=== PATIENT | female | born 1960 | race Caucasian/White ===

== ENCOUNTER → 2017-10-29 08:19 | Outpatient (CLI) | payer BC, SELFPAY ==
--- NOTE | 2017-10-29 08:22 | MM_ITS ---
MM Dig screening mamm BI w/CAD CAD Screening COMPARISON: Digital mammograms 10/11/2015 and 10/27/2016 INDICATION: There is no personal or family history of breast cancer TECHNIQUE: Standard CC and MLO images were obtained. R2 CAD reviewed. FINDINGS: Mild scattered fiber glandular densities are seen throughout both breasts. There is no suspicious lesion in either breast and no suspicious microcalcifications. Several small nodes in both axilla as noted previously. IMPRESSION: Fibrofatty parenchyma no suspicious lesion seen BI-RADS Category: 1 Negative RECOMMENDED FOLLOW-UP: 1YR - 1 YEAR FOLLOW-UP (A letter has been sent to the patient regarding results of the study.)
== END ==
PROVIDERS: Family Provider Internal Medicine; PCP Internal Medicine; Visit Provider Obstetrics & Gynecology
DX: Z12.31 Encounter for screening mammogram for malignant neoplasm of breast (principal)
CPT/HCPCS: 77067

== ENCOUNTER → 2018-05-06 13:15 | Outpatient (POV) | payer BC, SELFPAY | PROVIDERS: Family Provider Internal Medicine; PCP Internal Medicine; Visit Provider Dermatology | DX: Z00.00 Encounter for general adult medical examination without abnormal findings (principal) ==

== ENCOUNTER → 2018-07-30 09:18 | Outpatient (CLI) | payer BC, SELFPAY ==
--- NOTE | 2018-07-30 09:20 | MM_ITS ---
MM Dig screening mamm BI w/CAD ORDERING PHYSICIAN : Tadeo Chavez MD PATIENT AGE: 58 years GENDER: Female COMPARISON: October 2015, 2016July 2014 INDICATION: ITS.REASON: screening patient takes Premarin. No hormones no new complaints noncontributory family history TECHNIQUE: Standard CC and MLO images were obtained. R2 CAD reviewed. FINDINGS: Lower density breast. Overall Generalized fatty replacement with Minimal residual fibroglandular elements. No dominant mass nor suspicious calculations breast. RIGHT BREAST:No new areas of concern Area of relative density superior right breast appear similar to previous studies. Stable LEFT BREAST:No significant new findings IMPRESSION: No new areas concern Stable bilateral mammogram. Follow-up in one year recommended. BI-RADS Category: 1 Negative RECOMMENDED FOLLOW-UP: 1YR 1 YEAR FOLLOW-UP (A letter has been sent to the patient regarding results of the study.)
== END ==
PROVIDERS: PCP Internal Medicine; Visit Provider Obstetrics & Gynecology
DX: Z12.31 Encounter for screening mammogram for malignant neoplasm of breast (principal)
CPT/HCPCS: 77067

== ENCOUNTER → 2019-02-15 13:48 | Outpatient (CLI) | payer OTHER, SELFPAY | PROVIDERS: Visit Provider Podiatrist | DX: B35.1 Tinea unguium (principal) | CPT/HCPCS: 87102; 87206; 87220 ==

== ENCOUNTER → 2019-08-19 07:56 | Outpatient (CLI) | payer OTHER, SELFPAY ==
--- NOTE | 2019-08-19 07:56 | MM_ITS ---
PROCEDURE: MM DIG SCREENING MAMM BI W/CAD CLINICAL INDICATION: screening There is no personal or family history of breast cancer. COMPARISON: [facility] DIG MAMM-SCREEN [facility] W/CAD from 10/27/2016 [facility] MM Dig screening mamm BI w/CAD from 10/29/2017 [facility] MM Dig screening mamm BI w/CAD from 07/30/2018 TECHNIQUE: Standard CC and MLO images were obtained. R2 CAD reviewed. FINDINGS: The breasts are composed primarily of fat with minimal scattered fibroglandular densities throughout each breast. There is no suspicious lesion and no suspicious microcalcifications. IMPRESSION: Fibrofatty parenchyma with no suspicious lesions seen BI-RAD Category: 1 Negative FOLLOW-UP: 1YR 1 Year Follow-up (A letter has been sent to the patient regarding results of the study.) Dictated by: Dr. Rubén Aleman MD 08/20/2019 16:[address] Rubén Aleman MD in [place] 08/20/2019 16:12
== END ==
PROVIDERS: PCP Internal Medicine; Visit Provider Obstetrics & Gynecology
DX: Z12.31 Encounter for screening mammogram for malignant neoplasm of breast (principal)
CPT/HCPCS: 77067

== ENCOUNTER → 2019-10-04 08:30 | Outpatient (CLI) | payer OTHER, SELFPAY ==
--- NOTE | 2019-10-04 08:36 | XR_ITS ---
PROCEDURE: XR KNEE LT 4V CLINICAL INDICATION: left knee pain Left anterior knee pain COMPARISON: No exams were available for comparison FINDINGS: No fracture or dislocation. No lytic or blastic change. There is normal mineralization. Moderate osteoarthritic changes involving the medial compartment and patellofemoral joint with mild osteoarthritic change of the lateral compartment. There is a small calcific density along the joint space of the medial compartment which measures 4 mm and could represent a loose body. An irregular calcific density is present in the popliteal region etiology indeterminate measuring approximately 9 mm. Other findings:None. IMPRESSION: 1. Osteoarthritic change with possible loose body in the medial compartment 2. Nonspecific 9 mm calcific density in the patellar area etiology indeterminate could even be vascular Dictated by: Storm Be MD 10/04/2019 19:02 Electronically signed by Storm Be MD in [place] 10/04/2019 19:02
== END ==
PROVIDERS: PCP Internal Medicine; Visit Provider Orthopaedic Surgery
DX: M25.562 Pain in left knee (principal)
CPT/HCPCS: 73564

== ENCOUNTER → 2019-12-05 08:41 | Outpatient (POV) | payer OTHER, SELFPAY ==
[2019-12-05 09:19] VITALS: BP 142/89; PULSE 68; RESP 18; O2SAT 98; BMI 23.3
--- NOTE | 2019-12-05 09:58 | HMH.PMCON ---
Assessment and Plan (1) Knee pain Current visit: Yes Status: Chronic Qualifiers: Chronicity: chronic Laterality: left Qualified Code(s): M25.562 - Pain in left knee; G89.29 - Other chronic pain Category: Medical Code(s): M25.569 - Pain in unspecified knee (2) Osteoarthritis of left knee Current visit: Yes Status: Chronic Qualifiers: Osteoarthritis type: primary Qualified Code(s): M17.12 - Unilateral primary osteoarthritis, left knee Category: Medical Code(s): M17.12 - Unilateral primary osteoarthritis, left knee - Assessment and plan all Dx Assessment and Plan for all problems:: Patient and I had a long discussion in regards to the diagnostic nature of the genicular block. We will move forward with this. Due to the covid-19 outbreak we are not doing any elective procedures at this time. Patient understands this. We will call her with an appointment when we begin to do diagnostic procedures again. Dr. Harry has reviewed this note and agrees with this plan of care. This note was dictated using voice recognition software and may contain errors or omissions HPI - Data of Consult Consult date: 12/05/19 Requesting Physician: Ruth Johnston APRN Primary Care Provider: Venkat Truong - Consult Narrative Reason for consult: Left knee pain History of present illness: Ms. De Luna is a 59 year old female who presents today for consultation regards to her left knee pain. Patient rates her pain today a 1 out of 10. Patient states that increased activity increases her pain will rest decreases her pain. Patient has had multiple intra-articular injections with some relief at the beginning however at this time her last several injections were not as helpful. Patient has been doing physical therapy including dry needling along with stretching and receiving no relief from this. She does take ibuprofen as needed. Patient is here to discuss potential other options. She does need a knee replacement however she would like to hold off on this as long as possible. We did discuss a genicular block. CC: Ruth Johnston APRN [facility] History I have reviewed the patient's past medical history: Yes Medical History: Reports:: Anxiety, Hypertension Denies:: Cancer, Diabetes Mellitus Type 1, Diabetes Mellitus Type 2, MRSA *Have you ever received a pneumonia vaccine?: Yes *Have you received a flu vaccine this season?: Yes Laterality Cases: Left: Arthroscopy Knee Other Surgeries: Yes: Cholecystectomy, Colonoscopy, , Hysterectomy-Total, Other Amputation: No Fractures: No - *Social History Smoking Status: Never smoker Alcohol Intake: never Substance Use Type: denies use *Occupational Status:: other Housing: house Household Members: other *Travel in the last 8 weeks: None - Psychiatric History Pschychiatric History:: Reports:: Anxiety Family Hx:: Unable to obtain Review of Systems - Review of Systems ROS General: no recent weight change, no fever, no sleep disturbances Respiratory: no cough, no shortness of air, no recurring pulmonary infections Cardiovascular/Peripheral Vascular: No chest pain, No palpitations, no edema, no shortness of breath. Gastrointestinal: no new onset incontinence, normal bowel movements reported Genitourinary: no new onset incontinence Musculoskeletal: Left knee pain Psychiatric: normal mood/ affect, Neurological: [denies new onset weakness in extremities], [denies new onset balance issues] Meds Home Medications Medication Instructions Recorded Confirmed Type phentermine 37.5 mg capsule 37.5 mg PO DAILY #30 cap 11/15/19 11/22/19 Rx Ibuprofen [Ibuprofen 400mg 400 mg PO Q4HP PRN 12/05/19 12/05/19 History Tablet] Allergies Allergy/AdvReac Type Severity Reaction Status Date / Time No Known Allergies Allergy Verified 11/22/19 13:52 Objective Vital signs: Pulse Resp BP Pulse Ox 68 18 142/89 H 98 12/05/19 09:19
== END ==
PROVIDERS: PCP Internal Medicine; Visit Provider Clinical Nurse Specialist Family Health
DX: M25.562 Pain in left knee (principal); G89.29 Other chronic pain; M17.12 Unilateral primary osteoarthritis, left knee
CPT/HCPCS: 99202

== ENCOUNTER 2019-12-09 10:41 | Day surgery (SDC) | payer OTHER, SELFPAY ==
[2019-12-09 11:12] VITALS: BP 157/89; PULSE 83; RESP 18; TEMP 36.6; O2SAT 98; BMI 36.3
[2019-12-09 11:44] VITALS: BP 128/89; BP 132/85; PULSE 86; PULSE 92; RESP 18; O2SAT 99
--- NOTE | 2019-12-09 11:49 | HMH.PMPROC ---
- Procedure Date: 12/09/19 Time: 11:49 Anesthesiologist:: Julio Harry MD Complications:: None Pre-procedure Diagnosis:: Degenerative arthritis left knee Post-procedure Diagnosis:: Same Indications for Procedure:: This patient is a pleasant 59-year-old white female who has chronic degenerative osteoarthritis of her left knee. She is planning on getting a knee replacement in the fall. She has had several intra-articular injections with the last few not helping. We will do a left genicular nerve block to give her some relief of her pain symptoms. Her pain is starting to affect her activities of daily living and functionality. We will do a left knee genicular nerve block today to symptoms and keep her out of the emergency room and keep her off oral opioids. Procedure Details:: Left knee genicular block Informed consent was obtained and the risk and benefits of the procedure was explained to the patient. The patient was taken to the procedure room. The left knee was prepped using ChloraPrep. I placed 22-gauge needles into the area of the left superior medial genicular nerve, left superior lateral genicular nerve and left inferior medial genicular nerve. Needle placement was confirmed in AP and lateral views with dye. We then injected bupivacaine 0.25% 3 mL's and Depo-Medrol 25 mg into each area of the left superior medial genicular nerve, left superior lateral genicular nerve and left inferior medial genicular nerve. Patient tolerated the procedure well with no complications. Plan and Disposition:: We will follow-up with her in 2 weeks. Will reevaluate her symptoms at that time.
[2019-12-09 12:00] VITALS: BP 151/89; PULSE 68; RESP 16; O2SAT 98
== END 2019-12-09 12:00 | disposition home or self-care (01) ==
LOC: SC.PAINP 10:42
PROVIDERS: PCP Internal Medicine; Visit Provider Anesthesiology
DX: M13.862 Other specified arthritis, left knee (principal); Z79.899 Other long term (current) drug therapy
CPT/HCPCS: 64454; J1040; Q9966

== ENCOUNTER → 2019-12-26 08:39 | Outpatient (POV) | payer OTHER, SELFPAY ==
[2019-12-26 08:49] VITALS: BP 127/88; PULSE 93; RESP 18; TEMP 36.6; O2SAT 99; BMI 35.4
--- NOTE | 2019-12-26 09:07 | HMH.PAINSOAP ---
[facility] Pain Management SOAP Note Subjective:: Patient is a pleasant 59-year-old white female who with chronic degenerative osteoarthritis of her left knee following up after a left genicular block. Patient is doing extremely well getting 80% relief of her symptomology. She is much more functional. Patient would like to repeat this and potentially move forward with an ablation. We will set this up for her. ROS General: no recent weight change, no fever, no sleep disturbances Respiratory: no cough, no shortness of air, no recurring pulmonary infections Cardiovascular/Peripheral Vascular: No chest pain, No palpitations, no edema, no shortness of breath. Gastrointestinal: no new onset incontinence, normal bowel movements reported Genitourinary: no new onset incontinence Musculoskeletal: Left knee pain Psychiatric: normal mood/ affect, [denies depression], [denies anxiety] Neurological: [denies new onset weakness in extremities], [denies new onset balance issues] Objective:: Physical Exam General: Alert and oriented x3, no acute distress, pleasant and cooperative, [on room air] Lungs: Resps E/U, Symmetrical chest expansion, Eyes: PERRL Musculoskeletal: Flexion and extension of left knee somewhat guarded secondary to pain, deep tendon reflexes normal, strength in upper and lower extremities [5/5], slightly antalgic gait noted Neurological: speech clear, loan originator equal, no gross sensory deficits Assessment:: Degenerative arthritis left knee, left knee pain Plan:: We will plan a repeat left-sided genicular block given the efficacy of the last one. We will do this at the end of December. We specifically discussed risk factors for Covid-19 including age, heart or lung disease, diabetes, immunosuppression and travel. We also discussed that NSAIDs may worsen Covid-19 infection symptoms and that they should not be used to treat Covid-19 symptoms. Patient was also informed that corticosteroids in any form oral or injectable will decrease immune response and may increase risk of Covid-[address] Harry has reviewed this patient's chart and this note and agrees with plan of care. Patient has been instructed to call the office if they have any issues prior to the next appointment. Dr. Harry has reviewed this note and agrees with this plan of care. This note was dictated using voice recognition software and may contain errors or omissions [facility] History I have reviewed the patient's past medical history: Yes Medical History: Reports:: Anxiety, Arrhythmia, Hypertension Denies:: Cancer, Diabetes Mellitus Type 1, Diabetes Mellitus Type 2, MRSA, Seizures *Have you ever received a pneumonia vaccine?: Yes *Have you received a flu vaccine this season?: Yes Laterality Cases: Left: Arthroscopy Knee Other Surgeries: Yes: Cholecystectomy, Colonoscopy, , Hysterectomy-Total, Other Amputation: No Fractures: No - *Social History Smoking Status: Never smoker Alcohol Intake: never Substance Use Type: denies use *Occupational Status:: other Housing: house Household Members: other *Travel in the last 8 weeks: None - Psychiatric History Pschychiatric History:: Reports:: Anxiety Family Hx:: Unable to obtain
== END ==
PROVIDERS: PCP Internal Medicine; Visit Provider Clinical Nurse Specialist Family Health
DX: M17.12 Unilateral primary osteoarthritis, left knee (principal)
CPT/HCPCS: 99212

== ENCOUNTER → 2020-04-19 14:59 | Outpatient (CLI) | payer OTHER, SELFPAY ==
--- NOTE | 2020-04-19 14:59 | CA_ITS ---
APPROVED REPORT EXAM: Comprehensive 2D, Doppler, and color-flow Echocardiogram [place] [employer]er: Cayla Steinberg RDCS Ht: 5 ft 3 in Wt: 191lbs BSA: 1.90 BP: 173/94 mmHg Indications: HTN PRE-OP 2D Dimensions LVOT 1.95 cm (M/F) 1.5-2.5 M-Mode Dimensions RVDd 3.32 cm (0.9-2.6) LVDd 4.38 cm (3.5-5.7) LVDs 3.09 cm (3.5-5.7) IVSd 0.91 cm (0.6-1.1) PWd 0.99 cm (0.6-1.1) EF (Teich) 56.70% FS 29.50% EDV (Teich) 86.80 mL ESV (Teich) 37.60 mL LV Diastology E/A Ratio 1.12 Mitral Valve MV A Velocity 51.00 (40-130 cm/s) Left Ventricle Left atrium is mildly enlarged, left ventricle is normal size, mild concentric left ventricular hypertrophy, visually estimated ejection fraction 55% with no regional wall motion abnormality, grade 1 diastolic dysfunction seen without tissue Doppler evidence of raise left atrial pressure. Right Ventricle Right atrium and right ventricular mildly enlarged with normal contractility. Aortic Valve Aortic valve is thickened and calcified, there is no aortic stenosis, there is mild aortic insufficiency. Mitral Valve Mitral valve is grossly normal, there is mild mitral regurgitation. Tricuspid Valve Tricuspid valve grossly normal, there is mild tricuspid regurgitation, tricuspid regurgitation jet velocity is inadequate for calculation of the right ventricular systolic pressure. Pulmonic Valve Pulmonic valve is poorly visualized. Great Vessels Aortic root is normal size. Pericardium No significant pericardial effusion noted. Conclusion 1. Mild biatrial enlargement, normal left ventricular size, mild concentric left ventricular hypertrophy, visually estimated ejection fraction 55% with no regional wall motion abnormality, grade 1 diastolic dysfunction seen without tissue Doppler evidence of raise left atrial pressure. 2. Mildly enlarged right ventricle with normal contractility. 3. Mild aortic, mild mitral and tricuspid regurgitation. 4. No significant pericardial effusion noted. Electronically signed by : Theron Contreras, 04/19/2020 15:44:05
== END ==
PROVIDERS: PCP Internal Medicine; Visit Provider Internal Medicine Cardiovascular Disease
DX: I10 Essential (primary) hypertension (principal); E66.9 Obesity, unspecified
CPT/HCPCS: 93306

== ENCOUNTER → 2020-07-17 10:16 | Outpatient (CLI) | payer OTHER, SELFPAY | PROVIDERS: PCP Internal Medicine; Visit Provider Internal Medicine | DX: Z20.828 Contact with and (suspected) exposure to other viral communicable diseases (principal); U07.1 COVID-19 | CPT/HCPCS: U0003 ==

== ENCOUNTER 2020-08-02 11:00 | Outpatient (RCR) | payer OTHER, SELFPAY | END 2020-08-02 11:05 | disposition home or self-care (01) | LOC: PT 11:00 | PROVIDERS: PCP Internal Medicine; Visit Provider Orthopaedic Surgery | DX: Z96.652 Presence of left artificial knee joint; M25.562 Pain in left knee | CPT/HCPCS: 97010; 97014; 97016; 97110; 97140; 97163; 97164; G0283 ==

== ENCOUNTER → 2020-10-25 07:40 | Outpatient (CLI) | payer OTHER, SELFPAY ==
[2020-10-25 08:08] LABS: Basophils % 0.7 % (0.1-2.0); Eosinophils # 0.1 K/mm3 (0.0-0.4); Eosinophils % 2.3 % (0.1-12.0); Hemoglobin 14.1 g/dL (12.2-16.2); Lymphocytes # 1.6 K/mm3 (0.7-4.5); Mean Corpuscular HGB Conc 31.3 g/dL (31.8-35.4); Mean Corpuscular Hemoglobin 29.1 pg (27.0-31.2); Mean Platelet Volume 8.2 fl (7.4-10.4); Monocytes # 0.3 K/mm3 (0.1-1.0); Monocytes % 4.3 % (1.7-9.3); Neutrophils % 65.7 % (37.0-80.0); Platelet Count 267 K/mm3 (142-424); Red Blood Count 4.84 M/mm3 (4.20-5.40); Red Cell Distribution Width 14.5 % (11.5-17.5); White Blood Count 6.1 K/mm3 (4.8-10.8)
[2020-10-25 08:29] LABS: Chloride 105 mmol/L (98-107)
[2020-10-25 08:30] LABS: Potassium 4.4 mmoL/L (3.5-5.1); Sodium 141 mmol/L (136-145)
[2020-10-25 08:32] LABS: Alanine Aminotransferase 23 U/L (12-78); Albumin Level 4.2 g/dl (3.5-5.0); Alkaline Phosphatase 103 U/L (38-126); Aspartate Amino Transferase 25 U/L (14-36); Bilirubin,Total 0.7 mg/dl (0.2-1.3); Blood Urea Nitrogen 20 mg/dl (7-17); Estimated Glomerular Filt Rate 73 ml/min (>60); GFR (African American) 89 ML/MIN (>60); Globulin 3.3 g/dL (1.3-3.2); Total Protein,Serum 7.5 g/dl (6.3-8.2)
[2020-10-25 08:33] LABS: Albumin/Globulin Ratio 1.3 (1.1-1.8); Anion Gap 8.4 mEq/L (5-15); Calcium 9.7 mg/dl (8.4-10.2); Carbon Dioxide 32 mmol/L (22.0-30.0); Chol/HDL Ratio 3.4 (1-3.5); Cholesterol 191 mg/dl (140-200); Glucose 106 mg/dl (74-100); HDL Cholesterol 56 mg/dl (40-60); Triglycerides 83 mg/dl (30-150); VLDL Cholesterol 17 mg/dL (0-40)
[2020-10-25 08:44] LABS: Direct LDL Cholesterol 93.26 mg/dL (100-129)
== END ==
PROVIDERS: Visit Provider Nurse Practitioner Obstetrics & Gynecology
DX: Z01.419 Encounter for gynecological examination (general) (routine) without abnormal findings (principal)
CPT/HCPCS: 36415; 80053; 80061; 85025

== ENCOUNTER → 2020-12-05 14:43 | Outpatient (CLI) | payer OTHER, SELFPAY | PROVIDERS: PCP Internal Medicine; Visit Provider Internal Medicine Cardiovascular Disease | DX: G47.33 Obstructive sleep apnea (adult) (pediatric) (principal) | CPT/HCPCS: 95806 ==

== ENCOUNTER → 2021-01-21 09:20 | Outpatient (CLI) | payer OTHER, SELFPAY ==
--- NOTE | 2021-01-21 09:20 | MM_ITS ---
PROCEDURE INFORMATION: Exam: MG Screening 3D Mammography Exam date and time: 01/21/2021 9:20 AM Age: 60 years old Clinical indication: screening mammogram TECHNIQUE: Imaging protocol: Screening tomosynthesis and 2D mammography including computer-aided detection (CAD) when performed. COMPARISON: 1. MG MM DIG SCREENING MAMM BI W/CAD 08/19/2019 8:13 AM 2. MG [facility] MM Dig screening mamm BI w/CAD 07/30/2018 9:24 AM 3. MG [facility] MM Dig screening mamm BI w/CAD 10/29/2017 8:37 AM 4. MG [facility] DIG MAMM-SCREEN [facility] W/CAD 10/27/2016 8:42 AM FINDINGS: MAMMOGRAPHY: Breast composition: There are scattered areas of fibroglandular density. Mass: None. Architectural distortion: No new or suspicious architectural distortion. Calcifications: No new or suspicious calcifications are present Asymmetric density: No new or suspicious asymmetric density is present Skin thickening: None. Axillary adenopathy: None. IMPRESSION: No mammographic evidence of malignancy. Recommend annual screening mammography unless otherwise clinically indicated. ASSESSMENT: BI-RADS category 1: Negative
== END ==
PROVIDERS: PCP Internal Medicine; Visit Provider Nurse Practitioner Obstetrics & Gynecology
DX: Z12.31 Encounter for screening mammogram for malignant neoplasm of breast (principal)
CPT/HCPCS: 77063; 77067

== ENCOUNTER → 2021-02-13 07:22 | Outpatient (CLI) | payer OTHER, SELFPAY ==
--- NOTE | 2021-02-13 07:27 | XR_ITS ---
PROCEDURE: XR HAND RT MIN 3V CLINICAL INDICATION: right thumb pain COMPARISON: No exams were available for comparison FINDINGS: Tiny avulsion at base of distal phalanx of index finger, likely chronic. Mild diffuse degenerative changes are present. No definite acute fracture or dislocation. Mild degenerative change of the 1st carpometacarpal joint noted. Mild soft tissue swelling is present. IMPRESSION: No definite acute fracture or dislocation. Mild diffuse degenerative change with mild degenerative change of the 1st carpometacarpal joint. Mild soft tissue swelling. Dictated by: Rajat Vyas MD 02/13/2021 09:23 Rajat Vyas MD in [place] 02/13/2021 09:23
== END ==
PROVIDERS: PCP Internal Medicine; Visit Provider Orthopaedic Surgery
DX: M79.644 Pain in right finger(s) (principal)
CPT/HCPCS: 73130

== ENCOUNTER → 2021-04-24 10:06 | Outpatient (CLI) | payer OTHER, SELFPAY | PROVIDERS: PCP Internal Medicine; Visit Provider Specialist | DX: G47.33 Obstructive sleep apnea (adult) (pediatric) (principal) | CPT/HCPCS: 94762 ==

== ENCOUNTER → 2021-09-27 15:15 | Outpatient (CLI) | payer OTHER, SELFPAY ==
[2021-09-27 17:23] LABS: NT Pro Brain Natriuretic Pep. 68.1 pg/mL (0-125)
== END ==
PROVIDERS: PCP Internal Medicine; Visit Provider Internal Medicine Cardiovascular Disease
DX: R06.00 Dyspnea, unspecified (principal); I10 Essential (primary) hypertension; E66.9 Obesity, unspecified; Z68.38 Body mass index [BMI] 38.0-38.9, adult
CPT/HCPCS: 36415; 83880

== ENCOUNTER → 2021-10-03 07:43 | Outpatient (CLI) | payer OTHER, SELFPAY ==
--- NOTE | 2021-10-03 07:44 | CA_ITS ---
APPROVED REPORT EXAM: Comprehensive 2D, Doppler, and color-flow Echocardiogram [employer]rain: Nicolasa Zambrano CRT Ht: 5 ft 3 in Wt: 220lbs BSA: 2.01 BP: 144/74 mmHg Indications: Shortness of Breath, MAURA, HTN, Obesity 2D Dimensions LVOT 2.01 cm (M/F) 1.5-2.5 M-Mode Dimensions RVDd 2.78 cm (0.9-2.6) LA Diam 3.26 cm (1.9-4.0) LVDd 4.39 cm (3.5-5.7) Ao Diam 3.89 cm (2.0-3.7) LVDs 2.94 cm (3.5-5.7) IVSd 1.66 cm (0.6-1.1) PWd 0.87 cm (0.6-1.1) EF (Teich) 61.80% FS 33.00% EDV (Teich) 87.20 mL TAPSE 1.21 (<1.7) ESV (Teich) 33.30 mL LV Diastology E Decel Time 190.00 (160-240 msec) E/A Ratio 0.96 MED E' 7.30 (< 7 cm/sec) MED A' 10.60 cm/s E'/MED E' Ratio 11.05 (>14) LAT E' 7.30 (<10 cm/sec) LAT A' 10.80 cm/s E/LAT E' Ratio 11.05 (>14) Aortic Valve AI PHT 456.00 ms AO Peak GR. 6.90 mmHg Mitral Valve MV A Velocity 84.00 (40-130 cm/s) E/A Ratio 0.96 MV Decel. Time 190.00 (160-240 ms) Pulmonary Valve PV Peak Velocity 119.00 (50-150 cm/s) Tricuspid Valve TR P. Velocity 189.00 cm/s RAP Estimate 10.00 mmHg RVSP 24.30 mmHg Left Ventricle Left atrium is mildly enlarged, left ventricle is normal size, mild concentric left ventricular hypertrophy, visually estimated ejection fraction 55% with no regional wall motion abnormality, grade 1 diastolic dysfunction seen without tissue Doppler evidence of raise left atrial pressure. Right Ventricle Right atrium and right ventricle are mildly enlarged with normal contractility. Aortic Valve Aortic valve is minimally thickened and fibrosed, there is no aortic stenosis, there is trace aortic insufficiency. Mitral Valve Mitral valve grossly normal, there is trace mitral regurgitation. Tricuspid Valve Tricuspid valve grossly normal, there is trace tricuspid regurgitation, tricuspid regurgitation jet velocity is inadequate for calculation of the right ventricular systolic pressure. Pulmonic Valve Pulmonic valve is poorly visualized. Great Vessels Aortic root is normal size. Inferior vena cava is normal size with normal inspiratory collapse. Pericardium No significant pericardial effusion noted. Conclusion 1. Normal left ventricular size, preserved left ventricular systolic function, visually estimated ejection fraction 55% with no regional wall motion abnormality, grade 1 diastolic dysfunction seen without tissue Doppler evidence of raise left atrial pressure. 2. Trace aortic, mitral and tricuspid regurgitation. 3. No significant pericardial effusion noted. 4. Inferior vena cava normal size with normal inspiratory collapse. Electronically signed by : Theron Contreras MD 10/03/2021 12:23:41
--- NOTE | 2021-10-03 09:20 | CT_ITS ---
FINAL REPORT TECHNIQUE: Axial CT images were performed from the lung apices through the upper abdomen. Coronal reformats were submitted. This study was performed with techniques to keep radiation doses as low as reasonably achievable (ALARA). Individualized dose reduction techniques using automated exposure control or adjustment of mA and/or kV according to the patient's size were employed. CLINICAL HISTORY: dyspnea x 1 month FINDINGS: There is no axillary adenopathy. There is no hilar or mediastinal mass or adenopathy. Heart size is normal. There is no pericardial or pleural effusion. Limited images of the upper abdomen are unremarkable. On the lung window images there is mild scarring. There are several less than 5 mm pulmonary nodules. There is a 2 mm nodule in the left lower lobe on image 32. IMPRESSION: Several small, nonspecific, pulmonary nodules which are likely benign. If indicated follow-up CT in 12 months. Reviewed, Interpreted and Dictated by Ernie Murrieta III, MD Transcribed by Kinza Sharma Authenticated by Ernie Murrieta III, MD on 10/03/2021 10:16:[address] [facility]
== END ==
PROVIDERS: PCP Internal Medicine; Visit Provider Internal Medicine Cardiovascular Disease
DX: R06.00 Dyspnea, unspecified (principal); I10 Essential (primary) hypertension; E66.9 Obesity, unspecified; Z68.38 Body mass index [BMI] 38.0-38.9, adult
CPT/HCPCS: 71250; 93306; 94762

== ENCOUNTER → 2021-10-24 09:47 | Outpatient (CLI) | payer OTHER, SELFPAY | PROVIDERS: PCP Internal Medicine; Visit Provider Internal Medicine Pulmonary Disease | DX: R06.00 Dyspnea, unspecified (principal) | CPT/HCPCS: 94060; 94618; 94726; 94729 ==

== ENCOUNTER 2021-12-08 20:11 | Emergency (ER) | payer OTHER, SELFPAY ==
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
[2021-12-08 22:04] VITALS: BP 156/95; PULSE 81; RESP 16; TEMP 36.6; O2SAT 98; BMI 37.2
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
[2021-12-08 22:33] VITALS: BP 156/95; PULSE 81; RESP 16; TEMP 36.6
== END 2021-12-08 22:33 | disposition home or self-care (01) ==
LOC: ER 20:28 → UTC 20:44
PROVIDERS: Emergency Provider Nurse Practitioner Family; PCP Internal Medicine
DX: S87.81XA Crushing injury of right lower leg, initial encounter (principal); I10 Essential (primary) hypertension; I49.9 Cardiac arrhythmia, unspecified; R91.1 Solitary pulmonary nodule; G47.33 Obstructive sleep apnea (adult) (pediatric); F32.A Depression, unspecified; F41.9 Anxiety disorder, unspecified; Z88.8 Allergy status to other drugs, medicaments and biological substances; Z82.49 Family history of ischemic heart disease and other diseases of the circulatory system; V09.9XXA Pedestrian injured in unspecified transport accident, initial encounter
CPT/HCPCS: 73590; 99213; G0463

== ENCOUNTER → 2022-04-29 08:07 | Outpatient (POV) | payer OTHER, SELFPAY | PROVIDERS: Visit Provider Dermatology | DX: Z00.00 Encounter for general adult medical examination without abnormal findings (principal) ==

== ENCOUNTER 2022-09-17 09:25 | Outpatient (RCR) | payer OTHER, SELFPAY | END 2022-09-17 10:30 | disposition home or self-care (01) | LOC: PT 09:25 | PROVIDERS: Visit Provider Podiatrist | DX: M72.2 Plantar fascial fibromatosis (principal) | CPT/HCPCS: 97760 ==

== ENCOUNTER → 2023-02-17 07:38 | Outpatient (CLI) | payer OTHER, SELFPAY ==
--- NOTE | 2023-02-17 07:41 | XR_ITS ---
FINAL REPORT CLINICAL HISTORY: Rt hand pain COMPARISON: January 2021 FINDINGS: 3 views of the right hand were obtained. There is no acute fracture or dislocation. There are minimal hypertrophic changes at the 2nd distal interphalangeal joint that may be due to early osteoarthritis. There is no soft tissue abnormality. IMPRESSION: No acute process. Reviewed, Interpreted and Dictated by Sabino Evans MD Transcribed by Kenney Betancourt Authenticated and . [facility]
== END ==
PROVIDERS: PCP Internal Medicine; Visit Provider Orthopaedic Surgery
DX: M79.644 Pain in right finger(s) (principal); M79.641 Pain in right hand
CPT/HCPCS: 73130

== ENCOUNTER → 2023-02-26 08:05 | Outpatient (CLI) | payer OTHER, SELFPAY ==
[2023-02-26 08:30] LABS: Basophils # 0.1 K/mm3 (0-0.2); Basophils % 0.4 % (0.1-2.0); Eosinophils # 0.3 K/mm3 (0.0-0.4); Eosinophils % 2.7 % (0.1-12.0); Hematocrit 43.6 % (37.0-47.0); Hemoglobin 13.4 g/dL (12.2-16.2); Lymphocytes # 2.8 K/mm3 (0.7-4.5); Lymphocytes % 27.3 % (10-50); Mean Corpuscular HGB Conc 30.8 g/dL (31.8-35.4); Mean Corpuscular Hemoglobin 28.8 pg (27.0-31.2); Mean Corpuscular Volume 93.5 fl (81-99); Mean Platelet Volume 9.1 fl (7.4-10.4); Monocytes # 0.4 K/mm3 (0.1-1.0); Monocytes % 3.5 % (1.7-9.3); Neutrophils # 6.8 K/mm3 (1.8-7.8); Neutrophils % 66.1 % (37.0-80.0); Platelet Count 244 K/mm3 (142-424); Red Blood Count 4.67 M/mm3 (4.20-5.40); Red Cell Distribution Width 14.5 % (11.5-17.5); White Blood Count 10.3 K/mm3 (4.8-10.8)
[2023-02-26 08:49] LABS: Alanine Aminotransferase 33 U/L (12-78); Albumin Level 4.1 g/dl (3.5-5.0); Albumin/Globulin Ratio 1.5 (1.1-1.8); Alkaline Phosphatase 115 U/L (38-126); Anion Gap 14.9 mEq/L (5-15); Aspartate Amino Transferase 26 U/L (14-36); Bilirubin,Total 0.8 mg/dl (0.2-1.3); Blood Urea Nitrogen 15 mg/dl (7-17); Calcium 8.9 mg/dl (8.4-10.2); Carbon Dioxide 29 mmol/L (22.0-30.0); Chloride 100 mmol/L (98-107); Chol/HDL Ratio 3.9 (1-3.5); Cholesterol 201 mg/dl (140-200); Estimated Glomerular Filt Rate 72 ml/min (>60); GFR (African American) 88 ML/MIN (>60); Globulin 2.7 g/dL (1.3-3.2); Glucose 104 mg/dl (74-100); HDL Cholesterol 51 mg/dl (40-60); Potassium 4.9 mmoL/L (3.5-5.1); Sodium 139 mmol/L (136-145); Total Protein,Serum 6.8 g/dl (6.3-8.2); Triglycerides 107 mg/dl (30-150); VLDL Cholesterol 21 mg/dL (0-40)
[2023-02-26 08:54] LABS: Erythrocyte Sedimentation Rate 13 mm/hr (0-30)
[2023-02-26 09:01] LABS: Direct LDL Cholesterol 101.46 mg/dL (100-129)
[2023-02-26 09:19] LABS: Thyroid Stimulating Hormone 1.85 uIU/mL (0.465-4.68)
== END ==
PROVIDERS: PCP Internal Medicine; Visit Provider Internal Medicine
DX: I10 Essential (primary) hypertension (principal); E78.5 Hyperlipidemia, unspecified; R53.83 Other fatigue; E66.01 Morbid (severe) obesity due to excess calories; Z68.38 Body mass index [BMI] 38.0-38.9, adult
CPT/HCPCS: 36415; 80053; 80061; 84443; 85025; 85651

== ENCOUNTER → 2023-04-28 07:43 | Outpatient (CLI) | payer OTHER, SELFPAY ==
--- NOTE | 2023-04-28 07:46 | XR_ITS ---
FINAL REPORT CLINICAL HISTORY: right elobow pain, pain when writing FINDINGS: RIGHT ELBOW 3 views were obtained. There is no acute fracture or dislocation. There is no joint effusion. The joint spaces are intact. There is no soft tissue abnormality. IMPRESSION: No acute process. Reviewed, Interpreted and Dictated by Sabino Evans MD Transcribed by Kenney Betancourt Authenticated and [facility]
== END ==
PROVIDERS: PCP Internal Medicine; Visit Provider Orthopaedic Surgery
DX: M25.521 Pain in right elbow (principal)
CPT/HCPCS: 73080

== ENCOUNTER → 2023-08-14 07:18 | Outpatient (CLI) | payer OTHER, SELFPAY ==
--- NOTE | 2023-08-14 07:18 | CT_ITS ---
FINAL REPORT TECHNIQUE: Axial images were obtained through the chest without contrast. CLINICAL HISTORY: Lung nodules COMPARISON: 10/03/2021 FINDINGS: There are multiple small bilateral axillary lymph nodes present measuring up to 10 mm in size. Calcified left hilar lymph nodes are present as well. There are several scattered less than 5 mm in size nodules identified. The left upper lobe nodule seen on the prior exam measuring 2 mm in size is stable and is best seen on image 34 of series 2. There is a slightly irregular linear appearing density in the medial right lung base, which is new since the prior CT examination and may represent a focus of atelectasis or scarring. This is best seen on axial image #67 of series 2. The heart size is normal. There is no pericardial or pleural effusion. Limited images of the upper abdomen are unremarkable. IMPRESSION: Multiple small bilateral axillary lymph nodes measuring up to 10 mm, nonspecific. Tiny 2 mm noncalcified nodule in the left lung base posteriorly remained stable when compared to the prior exam of October 2021. There is a new irregular density in the medial right lung base, that may represent atelectasis or scar. Reviewed, Interpreted and Dictated by Sabino Evans MD Transcribed by Amber Casey Authenticated and [facility]
== END ==
PROVIDERS: PCP Internal Medicine; Visit Provider Internal Medicine Pulmonary Disease
DX: R91.8 Other nonspecific abnormal finding of lung field (principal)
CPT/HCPCS: 71250; 94060

== ENCOUNTER 2023-11-10 09:25 | Outpatient (CLI) | payer BC, SELFPAY ==
[2023-11-10 10:05] LABS: Basophils # 0.1 K/mm3 (0-0.2); Basophils % 1.4 % (0.1-2.0); Eosinophils # 0.1 K/mm3 (0.0-0.4); Eosinophils % 1.3 % (0.1-12.0); Hematocrit 41.9 % (37.0-47.0); Hemoglobin 13.2 g/dL (12.2-16.2); Lymphocytes # 1.6 K/mm3 (0.7-4.5); Mean Corpuscular HGB Conc 31.5 g/dL (31.8-35.4); Mean Corpuscular Hemoglobin 30.4 pg (27.0-31.2); Mean Corpuscular Volume 96.6 fl (81-99); Mean Platelet Volume 9.7 fl (7.4-10.4); Monocytes # 0.3 K/mm3 (0.1-1.0); Monocytes % 6.7 % (1.7-9.3); Neutrophils # 2.8 K/mm3 (1.8-7.8); Neutrophils % 57.6 % (37.0-80.0); Platelet Count 173 K/mm3 (142-424); Red Blood Count 4.34 M/mm3 (4.20-5.40); Red Cell Distribution Width 14.7 % (11.5-17.5); White Blood Count 4.9 K/mm3 (4.8-10.8)
[2023-11-10 10:15] LABS: Alanine Aminotransferase 53 U/L (12-78); Albumin Level 3.9 g/dl (3.5-5.0); Alkaline Phosphatase 103 U/L (38-126); Anion Gap 8.9 mEq/L (5-15); Aspartate Amino Transferase 51 U/L (14-36); Blood Urea Nitrogen 16 mg/dl (7-17); Calcium 8.6 mg/dl (8.4-10.2); Carbon Dioxide 29 mmol/L (22.0-30.0); Chloride 105 mmol/L (98-107); Chol/HDL Ratio 3.9 (1-3.5); Cholesterol 175 mg/dl (140-200); Estimated Glomerular Filt Rate 85 ml/min (>60); GFR (African American) 102 ML/MIN (>60); Glucose 106 mg/dl (74-100); HDL Cholesterol 45 mg/dl (40-60); Potassium 3.9 mmoL/L (3.5-5.1); Sodium 139 mmol/L (136-145); Total Protein,Serum 6.5 g/dl (6.3-8.2); Triglycerides 76 mg/dl (30-150); VLDL Cholesterol 15 mg/dL (0-40)
[2023-11-10 10:31] LABS: Troponin I < 0.01 ng/ml (0.00-0.034)
[2023-11-10 10:32] LABS: Direct LDL Cholesterol 91.84 mg/dL (100-129)
[2023-11-10 10:35] LABS: Free T4 (Free Thyroxine) 1.08 ng/dl (0.78-2.19)
[2023-11-10 10:45] LABS: Thyroid Stimulating Hormone 1.56 uIU/mL (0.465-4.68)
[2023-11-10 11:20] LABS: D-Dimer 0.71 ug/mL (0.0-0.5)
[2023-11-11 12:58] LABS: NT Pro Brain Natriuretic Pep. 253 pg/mL (0-125)
== END 2023-11-10 23:59 ==
LOC: LAB 10:58
PROVIDERS: PCP Internal Medicine; Visit Provider Nurse Practitioner Family
DX: I11.9 Hypertensive heart disease without heart failure (principal); R91.8 Other nonspecific abnormal finding of lung field; R06.00 Dyspnea, unspecified; E66.9 Obesity, unspecified; Z68.41 Body mass index [BMI] 40.0-44.9, adult
CPT/HCPCS: 36415; 80048; 80061; 80076; 83735; 83880; 84439; 84443; 84484; 85025; 85378

== ENCOUNTER 2023-11-10 13:56 | Outpatient (CLI) | payer BC, SELFPAY ==
--- NOTE | 2023-11-10 13:59 | CT_ITS ---
FINAL REPORT TECHNIQUE: Postcontrast axial images of the chest were performed in a CTA protocol. This study was performed with techniques to keep radiation doses as low as reasonably achievable, (ALARA). Individualized dose reduction technique using automated exposure control or adjustment of mA and/or kV according to the patient's size were employed. CLINICAL HISTORY: dyspnea/abnl ecg COMPARISON: 08/14/2023 FINDINGS: The heart is normal in size. There are multiple mildly enlarged axillary lymph nodes, similar to prior exam which may be reactive or neoplastic. There is a mildly enlarged portacaval lymph node which is also stable. No pleural or pericardial effusion is identified. The thoracic aorta is normal in caliber with no focal aneurysm or dissection identified. There is no filling defect to suggest pulmonary embolism. There is a calcified granuloma at the left lung base. No lung infiltrate or mass is identified. The images of the upper abdomen are unremarkable. IMPRESSION: No evidence for PE on this exam. Multiple mildly enlarged lymph nodes, stable from prior exam. Findings are nonspecific and may be reactive or neoplastic. Reviewed, Interpreted and Dictated by Ernie Murrieta III, MD Transcribed by Yesi Lutz Authenticated and [facility]
[2023-11-10] MEDS: IOPAMIDOL-370 (76%);100ML BOTTLE 75 ML IV (14:06)
[2023-11-10] MEDS: 0.9 % SODIUM CHLORIDE 50 ML VIAL IV (14:06)
[2023-11-10] MEDS: SODIUM CHLORIDE 0.9% 10ML SYR (RAD ONLY) 10 ML IV (14:06)
== END 2023-11-10 23:59 ==
LOC: RAD 13:56
PROVIDERS: PCP Internal Medicine; Visit Provider Nurse Practitioner Family
DX: R06.00 Dyspnea, unspecified (principal); R91.8 Other nonspecific abnormal finding of lung field; I11.9 Hypertensive heart disease without heart failure; R94.31 Abnormal electrocardiogram [ECG] [EKG]; E66.9 Obesity, unspecified; Z68.41 Body mass index [BMI] 40.0-44.9, adult
CPT/HCPCS: 71275; Q9967

== ENCOUNTER 2023-11-18 11:02 | Outpatient (CLI) | payer BC, SELFPAY ==
[2023-11-18 11:53] LABS: Erythrocyte Sedimentation Rate 22 mm/hr (0-30)
[2023-11-18 12:40] LABS: Creatine Kinase < 20 U/L (30-135)
[2023-11-18 13:43] LABS: Folate > 20.00 ng/mL
[2023-11-18 14:18] LABS: Vitamin B12 891 pg/mL (239-931)
[2023-11-18 14:37] LABS: Hemoglobin A1C 6.3 % (4.0-6.0)
[2023-11-19 11:41] LABS: C-Reactive Protein 25.6 mg/L (0-4)
[2023-11-19 16:18] LABS: Albumin 3.1 g/dL (2.9-4.4); Alpha-1-Globulin 0.3 g/dL (0.0-0.4); Alpha-2-Globulin 0.7 g/dL (0.4-1.0); Gamma Globulin 1.3 g/dL (0.4-1.8); Protein, Total 6.3 g/dL (6.0-8.5)
[2023-11-20 14:59] LABS: RA Latex Turbid. <10.0 IU/mL (<14.0)
[2023-11-20 16:14] LABS: Cytoplasmic (C-ANCA) <1:20 titer (Neg:<1:20); Perinuclear (P-ANCA) <1:20 titer (Neg:<1:20)
[2023-11-21 12:42] LABS: Antinuclear Antibodies, IFA Positive; PDF SCANNED IMAGE
== END 2023-11-18 23:59 ==
LOC: LAB.DROPOF 11:02
PROVIDERS: PCP Internal Medicine; Visit Provider Internal Medicine
DX: G60.9 Hereditary and idiopathic neuropathy, unspecified (principal); M79.10 Myalgia, unspecified site; R59.0 Localized enlarged lymph nodes
CPT/HCPCS: 82550; 82607; 82746; 83036; 83655; 84155; 84165; 85651; 86038; 86140; 86256; 86431

== ENCOUNTER 2023-11-19 13:09 | Outpatient (CLI) | payer BC, SELFPAY ==
--- NOTE | 2023-11-19 13:15 | CT_ITS ---
FINAL REPORT CLINICAL HISTORY: ENLARGED LYMPH NODES COMPARISON: None FINDINGS: CT OF THE ABDOMEN AND PELVIS WITH CONTRAST Axial CT images of the abdomen and pelvis were obtained after the administration of IV contrast. Coronal and sagittal reformatted images were also obtained and reviewed. This study was performed with techniques to keep radiation doses as low as reasonably achievable (ALARA). Individualized dose reduction techniques using automated exposure control or adjustment of mA and/or kV according to the patient's size were employed. Abdomen: The lung bases are clear. The heart is normal in size. The liver has an unremarkable appearance, without evidence of mass or biliary ductal dilatation. The gallbladder has been surgically resected. There is mild extrahepatic biliary ductal dilatation, likely secondary to post cholecystectomy change. The spleen is moderately enlarged, measuring 13.7 cm in the craniocaudal dimension. No adrenal mass is present. The pancreas has an unremarkable appearance. Bilateral small renal stones are present, nonobstructing, measuring less than 3 mm on the right side, and up to 4 mm on the left side. The aorta is normal in caliber. There are multiple b borderline in size retroperitoneal nodes. There is a portacaval node that measures 19 mm in diameter. There are bilateral medial external iliac nodes that measure up to 33 mm on the right, up to 31 mm on the left. There are bilateral somewhat enlarged inguinal nodes as well. No mass or abnormal fluid collection is seen. Pelvis: The appendix is not well-visualized. The urinary bladder is unremarkable. No inflammatory process is seen. There is no evidence of bowel obstruction. There is an infraumbilical hernia present containing fat. IMPRESSION: There is widespread mild adenopathy, associated with moderate splenomegaly, and neoplastic involvement is not excluded. The largest lymph nodes are in the medial external iliac chains as described above. The overall findings are worrisome for possible lymphoma. Reviewed, Interpreted and Dictated by Ernie Murrieta III, MD Transcribed by Amber Casey Authenticated and . [facility]
[2023-11-19] MEDS: SODIUM CHLORIDE 0.9% 10ML SYR (RAD ONLY) 10 ML IV (13:35)
[2023-11-19] MEDS: IOPAMIDOL-370 (76%);100ML BOTTLE 75 ML IV (13:35)
== END 2023-11-19 23:59 ==
PROVIDERS: PCP Internal Medicine; Visit Provider Internal Medicine Medical Oncology
DX: R59.9 Enlarged lymph nodes, unspecified (principal)
CPT/HCPCS: 74177; Q9967

== ENCOUNTER 2023-11-24 10:32 | Outpatient (CLI) | payer BC, SELFPAY ==
[2023-11-24 11:52] LABS: Alanine Aminotransferase 135 U/L (12-78); Albumin Level 3.8 g/dl (3.5-5.0); Alkaline Phosphatase 165 U/L (38-126); Aspartate Amino Transferase 65 U/L (14-36); Bilirubin,Direct 0.3 mg/dl (0.0-0.4); Bilirubin,Indirect 0.4 mg/dL (0.0-0.9); Bilirubin,Total 0.7 mg/dl (0.2-1.3); Bilirubin,Unconjugated 0.4 mg/dL (0.0-1.1); Total Protein,Serum 6.6 g/dl (6.3-8.2)
--- NOTE | 2023-11-24 14:19 | CA_ITS ---
APPROVED REPORT EXAM: Comprehensive 2D, Doppler, and color-flow Echocardiogram Medical Services Assistant: Karla Dickson RVT Ht: 5 ft 3 in Wt: 229lbs BSA: 2.05 BP: 150/79 mmHg Indications: SOA,ABN EKG,HTN,OBESITY TDS-OVERLAYING LUNG LIMITED WINDOWS 2D Dimensions LA Volume 34.80 mL LA Volume Index 16.98 mL/m2 (M/F) 16-34 M-Mode Dimensions RVDd 3.05 cm (0.9-2.6) LA Diam 4.05 cm (1.9-4.0) LVDd 4.69 cm (3.5-5.7) LVDs 3.05 cm (3.5-5.7) IVSd 0.99 cm (0.6-1.1) PWd 0.84 cm (0.6-1.1) EF (Teich) 64.30% FS 35.00% EDV (Teich) 101.90 mL TAPSE 2.91 (<1.7) ESV (Teich) 36.40 mL LV Diastology E Decel Time 150 (160-240 msec) E/A Ratio 2.1 Aortic Valve FELIPE Index 1.03 cm2/m2 AoV Peak Hardeep. 137.0 (50-130 cm/s) AO Peak GR. 7.50 mmHg AO Mean GR. 3.70 (<5 mmHg) AO VTI 29.9 (18-25 cm) FELIPE (VTI) 2.17 (2.5-4.5 cm2) Mitral Valve MV E Max Hardeep. 135.0 (40-130 cm/s) MV A Velocity 65.0 (40-130 cm/s) E/A Ratio 2.09 MV PHT 44.0 ms Pulmonary Valve PV Peak Velocity 73.0 (50-150 cm/s) Left Ventricle The left ventricle is normal size. The left ventricular systolic function is normal. The left ventricular ejection fraction is within the normal range. There is normal left ventricular wall thickness. There is normal LV segmental wall motion. The left ventricular diastolic function is normal. LVEF is 55%. Right Ventricle The right ventricle is normal size. The right ventricular systolic function is normal. Atria The left atrium size is normal. The right atrium size is normal. There is no Doppler evidence of interatrial shunt. Aortic Valve The aortic valve opens well. There is no aortic valvular stenosis. Trace aortic regurgitation. Mitral Valve The mitral valve leaflets are mildly thickened. No evidence of mitral valve stenosis. Mild mitral regurgitation. Tricuspid Valve The tricuspid valve leaflets are thin and pliable. Trace tricuspid regurgitation. There is insufficient TR jet to estimate RVSP. Pulmonic Valve The pulmonary valve is normal in structure. Trace pulmonic regurgitation. Great Vessels The aortic root is normal in size. The ascending aorta is not well-visualized. IVC is normal in size and collapses >50% with inspiration. Pericardium There is no pericardial effusion. Other Information Study Quality: Fair Conclusion Normal biventricular systolic function. Mild MR. Electronically signed by : Marcelina Ferguson MD 11/25/2023 13:03:26
[2023-11-26 12:32] LABS: Free Kappa Lt Chains 81.2; Free Lambda Lt Chains 67.8
== END 2023-11-24 23:59 ==
PROVIDERS: Nurse Practitioner Family; PCP Internal Medicine; Visit Provider Internal Medicine Medical Oncology
DX: R74.8 Abnormal levels of other serum enzymes (principal); R06.00 Dyspnea, unspecified; R91.8 Other nonspecific abnormal finding of lung field; E66.9 Obesity, unspecified; R94.31 Abnormal electrocardiogram [ECG] [EKG]; I10 Essential (primary) hypertension
CPT/HCPCS: 36415; 80076; 83883; 93306

== ENCOUNTER 2023-11-25 06:56 | Outpatient (CLI) | payer BC, SELFPAY ==
--- NOTE | 2023-11-25 07:00 | CT_ITS ---
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 A noncontrast coronary calcium scan was performed. A CT attenuation threshold of 130 Hounsfield units (HU) was used for the detection of calcium in contiguous voxels of 1 sq mm in area to be counted as individual lesions. Bolus tracking in the ascending aorta with a threshold of 180 HU was performed. Immediately afterwards, ECG synchronized cardiac CT was then performed from the cardiac base to apex using retrospective gating with ECG tube current modulation. A total of 85 mL of Isovue 370 mg/mL contrast medium was administered at 5 mL/sec followed by a saline flush using a biphasic injection protocol. A tube voltage of 120 KVp was used. The patient received the following medications prior to the cardiac CT. 50 mg of oral metoprolol 15 mg of oral ivabradine 0.8 mg of sublingual nitroglycerin The average heart rate at the time of acquisition was 54 bpm and regular. Image Reconstruction Transaxial images were reconstructed at 0.67 mm slide thickness. Data was reviewed interactively on an advanced workstation capable of 2 and 3-dimensional displays in all conventional reconstruction formats, including multiplanar reformations, maximum intensity projections, curved multiplanar reformations, and volume rendered reconstructions. When applicable, selected routine images describing the relevant coronary anatomy and pathology were saved and sent to PACS. Complications None Technical Quality Overall image quality was good. Coronary artery opacification was adequate. Total DLP (Dose-Length Product) is 1438.5 mGy-cm. The reported value represents the total of one or more individual components during the CT acquisition of this date and at this time, and as such, the same value may appear in more than one CT report depending on the interpreting/reporting physicians. COMPARISON None FINDINGS CT Coronary Calcium Scoring LMA (Left Main Artery) = 6 LAD (Left Anterior Descending) = 33 LCX (Left Coronary Circumflex) = 0 RCA (Right Coronary Artery) = 0 Total Calcium Score = 39 using the AJ-130 method. The observed calcium score of 39is at 75th percentile for subjects of the same age, sex, and race/ethnicity. The interpretation of the calcium heart score is based on the following continuum*: 0 = no calcified plaque detected (risk of coronary artery disease is very low ??? less than 5%) 1-10 = calcium detected in extremely minimal levels (risk of coronary diseases is still low ??? less than 10%) 11-100 = mild levels of plaque detected with certainty (mild or minimal narrowing of heart arteries is likely) 101-400 = definite,at least moderate levels of plaque detected (relatively high risk of a heart attack within 3-5 years) >401-999 = extensive levels of plaque detected (high risk of heart attack, high levels of vascular disease are present, high likelihood of at least one significant coronary narrowing) *The calcium heart score quantifies the burden of coronary calcification/plaque in the coronary arteries. The calcium heart score is not able to evaluate the presence or burden of non-calcified (i.e. soft) plaque. There is also mild calcification in the descending thoracic aorta. No identifiable calcification in the aortic valve, mitral annulus or mitral valve, pericardium, or myocardium. Coronary CT Angiography The coronary arterial system is right dominant. Quantitative Stenosis Grading: Left Main (LM): The left main originates normally from the left sinus of Valsalva. The LM bifurcates into the left anterior descending artery and left circumflex artery. There is calcified plaque in the distal LM, but with no evidence of luminal stenosis. Left Anterior Descending (LAD) and Diagonal Branches: The LAD gives off 3 diagonal branches. The LAD and its branches are patent with no evidence of atherosclerosis. There is calcified plaque in the proximal LAD, but with no evidence of luminal stenosis. Left Circumflex (LCX) and Obtuse Marginals (OM): The LCX gives off 2 Obtuse Marginal (OM) branches. The LCX and its branches are patent with no evidence of atherosclerosis. Right Coronary Artery (RCA): The RCA originates normally from the right sinus of Valsalva. The RCA gives off a posterior descending artery (PDA) and posterolateral (PL) branches. The RCA and its branches are patent with no evidence of atherosclerosis. Non-Coronary Cardiac Findings: Analysis of the left ventricular (LV) structure and function was performed after 3-D reconstruction of the LV from axial images, with user-corrected automatic contouring for assessment of LV volumes and user-defined reconstruction from oblique planes for measurement of 3-D cardiac structure and function. -The left ventricle systolic function is normal. -There is no left atrial appendage filling defect. Two right pulmonary veins and two left pulmonary veins drain normally into the left atrium. -No pericardial thickening or calcification. -Central and branch pulmonary arteries in the [id number] are unremarkable. -Thoracic aorta within the visualized thoracic aortic-branches in the [id number] is unremarkable. Extracardiac Structures Enlarged lymph nodes are incidentally noted. Correlation with recent CT chest is recommended. IMPRESSION -Presence of coronary calcification with an Agatston score = 39 using the AJ-130 method. -The observed calcium score of 39 is at 75th percentile for subjects of the same age, sex, and race/ethnicity. -Mild calcified plaque in the distal LM and proximal LAD, but no evidence of significant flow-limiting atherosclerosis of the coronary arteries. -CAD-RADS 1. Management recommendations per ACC/AHA guidelines*, as clinically appropriate. *Recommendations: CAD RADS 0: Reassurance. Consider non-atherosclerotic causes of chest pain. CAD RADS 1: Consider non-atherosclerotic causes of chest pain. Consider preventive therapy and risk factor modification. CAD RADS 2: Consider non-atherosclerotic causes of chest pain. Consider preventive therapy and risk factor modification, particularly for patients with nonobstructive plaque in multiple segments. CAD RADS 3: Consider further functional testing. Consider symptom-guided anti-ischemic and preventive pharmacotherapy as well as risk factor modification per published guideline statements. CAD RADS 4A: Consider further functional testing or invasive coronary angiography with revascularization per published guideline statements. Consider symptom-guided anti-ischemic and preventive pharmacotherapy as well as risk factor modification per published guideline statements. CAD RADS 4B: Invasive coronary angiography recommended with revascularization per published guideline statements. Consider symptom-guided anti-ischemic and preventive pharmacotherapy as well as risk factor modification per published guideline statements. CAD RADS 5: Consider invasive angiography and/or viability assessment with revascularization per published guideline statements. Consider symptom-guided anti-ischemic and preventive pharmacotherapy as well as risk factor modification per published guideline statements. CRITICAL RESULT None COMMUNICATION Per this written report The coronary and cardiac findings of this CCTA were reviewed, reported, and signed by Jose Ferguson MD (Manager Local) Conclusion Electronically signed by : Marcelina Ferguson MD 11/25/2023 11:37:28
[2023-11-25 07:23] VITALS: BMI 38.9
[2023-11-25] MEDS: IVABRADINE HCL 7.5MG TABLET *IVABRADINE+METOPROLOL REGIMINE 15 MG PO (07:41)
[2023-11-25] MEDS: METOPROLOL TARTRATE 50MG TABLET *IVABRADINE+METOPROLOL REGIMINE 50 MG PO (07:41)
[2023-11-25 08:06] VITALS: BP 164/91; PULSE 65; RESP 16; O2SAT 94
[2023-11-25] MEDS: NITROGLYCERIN 0.4MG SL TABLET 0.800000000000000044 MG SL (08:06)
[2023-11-25 08:09] VITALS: BP 175/85; PULSE 60; RESP 18; O2SAT 97
[2023-11-25 08:12] VITALS: BP 138/80; PULSE 63
[2023-11-25 08:23] VITALS: BP 137/76; PULSE 61; RESP 18; O2SAT 97
[2023-11-25] MEDS: 0.9 % SODIUM CHLORIDE 50 ML VIAL IV (08:32)
[2023-11-25] MEDS: IOPAMIDOL-370 (76%);100ML BOTTLE 85 ML IV (08:32)
== END 2023-11-25 08:29 | disposition home or self-care (01) ==
PROVIDERS: PCP Internal Medicine; Visit Provider Nurse Practitioner Family
DX: R06.00 Dyspnea, unspecified (principal); R94.31 Abnormal electrocardiogram [ECG] [EKG]; R91.8 Other nonspecific abnormal finding of lung field; E66.9 Obesity, unspecified; Z68.41 Body mass index [BMI] 40.0-44.9, adult; I10 Essential (primary) hypertension
CPT/HCPCS: 75571; 75574; Q9967

== ENCOUNTER 2023-12-11 10:29 | Outpatient (CLI) | payer BC, SELFPAY ==
[2023-12-11 10:55] LABS: Basophils # 0.1 K/mm3 (0-0.2); Basophils % 1.5 % (0.1-2.0); Eosinophils # 0.4 K/mm3 (0.0-0.4); Eosinophils % 4.5 % (0.1-12.0); Hematocrit 38.9 % (37.0-47.0); Hemoglobin 12.3 g/dL (12.2-16.2); Lymphocytes # 2.5 K/mm3 (0.7-4.5); Lymphocytes % 27.4 % (10-50); Mean Corpuscular HGB Conc 31.6 g/dL (31.8-35.4); Mean Corpuscular Hemoglobin 30.1 pg (27.0-31.2); Mean Corpuscular Volume 95.3 fl (81-99); Monocytes # 0.4 K/mm3 (0.1-1.0); Monocytes % 4.7 % (1.7-9.3); Neutrophils # 5.5 K/mm3 (1.8-7.8); Neutrophils % 61.9 % (37.0-80.0); Platelet Count 220 K/mm3 (142-424); Red Blood Count 4.08 M/mm3 (4.20-5.40); Red Cell Distribution Width 15.6 % (11.5-17.5); White Blood Count 8.9 K/mm3 (4.8-10.8)
[2023-12-11 11:50] LABS: Alanine Aminotransferase 29 U/L (12-78); Albumin Level 4.1 g/dl (3.5-5.0); Albumin/Globulin Ratio 1.5 (1.1-1.8); Alkaline Phosphatase 78 U/L (38-126); Anion Gap 11.2 mEq/L (5-15); Aspartate Amino Transferase 35 U/L (14-36); Bilirubin,Total 0.9 mg/dl (0.2-1.3); Blood Urea Nitrogen 17 mg/dl (7-17); Calcium 9.6 mg/dl (8.4-10.2); Carbon Dioxide 28 mmol/L (22.0-30.0); Chloride 105 mmol/L (98-107); Estimated Glomerular Filt Rate 85 ml/min (>60); GFR (African American) 102 ML/MIN (>60); Globulin 2.7 g/dL (1.3-3.2); Glucose 124 mg/dl (74-100); Lactate Dehydrogenase 235 U/L (313-618); Potassium 4.2 mmoL/L (3.5-5.1); Sodium 140 mmol/L (136-145); Total Protein,Serum 6.8 g/dl (6.3-8.2); Uric Acid 5.8 mg/dl (2.5-6.2)
[2023-12-12 13:49] LABS: Hep B Core Ab, Total Negative (Negative)
[2023-12-15 18:05] LABS: Beta-2 Microglobulin 4.3 mg/L (0.6-2.4)
[2023-12-18 08:20] LABS: Hepatitis B Surface Antigen Negative
[2023-12-22 10:06] LABS: Miscellaneous Test SCANNED IMAGE
== END 2023-12-11 23:59 | disposition home or self-care (01) ==
LOC: LAB 10:29
PROVIDERS: PCP Internal Medicine; Visit Provider Internal Medicine Medical Oncology
DX: C83.00 Small cell B-cell lymphoma, unspecified site (principal)
CPT/HCPCS: 36415; 80053; 82232; 83615; 84550; 85025; 86704; 87340

== ENCOUNTER 2024-01-06 08:12 | Outpatient (CLI) | payer BC, SELFPAY ==
[2024-01-06 08:18] VITALS: BMI 39.4
[2024-01-06 08:32] LABS: Basophils # 0.1 K/mm3 (0-0.2); Basophils % 0.8 % (0.1-2.0); Eosinophils # 0.2 K/mm3 (0.0-0.4); Eosinophils % 1.1 % (0.1-12.0); Hemoglobin 12.6 g/dL (12.2-16.2); Lymphocytes # 7.7 K/mm3 (0.7-4.5); Lymphocytes % 56.4 % (10-50); Mean Corpuscular HGB Conc 31.6 g/dL (31.8-35.4); Mean Corpuscular Hemoglobin 29.6 pg (27.0-31.2); Mean Corpuscular Volume 93.7 fl (81-99); Mean Platelet Volume 10.1 fl (7.4-10.4); Monocytes # 0.4 K/mm3 (0.1-1.0); Monocytes % 2.8 % (1.7-9.3); Neutrophils # 5.3 K/mm3 (1.8-7.8); Neutrophils % 38.9 % (37.0-80.0); Platelet Count 199 K/mm3 (142-424); Red Blood Count 4.27 M/mm3 (4.20-5.40); Red Cell Distribution Width 15.5 % (11.5-17.5); White Blood Count 13.7 K/mm3 (4.8-10.8)
[2024-01-06 08:33] LABS: MANUAL DIFFERENTIAL MANUAL DIFFERENTIAL (MANUAL DIFF)
[2024-01-06 08:38] LABS: Alanine Aminotransferase 26 U/L (12-78); Albumin Level 4.2 g/dl (3.5-5.0); Albumin/Globulin Ratio 1.4 (1.1-1.8); Alkaline Phosphatase 91 U/L (38-126); Anion Gap 13.3 mEq/L (5-15); Aspartate Amino Transferase 30 U/L (14-36); Bilirubin,Total 0.7 mg/dl (0.2-1.3); Blood Urea Nitrogen 20 mg/dl (7-17); Calcium 9.6 mg/dl (8.4-10.2); Carbon Dioxide 28 mmol/L (22.0-30.0); Chloride 105 mmol/L (98-107); Creatinine Clearance Estimated 92 mL/min (50-200); Estimated Glomerular Filt Rate 72 ml/min (>60); GFR (African American) 88 ML/MIN (>60); Globulin 3.1 g/dL (1.3-3.2); Glucose 106 mg/dl (74-100); Potassium 4.3 mmoL/L (3.5-5.1); Sodium 142 mmol/L (136-145); Total Protein,Serum 7.3 g/dl (6.3-8.2)
[2024-01-06 09:56] LABS: Lymphocytes % 76 % (10-50); Monocytes % 1 % (2-9); Neutrophils % 23 % (42-76); Total Cells Counted 100
[2024-01-06 09:57] LABS: Platelet Estimate Normal; RBC Morphology Normal
== END 2024-01-06 08:30 | disposition home or self-care (01) ==
LOC: INF 08:13
PROVIDERS: PCP Internal Medicine; Visit Provider Internal Medicine Medical Oncology
DX: R59.1 Generalized enlarged lymph nodes (principal)
CPT/HCPCS: 36415; 80053; 85007; 85025

== ENCOUNTER 2024-01-19 08:37 | Outpatient (CLI) | payer BC, SELFPAY ==
[2024-01-19 08:38] VITALS: BMI 39.1
[2024-01-19 08:48] LABS: Basophils # 0.1 K/mm3 (0-0.2); Basophils % 0.6 % (0.1-2.0); Eosinophils # 0.2 K/mm3 (0.0-0.4); Eosinophils % 1.5 % (0.1-12.0); Hematocrit 40.4 % (37.0-47.0); Hemoglobin 12.8 g/dL (12.2-16.2); Mean Corpuscular HGB Conc 31.6 g/dL (31.8-35.4); Mean Corpuscular Hemoglobin 30.4 pg (27.0-31.2); Mean Corpuscular Volume 95.9 fl (81-99); Mean Platelet Volume 10.6 fl (7.4-10.4); Monocytes # 0.4 K/mm3 (0.1-1.0); Monocytes % 2.6 % (1.7-9.3); Neutrophils # 4.6 K/mm3 (1.8-7.8); Neutrophils % 32.3 % (37.0-80.0); Platelet Count 205 K/mm3 (142-424); Red Blood Count 4.22 M/mm3 (4.20-5.40); Red Cell Distribution Width 15.6 % (11.5-17.5); White Blood Count 14.2 K/mm3 (4.8-10.8)
[2024-01-19 08:51] LABS: MANUAL DIFFERENTIAL MANUAL DIFFERENTIAL (MANUAL DIFF)
[2024-01-19 08:56] LABS: Alanine Aminotransferase 28 U/L (12-78); Albumin Level 4.3 g/dl (3.5-5.0); Albumin/Globulin Ratio 1.4 (1.1-1.8); Alkaline Phosphatase 89 U/L (38-126); Anion Gap 10.1 mEq/L (5-15); Aspartate Amino Transferase 28 U/L (14-36); Bilirubin,Total 0.6 mg/dl (0.2-1.3); Blood Urea Nitrogen 26 mg/dl (7-17); Calcium 9.2 mg/dl (8.4-10.2); Carbon Dioxide 27 mmol/L (22.0-30.0); Chloride 108 mmol/L (98-107); Creatinine Clearance Estimated 91 mL/min (50-200); Estimated Glomerular Filt Rate 72 ml/min (>60); GFR (African American) 88 ML/MIN (>60); Glucose 114 mg/dl (74-100); Potassium 4.1 mmoL/L (3.5-5.1); Sodium 141 mmol/L (136-145); Total Protein,Serum 7.3 g/dl (6.3-8.2)
[2024-01-19 09:21] LABS: Eosinophils % 3 % (0-3); Lymphocytes % 62 % (10-50); Monocytes % 4 % (2-9); Neutrophils % 31 % (42-76); Platelet Estimate Normal; RBC Morphology Normal; Total Cells Counted 100
== END 2024-01-19 08:46 | disposition home or self-care (01) ==
LOC: INF 08:37
PROVIDERS: PCP Internal Medicine; Visit Provider Internal Medicine Medical Oncology
DX: C83.00 Small cell B-cell lymphoma, unspecified site (principal)
CPT/HCPCS: 36415; 80053; 85007; 85025

== ENCOUNTER 2024-01-27 08:05 | Outpatient (CLI) | payer BC, SELFPAY ==
--- NOTE | 2024-01-27 08:11 | MM_ITS ---
PROCEDURE INFORMATION: Exam: MG Bilateral Screening 3D Mammography Exam date and time: 01/27/2024 8:13 AM Age: 63 years old Clinical indication: Screening examination TECHNIQUE: Imaging protocol: Bilateral Screening tomosynthesis and 2D mammography including computer-aided detection (CAD) when performed. COMPARISON: 1. MG MM DIG SCREENING MAMM BI W/CAD 01/21/2021 9:36 AM 2. MG MM DIG SCREENING MAMM BI W/CAD 08/19/2019 8:13 AM FINDINGS: MAMMOGRAPHY: Breast composition: There are scattered areas of fibroglandular density. Mass: None. Architectural distortion: None. Calcifications: No suspicious calcifications. Asymmetric density: None. Skin thickening: None. Axillary adenopathy: None. IMPRESSION: No mammographic evidence of malignancy. Annual screening is recommended unless otherwise clinically indicated. ASSESSMENT: BI-RADS Category 1: Negative
== END 2024-01-27 23:59 | disposition home or self-care (01) ==
LOC: RAD 08:06
PROVIDERS: PCP Internal Medicine; Visit Provider Internal Medicine
DX: Z12.31 Encounter for screening mammogram for malignant neoplasm of breast (principal)
CPT/HCPCS: 77063; 77067

== ENCOUNTER 2024-02-04 07:56 | Outpatient (CLI) | payer BC, SELFPAY ==
[2024-02-04 08:45] VITALS: PULSE 68; PULSE 72
[2024-02-04] MEDS: ALBUTEROL 0.083% 2.5 MG/3 ML NEB IH (08:45)
== END 2024-02-04 23:59 | disposition home or self-care (01) ==
LOC: RT 07:57
PROVIDERS: PCP Internal Medicine; Visit Provider Internal Medicine Pulmonary Disease
DX: R06.09 Other forms of dyspnea (principal); J44.9 Chronic obstructive pulmonary disease, unspecified
CPT/HCPCS: 94060; 94618; 94640; 94726; 94729

== ENCOUNTER 2024-02-09 11:21 | Outpatient (CLI) | payer BC, SELFPAY ==
--- NOTE | 2024-02-09 11:25 | XR_ITS ---
FINAL REPORT CLINICAL HISTORY: hand pain, numbness COMPARISON: None FINDINGS: LEFT HAND: 3 views of the left hand were obtained. There is no acute fracture or dislocation. There is mild degenerative change of the radial aspect of the wrist.. Soft tissues are unremarkable. IMPRESSION: Degenerative change without acute bony abnormality. Reviewed, Interpreted and Dictated by Ernie Murrieta III, MD Transcribed by Lindsay Ardon Authenticated and [facility]
--- NOTE | 2024-02-09 11:25 | XR_ITS ---
FINAL REPORT CLINICAL HISTORY: Hand Pain, numbness COMPARISON: None FINDINGS: RIGHT HAND: 3 views of the right hand were obtained. There is no acute fracture or dislocation. There is mild degenerative change at the radial aspect of the wrist. There is a punctate foreign body at the level of the head of the first metacarpal which appears stable. IMPRESSION: Mild degenerative change without acute bony abnormality. Reviewed, Interpreted and Dictated by Ernie Murrieta III, MD Transcribed by Lindsay Ardon Authenticated and [facility]
== END 2024-02-09 23:59 | disposition home or self-care (01) ==
PROVIDERS: PCP Internal Medicine; Visit Provider Physician Assistant
DX: M79.641 Pain in right hand (principal); M79.642 Pain in left hand
CPT/HCPCS: 73130

== ENCOUNTER 2024-02-23 11:39 | Outpatient (CLI) | payer BC, SELFPAY ==
[2024-02-23 11:41] VITALS: BMI 38.9
[2024-02-23 11:54] LABS: Basophils # 0.1 K/mm3 (0-0.2); Basophils % 0.7 % (0.1-2.0); Eosinophils # 0.1 K/mm3 (0.0-0.4); Eosinophils % 0.7 % (0.1-12.0); Hemoglobin 12.9 g/dL (12.2-16.2); Lymphocytes # 10.9 K/mm3 (0.7-4.5); Lymphocytes % 63.8 % (10-50); Mean Corpuscular HGB Conc 33.1 g/dL (31.8-35.4); Mean Corpuscular Hemoglobin 30.7 pg (27.0-31.2); Mean Corpuscular Volume 92.9 fl (81-99); Monocytes # 0.4 K/mm3 (0.1-1.0); Monocytes % 2.2 % (1.7-9.3); Neutrophils # 5.6 K/mm3 (1.8-7.8); Neutrophils % 32.7 % (37.0-80.0); Platelet Count 205 K/mm3 (142-424); Red Cell Distribution Width 15.6 % (11.5-17.5)
[2024-02-23 12:01] LABS: MANUAL DIFFERENTIAL MANUAL DIFFERENTIAL (MANUAL DIFF)
[2024-02-23 12:06] LABS: Chloride 109 mmol/L (98-107); Potassium 3.9 mmoL/L (3.5-5.1); Sodium 140 mmol/L (136-145)
[2024-02-23 12:09] LABS: Alanine Aminotransferase 25 U/L (12-78); Albumin/Globulin Ratio 1.4 (1.1-1.8); Alkaline Phosphatase 86 U/L (38-126); Anion Gap 9.9 mEq/L (5-15); Aspartate Amino Transferase 29 U/L (14-36); Bilirubin,Total 0.6 mg/dl (0.2-1.3); Blood Urea Nitrogen 18 mg/dl (7-17); Calcium 9.5 mg/dl (8.4-10.2); Carbon Dioxide 25 mmol/L (22.0-30.0); Creatinine Clearance Estimated 90 mL/min (50-200); Estimated Glomerular Filt Rate 72 ml/min (>60); GFR (African American) 87 ML/MIN (>60); Globulin 2.9 g/dL (1.3-3.2); Glucose 102 mg/dl (74-100); Total Protein,Serum 6.9 g/dl (6.3-8.2)
[2024-02-23 12:46] LABS: Lymphocytes % 77 % (10-50); Monocytes % 3 % (2-9); Neutrophils % 20 % (42-76); Platelet Estimate Normal; RBC Morphology Normal; Total Cells Counted 100
== END 2024-02-23 11:56 | disposition home or self-care (01) ==
LOC: INF 11:39
PROVIDERS: PCP Internal Medicine; Visit Provider Internal Medicine Medical Oncology
DX: C83.08 Small cell B-cell lymphoma, lymph nodes of multiple sites (principal)
CPT/HCPCS: 36415; 80053; 85007; 85025; 85027

== ENCOUNTER 2024-03-15 07:50 | Outpatient (CLI) | payer BC, SELFPAY ==
--- NOTE | 2024-03-15 07:55 | CT_ITS ---
FINAL REPORT TECHNIQUE: Thin section axial images were obtained from the lung bases to the pubic symphysis without IV contrast. Coronal reconstruction images were obtained from the axial data. Exam was performed using dose reduction technique. CLINICAL HISTORY: LYMPHOMA COMPARISON: 11/19/2023 FINDINGS: There is a nonobstructive left renal stone. There is no evidence of renal mass. There is no hydronephrosis. The gallbladder is absent. The liver is homogeneous without focal lesion. The spleen measures 11 cm in craniocaudal dimension, improved from prior exam. The adrenal glands and pancreas are without acute abnormality. There is no evidence of small bowel obstruction. The appendix is normal. GI tract is without acute abnormality. The uterus is absent. There is a fat containing umbilical hernia. There are small retroperitoneal lymph nodes. A left para-aortic lymph node measures 9 mm and previously measured 14 mm. A portacaval lymph node now measures 12 mm, was 19 mm. Bilateral external iliac lymphadenopathy appears improved as well. There is no new lymphadenopathy. There is no free fluid. No acute osseous abnormality is identified. IMPRESSION: Improved splenomegaly and improved abdominopelvic lymphadenopathy. Reviewed, Interpreted and Dictated by Marguerite Nielsen MD Transcribed by Lindsay Ardon Authenticated and . [facility]
--- NOTE | 2024-03-15 07:55 | CT_ITS ---
FINAL REPORT TECHNIQUE: Thin section axial images were obtained from the thoracic inlet through the upper abdomen after intravenous contrast injection. Reconstruction images were obtained from the axial data. Exam was performed using dose reduction technique. CLINICAL HISTORY: lymphoma COMPARISON: 11/19/2023 FINDINGS: There are multiple bilateral axillary lymph nodes which appear stable. There is a 14 mm left axillary lymph node which previously measured 15 mm. Small mediastinal nodes are unchanged. There is no hilar lymphadenopathy. There is no pleural or pericardial effusion. There is evidence of prior granulomatous disease. Tiny right upper lobe nodule measures 3 mm on image 19, unchanged. The lungs are otherwise clear. Limited evaluation of the upper abdomen is without acute abnormality. No acute osseous abnormality. IMPRESSION: Stable axillary mediastinal lymph nodes. No new abnormality. Reviewed, Interpreted and Dictated by Marguerite Nielsen MD Transcribed by Lindsay Ardon Authenticated and [facility]
[2024-03-15] MEDS: SODIUM CHLORIDE 0.9% 10ML SYR (RAD ONLY) 10 ML IV (08:24)
[2024-03-15] MEDS: IOPAMIDOL-370 (76%);100ML BOTTLE 75 ML IV (08:24)
== END 2024-03-15 23:59 | disposition home or self-care (01) ==
LOC: RAD 07:50
PROVIDERS: PCP Internal Medicine; Visit Provider Internal Medicine Medical Oncology
DX: C83.00 Small cell B-cell lymphoma, unspecified site (principal)
CPT/HCPCS: 71260; 74177; Q9967

== ENCOUNTER 2024-03-30 12:58 | Outpatient (CLI) | payer BC, SELFPAY ==
[2024-03-30 13:01] VITALS: BMI 39.4
[2024-03-30 13:23] LABS: Basophils # 0.2 K/mm3 (0-0.2); Eosinophils # 0.2 K/mm3 (0.0-0.4); Eosinophils % 1.2 % (0.1-12.0); Hematocrit 44.6 % (37.0-47.0); Hemoglobin 14.7 g/dL (12.2-16.2); Lymphocytes # 10.5 K/mm3 (0.7-4.5); Lymphocytes % 58.9 % (10-50); Mean Corpuscular HGB Conc 32.9 g/dL (31.8-35.4); Mean Corpuscular Hemoglobin 30.7 pg (27.0-31.2); Mean Corpuscular Volume 93.4 fl (81-99); Mean Platelet Volume 10.3 fl (7.4-10.4); Monocytes # 0.4 K/mm3 (0.1-1.0); Monocytes % 2.4 % (1.7-9.3); Neutrophils # 6.5 K/mm3 (1.8-7.8); Neutrophils % 36.5 % (37.0-80.0); Platelet Count 223 K/mm3 (142-424); Red Blood Count 4.77 M/mm3 (4.20-5.40); Red Cell Distribution Width 15.6 % (11.5-17.5); White Blood Count 17.8 K/mm3 (4.8-10.8)
[2024-03-30 13:26] LABS: MANUAL DIFFERENTIAL MANUAL DIFFERENTIAL (MANUAL DIFF)
[2024-03-30 13:32] LABS: Alanine Aminotransferase 35 U/L (12-78); Albumin Level 4.2 g/dl (3.5-5.0); Albumin/Globulin Ratio 1.2 (1.1-1.8); Alkaline Phosphatase 100 U/L (38-126); Anion Gap 9.1 mEq/L (5-15); Aspartate Amino Transferase 31 U/L (14-36); Bilirubin,Total 0.5 mg/dl (0.2-1.3); Blood Urea Nitrogen 21 mg/dl (7-17); Calcium 9.3 mg/dl (8.4-10.2); Carbon Dioxide 29 mmol/L (22.0-30.0); Chloride 107 mmol/L (98-107); Creatinine Clearance Estimated 91 mL/min (50-200); Estimated Glomerular Filt Rate 63 ml/min (>60); GFR (African American) 76 ML/MIN (>60); Globulin 3.4 g/dL (1.3-3.2); Glucose 94 mg/dl (74-100); Lactate Dehydrogenase 177 U/L (313-618); Potassium 4.1 mmoL/L (3.5-5.1); Sodium 141 mmol/L (136-145); Total Protein,Serum 7.6 g/dl (6.3-8.2)
[2024-03-30 15:11] LABS: Eosinophils % 1 % (0-3); Lymphocytes % 63 % (10-50); Monocytes % 2 % (2-9); Neutrophils % 34 % (42-76); Total Cells Counted 100
[2024-03-30 15:12] LABS: Platelet Estimate Normal; RBC Morphology Normal
== END 2024-03-30 13:22 | disposition home or self-care (01) ==
LOC: INF 12:59
PROVIDERS: PCP Internal Medicine; Visit Provider Internal Medicine Medical Oncology
DX: C83.00 Small cell B-cell lymphoma, unspecified site (principal)
CPT/HCPCS: 36415; 80053; 83615; 85007; 85025; 85027

== ENCOUNTER 2024-05-14 08:01 | Emergency (ER) | payer BC, SELFPAY ==
[2024-05-14 08:05] VITALS: BP 137/71; PULSE 67; RESP 18; TEMP 36.6; O2SAT 99; BMI 39.6
--- NOTE | 2024-05-14 08:22 | ED_ITS ---
Discharge Plan Disposition Patient Disposition: Home, Self-Care Condition: Good Prescriptions Prescriptions: New acyclovir 800 mg tablet 800 mg PO QID 7 Days Qty: 28 0RF prednisone 20 mg tablet 20 mg PO BID Qty: 10 0RF No Action Calquence (acalabrutinib mal) 100 mg tablet 100 mg PO Q12H sertraline 50 mg tablet See Rx Instructions .ROUTE .COMPLEX Qty: 90 1RF Dose Instruction: TAKE ONE TABLET BY MOUTH EVERY DAY Rx Instructions: TAKE ONE TABLET BY MOUTH EVERY DAY losartan 50 MG tablet 50 mg PO DAILY metoprolol succinate 25 mg tablet extended release 24 hr 25 mg PO DAILY Rx Instructions: TAKE ONE TABLET BY MOUTH EVERY DAY Referrals Follow up/Referrals: Venkat Truong MD [Primary Care Provider] - See instructions Activity Restrictions/Add. Instructions Additional Instructions/Restrictions: IF SYMPTOMS WORSEN OR NO IMPROVEMENT RETURN FOLLOW UP WITH PCP Clinical Impressions Clinical Impression: Shingles Instructions Patient Instructions: DI for Shingles, Herpes Zoster Vaccine, Shingles (Herpes Zoster) (Alternative Therapy) Print Language Print Language: Guamanian Discharge ED Provider: Missael ([facility])Alanna [facility] [place] HPI General Stated complaint: rash Mode of Arrival: Ambulatory Source of Information: Patient Limitations: No Limitations Time Seen by Provider: 05/14/24 08:22 Description of Symptoms (Recalled from Triage Doc. by RN): PATIENT REPORTS THAT SHE STARTED HAVING BACK PAIN ON THURSDAY AND YESTERDAY A BLISTER-LIKE RASH APPEARED TO RIGHT CHEST, RIGHT AXIALLA, AND RIGHT UPPER BACK HEENT Symptoms (Recalled from RN notes): No Resp Symptoms (Recalled from RN notes): No Skin Symptoms (Recalled from RN notes): Yes MS Symptoms (Recalled from RN notes): No Functional Status (Recalled from RN notes): WNL History of Present Illness Provider Complaint: 64 YR OLD FEMALE PRESENTS FOR RASH AND BACK PAIN. PT STATES SHE STARTED HAVING BACK PAIN ON THURSDAY AND YESTERDAY A BLISTER-LIKE RASH APPEARED TO RIGHT CHEST, RIGHT AXIALLA, AND RIGHT UPPER BACK Related Data Home Medications ?Medication ?Instructions ?Recorded ?Confirmed losartan 50 mg tablet 50 mg PO DAILY BLOOD PRESSURE 12/09/19 05/14/24 acalabrutinib maleate 100 mg 100 mg PO Q12H 01/14/24 05/14/24 tablet (Calquence (acalabrutinib maleate)) metoprolol succinate 25 mg 25 mg PO DAILY 05/14/24 05/14/24 tablet,extended release 24 hr Previous Rx's ?Medication ?Instructions ?Recorded sertraline 50 mg tablet See Rx Instructions .Route 02/20/24 .COMPLEX #90 tabs acyclovir 800 mg tablet 800 mg PO QID 7 days #28 tabs 05/14/24 prednisone 20 mg tablet 20 mg PO BID #10 tabs 05/14/24 Allergies Allergy/AdvReac Type Severity Reaction Status Date / Time lisinopril AdvReac Intermediate Cough Verified 04/14/24 13:07 Worker's Comp Is this a Worker's Comp case?: No [facility] Disclaimer: The information contained in this section may have been updated after the patient was seen, as this information can be updated by other users. 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 Multiple lung nodules on CT MAURA (obstructive sleep apnea) Pulmonary nodules Dyspnea Surgical History , OTHER SPORTS OFFICIAL) History of wisdom tooth extraction History of knee surgery History of eye surgery History of cholecystectomy History of colonoscopy History of section Family History , OTHER SPORTS OFFICIAL) Heart attack COPD (chronic obstructive pulmonary disease) Cancer Hypertension Social History , OTHER SPORTS OFFICIAL) Smoking Status: Never smoker alcohol intake: never substance use type: denies use current occupational status: employed and other Travel in the last 8 weeks: Inside the [place] household members: other housing: house ROS Obtained: Yes Systems reviewed as appropriate & no additional complaints except as documented Physical Exam General General appearance: alert and in no apparent distress Eye Eye exam: Present normal appearance and PERRL ENT ENT exam: Present normal exam Respiratory Respiratory exam: Present normal lung sounds bilaterally Cardiovascular Cardiovascular exam: Present regular rate and normal rhythm Neurological Exam Neurological exam: Present alert and oriented X3 Skin Skin exam: Present warm and rash Expanded Skin Exam Type of lesion: Present rash Body image: 2 1. BLISTERY RED RASH 2. BLISTERY RED RASH Medical Decision Making Medical Records Medical records reviewed: Yes I reviewed the patient's medical records. Saad Inquiry Pt receiving controlled substance: No Saad was queried for this patient: No Vital Signs: 05/14/24 08:05 Temperature 97.9 F Temperature Source Oral Pulse Rate [Left Brachial] 67 Respiratory Rate 18 Blood Pressure [Left Arm] 137/71 Blood Pressure Mean [Left Arm] 93 Blood Pressure Source [Left Arm] Automatic Cuff Blood Pressure Position [Left Arm] Sitting 02 Sat by Pulse Oximetry 99 Oxygen Delivery Method Room Air
[2024-05-14 08:32] VITALS: BP 137/71; PULSE 67; RESP 18; TEMP 36.6; O2SAT 99
== END 2024-05-14 08:37 | disposition home or self-care (01) ==
PROVIDERS: Emergency Provider Nurse Practitioner Family; PCP Internal Medicine
DX: B02.9 Zoster without complications (principal)
CPT/HCPCS: 99212; 99214; G0463

== ENCOUNTER 2024-05-23 13:43 | Outpatient (CLI) | payer BC, SELFPAY ==
[2024-05-23 14:54] LABS: Albumin Level 4.1 g/dl (3.5-5.0); Chloride 107 mmol/L (98-107); Potassium 3.8 mmoL/L (3.5-5.1); Sodium 138 mmol/L (136-145)
[2024-05-23 14:57] LABS: Alanine Aminotransferase 31 U/L (12-78); Albumin/Globulin Ratio 1.6 (1.1-1.8); Alkaline Phosphatase 99 U/L (38-126); Anion Gap 6.8 mEq/L (5-15); Aspartate Amino Transferase 24 U/L (14-36); Bilirubin,Total 0.6 mg/dl (0.2-1.3); Blood Urea Nitrogen 19 mg/dl (7-17); Calcium 9.3 mg/dl (8.4-10.2); Carbon Dioxide 28 mmol/L (22.0-30.0); Estimated Glomerular Filt Rate 84 ml/min (>60); GFR (African American) 102 ML/MIN (>60); Globulin 2.6 g/dL (1.3-3.2); Glucose 90 mg/dl (74-100); Total Protein,Serum 6.7 g/dl (6.3-8.2)
[2024-05-25 08:35] LABS: HBsAg Screen Negative (Negative); HCV Ab Non Reactive (Non Reactive); Hep A Ab, IGM Negative (Negative); Hep B Core Ab, IgM Negative (Negative)
== END 2024-05-23 23:59 | disposition home or self-care (01) ==
LOC: LAB 13:44
PROVIDERS: PCP Internal Medicine; Visit Provider Nurse Practitioner Family
DX: R74.8 Abnormal levels of other serum enzymes (principal)
CPT/HCPCS: 36415; 80053; 80074

== ENCOUNTER 2024-05-31 08:48 | Outpatient (CLI) | payer BC, SELFPAY ==
--- NOTE | 2024-05-31 08:49 | US_ITS ---
FINAL REPORT CLINICAL HISTORY: elevated LFTs COMPARISON: None FINDINGS: Sonographic images of the right upper quadrant were obtained. The pancreas is partially obscured. There is increased echogenicity consistent with fatty infiltration of the liver. The gallbladder has been surgically resected. There is no evidence of biliary ductal dilatation.The common duct measures 4mm. Limited images of the right kidney are unremarkable. IMPRESSION: Prior cholecystectomy without biliary ductal dilatation. Fatty infiltration of the liver. Reviewed, Interpreted and Dictated by Sabino Evans MD Transcribed by Amber Casey Authenticated and [facility]
== END 2024-05-31 23:59 | disposition home or self-care (01) ==
LOC: RAD 08:49
PROVIDERS: PCP Internal Medicine; Visit Provider Nurse Practitioner Family
DX: R74.8 Abnormal levels of other serum enzymes (principal)
CPT/HCPCS: 76705

== ENCOUNTER 2024-06-14 10:22 | Outpatient (CLI) | payer BC, SELFPAY ==
[2024-06-14 10:38] VITALS: BMI 38.9
[2024-06-14 10:55] LABS: Basophils # 0.1 K/mm3 (0-0.2); Basophils % 0.8 % (0.1-2.0); Eosinophils # 0.2 K/mm3 (0.0-0.4); Eosinophils % 1.7 % (0.1-12.0); Hematocrit 39.9 % (37.0-47.0); Hemoglobin 13.4 g/dL (12.2-16.2); Lymphocytes # 5.4 K/mm3 (0.7-4.5); Lymphocytes % 41.9 % (10-50); Mean Corpuscular HGB Conc 33.6 g/dL (31.8-35.4); Mean Corpuscular Volume 95.1 fl (81-99); Monocytes # 0.4 K/mm3 (0.1-1.0); Monocytes % 3.1 % (1.7-9.3); Neutrophils # 6.7 K/mm3 (1.8-7.8); Neutrophils % 52.5 % (37.0-80.0); Platelet Count 199 K/mm3 (142-424); Red Cell Distribution Width 15.4 % (11.5-17.5); White Blood Count 12.8 K/mm3 (4.8-10.8)
[2024-06-14 11:03] LABS: Alanine Aminotransferase 44 U/L (12-78); Albumin Level 4.1 g/dl (3.5-5.0); Albumin/Globulin Ratio 1.4 (1.1-1.8); Alkaline Phosphatase 95 U/L (38-126); Aspartate Amino Transferase 42 U/L (14-36); Bilirubin,Total 0.6 mg/dl (0.2-1.3); Blood Urea Nitrogen 15 mg/dl (7-17); Calcium 9.1 mg/dl (8.4-10.2); Carbon Dioxide 29 mmol/L (22.0-30.0); Chloride 108 mmol/L (98-107); Creatinine Clearance Estimated 90 mL/min (50-200); Estimated Glomerular Filt Rate 84 ml/min (>60); GFR (African American) 102 ML/MIN (>60); Globulin 2.9 g/dL (1.3-3.2); Glucose 112 mg/dl (74-100); Lactate Dehydrogenase 200 U/L (313-618); Sodium 137 mmol/L (136-145)
--- NOTE | 2024-06-14 14:29 | PC.NURSE ---
1055 Labs obtained per MD order via venipuncture to R AC x1 stick with butterfly needle. Patient tolerated well.
== END 2024-06-14 11:00 | disposition home or self-care (01) ==
LOC: INF 10:23
PROVIDERS: PCP Internal Medicine; Visit Provider Internal Medicine Medical Oncology
DX: C83.00 Small cell B-cell lymphoma, unspecified site (principal)
CPT/HCPCS: 36415; 80053; 83615; 85025

== ENCOUNTER 2024-06-16 11:25 | Outpatient (CLI) | payer BC, SELFPAY ==
--- NOTE | 2024-06-16 11:30 | CT_ITS ---
PROCEDURE INFORMATION: Exam: CT Chest With Contrast; Diagnostic Exam date and time: 06/16/2024 11:43 AM Age: 64 years old Clinical indication: Condition or disease; Other: Lymphoma; Additional info: Lymphoma followup TECHNIQUE: Imaging protocol: Diagnostic computed tomography of the chest with contrast. Radiation optimization: All CT scans at this facility use at least one of these dose optimization techniques: automated exposure control; mA and/or kV adjustment per patient size (includes targeted exams where dose is matched to clinical indication); or iterative reconstruction. Contrast material: ISOVUE; Contrast volume: 75 ml; Contrast route: IV; COMPARISON: CT CHEST W CON 06/16/2024 11:43 AM FINDINGS: Lungs: Subpleural atelectasis or fibrosis is noted in the medial aspect of the right middle lobe and right lower lobe as well as along the anterior aspect of the left lower lobe. Vague nodular interstitial disease is noted along the left lower lobe convexity. There is a 3-4 mm calcified granuloma in the deep posterior left costophrenic sulcus. Pleural spaces: No pleural effusion or pneumothorax. Heart: Unremarkable. No cardiomegaly. No pericardial effusion. Lymph nodes: Calcific left hilar lymphadenopathy is noted. Vasculature: Unremarkable. No aortic aneurysm. Liver: Numerous calcified granulomas are noted in the liver and spleen. Bones/joints: Degenerative changes are noted in the bones. Soft tissues: Unremarkable. IMPRESSION: Granulomatous disease in the chest and upper abdomen. Scattered basilar atelectasis or fibrosis. Small area of subpleural nodular interstitial disease along the left lower lobe convexity.
--- NOTE | 2024-06-16 11:31 | CT_ITS ---
PROCEDURE INFORMATION: Exam: CT Abdomen And Pelvis With Contrast Exam date and time: 06/16/2024 11:43 AM Age: 64 years old Clinical indication: Condition or disease; Other: Lymphoma TECHNIQUE: Imaging protocol: Computed tomography of the abdomen and pelvis with contrast. Radiation optimization: All CT scans at this facility use at least one of these dose optimization techniques: automated exposure control; mA and/or kV adjustment per patient size (includes targeted exams where dose is matched to clinical indication); or iterative reconstruction. Contrast material: ISOVUE; Contrast volume: 75 ml; Contrast route: IV; COMPARISON: CT ABDOMEN PELVIS W CON 06/16/2024 11:43 AM FINDINGS: Lungs: Streaky atelectasis in small granulomas are noted the lung bases. Liver: There are numerous calcified granulomas noted in the liver. Gallbladder and biliary ducts: Surgical clips are noted in the gallbladder fossa compatible with prior cholecystectomy. Pancreas: Normal. No ductal dilation. Spleen: Calcific granulomas are noted in the spleen. Adrenal glands: Normal. No mass. Kidneys and ureters: The kidneys enhance symmetrically and there is no hydronephrosis. At the lower pole of the left kidney there is a 5 mm nonobstructing calculus. A punctate nonobstructing calculus is noted in the posterior right renal midportion. Stomach and bowel: There is no evidence for small bowel obstruction. Stool is intermixed with contrast in the colon. Scattered diverticula are noted. Appendix: No evidence of appendicitis. Intraperitoneal space: Unremarkable. No free air. No significant fluid collection. Vasculature: The abdominal aorta is normal in caliber, mildly tortuous in course. Lymph nodes: Unremarkable. No enlarged lymph nodes. Urinary bladder: The urinary bladder is contracted. Reproductive: Gynecologic structures are not identified. Bones/joints: Degenerative changes are noted in the bones. Soft tissues: There is a small fat containing umbilical hernia. IMPRESSION: No acute intra-abdominal process. Granulomatous disease. Nonobstructing nephrolithiasis. Postsurgical change. Small fat containing umbilical hernia.
[2024-06-16] MEDS: SODIUM CHLORIDE 0.9% 10ML SYR (RAD ONLY) 10 ML IV (12:00)
[2024-06-16] MEDS: BARIUM SULFATE(READI-CAT2);450ML BOTTLE 450 ML PO (12:01)
[2024-06-16] MEDS: IOPAMIDOL-370 (76%);100ML BOTTLE 75 ML IV (12:01)
== END 2024-06-16 23:59 | disposition home or self-care (01) ==
LOC: RAD 11:25
PROVIDERS: PCP Internal Medicine; Visit Provider Internal Medicine Medical Oncology
DX: C83.00 Small cell B-cell lymphoma, unspecified site (principal)
CPT/HCPCS: 71260; 74177; Q9967

== ENCOUNTER 2024-07-21 07:54 | Day surgery (SDC) | payer BC, SELFPAY ==
[2024-07-19 11:43] VITALS: BMI 38.0
[2024-07-21] VITALS (7 sets, daily range): BP systolic 111–139; BP diastolic 63–72; PULSE 62–70; RESP 16–18; TEMP 36.6–37; O2SAT 92–97
[2024-07-21] MEDS: LACTATED RINGERS 1000ML 1,000 ML 25 ML IV (08:31)
--- NOTE | 2024-07-21 08:50 | P.PNANES_ITS ---
[facility] Disclaimer: The information contained in this section may have been updated after the patient was seen, as this information can be updated by other users. 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 Multiple lung nodules on CT MAURA (obstructive sleep apnea) Pulmonary nodules Dyspnea Surgical History History of wisdom tooth extraction History of knee surgery History of eye surgery History of cholecystectomy History of colonoscopy History of section Family History Other COPD (chronic obstructive pulmonary disease) Cancer Heart attack Hypertension Social History Smoking Status: Never smoker alcohol intake: never substance use type: denies use current occupational status: employed and other Travel in the last 8 weeks: None household members: other housing: house caffeine: Yes [facility] Anesthesia Checklist Patient Identification Patient Identification: Arm Band and Verbal (Name & ) Structural Data Admitted From: Home Planned Operative Procedure/s: Colonoscopy Consent for Planned Operative Procedure(s) Verified: Yes Verified Documents: Surgical Consent and History and Physical NPO Status Verified Time NPO: 00:00 Additional verifications Anesthesia Reactions: No Hx Blood Transfusions: No Blood Transfusion Reaction: No Airway Assessment Mallampati Score:: Class II C-Spine Mobility Assessed: Yes TMJ Mobility Assessed: Yes Dentition: Good Dentition Neurological Assessment Level of Consciousness: Awake Hx Seizures: No Numbness or tingling in extremities: Yes Anesthesia Plan Anesthesia Risk discussed: Yes Anesthesia Plan: Verified ASA Class: III Anesthesia Type: MAC
--- NOTE | 2024-07-21 09:04 | EXP.HP ---
History of Present Illness *Admission Date: 07/21/24 *Reason for visit:: Screening *History of present illness: Mrs. De Luna is a 64-year-old female who is here for screening colonoscopy. Her last colonoscopy was 20 years ago. The examination is deemed medically necessary for [default value]. The patient has been seen, interviewed and examined prior to the procedure by both myself and the anesthesia provider. [facility] Disclaimer: The information contained in this section may have been updated after the patient was seen, as this information can be updated by other users. 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 Enlarged lymph nodes Morbid obesity Abnormal electrocardiogram [ECG] [EKG] Chronic [id number] syndrome Multiple lung nodules on CT MAURA (obstructive sleep apnea) Pulmonary nodules Dyspnea Surgical History History of wisdom tooth extraction History of knee surgery History of eye surgery History of cholecystectomy History of colonoscopy History of section Family History Other COPD (chronic obstructive pulmonary disease) Cancer Heart attack Hypertension Social History Smoking Status: Never smoker alcohol intake: never substance use type: denies use current occupational status: employed and other Travel in the last 8 weeks: None household members: other housing: house caffeine: Yes Other Medical History Have you received the Flu Vaccine for this season: No Have you received the Pneumonia Vaccine: No Review of Systems Review of Systems Review of systems (narrative): Negative *Cardiovascular Comments: Negative *Gastrointestinal Comments: Negative *Genitourinary Comments: Negative *Musculoskeletal Comments: Negative *Neurologic Comments: Negative Meds Home Medications and Allergies Home Medications ?Medication ?Instructions ?Recorded ?Confirmed ?Type sertraline 50 mg tablet See Rx Instructions .Route 02/20/24 07/21/24 Rx .COMPLEX #90 tabs albuterol sulfate 90 mcg/actuation 90 mcg inhalation DAILY 05/19/24 07/21/24 History aerosol inhaler semaglutide (weight loss) 0.25 0.25 mg (0.5 mL) SQ WEEKLY #2 mL 05/19/24 07/21/24 Rx mg/0.5 mL subcutaneous pen injector losartan 50 mg tablet See Rx Instructions .Route 05/24/24 07/21/24 Rx .COMPLEX #90 tabs metoprolol succinate 25 mg See Rx Instructions .Route 05/24/24 07/21/24 Rx tablet,extended release 24 hr .COMPLEX #90 tabs acalabrutinib maleate 100 mg 100 mg PO Q12H #60 tabs 06/14/24 07/21/24 Rx tablet (Calquence (acalabrutinib maleate)) budesonide-formoterol HFA 160 2 puff inhalation BID 90 days 06/15/24 07/21/24 Rx mcg-4.5 mcg/actuation aerosol #10.2 grams inhaler (Symbicort) prednisone 20 mg tablet 40 mg (2 x 20 mg) PO DAILY 5 days 06/15/24 07/21/24 Rx #10 tabs New Prescriptions to Start Prescriptions: Allergies Allergy/AdvReac Type Severity Reaction Status Date / Time lisinopril AdvReac Intermediate Cough Verified 07/21/24 08:32 Exam Data for Last 24 hours Vital signs and Labs for Last 24 Hours: Temp Pulse Resp BP Pulse Ox O2 Del Method 97.8 F 64 18 135/63 97 Room Air 07/21/24 08:36 07/21/24 08:36 07/21/24 08:36 07/21/24 08:36 07/21/24 08:36 07/21/24 08:36 I & O for Last 24 hours: Intake & Output 07/18/24 07/19/24 07/20/24 07/21/24 23:59 23:59 23:59 23:59 Weight 215 lb *Routine HEENT Exam Head: Present normocephalic Eye: Present EOMI and PERRL ENT: Present mucous membranes moist *Routine Neck Exam Neck: Present supple *Routine Respiratory Exam Respiratory: Present CTA bilaterally *Routine Cardiovascular Exam Cardiovascular: Present RRR *Routine Abdominal Exam Abdominal: Present soft and normoactive bowel sounds; Absent tenderness *Routine Rectal Exam Rectal:: deferred *Routine Genitalia Exam Genitalia:: deferred *Routine Extremities Exam Extremities: Absent cyanosis, clubbing or edema *Routine Skin Exam Skin: Present warm; Absent rash *Routine Neurological Exam Neurological: Present alert and oriented X3 Assessment and Plan *Assessment and plan (1) Screening for malignant neoplasm of colon: Problem Comment: 64-year-old female last colonoscopy was 20 years ago. She thinks she had a negative Cologuard at some point. No family history of colon cancer but she is not sure if she had a polyp on her last colonoscopy. Schedule colonoscopy Status: Acute Category: Medical Code(s): Z12.11 - Encounter for screening for malignant neoplasm of colon Plan A/P: 1. Screening for colon cancer is the preprocedural diagnosis. The patient will be anesthetized/sedated using MAC sedation. The patient has been seen and examined. Cardiac and lung assessment prior to the examination is stable. Proceed with planned colonoscopy
--- NOTE | 2024-07-21 09:18 | P.PCN_ITS ---
[facility] Procedure Note Date: 07/21/24 Time: 09:32 Procedure Note:: Colonoscopy Procedure Report: Colonoscopy with cold snare polypectomy Endoscopist: Doug Oden II, MD Referring physician: Venkat Truong MD Date of Procedure: July 21, 2024 Equipment: Olympus 190 variable stiffness pediatric colonoscope Sedation: MAC sedation Indication: Mrs. De Luna is a 64-year-old female who is here for screening colonoscopy. Her last colonoscopy was more than 20 years ago. She reports no a bdominal pain, weight loss, change in her bowel habits or family history of colon cancer. She does have occasional spotting of blood from internal hemorrhoids. Procedure: Prior to the procedure, a history and physical exam was performed, and patient's medications and allergies were reviewed. The risks, benefits and alternatives of the sedation and procedure were discussed with the patient. All questions were answered and informed consent was obtained. The patient was brought to the procedure room. Patient identification and proposed procedure were verified by the physician and the nurse. The patient was placed in a left lateral decubitus position and the scope was passed under direct vision. Throughout the procedure, the patient's blood pressure, pulse, and oxygen saturations were monitored continuously. The colonoscopy was accomplished without difficulty. The patient tolerated the procedure well. Findings: On digital rectal examination there was normal rectal tone. There were no external hemorrhoids. The colonoscope was introduced through the anal canal to the rectum and advanced to the cecum. The ileocecal valve and appendiceal orifice were identified. The scope was advanced a short distance into the ileum which appeared grossly normal. The scope was then withdrawn into the colon. There was a single 4 mm polyp in the cecum removed via cold snare polypectomy. The remaining cecum, ascending, transverse, descending, sigmoid and rectum were grossly normal. There were no other mucosal abnormalities identified. Upon retroflexion within the rectum there were grade 1-2 internal hemorrhoids.The preparation was excellent throughout with [place] Preparation Score of 9. The cecal time was 10 minutes. Impression: 1. Diminutive cecal polyp 2. Grade 1-2 internal hemorrhoids Plan: I will follow-up the polyp histology and recommend repeat surveillance colonoscopy again in 7 years if the polyp is adenomatous. I would encourage psyllium bulking fiber supplementation on a maintenance basis.
== END 2024-07-21 10:28 | disposition home or self-care (01) ==
PROVIDERS: PCP Internal Medicine; Visit Provider Internal Medicine Gastroenterology
PROC: (CPT 45385; principal; 2024-07-21 09:30)
DX: K63.5 Polyp of colon (principal); K64.8 Other hemorrhoids; Z12.11 Encounter for screening for malignant neoplasm of colon
CPT/HCPCS: 45385; J7120

== ENCOUNTER 2024-08-02 13:03 | Outpatient (CLI) | payer BC, SELFPAY ==
[2024-08-02 14:08] LABS: Chol/HDL Ratio 4.6 (1-3.5); Cholesterol 208 mg/dl (140-200); HDL Cholesterol 45 mg/dl (40-60); Triglycerides 183 mg/dl (30-150); VLDL Cholesterol 37 mg/dL (0-40)
[2024-08-02 18:46] LABS: Hemoglobin A1C 5.5 % (4.0-6.0)
== END 2024-08-02 23:59 | disposition home or self-care (01) ==
LOC: LAB 13:03
PROVIDERS: PCP Internal Medicine; Visit Provider Internal Medicine
DX: E78.5 Hyperlipidemia, unspecified (principal); R73.02 Impaired glucose tolerance (oral)
CPT/HCPCS: 36415; 80061; 83036

== ENCOUNTER 2024-09-13 09:58 | Outpatient (CLI) | payer BC, SELFPAY ==
[2024-09-13 10:00] VITALS: BMI 40.1
[2024-09-13 10:24] LABS: Albumin Level 4.3 g/dl (3.5-5.0); Chloride 103 mmol/L (98-107); Potassium 4.1 mmoL/L (3.5-5.1); Sodium 135 mmol/L (136-145)
[2024-09-13 10:27] LABS: Alanine Aminotransferase 29 U/L (12-78); Albumin/Globulin Ratio 1.5 (1.1-1.8); Alkaline Phosphatase 88 U/L (38-126); Anion Gap 9.1 mEq/L (5-15); Aspartate Amino Transferase 31 U/L (14-36); Basophils # 0.1 K/mm3 (0-0.2); Basophils % 0.4 % (0.1-2.0); Bilirubin,Total 0.5 mg/dl (0.2-1.3); Blood Urea Nitrogen 18 mg/dl (7-17); Calcium 9.6 mg/dl (8.4-10.2); Carbon Dioxide 27 mmol/L (22.0-30.0); Creatinine Clearance Estimated 92 mL/min (50-200); Eosinophils # 0.2 K/mm3 (0.0-0.4); Eosinophils % 1.5 % (0.1-12.0); Estimated Glomerular Filt Rate 72 ml/min (>60); GFR (African American) 87 ML/MIN (>60); Globulin 2.8 g/dL (1.3-3.2); Glucose 83 mg/dl (74-100); Hematocrit 43.2 % (37.0-47.0); Lymphocytes # 5.9 K/mm3 (0.7-4.5); Lymphocytes % 41.3 % (10-50); Mean Corpuscular HGB Conc 32.4 g/dL (31.8-35.4); Mean Corpuscular Hemoglobin 30.4 pg (27.0-31.2); Mean Corpuscular Volume 93.7 fl (81-99); Mean Platelet Volume 11.7 fl (7.4-10.4); Monocytes # 0.5 K/mm3 (0.1-1.0); Monocytes % 3.5 % (1.7-9.3); Neutrophils # 7.5 K/mm3 (1.8-7.8); Platelet Count 238 K/mm3 (142-424); Red Blood Count 4.61 M/mm3 (4.20-5.40); Red Cell Distribution Width 13.8 % (11.5-17.5); Total Protein,Serum 7.1 g/dl (6.3-8.2); White Blood Count 14.2 K/mm3 (4.8-10.8)
--- NOTE | 2024-09-13 11:40 | PC.NURSE ---
1014 Labs obtained as ordered via venipuncture to R AC with butterfly needle x1 stick. Patient here for labs only/has appointment with Dr. Griggs on 09/14/24. Patient tolerated well
== END 2024-09-13 10:20 | disposition home or self-care (01) ==
LOC: INF 09:59
PROVIDERS: PCP Internal Medicine; Visit Provider Internal Medicine Medical Oncology
DX: C85.90 Non-Hodgkin lymphoma, unspecified, unspecified site (principal)
CPT/HCPCS: 80053; 85025

== ENCOUNTER 2024-12-15 09:32 | Outpatient (CLI) | payer BC, SELFPAY ==
--- NOTE | 2024-12-15 09:39 | PC.NURSE ---
0939-l.hanna harrington collected labs via venipuncture stick and pt to d/c to md russot.
[2024-12-15 09:49] LABS: Basophils # 0.1 K/mm3 (0-0.2); Basophils % 0.6 % (0.1-2.0); Eosinophils # 0.1 K/mm3 (0.0-0.4); Eosinophils % 1.1 % (0.1-12.0); Hematocrit 43.2 % (37.0-47.0); Lymphocytes # 5.1 K/mm3 (0.7-4.5); Lymphocytes % 40.3 % (10-50); Mean Corpuscular HGB Conc 32.4 g/dL (31.8-35.4); Mean Corpuscular Hemoglobin 30.3 pg (27.0-31.2); Mean Corpuscular Volume 93.5 fl (81-99); Monocytes # 0.5 K/mm3 (0.1-1.0); Monocytes % 4.3 % (1.7-9.3); Neutrophils # 6.7 K/mm3 (1.8-7.8); Neutrophils % 53.4 % (37.0-80.0); Nucleated Red Blood Cells # 0 10^3/uL; Nucleated Red Blood Cells % 0 %; Platelet Count 208 K/mm3 (142-424); Red Blood Count 4.62 M/mm3 (4.20-5.40); Red Cell Distribution Width 14.1 % (11.5-17.5); Red Cell Distribution Width-SD 48.4 fL; White Blood Count 12.5 K/mm3 (4.8-10.8)
[2024-12-15 09:56] LABS: Albumin Level 4.3 g/dl (3.5-5.0); Chloride 108 mmol/L (98-107); Potassium 4.2 mmoL/L (3.5-5.1); Sodium 141 mmol/L (136-145)
[2024-12-15 09:58] LABS: Blood Urea Nitrogen 16 mg/dl (7-17); Estimated Glomerular Filt Rate 72 ml/min (>60)
[2024-12-15 09:59] LABS: Alanine Aminotransferase 24 U/L (12-78); Albumin/Globulin Ratio 1.4 (1.1-1.8); Alkaline Phosphatase 97 U/L (38-126); Anion Gap 13.2 mEq/L (5-15); Aspartate Amino Transferase 26 U/L (14-36); Bilirubin,Total 0.8 mg/dl (0.2-1.3); Calcium 9.2 mg/dl (8.4-10.2); Carbon Dioxide 24 mmol/L (22.0-30.0); GFR (African American) 87 ML/MIN (>60); Globulin 3.1 g/dL (1.3-3.2); Glucose 100 mg/dl (74-100); Total Protein,Serum 7.4 g/dl (6.3-8.2)
[2024-12-15 10:32] LABS: Lactate Dehydrogenase 178 U/L (313-618)
== END 2024-12-15 09:45 | disposition home or self-care (01) ==
LOC: INF 09:33
PROVIDERS: PCP Internal Medicine; Visit Provider Internal Medicine Medical Oncology
DX: C85.90 Non-Hodgkin lymphoma, unspecified, unspecified site (principal)
CPT/HCPCS: 36415; 80053; 83615; 85025

== ENCOUNTER 2025-01-31 13:38 | Outpatient (CLI) | payer MEDICARE, SELFPAY | END 2025-01-31 23:59 | disposition home or self-care (01) | LOC: LAB.DROPOF 02-01 10:47 | PROVIDERS: PCP Nurse Practitioner Family; Visit Provider Nurse Practitioner Family | DX: R30.0 Dysuria (principal) | CPT/HCPCS: 87086 ==

== ENCOUNTER 2025-02-08 22:59 | Emergency (ER) | payer MEDICARE, SELFPAY ==
--- NOTE | 2025-02-08 23:22 | ED_ITS ---
Discharge Plan Disposition Patient Disposition: Home, Self-Care Prescriptions Prescriptions: New ondansetron HCl 4 mg tablet 4 mg PO Q8H PRN (Reason: nausea and vomiting) 5 Days Qty: 30 0RF oxycodone 5 mg tablet 5 mg PO Q8H PRN (Reason: pain) Qty: 12 0RF tamsulosin 0.4 mg capsule 0.4 mg PO DAILY Qty: 30 0RF No Action albuterol sulfate 90 mcg/actuation HFA aerosol inhaler 90 mcg inhalation DAILY Patient Comments: INHALE TWO PUFFS BY MOUTH EVERY 6 HOURS NEEDED FOR SHORTNESS OF BREATH OR WHEEZING metoprolol succinate 25 mg tablet extended release 24 hr See Rx Instructions .ROUTE .COMPLEX Qty: 90 3RF Dose Instruction: TAKE ONE TABLET BY MOUTH EVERY DAY Rx Instructions: TAKE ONE TABLET BY MOUTH EVERY DAY losartan 50 mg tablet See Rx Instructions .ROUTE .COMPLEX Qty: 90 1RF Dose Instruction: TAKE ONE TABLET BY MOUTH EVERY DAY Rx Instructions: TAKE ONE TABLET BY MOUTH EVERY DAY budesonide-formoterol 160-4.5 mcg/actuation HFA aerosol inhaler 2 puff inhalation BID 90 Days Qty: 10.2 2RF nitrofurantoin monohyd/m-cryst [Macrobid] 100 mg capsule 100 mg PO Q12H 7 Days Qty: 14 0RF Rx Instructions: must administer with a meal/food sertraline 50 mg tablet See Rx Instructions .ROUTE .COMPLEX Qty: 90 1RF Dose Instruction: TAKE ONE TABLET BY MOUTH EVERY DAY Rx Instructions: TAKE ONE TABLET BY MOUTH EVERY DAY budesonide-formoterol [Symbicort] 80-4.5 mcg/actuation HFA aerosol inhaler See Rx Instructions .ROUTE .COMPLEX Qty: 10.2 2RF Dose Instruction: INHALE TWO PUFFS BY MOUTH TWICE DAILY Rx Instructions: INHALE TWO PUFFS BY MOUTH TWICE DAILY Wegovy 1.7 mg/0.75 mL pen injector See Rx Instructions .ROUTE .COMPLEX Qty: 3 3RF Dose Instruction: INJECT THE CONTENTS OF 1 PEN (1.7 MG / 0.75ML) SUBCUTANEOUSLY ONCE A WEEK Rx Instructions: INJECT THE CONTENTS OF 1 PEN (1.7 MG / 0.75ML) SUBCUTANEOUSLY ONCE A WEEK Calquence (acalabrutinib mal) 100 mg tablet 100 mg PO Q12H Qty: 60 6RF Referrals Follow up/Referrals: Venkat Truong MD [Primary Care Provider, Medical] - See instructions Clinical Impressions Clinical Impression: Calculus of distal left ureter, Hydronephrosis concurrent with and due to calculi of kidney and ureter Instructions Patient Instructions: DI for Acute Abdominal Pain Print Language Print Language: German Discharge ED Provider: Finn Odonnell General Adult HPI General Chief complaint: Abdominal Pain Stated complaint: abdominal pain Time Seen by Provider: 02/08/25 23:22 History of Present Illness HPI narrative: 65-year-old female with history of CLL presents for abdominal pain. She reports it started this evening while she was doing water aerobics and has been worsening. She reports its lower abdominal, bilateral and generalized. She denies history of abdominal surgery. She denies fever at home. She reports nausea with 1 episode of vomiting. She denies any dysuria, urinary urgency or frequency, hematuria Related Data Home Medications ?Medication ?Instructions ?Recorded ?Confirmed albuterol sulfate 90 mcg/actuation 90 mcg inhalation D AILY 05/19/24 01/31/25 aerosol inhaler Previous Rx's ?Medication ?Instructions ?Recorded sertraline 50 mg tablet See Rx Instructions .Route 0 09/09/24 .COMPLEX #90 tabs budesonide-formoterol HFA 160 2 puff inhalation BID 90 days 10/18/24 mcg-4.5 mcg/actuation aerosol #10.2 grams inhaler losartan 50 mg tablet See Rx Instructions .Route 0 10/19/24 .COMPLEX #90 tabs metoprolol succinate 25 mg See Rx Instructions .Route 10/19/24 tablet,extended release 24 hr .COMPLEX #90 tabs budesonide-formoterol HFA 80 See Rx Instructions .Rout e 11/07/24 mcg-4.5 mcg/actuation aerosol .COMPLEX #10.2 grams inhaler (Symbicort) semaglutide (weight loss) 1.7 See Rx Instructions .Rou te 12/28/ mg/0.75 mL subcutaneous pen .COMPLEX #3 mL injector (Wegovy) acalabrutinib maleate 100 mg 100 mg PO Q12H #60 tabs 0 01/17/25 tablet (Calquence (acalabrutinib maleate)) nitrofurantoin 100 mg PO Q12H 7 days #14 ca ps 01/31/25 monohydrate/macrocrystals 100 mg capsule (Macrobid) ondansetron HCl 4 mg tablet 4 mg PO Q8H PRN nausea and 02/09/25 vomiting 5 days #30 tabs oxycodone 5 mg tablet 5 mg PO Q8H PRN pain #12 tab s 02/09/25 tamsulosin 0.4 mg capsule 0.4 mg PO DAILY #30 caps 08/24 Allergies Allergy/AdvReac Type Severity Reaction Status Date / Time lisinopril AdvReac Intermediate Cough Verified 01/31/25 13:22 [facility] Disclaimer: The information contained in this section may have been updated after the patient was seen, as this information can be updated by other users. 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 the last 3 weeks, active follow-up with cardiology, pulmonology, oncology, primary care Surgical History History of wisdom tooth extraction History of knee surgery History of eye surgery History of cholecystectomy History of colonoscopy History of section Family History Other COPD (chronic obstructive pulmonary disease) Cancer Heart attack Hypertension Social History (Updated 01/31/25 @ 13:32 by Darya Her CMA) Smoking Status: Never smoker alcohol intake: current alcohol intake frequency: holidays/special occasions only substance use type: denies use current occupational status: employed and other Travel in the last 8 weeks?: None household members: other housing: house caffeine: Yes Do you have any abdominal pain?: Yes Other Medical History Have you received the Flu Vaccine for this season: No Have you received the Pneumonia Vaccine: No ROS Obtained: Yes All systems reviewed & no additional complaints except as documented Physical Exam General General appearance: alert and in no apparent distress Head Head exam: atraumatic and normocephalic Eye Eye exam: Present normal appearance, PERRL and EOMI ENT ENT exam: Present normal oropharynx and normal external ear exam Neck Neck exam: Present normal inspection and full ROM Chest Chest inspection: Present normal inspection and symmetric chest wall rise; Absent tenderness Respiratory Respiratory exam: Present normal lung sounds bilaterally; Absent respiratory distress Cardiovascular Cardiovascular exam: Present regular rate and normal rhythm Abdominal Exam Abdominal exam: Present soft; Absent distention, tenderness or guarding Extremities Exam Extremities exam: Present normal inspection; Absent edema or joint swelling Back Exam Back exam: Present normal inspection; Absent tenderness Neurological Exam Neurological exam: Present alert and oriented X3; Absent motor sensory deficit Psychiatric Psychiatric exam: Present normal affect and normal mood Skin Skin exam: Present warm, dry and normal color Lymphatic Lymphatic Findings: no adenopathy Medical Decision Making Medical Records Medical records reviewed: Yes I reviewed the patient's medical records. Screening: Per USPSTF and CDC recommendations, given the prevalence of disease in our region, it is our hospital?s policy to screen for HIV and viral Hepatitis for all patients aged 18 and over and those with ongoing risk factors. Saad Inquiry Pt receiving controlled substance: No Saad was queried for this patient: No Vital Signs: 02/08/25 23:23 02/08/25 23:30 02/09/25 00:08 Temperature 98.1 F Temperature Source Tympanic Pulse Rate 77 83 Pulse Rate [Left] 80 Respiratory Rate 18 Blood Pressure 176/82 H 147/77 H Blood Pressure [Left Arm] 176/84 H Blood Pressure Mean 103 Blood Pressure Mean [Left Arm] 114 Blood Pressure Source Blood Pressure Position 02 Sat by Pulse Oximetry 98 99 94 L Oxygen Delivery Method Room Air 02/09/25 01:36 02/09/25 01:45 Temperature 98.1 F Temperature Source Temporal Artery Scan Pulse Rate 85 86 Pulse Rate [Left] Respiratory Rate 14 Blood Pressure 147/68 H 147/78 H Blood Pressure [Left Arm] Blood Pressure Mean 94 Blood Pressure Mean [Left Arm] Blood Pressure Source Automatic Cuff Blood Pressure Position Sitting 02 Sat by Pulse Oximetry 97 Oxygen Delivery Method Room Air Lab Data Lab results reviewed: Yes I reviewed the patient's lab results. Lab Results 02/08/25 23:18: Urine Color Yellow, Urine Appearance Slightly cloudy, Urine pH 6.0, Ur Specific [place] 1.025, Urine Protein Negative, Urine Glucose (UA) Negative, Urine Ketones Trace, Urine Blood Negative, Urine Nitrate Negative, Urine Bilirubin Negative, Urine Urobilinogen 0.2, Ur Leukocyte Esterase Negative, Urine RBC 3-5, Urine WBC 5-10, Ur Squamous Epith Cells 20-50, Urine Bacteria 4+, Urine Mucus 1+ 02/08/25 23:24: WBC 21.0 H*, RBC 4.69, Hgb 14.4, Hct 43.7, MCV 93.2, MCH 30.7, MCHC 33.0, RDW 14.6, Plt Count 231, MPV 12.1 H, Neut % (Auto) 71.3, Lymph % (Auto) 24.3, [place] % (Auto) 3.6, Eos % (Auto) 0.2, Baso % (Auto) 0.2, Neut # (Auto) 15.0 H, Lymph # (Auto) 5.[address], [place] # (Auto) 0.8, Eos # (Auto) 0.0, Baso # (Auto) 0.1, Total Counted 100, Neutrophils % (Manual) 64, Lymphocytes % (Manual) 34, Monocytes % (Manual) 2, Sodium 137, Potassium 3.9, Chloride 106, Carbon Dioxide 27, Anion Gap 7.9, BUN 22 H, Creatinine 1.10 H, Estimated Creat Clear 72, Estimated GFR 50 L, Est GFR ( Amer) 60, Glucose 140 H, Calcium 10.8 H , Total Bilirubin 0.8, AST 32, ALT 19, Alkaline Phosphatase 103, Total Protein 7.7, Albumin 4.6, Globulin 3.1, Albumin/Globulin Ratio 1.5, Lipase 100 02/09/25 00:55: Urine Color Yellow, Urine Appearance Clear, Urine pH 6.5, Ur Specific [place] 1.010, Urine Protein Negative, Urine Glucose (UA) Negative, Urine Ketones Negative, Urine Blood Negative, Urine Nitrate Negative, Urine Bilirubin Negative, Urine Urobilinogen 0.2, Ur Leukocyte Esterase Negative, Urine WBC Occasional, Ur Squamous Epith Cells Occasional, Urine Bacteria Trace 02/08/25 23:24 02/08/25 23:24 Orders (Tests/Meds): ED MEDICATIONS Discontinued Medications Generic Name Dose Route Start Last Admin Trade Name Freq PRN Reason Stop Dose Admin Acetaminophen 1,000 mg 02/08/25 23:26 02/08/25 23:35 Acetaminophen 500mg Tab PO 02/08/25 23:27 1,000 mg ONCE ONE Administration Sodium Chloride 1,000 mls @ 999 mls/hr 02/08/25 23:30 02/08/25 23:35 Sod Chlor 0.9% 1000ml Bag IV 02/09/25 00:30 999 mls/hr .Q1H1M MELISSA Administration Iopamidol 80 ml 02/08/25 23:57 02/08/25 23:58 Iopamidol-370 (76%);100ml Bottle IV 02/08/25 23:58 80 ml ONCE ONE Administration Ketorolac Tromethamine 15 mg 02/08/25 23:26 02/08/25 23:35 Ketorolac 30mg/Ml Vial IV 02/08/25 23:27 15 mg ONCE ONE Administration Morphine Sulfate 4 mg 02/08/25 23:26 02/08/25 23:36 Morphine 4mg/Ml Syringe IV 02/08/25 23:27 4 mg ONCE ONE Administration Ondansetron HCl 4 mg 02/08/25 23:26 02/08/25 23:35 Ondansetron 4mg/2ml Vial IV 02/08/25 23:27 4 mg ONCE ONE Administration Sodium Chloride 50 ml 02/08/25 23:57 02/08/25 23:58 0.9 % Sodium Chloride 50 Ml Vial IV 02/08/25 23:58 50 ml ONCE ONE Administration Sodium Chloride 10 ml 02/08/25 23:57 02/08/25 23:58 Sodium Chloride 0.9% 10ml Syr (Rad Only) IV 02/08/25 23:58 10 ml ONCE ONE Administration ORDERS Category Date Time Status CT angio abdomen pelvis Stat Cat Scan 02/08/25 23:26 Completed CBC w/Auto Diff [Complete Blood Count Auto Diff] Stat Lab 02/08/25 23:24 Completed CMP [Comprehensive Metabolic Panel] Stat Lab 02/08/25 23:24 Completed Lipase Stat Lab 02/08/25 23:24 Completed UA [Urinalysis and Microscopic] Stat Lab 02/09/25 00:55 Completed Urinalysis and Microscopic Stat Lab 02/08/25 23:18 Completed Urine Culture Stat Micro 02/08/25 23:18 Received Medical Decision Narrative: 65-year-old female with history of CLL presents for abdominal pain and nausea, worsening since this evening. History was obtained via interactive discussion with patient. On arrival, patient is [afebrile, hemodynamically stable, satting appropriately, alert, oriented x4, GCS 15], moving all extremities spontaneously. Full physical exam performed and significant for benign abdominal exam Differential includes but is not limited to pancreatitis, gastroenteritis, cholecystitis, appendicitis, renal pathology, mesenteric ischemia. Given pain out of proportion to exam, will evaluate with CTA of the abdomen. Blood work ordered as well.. Patient was given Tylenol, Toradol, morphine, Zofran for symptomatic management and correction of underlying abnormalities. On re-evaluation, patient reports somatic improvement. Laboratory workup independently interpreted by me and significant for leukocytosis with white count of 21, patient has chronic leukocytosis likely secondary to her CLL. Patient has mild elevation in creatinine, 1.1 up from baseline of 0.8. Lipase negative. Initial urine is equivocal, 20-50 squames, poor catch. Repeat urinalysis shows negative nitrate, no RBCs, occasional WBCs occasional squames and trace bacteria. Imaging independently interpreted by me and significant for UVJ stone, 4 x 2.5 with hydronephrosis. See radiology read for full review of final results. Transfer for urologic intervention was considered, but deemed unnecessary due to no evidence of infection, no significant renal dysfunction. Given patient history, exam and workup, patient's presentation most likely represents left UVJ stone. Given size that is likely passed on its own. I had an interactive discussion with patient regarding her presentation. She was given additional dose of oxycodone for pain prior to discharge. She was discharged prescription for oxycodone and Zofran and encouraged to monitor for signs of fever or systemic illness and return if her symptoms are not tolerable at home. She was encouraged to follow-up with our urologist Dr. Ley. Procedures Risk/Benefits of Procedure(s) Were Explained: Yes Critical Care Critical Care Time Critical Care Time: No
[2025-02-08 23:23] VITALS: BP 176/84; PULSE 80; RESP 18; TEMP 36.7; O2SAT 98; BMI 34.9
--- NOTE | 2025-02-08 23:26 | CT_ITS ---
PROCEDURE INFORMATION: Exam: CTA Abdomen and Pelvis With Contrast Exam date and time: 02/08/2025 11:58 PM Age: 65 years old Clinical indication: Abdominal pain; Acute; Additional info: Abd pain out of proportion to exam TECHNIQUE: Imaging protocol: Computed tomographic angiography of the abdomen and pelvis with contrast. Exam focused on the arteries. 3D rendering (Not supervised by radiologist): MIP and/or 3D reconstructed images were created by the technologist. Radiation optimization: All CT scans at this facility use at least one of these dose optimization techniques: automated exposure control; mA and/or kV adjustment per patient size (includes targeted exams where dose is matched to clinical indication); or iterative reconstruction. Contrast material: ISOVUE; Contrast volume: 80 ml; Contrast route: INTRAVENOUS (IV); COMPARISON: CT ABDOMEN PELVIS W CON 06/16/2024 11:43 AM FINDINGS: Esophagus: The esophagus is normal. Aorta: No aortic aneurysm. No aortic dissection. Celiac trunk and mesenteric arteries: No occlusion or significant stenosis. Renal arteries: No occlusion or significant stenosis. Right iliac arteries: No occlusion or significant stenosis. Left iliac arteries: No occlusion or significant stenosis. Other arteries: Visceral arteries are patent. Liver: See Adrenal glands finding. Gallbladder and biliary ducts: There has been a cholecystectomy. Postcholecystectomy prominence of the common bile duct. Pancreas: Pancreas appears normal. Spleen: Spleen is normal Adrenal glands: The adrenal glands appear normal.The liver is normal. Kidneys and ureters: Slightly delayed parenchymal enhancement of the left kidney. Moderate left hydronephrosis and hydroureter. Distal left ureteral calculus at the UV junction measuring 4 x 2.5 mm image 5/158. Stomach and bowel: The stomach is normal. Nonspecific bowel gas pattern. Appendix: No evidence of appendicitis. Intraperitoneal space: Unremarkable. No free air. No significant fluid collection. Lymph nodes: No free air or fluid or adenopathy. Urinary bladder: The bladder is normal. Reproductive: Unremarkable as visualized. Bones/joints: The lumbar spine demonstrates moderate degenerative changes at multiple levels. Soft tissues: Fat filled inguinal hernias. Other findings: No evidence for aneurysm or dissection. IMPRESSION: 1. No evidence for aortic aneurysm or dissection. 2. Visceral arteries are patent. 3. No free air or fluid or adenopathy. 4. Slightly delayed parenchymal enhancement of the left kidney. 5. Moderate left hydronephrosis and hydroureter. 6. Distal left ureteral calculus at the UV junction measuring 4 x 2.5 mm image 5/158. 7. Other (less critical/noncritical/incidental) findings as above; please refer to the body of report for further details.
[2025-02-08 23:30] VITALS: BP 176/82; PULSE 77; O2SAT 99
[2025-02-08] MEDS: 0.9 % SODIUM CHLORIDE 1000ML 1,000 ML 999 ML IV (23:35)
[2025-02-08] MEDS: KETOROLAC 30MG/ML VIAL 15 MG IV (23:35)
[2025-02-08] MEDS: ONDANSETRON 4MG/2ML VIAL 4 MG IV (23:35)
[2025-02-08] MEDS: ACETAMINOPHEN 500MG TAB 1000 MG PO (23:35)
[2025-02-08] MEDS: MORPHINE 4MG/ML SYRINGE 4 MG IV (23:36)
[2025-02-08 23:38] LABS: Microscopic, Urine URINE MICROSCOPIC (MICROSCOPIC)
--- OUTSIDE RECORDS SUMMARY | 2025-02-08 23:38 | XMS_ITS | Encounter Summary ---
Author Organization [employer] Address [address] [place] [address] Care Team Providers Care Sole Leveler Machine Name Role Phone Unavailable Primary Care Provider Unavailabl e Encounter Details Date Type Department Care Team (Late st Contact Info) Description 06/12/2020 Transcribed Document [facility] [address] [place] [address] ProviderZahraa MD Social History Tobacco Use Types Packs/Day Years Used Date Smoking Tobacco: Never Assessed Comments Unknown Sex and Gender Information Value Date Recorded Sex Assigned at Female 02/25/2022 8:44 PM CDT Legal Sex Female 8:44 PM CDT Gender Identity Female 02/25/2022 8:44 PM CDT Sexual Orientation Not on file documented as of this encounter Miscellaneous Notes * Cerner Conversion Note - [facility] Mila Redd MD - 06/12/2020 10:24 AM EDT UM Authorization Entered On: 06/12/2020 9:24 EDT Performed On: 06/12/2020 9:24 EDT by KSENIA WILKINS RN-Utilization Review Primary Insurance Authorization Authorization and Policy Numbers : Insurance 1 Health Plan: R Policy Number: [id number] Authorization Number: NPR Insurance Primary Name : [facility] Policy Number: [id number] Authorized Service Begin Date-Primary : 06/11/2020 EDT Authorization Comments-Primary : no precert required per STAR eduardo Historical Authorization Comments-Primary : No Authorization Comments Found KSENIA WILKINS, RN-Utilization Review - 06/12/2020 9:24 EDT documented in this encounter Plan of Treatment Not on file documented as of this encounter Visit Diagnoses Not on filedocumented in this encounter
--- OUTSIDE RECORDS SUMMARY | 2025-02-08 23:38 | XMS_ITS | Encounter Summary ---
Author Organization [employer] Address [address] [place] [address] Care Team Providers Care Manager Test Name Role Phone Unavailable Primary Care Provider Unavailabl e Encounter Details Date Type Department Care Team (Late st Contact Info) Description 06/11/[address] [facility] [address] [place] [address] Provider, Zahraa Zaragoza MD Social History Tobacco Use Types Packs/Day Years Used Date Smoking Tobacco: Never Assessed Comments Unknown Sex and Gender Information Value Date Recorded Sex Assigned at Female 02/25/2022 8:44 PM CDT Legal Sex Female 8:44 PM CDT Gender Identity Female 02/25/2022 8:44 PM CDT Sexual Orientation Not on file documented as of this encounter Miscellaneous Notes * Cerner Conversion Note - Zahraa Redd MD - 06/11/2020 3:06 PM EDT Final Discharge Planning Entered On: 06/11/2020 14:06 EDT Performed On: 06/11/2020 14:06 EDT by TRUONG VALLEJO RN-Boatswains Mate Final Discharge Planning Discharge Arrangements : Patient Post-Acute Information Patient Name: GILBERT DE LUNA Gender: Female : 60 Age: 60 Years No Post-Acute Placement(s) Listed No Post-Acute Service(s) Listed No [place] Referral(s) Listed Patient Offered Choice/Affiliations Explained : Yes Designation of Choice Signed : Yes Important Medicare Message Reviewed With : Other: Outpatient PT Transportation Needs : Family/Friend Follow Up Appointment Scheduled : Yes Is Patient High/Moderate Readmission Risk? : No Patient/Family Notified of Plan : Yes Support Person/Pt Rep Notified of Plan : Yes Patient/Family Notified : Spouse Is Patient Ready for Discharge? : Yes Physician Notified Patient is Ready for Discharge? : Yes Discharge To Care Management : Home/Residential/Skilled Nursing or Self Care -01 TRUONG VALLEJO RN-Boatswains Mate - 06/11/2020 14:06 EDT Electronically signed by Patricia [facility] Conversion Water Plumber Cerner at 01/21/2023 5:33 PM CDT documented in this encounter Plan of Treatment Not on file documented as of this encounter Visit Diagnoses Not on filedocumented in this encounter
--- OUTSIDE RECORDS SUMMARY | 2025-02-08 23:38 | XMS_ITS | Encounter Summary ---
Author Organization [employer] Address [address] [place] [address] Care Team Providers Care Social Worker Assistant Name Role Phone Unavailable Primary Care Provider Unavailabl e Encounter Details Date Type Department Care Team (Late st Contact Info) Description 06/11/2020 Transcribed Document [facility] 1 [place] [address] Provider, Zahraa Zaragoza MD Social [...] Notes * Cerner Conversion Note - Zahraa Zaragoza ProviderMD - 06/11/2020 12:20 PM EDT Evaluation, Physical Therapy Entered On: 06/11/2020 15:48 EDT Performed On: 06/11/2020 15:38 EDT by JADYN BYRD, PT General Information, PT Visit Type, PT : Initial evaluation Patient Orders : Order Date Order Ordering 06/11/2020 11:20 PT Evaluation and Treatment Ordered By: KAYLEIGH GARNER MD-ORAgustín 06/11/2020 11:20 PT Treatment Instructions Ordered By: KAYLEIGH GARNER MD-ORT 06/11/2020 11:20 PT Treatment Instructions Ordered By: KAYLEIGH GARNER MD-ORT 06/11/2020 11:20 PT Treatment Instructions Ordered By: KAYLEIGH GARNER MD-ORT 06/11/2020 11:20 PT Treatment Instructions Ordered By: KAYLEIGH GARNER MD-ORAgustín 06/11/2020 11:20 PT Treatment Instructions Ordered By: KAYLEIGH GARNER MD-ORT Active Diagnoses : No Qualifying Diagnoses Therapy Diagnosis, PT : Aftercare following L TKA Onset of Problem, PT : 06/11/2020 EDT Admission Date : 06/11/2020 06:57 Co-treated by, PT : Occupational Therapist Personal Devices : Personal Devices Glasses Assistive Devices : Assistive Devices No Devices Recorded JADYN BYRD, PT - 06/11/2020 15:38 EDT General Status Patient Received Status : Up in chair Treatment Start Time : 06/11/2020 13:30 EDT Patient Left Status : Up in chair, RN/PCT informed, Family/Visitors at bedside, Communication board completed, All needs met and within reach, Other: SCD's, ice, bone foam RN/PCT Informed Comment : NIEVES fabian and pt consent Treatment End Time : 06/11/2020 14:05 EDT Treatment Time : 35 Minute(s) JADYN BYRD, PT - 06/11/2020 15:38 EDT History and Environment Living Situation, Therapy : Home Patient Lives With : Spouse Persons Assisting Patient at Home : Spouse Professional Skilled Services : None Persons Providing Information : Patient Home Equipment Therapy, PT : Commode, Walker Commode : Commode, bedside Walker : Walker, front wheel Home Setup : One story Stairs : No JADYN BYRD PT - 06/11/2020 15:38 EDT Prior Level of Function PT GRID Prior LOF Ambulation, Household : Independent Prior LOF Ambulation, Community : Independent Prior LOF Bed Mobility : Independent Prior LOF Toileting : Independent Prior LOF Transfer : Independent JADYN BYRD, PT - 06/11/2020 15:38 EDT Upper Extremity Right UE Active ROM : WFL Right UE Strength : WFL Left UE Active ROM : WFL Left UE Strength : WFL JADYN BYRD, PT - 06/11/2020 15:38 EDT Lower Extremity RLE Active ROM : WFL Right LE Strength : WFL LLE Active ROM : Impaired Left LE Strength : Impaired JADYN BYRD, PT - 06/11/2020 15:38 EDT Left Lower Extremity Range of Motion Knee Flexion (0-140) Knee Extension (0-0) Active : 0 Active Assist : 102 JADYN BYRD, PT - 06/11/2020 15:38 EDT JADYN BYRD, PT - 06/11/2020 15:38 EDT Functional Mobility Mobility Grid Sit to Stand : Rehab Minimal assistance (Comment: CGA [JADYN BYRD, PT - 06/11/2020 15:38 EDT] ) Stand to Sit : Supervision/set-up JADYN BYRD PT - 06/11/2020 15:38 EDT Sit to Stand Device : Belt, gait, Walker, front wheel JADYN BYRD, PT - 06/11/2020 15:38 EDT Gait Training/Assessment, PT Weight Bearing Status : As tolerated Gait Assistance Level : Assist, minimal Walking Distance : CGA x 50ft, Min verbal cues required for correct sequencing and safe use of assistive device. Noted decreased soco throughout with decreased stance time on affected extremity, no LOB. L foot drop, but good use of BUE's on RWx to prevent knee buckling. Ambulatory Devices : Gait belt, Walker, front wheel JADYN BYRD, PT - 06/11/2020 15:38 EDT Neuromuscular Reeducation, PT Balance Comment : SBA static sitting, CGA static standing with RWx JADYN BYRD, PT - 06/11/2020 15:38 EDT Neurological/Sensory Overall Sensory Response : Intact Overall Sensory Response Comment : numbness and foot drop JADYN BYRD, PT - 06/11/2020 15:38 EDT Activity Tolerance, PT Activity Comment : Excellent with no acute complaints JADYN BYRD, PT - 06/11/2020 15:38 EDT Cognition Assessment, PT Orientation : Oriented x 4 Attention Assessment : Present JADYN BYRD PT - 06/11/2020 15:38 EDT Edu Topics Physical Therapy Education Grid Bed Mobility Training : Returns demonstration Gait Training : Returns demonstration Role of Physical Therapy : Verbalizes understanding Safety : Verbalizes understanding Transfer Training : Returns demonstration Use of Assistive Device : Returns demonstration JADYN BYRD PT - 06/11/2020 15:38 EDT Indication Assesessment, PT Physical Therapy Indicated : JADYN Sawant, PT - 06/11/2020 15:38 EDT Plan of Care, PT PT Tx Plan/Goals Established w Patient : JADYN Sawant PT - 06/11/2020 15:38 EDT Treatment Note Subjective Comment : Pt agreeable to PT eval, states intention for same-day discharge. Patient's Response to Treatment : Excellent tolerance to mobility tasks, no stairs to navigate. Demonstrates excellent use of BUE's on RWx for stability during gait tasks. Issued HEP and educated about progressive use of bone foam. Additional Objective Information : L knee ROM 0-102, Joint polo coach present CGA stand sit with RWx CGA gait x 50ft with RWx Assessment : Excellent stability evidence with RWx, good use of BUE's on RWx to promote stability and manage foot drop and numbness. No stairs to navigate to enter home. Appropriate for same-day discharge. Plan for Treatment : Discontinue JADYN BYRD PT - 06/11/2020 15:38 EDT Pain Assessment Pain Scaled Used : 0-10 Pain scale Pain Score Pre-Intervention : 0 Pain Score Post-Intervention. : 0 JADYN BYRD PT - 06/11/2020 15:38 EDT Image 1 - Images currently included in the form version of this document have not been included in the text rendition version of the form. Anticipated Discharge Needs, OT/PT Anticipated Discharge to : Home, with home health Anticipated Home Equipment : None Recommend Continued Therapy at Discharge : Yes JADYN BYRD PT - 06/11/2020 15:[address] [facility] Gait Training Each 15 Min : 1 PT Narda Low Complexity : 1 JADYN BYRD PT - 06/11/2020 15:38 EDT documented in this encounter Plan of Treatment Not on file documented as of this encounter Visit Diagnoses Not on filedocumented in this encounter
--- OUTSIDE RECORDS SUMMARY | 2025-02-08 23:38 | XMS_ITS | Encounter Summary ---
Author Organization [email or web address] Address [address] [place] [address] Care Team Providers Care Inside Sales Name Role Phone Unavailable Primary Care Provider Unavailabl e Encounter Details Date Type Department Care Team (Late st Contact Info) Description 06/11/2020 Transcribed Document [facility] 1 [place] [address] ProviderZahraa MD Social History Tobacco [...] Miscellaneous Notes * Cerner Conversion Note - [facility] Mila Redd MD - 06/11/2020 3:33 PM EDT Stroke/Warfarin Instructions Entered On: 06/11/2020 14:33 EDT Performed On: 06/11/2020 14:33 EDT by MARTHA LEONE RN Stroke/Warfarin Instructions Stroke/TIA Discharge Ins : N/A Warfarin Discharge Ins : N/A MARTHA LEONE RN - 06/11/2020 14:33 EDT documented in this encounter Plan of Treatment Not on file documented as of this encounter Visit Diagnoses Not on filedocumented in this encounter
--- OUTSIDE RECORDS SUMMARY | 2025-02-08 23:38 | XMS_ITS | Clinical Summary ---
Author Organization [facility] Address [address] [place] [address] Care Team Providers Care Optometrist President/Practice Owner Name Role Phone Venkat Truong MD Primary Care Provider [phone] Allergies Active Allergy Reactions Criticality Noted Date Comments Lisinopril Cough Low 11/30/2023 Medications furosemide (Lasix) 40 MG tablet Take by mouth 1 (one) time each day. Active potassium chloride CR (Klor-Con M20) 20 MEQ ER tablet Take 1 tablet (20 mEq) by mouth 1 (one) time each day. Do not crush or chew. Active sertraline (Zoloft) 50 MG tablet Take 1 tablet (50 mg) by mouth 1 (one) time each day. Active metoprolol tartrate (Lopressor) 25 MG tablet Take by mouth 1 (one) time each day. Active losartan (Cozaar) 50 MG tablet Take 1 tablet (50 mg) by mouth 1 (one) time each day. Active hydroCHLOROthia zide (Microzide) 12.5 MG capsule Take 1 capsule (12.5 mg) by mouth 1 (one) time each day. 11/29: not taking right now due to being on lasix Active budesonide-form oterol (Symbicort) 80-4.5 MCG/ACT inhaler Inhale 2 puffs 2 (two) times a day. Rinse mouth with water after use to reduce aftertaste and incidence of candidiasis. Do not swallow. Active Multiple Vitamin (multivitamin) tablet Take 1 tablet by mouth 1 (one) time each day. Active ascorbic acid (Vitamin C) 1000 MG ER tablet Take by mouth 1 (one) time each day. Active zinc gluconate 50 MG tablet Take 1 tablet (50 mg) by mouth 1 (one) time each day. Active cholecalciferol 25 MCG (1000 UT) tablet Take by mouth 1 (one) time each day. Active Social History Tobacco Use Types Packs/Day Years Used Date Smoking Tobacco: Former Cigarettes Smokeless Tobacco: Never Tobacco Cessation:Counseling Given: Not Answered PHQ-2 Answer Date Recorded Patient Health Questionnaire-2 Score 0 11/30/2023 Comments Unknown Sex and Gender Information Value Date Recorded Sex Assigned at Female 12/10/2023 1:02 PM EDT Legal Sex Female 7:48 PM EDT Gender Identity Female 12/10/2023 1:02 PM EDT Sexual Orientation Straight 12/10/2023 1: 02 PM EDT Last Filed Vital Signs Vital Sign Reading Time Taken Comments Blood Pressure 160/71 12/03/2023 11:25 AM EDT Pulse 62 12/03/2023 11:25 AM EDT Temperature 36.7 C (98.1 F) 12/03/2023 11:02 AM EDT Respiratory Rate 19 12/03/2023 11:25 AM EDT Oxygen Saturation 96% 12/03/2023 11:25 AM EDT Inhaled Oxygen Concentration - - Weight 101 kg (222 lb 14.2 oz) 12/03/2023 8:48 A M EDT Height 160 cm (5' 3 ) 12/03/2023 8:48 AM EDT Body Mass Index 39.48 12/03/2023 8:48 AM EDT Plan of Treatment Health Maintenance Due Date Last Done Comments [facility]-Bone Density Scan 1960 [facility]-Hepatitis C Screening 1960 [facility]-/Child/Adol SDOH Screenings 1960 [facility]- SDOH Screenings 01/28/1978 [facility]-Adult SDOH Screenings 01/28/1978 [facility]-DTaP,Tdap,and Td Vaccines (1 - Tdap) 01/28/1979 CT Colonography 01/28/2005 Colonoscopy 01/28/2005 FIT-DNA 01/28/2005 FIT 01/28/2005 FOBT 01/28/2005 Sigmoidoscopy 01/28/2005 [facility]-Colorectal Cancer Screening 01/28/2005 [facility]-Breast Cancer Screening 01/28/2010 [facility]-Pneumococcal Vaccine: 50+ Years (1 of 1 - PCV) 01/28/2010 [facility]-Zoster Vaccines (1 of 2) 01/28/2010 [id number] Vaccine ( - season) 2024 06/30/2023, 05/15/2021, 09/28/2020, Additional history exists [facility]-Depression Screening 11/29/2024 11/30/2023 [facility]-Influenza Vaccine (Season Ended) 2025 05/26/2020 [facility]-RSV Vaccine: 60+ Years or (1 - 1-dose 75+ series) 01/28/2035 [facility]-Hepatitis A Vaccines Aged Out 09/08/2018 No longer eligible based on patient's age to complete this topic [facility]-Obesity Intervention Completed 12/03/2023, 040 08/2023 HPV Vaccines Aged Out No longer eligi ble based on patient's age to complete this topic [facility]-HIB Vaccines Aged Out No longer e ligible based on patient's age to complete this topic [facility]-IPV Vaccines Aged Out No longer e ligible based on patient's age to complete this topic [facility]-Rotavirus Vaccines Aged Out No lo nger eligible based on patient's age to complete this topic Insurance Advance Directives * Full Code (Latest Code Status on File) Date Activated Date Inactivated Comments 12/03/2023 11:20 AM 12/04/2023 2:37 AM Question Answer Comments Patient has decision-making capacity? Yes Care Teams Optometrist President/Practice Owner Relationship Specialty Start Date End Date Venkat rTuong MD [address] [place] [address] [facility] [address] [place] [address] PCP - General 11/25/23
--- OUTSIDE RECORDS SUMMARY | 2025-02-08 23:38 | XMS_ITS | Encounter Summary ---
Author Organization [facility] Address [address] [place] [address] Care Team Providers Care Manager Insurance Name Role Phone Venkat Truong MD Primary Care Provider [phone] Encounter Details Date Type Department Care Team (Late st Contact Info) Description 11/10/2023 Orders Only External Location [address] [place] [address] Marry Ferris, ANIMAL NUTRITION TEACHER [address] [facility] [address] [place] [address] Social History Tobacco Use Types Packs/Day Years Used Date Smoking Tobacco: Never Assessed Comments Unknown Sex and Gender Information Value Date Recorded Sex Assigned at Female 12/10/2023 1:02 PM EDT Legal Sex Female 7:48 PM EDT Gender Identity Female 12/10/2023 1:02 PM EDT Sexual Orientation Straight 12/10/2023 1: 02 PM EDT documented as of this encounter Plan of Treatment Not on file documented as of this encounter Procedures Procedure Name Priority Date/Time Associated Diagnosis Comments CT OUTSIDE IMAGES 11/10/2023 1:59 PM EDT documented in this encounter Results * CT OUTSIDE IMAGES (11/10/2023 1:59 PM EDT) Anatomical Region Laterality Modality Computed Tomogra phy 11/10/2023 1:59 PM EDT Marry Ferris ANIMAL NUTRITION TEACHER IMG CT PROCEDURES Final Resu lt documented in this encounter Visit Diagnoses Not on filedocumented in this encounter Care Teams Manager Insurance Relationship Specialty Start Date End Date Venkat Truong MD [address] [place] [address] [address] [place] [address] PCP - General 11/25/23 documented as of this encounter
--- OUTSIDE RECORDS SUMMARY | 2025-02-08 23:38 | XMS_ITS | Encounter Summary ---
Author Organization [employer] Address [address] [place] [address] Care Team Providers Care Healthcare Economics Manager Name Role Phone Unavailable Primary Care Provider Unavailabl e Encounter Details Date Type Department Care Team (Late st Contact Info) Description 05/24/2020 Transcribed Document [facility] 1 [place] [address] Provider, Zahraa Zaragoza MD Social [...] Miscellaneous Notes * Cerner Conversion Note - [facility] Mila ProviderMD - 05/24/2020 2:46 PM EDT PAT Adult Entered On: 05/24/2020 13:55 EDT Performed On: 05/24/2020 13:46 EDT by KATHLEEN HAYES RN Vital Measurements Temperature Source : Temporal artery scanning Temperature Mode : Fahrenheit Temperature, Fahrenheit : 97.5 Deg F Clinical Temperature, C : 36.4 Deg C Peripheral Pulse Rate : 65 bpm Respiratory Rate : 18 Breaths/Min Blood Pressure Location : Arm, right upper Blood Pressure Source : Non-Invasive BP Device Systolic Blood Pressure : 143 mmHg (HI) Oxygen Therapy Mode : Room air Oxygen Flow Rate : 100 Liter/Min KATHLEEN HAYES RN - 05/24/2020 13:46 EDT Height and Weight, Clinical Dosing Height Source : Measured Height Entry Format : Butler Height, Feet : 0 ft(Converted to: 0 cm, 0 Inch) Height, Inches : 64 Inch(Converted to: 5 ft 4 Inch, 162.56 cm) Clinical Height : 162.56 cm Weight Source : Standing scale Weight Entry Format : Butler Clinical Dosing Weight : 85.77 kg Weight, Pounds : 188.7 lb Body Surface Area (BSA) : 1.91 m2 Body Mass Index : 32.5 kg/m2 (HI) [place] Body Weight : 54 kg KATHLEEN HAYES RN - 05/24/2020 14:16 EDT Health Histories Smoking Status : Never (less than 100 in lifetime; none in last 30 days) Smokeless Tobacco Status : Never KATHLEEN HAYES RN - 05/24/2020 13:46 EDT Social History (As Of: 05/24/2020 13:55:13 EDT) Tobacco: Never (less than 100 in lifetime) Smoking Status. Never Smokeless Tobacco Status. (Last Updated: 05/24/2020 13:42:53 EDT by KATHLEEN HAYES, RN) Alcohol: Alcohol Use History Yes. Use in Last 12 Months: Yes. Alcohol Use Frequency Socially. (Last Updated: 05/24/2020 13:43:02 EDT by KATHLEEN HAYES RN) Substance Abuse: Drug Use Hx: No. Use in Last 12 Months: No. (Last Updated: 05/24/2020 13:43:07 EDT by KATHLEEN HAYES RN) Infectious Disease History Has the patient ever been tested for COVID-19? : Yes, Patient stated results Negative Date of COVID-19 test known? : Yes Date of COVID-19 Test : 06/07/2020 EDT CLYDE Moran RN - 06/11/2020 6:32 EDT Does patient have symptoms of COVID-19? : No COVID19 Screening : No Experiencing Infectious Disease Symptoms : No symptoms Physical contact outside [place] in the last 30 days : No Infectious Disease History : None Tuberculosis Symptoms : None KATHLEEN HAYES RN - 05/24/2020 13:46 EDT COVID19 PreProcedure Screening Date of COVID-19 test known? : Yes Has patient been isolated since the test : Yes Exposed to COVID19 symptoms since test? : No CLYDE Moran RN - 06/11/2020 6:32 EDT Is this an Emergent or Add on Procedure? : No KATHLEEN HAYES RN - 05/24/2020 13:46 EDT Anesthesia/Transfusion History Blood Transfusion Acceptable to Patient : Yes CLYDE Moran RN - 06/11/2020 6:32 EDT Family History of Anesthesia Reaction : No prior transfusion(s) Transfusion History : Prior anesthesia without reaction Family History of Anesthesia Reaction : None KATHLEEN HAYES RN - 05/24/2020 13:46 EDT Functional Assessment Functional ADL Evaluation Index EBN Bathing : Independent (2) Dressing : Independent (2) Toileting : Independent (2) Transferring Bed or Chair : Independent (2) Continence : Independent (2) Feeding : Independent (2) KATHLEEN HAYES RN - 05/24/2020 13:46 EDT ADL Index Score : 12 KATHLEEN HAYES RN - 05/24/2020 13:46 EDT Advance Directive Patient has Advance Directive *Q : Yes, Advance Directive not with the patient Family/Rep Contact Information : Adryan De Luna, spouse, Advance Directive Type : Living will Copy Advance Directive Verified/on Chart : No KATHLEEN HAYES RN - 05/24/2020 13:46 EDT Spiritual/Cultural Needs Any Spiritual/Cultural Needs or Requests : Yes Spiritual/Cultural Needs Comment : Preop prayer, surgery 06/11/2020 Spiritual/Cultural Needs Comment : Preop prayer, surgery 06/11/2020 KATHLEEN HAYES RN - 05/24/2020 13:46 EDT Reynolds Suicide Severity Rating Scale (C-SSRS) CSSRS Past Month Wish to be : No CSSRS Past Month Suicidal Thoughts : No CSSRS Lifetime Suicide Behavior : No Suicide Severity Rating Score : 0 Suicide Severity Rating : No Additional Care Required at this time KATHLEEN HAYES RN - 05/24/2020 13:46 EDT Psychosocial History Currently in Unsafe Situation : No KATHLEEN HAYES RN - 05/24/2020 13:46 EDT Teaching/Learning Assessment Individuals Taught : Patient Readiness to Learn : Cooperative Readiness to Learn : Explanation, Printed materials KATHLEEN HAYES RN - 05/24/2020 13:46 EDT Education Topics, Periop Preadmission Perioperative Education Grid Arrival Time/Place : Verbalizes understanding CHG Preoperative Bathing/Cloths : Verbalizes understanding Infection Control : Verbalizes understanding NPO Status/Directions : Verbalizes understanding Pain Management : Verbalizes understanding Postoperative Care Preparations : Verbalizes understanding Preprocedure Preparations : Verbalizes understanding Preprocedure Tests/Labs : Verbalizes understanding Remove Body Piercings : Verbalizes understanding Responsible Adult : Verbalizes understanding Take/Hold Medications Pre-Procedure : Verbalizes understanding KATHLEEN HAYES RN - 05/24/2020 13:46 EDT Responsible Adult Contact Information : Adryan De Luna, spouse, KATHLEEN HAYES RN - 05/24/2020 13:46 EDT General Info Preferred Name : Manju Patient Arrival Date/Time : 06/11/2020 6:23 EDT CLYDE Moran RN - 06/11/2020 6:32 EDT Arrived From : Home Mode of Arrival on Unit : Ambulatory KATHLEEN HAYES RN - 05/24/2020 13:46 EDT Legal Guardian : Spouse, Unaccompanied CLYDE Moran RN - 06/11/2020 6:32 EDT Support Person/Patient [employer] : Yes Support Person/Pt Rep Name : Adryan De Luna spouse Support Person/Pt Rep Contact Information : [phone] Want Family/Rep/Phys Notified of Admit : No Emergency Contact #1 : Adryan De Luna Emergency Contact #1 Emergency Contact #1 Relationship : spouse Emergency Contact #2 : Jesi Barakat Emergency Contact #2 Emergency Contact #2 Relationship : daughter Information Obtained From : Patient Primary Language : Brazilian Preferred Communication Mode : Verbal Communication Barrier : None Clinical Nurse Educator Needed : No Objects to Sharing Info w Family : No KATHLEEN HAYES RN - 05/24/2020 13:46 EDT Choco Scale Choco Sensory Perception : Slightly limited (Comment: wears contacts/glasses [KATHLEEN HAYES RN - 05/24/2020 13:46 EDT] ) Choco Moisture : Occasionally moist Choco Activity : Walks frequently Choco Mobility : Slightly limited Choco Nutrition : Adequate Choco Friction and Shear : Potential problem Choco Score : 18 KATHLEEN HAYES RN - 05/24/2020 13:46 EDT Sleep Apnea Risk Assmt Hx of Obstructive Sleep Apnea Diagnosis : No Snore Loudly : No Tired, Fatigued, or Sleepy During Day : No Observed Stopping Breathing During Sleep : No Have/Are Being Treated for Hypertension : Yes BMI Greater Than 35 kg/m2 : No Age over 50 Years Old : Yes Neck Circumference Greater Than 40 cm : No Gender Male : No STOP-BANG Sleep Apnea Risk Level Score : 2 KATHLEEN HAYES RN - 05/24/2020 13:46 EDT documented in this encounter Plan of Treatment Not on file documented as of this encounter Visit Diagnoses Not on filedocumented in this encounter
--- OUTSIDE RECORDS SUMMARY | 2025-02-08 23:38 | XMS_ITS | Encounter Summary ---
Author Organization [employer] Address [address] [place] [address] Care Team Providers Care Church Communications Administrator Name Role Phone Unavailable Primary Care Provider Unavailabl e Encounter Details Date Type Department Care Team (Late st Contact Info) Description 06/11/[address] [facility] 1 [place] [address] ProviderZahraa MD Social History Tobacco [...] Miscellaneous Notes * Cerner Conversion Note - [facility] Mila ProviderMD - 06/11/2020 3:00 AM EDT Spiritual Care Assessment Entered On: 06/11/2020 8:06 EDT Performed On: 06/11/2020 7:50 EDT by GILBERT LAKHANI General Information Initial Visit : Yes Referred by : Patient Referral Reason Comment : Pre-surgery visit Ministry Provided to : Patient GILBERT LAKHANI P - 06/11/2020 8:05 EDT Spiritual Assessment Spiritual Assessment Comment/Summary Points : Provided pre-surgery visit and prayer. Spirital Assessment Comment/Summary Report : SPIRITUAL ASSESSMENT COMMENT/SUMMARY No qualifying data available. GILBERT LAKHANI P - 06/11/2020 8:05 EDT Interventions Emotional Support : Empathic/Engaged listening Spiritual and Faith : Prayer shared, Spiritual/Faith support provided GILBERT LAKHANI - 06/11/2020 8:05 EDT documented in this encounter Plan of Treatment Not on file documented as of this encounter Visit Diagnoses Not on filedocumented in this encounter
--- OUTSIDE RECORDS SUMMARY | 2025-02-08 23:38 | XMS_ITS | Encounter Summary ---
Author Organization [employer] Address [address] [place] [address] Care Team Providers Care Junior Brand Manager Name Role Phone Unavailable Primary Care Provider Unavailabl e Encounter Details Date Type Department Care Team (Late st Contact Info) Description 06/11/2020 Transcribed Document [facility] [address] [place] [address] Provider, Zahraa Zaragoza MD Social [...] Note - Zahraa Redd MD - 06/11/2020 3:31 PM EDT Patient Education Materials Follows: Discharge Instructions for Total Knee Replacement Your Knee Incision: Do not swim, soak or bathe in a tub until cleared by the surgeon. If you have a light brown dressing: Keep your dressing in place for 7-10 days. This type of dressing is water resistant. Please check the edges of the dressing. If they are in place, you may shower until the dressing is removed. The home health Physical Therapist or Nurse will remove the dressing after 7-10 days. Or your surgeon will remove it at your return appointment. Then your incision may be open to air. It will be best to sponge bathe from the time the dressing is removed until your return appointment. If you have a dry, white dressing: Change your dressing when needed (if the dressing is dirty or old). Wash your hands before and after changing the dressing. Activity ?? You may put weight on your leg when you walk, unless your surgeon tells you not differently. Use your walker until the therapist or surgeon say you do not need it anymore. Continue your exercises from physical therapy. ?? Complete straightening exercises (whether using Zero Knee Foam or ???TubsE AT LEAST three times a day for 30 minutes, keep toes pointed to ceiling. Keep knee straight and extended unless you are doing bending exercises. No pillow under knee. ?? Stay active, get up every 1-2 hours, walk short distances, and walk a little more each week. No driving until cleared by your surgeon. ?? If your surgeon has ordered support hose, wear them for 6 weeks in order to prevent blood clots. Take them off 1-2 times per day for about 30 minutes-1 hour. Check your skin for red or open areas under the hose. They can be bought online and at many pharmacies, be sure that compression is 15-20mmHg and that they are thigh-high. ?? If you have a CPM, use it 2 hours 2x/day. ?? For swelling, elevate your leg above your heart. Remember to keep knee straight and NOT bent, unless you are doing your bending exercises. ?? Cold therapy 30 minutes on and 30 minutes off with cloth or clothing between skin and cold wrap. General Instructions: ?? Eat 25-35 grams of fiber every day. Drink 8-10 glasses of water a day and take stool softeners while you are on pain medication, since they cause constipation. If you do not have a bowel movement in 3-4 days after your surgery, try an over the counter laxative, such as milk of magnesia, miralax, dulcolax tablet or suppository, or fleets enema. If you do not have success after this, contact your home health nurse or surgeon office. ?? Continue using your incentive spirometer to keep fever and lung infection away. Aim for 10 breaths every hour while you are awake. ?? Take pain medicine as needed, especially before therapy. ?? Let your doctors and dentist know you have a prosthetic knee. They may need to give you an antibiotic before a procedure. Call Your Surgeon: Infection: Your hip has increased swelling that does not get better with time, propping up your leg and with rest. Your incision has a foul smell or your incision begins to open. Your incision gets red, is warm or has increased drainage after 2 days. You have a fever over 101 degrees for more than 24 hours. A Blood Clot: You have increased swelling, redness, warmth or pain in your calf. A Fall: You fall down without obvious injury. Call 911: You have sudden chest pain and/or difficulty breathing You fall and cannot get up Stroke signs and symptoms: Facial droop, uneven smile, arm numbness, arm weakness, slurred speech, difficulty speaking or understanding CALL FIRST! Unless you are experiencing life-threatening issues, call your surgeon's office or nurse navigator first, before going to the Emergency Department. Call your surgeon or nurse navigator if: ?? Your incision has increased swelling that does not get better with time, rest, and propping up your leg ?? Your incision has a foul smell or begins to open ?? You have a large amount of bleeding from incision ?? Your incision gets red, warm or increased drainage after 2 days ?? You have a fever over 101 degrees for more than 24 hours ?? You have increased swelling, redness, warmth or pain in your calf ?? You fall, but don't have an obvious injury ?? You have questions or cause for concern regarding your total joint replacement Call 911 if: ?? You have sudden chest pain or shortness of breath ?? You fall and cannot get up ?? Life-threatening signs or symptoms ?? Stroke signs and symptoms: Facial droop, uneven smile, arm numbness, arm weakness, slurred speech, difficulty speaking or understanding If you are a patient of Dr. Sánchez or Dr. Mathias, call [phone] If you are a patient of Dr. Forbes, call [phone] Nurse Navigator: Renee Horn Office: [phone]; ; available during regular business hours documented in this encounter Plan of Treatment Not on file documented as of this encounter Visit Diagnoses Not on filedocumented in this encounter
--- OUTSIDE RECORDS SUMMARY | 2025-02-08 23:38 | XMS_ITS | Clinical Summary ---
Author Organization [employer] iatives Address [address] [place] [address] Care Team Providers Care Agency Appointments Supervisor Name Role Phone Unavailable Primary Care Provider Unavailabl e Social History Tobacco Use Types Packs/Day Years Used Date Smoking Tobacco: Never Assessed Comments Unknown Sex and Gender Information Value Date Recorded Sex Assigned at Female 02/25/2022 8:44 PM CDT Legal Sex Female 8:44 PM CDT Gender Identity Female 02/25/2022 8:44 PM CDT Sexual Orientation Not on file Plan of Treatment Not on file
--- OUTSIDE RECORDS SUMMARY | 2025-02-08 23:38 | XMS_ITS | Encounter Summary ---
Author Organization [employer] Address [address] [place] [address] Care Team Providers Care Shelf Stocker Name Role Phone Unavailable Primary Care Provider Unavailabl e Encounter Details Date Type Department Care Team (Late st Contact Info) Description 05/04/2020 Transcribed Document [facility] [address] [place] [address] Provider, Zahraa Zaragoza MD Social [...] Conversion Note - Zahraa Zaragoza ProviderMD - 05/04/2020 4:16 PM EDT Total Joints Assessment Entered On: 07/04/2020 15:17 EST Performed On: 05/04/2020 15:16 EDT by Any Horn RN-Navigator JR. KATHY Knee Survey 1. How severe is your knee stiffness after first wakening in the morning? : Moderate 2. Twisting/pivoting on your knee : Moderate 3. Straightening knee fully : Mild 4. Going up or down stairs : Moderate 5. Standing upright : Moderate 6. Rising from sitting : Mild 7. Bending to floor/pick up truck driver an object : Mild KORU DELACRUZ Raw Score (ref) : 11 Any Horn RN-Navigator - 07/04/2020 15:16 EST PROMIS Global Health Scale In general, would you say your health is: : Good In general, would you say your quality of life is: : Very good In general, how would you rate your physical health? : Good In general, how would you rate your mental health, including your mood and your ability to think? : Good In general, how would you rate your satisfaction with your social activities and relationships? : Very good In general, please rate how well you carry out your usual social activities and roles. (This includes activities at home, at work and in your community, and responsibilities as a parent, child, spouse, employee, friend, etc.) : Good To what extent are you able to carry out your everyday physical activities such as walking, climbing stairs, carrying groceries, or moving a chair? : Moderately How often have you been bothered by emotional problems such as feeling anxious, depressed or irritable? : Rarely How would you rate your fatigue on average? : Moderate How would you rate your pain on average? : 2 Global Physical Health Score (ref) : 13 Global Mental Health Score (ref) : 15 Any Horn RN-Navigator - 07/04/2020 15:16 EST documented in this encounter Plan of Treatment Not on file documented as of this encounter Visit Diagnoses Not on filedocumented in this encounter
--- OUTSIDE RECORDS SUMMARY | 2025-02-08 23:38 | XMS_ITS | Encounter Summary ---
Author Organization [employer] Address [address] [place] [address] Care Team Providers Care Nozzle Cement Sprayer Helper Name Role Phone Unavailable Primary Care Provider Unavailabl e Encounter Details Date Type Department Care Team (Late st Contact Info) Description 06/11/2020 Transcribed Document [facility] [address] [place] [address] Provider, Zahraa Zaragoza MD Social [...] Miscellaneous Notes * Cerner Conversion Note - [facility] Mila ProviderMD - 06/11/2020 10:14 AM EDT [facility] OR PACU Summary Primary Physician: KAYLEIGH GARNER MD-ORT Finalized Date/Time: 06/11/20 11:48:10 Pt. Name: GILBERT DE LUNA/Sex: 1960 Female Med Rec #: [id number] Physician: KAYLEIGH GARNER MD-ORT Financial #: [id number] Pt. Type: O Room/Bed: Admit/Disch: 06/11/20 06:57:00 - Institution: [facility] Main OR PACU I Case Times Entry 1 In PACU I 06/11/20 10:49:00 Ready for PACU 06/11/20 11:47:00 Discharge Discharge from PACU 06/11/20 11:47:00 I Last Modified By: JONEL ST RN 06/11/20 11:47:59 [facility] Main OR PACU I Case Times Audit 06/11/20 11:47:59 Machinist Job Setter: [id number] Modifier: [id number] <+> 1 Ready for PACU Discharge <+> 1 Discharge from PACU I Finalized By: JONEL ST RN Document Signatures Signed By: JONEL ST RN 06/11/20 11:48 Electronically signed by Patricia [facility] Conversion Hardware Technician Cerner at 01/21/2023 5:33 PM CDT documented in this encounter Plan of Treatment Not on file documented as of this encounter Visit Diagnoses Not on filedocumented in this encounter
--- OUTSIDE RECORDS SUMMARY | 2025-02-08 23:38 | XMS_ITS | Encounter Summary ---
Author Organization [employer] Address [address] [place] [address] Care Team Providers Care Legal Word Processor Name Role Phone Unavailable Primary Care Provider Unavailabl e Encounter Details Date Type Department Care Team (Late st Contact Info) Description 06/11/2020 Transcribed Document [facility] 1 [place] [address] ProviderZahraa MD Social History Tobacco [...] Notes * Cerner Conversion Note - [facility] Mila Redd MD - 06/11/2020 1:00 PM EDT Pain Assessment Entered On: 06/11/2020 15:41 EDT Performed On: 06/11/2020 13:39 EDT by Nickie Guerrero RN Intervention Information: acetaminophen Performed by Nickie Guerrero RN on 06/11/2020 12:39:00 EDT acetaminophen,1000mg Oral Pain Assessment Pain Assessment : Initial assessment Pain Scale Goal : 2 Pain Scale Used : 0-10 Scale Nickie Guerrero RN - 06/11/2020 15:41 EDT Pain Scale Intensity : 0 Nickie Guerrero RN - 06/11/2020 15:41 EDT Image 4 - Images currently included in the form version of this document have not been included in the text rendition version of the form. documented in this encounter Plan of Treatment Not on file documented as of this encounter Visit Diagnoses Not on filedocumented in this encounter
--- OUTSIDE RECORDS SUMMARY | 2025-02-08 23:38 | XMS_ITS | Encounter Summary ---
Author Organization [employer] Address [address] [place] [address] Care Team Providers Care Malt House Operator Name Role Phone Unavailable Primary Care Provider Unavailabl e Encounter Details Date Type Department Care Team (Late st Contact Info) Description 06/11/2020 Transcribed Document [facility] [address] [place] [address] Provider, Zahraa Zaragoza MD Social [...] Note - Zahraa Zaragoza ProviderMD - 06/11/2020 7:56 AM EDT Admission History, Adult Entered On: 06/11/2020 12:28 EDT Performed On: 06/11/2020 6:56 EDT by MARTHA LEONE RN Advance Directive Patient has Advance Directive *Q : Yes, Advance Directive not with the patient Family/Rep Contact Information : Adryan De Luna, spouse, Advance Directive Type : Living will Copy Advance Directive Verified/on Chart : No MARTHA LEONE RN - 06/11/2020 12:25 EDT Anesthesia/Transfusion History Family History of Anesthesia Reaction : No prior transfusion(s) Blood Transfusion Acceptable to Patient : Yes Transfusion History : Prior anesthesia without reaction Family History of Anesthesia Reaction : None MARTHA LEONE RN - 06/11/2020 12:25 EDT Anticipated Discharge Needs Discharge To, Anticipated : Home Anticipated Discharge Needs at This Time : Outpatient follow-up, Physical Therapy MARTHA LEONE RN - 06/11/2020 12:25 EDT Education Topics, Admission Orientation DCP GENERIC CODE Assessment/Vital Signs : Verbalizes understanding Bed Control : Verbalizes understanding Call Light : Verbalizes understanding Confidentiality : Verbalizes understanding Diet/Room Service : Verbalizes understanding Orientation to Room/Bathroom : Verbalizes understanding Rounding : Verbalizes understanding Siderails use/risks : Verbalizes understanding Television/Phone : Verbalizes understanding MARTHA LEONE RN - 06/11/2020 12:25 EDT Functional Assessment Living Situation : Home Patient Lives With : Spouse Persons Assisting Patient at Home : Spouse Mobility Assistance Prior to Admission : Independent PAGAN Hx Falls Immediate/Within 3 Months : No Current Home Treatments : None MARTHA LEONE RN - 06/11/2020 12:25 EDT General Info Preferred Name : Manju Arrived From : Home Mode of Arrival on Unit : Ambulatory Legal Guardian : Spouse, Unaccompanied Support Person/Patient Housing Development Specialist : Yes Support Person/Pt Rep Name : Adryan De Luna, spouse Support Person/Pt Rep Contact Information : [phone] Want Family/Rep/Phys Notified of Admit : No Emergency Contact #1 : Adryan De Luna Emergency Contact #1 Emergency Contact #1 Relationship : spouse Emergency Contact #2 : Jesi Barakat Emergency Contact #2 Emergency Contact #2 Relationship : daughter Information Obtained From : Patient Primary Language : Niuean Preferred Communication Mode : Verbal Communication Barrier : None Caterer'S Aide Needed : No Objects to Sharing Info w Family : No MARTHA LEONE RN - 06/11/2020 12:25 EDT Fall Risk Scales ABCs Fall Injury Risk Identification : Surgery ABC Fall Injury Risk : Moderate to high injury risk Injury Moderate to High Risk Interventions : High Risk for Fall Injury sign in place per policy PAGAN Hx Falls Immediate/Within 3 Months : No Pagan Secondary Diagnosis : Yes PAGAN Use of Ambulatory Aid : Bed rest/Nurse assist PAGAN IV Therapy or IV Access : Yes Pagan Gait/Transferring : Weak Pagan Mental Status : Oriented to own ability Pagan Fall Risk Score : 45 PAGAN Fall Scale Risk Level : 25-45 Medium Risk [place] Fall Interventions : Adequate lighting, Assistive devices within reach, Bed in low position, Call device within reach, Frequent orientation to call device, Frequent orientation to surroundings, Hourly comfort/safety rounds, Non-slip footwear, Personal items within reach, Reinforced to call for assistance before getting out of bed, Room free of clutter/spills, Upper side-rails up, Wheels locked, Wires/Cords secured Fall Moderate to High Risk Interventions : High Risk for Fall sign in place per policy Barriers to Learning : None evident Fall Risk Scale Calc Temp : 1 MARTHA LEONE RN - 06/11/2020 12:25 EDT Health Histories Smoking Status : Never (less than 100 in lifetime; none in last 30 days) Smokeless Tobacco Status : Never MARTHA LEONE RN - 06/11/2020 12:25 EDT Social History (As Of: 06/11/2020 12:28:56 EDT) Tobacco: Never (less than 100 in lifetime) Smoking Status. Never Smokeless Tobacco Status. (Last Updated: 05/24/2020 13:42:53 EDT by KATHLEEN HAYES, RN) Alcohol: Alcohol Use History Yes. Use in Last 12 Months: Yes. Alcohol Use Frequency Socially. (Last Updated: 05/24/2020 13:43:02 EDT by KATHLEEN HAYES, RN) Substance Abuse: Drug Use Hx: No. Use in Last 12 Months: No. (Last Updated: 05/24/2020 13:43:07 EDT by KATHLEEN HAYES, RN) Height and Weight, Clinical Dosing Height Source : Measured Height Entry Format : Brogue Height, Feet : 0 ft(Converted to: 0 cm, 0 Inch) Height, Inches : 64 Inch(Converted to: 5 ft 4 Inch, 162.56 cm) Clinical Height : 162.56 cm Weight Source : Standing scale Weight Entry Format : Brogue Clinical Dosing Weight : 85.77 kg Weight, Pounds : 188.7 lb Body Surface Area (BSA) : 1.91 m2 Body Mass Index : 32.5 kg/m2 (HI) [place] Body Weight : 54 kg MARTHA LEONE RN - 06/11/2020 12:25 EDT Infectious Disease History Has the patient ever been tested for COVID-19? : Yes, Patient stated results Negative Date of COVID-19 test known? : Yes Date of COVID-19 Test : 06/07/2020 EDT Does patient have symptoms of COVID-19? : No COVID19 Screening : No Experiencing Infectious Disease Symptoms : No symptoms Physical contact outside [place] in the last 30 days : No Infectious Disease History : None Tuberculosis Symptoms : None MARTHA LEONE RN - 06/11/2020 12:25 EDT Tetanus Immunization Status Previous Tetanus Immunizations : No qualifying data available. Tetanus Immunization : Unknown MARTHA LEONE RN - 06/11/2020 12:25 EDT Influenza Vaccine Asmt, Adult Previous Vaccines from Immunization Schedule : No qualifying data available. Influenza Immunization, Current Season : Yes Influenza Immunization Date : 05/25/2020 EDT MARTHA LEONE RN - 06/11/2020 12:25 EDT Pneumococcal Vaccine Previous Vaccines from Immunization Schedule : No qualifying data available. Pneumonia Immunization Received : No Pneumococcal Risk Assessment < Age 65 : None MARTHA LEONE RN - 06/11/2020 12:25 EDT Order Details Transport Mode Order Detail : Wheelchair Isolation Precautions Order Detail : Standard Precautions Order Detail : 0 IV Order Detail : 1 Oxygen Order Detail : 0 Nurse Collect Order Detail : 0 Lift/Transfer : Moderate assist Central Line Order Detail : No Room Service : Appropriate Arterial Line : No MARTHA LEONE RN - 06/11/2020 12:25 EDT Nutrition History Feeding Ability : Independent Adaptive Feeding Equipment : Regular Oral Medication Administration : By mouth Eating Poorly Due to Decreased Appetite : No Unplanned Weight Loss in Past 3-6 Months : No Malnutrition Screening Tool Total(mal) : 0 Malnutrition Screening Tool Risk Level : Patient not at risk MARTHA LEONE RN - 06/11/2020 12:25 EDT [place] Suicide Severity Rating Scale (C-SSRS) CSSRS Past Month Wish to be : No CSSRS Past Month Suicidal Thoughts : No CSSRS Lifetime Suicide Behavior : No Suicide Severity Rating Score : 0 Suicide Severity Rating : No Additional Care Required at this time MARTHA LEONE RN - 06/11/2020 12:25 EDT Psychosocial History Currently in Unsafe Situation : No MARTHA LEONE RN - 06/11/2020 12:25 EDT Sleep Apnea Risk Assmt Hx of [...] Sleep Apnea Risk Level Score : 2 MARTHA LEONE RN - 06/11/2020 12:25 EDT Spiritual/Cultural Needs Any Spiritual/Cultural Needs or Requests : Yes Spiritual/Cultural Needs Comment : Preop prayer, surgery 06/11/2020 Jew Preference : Taoist ([employer]) Spiritual/Cultural Needs Comment : Preop prayer, surgery 06/11/2020 MARTHA LEONE RN - 06/11/2020 12:25 EDT Valuables and Belongings Valuables and Belongings : Clothing, Personal devices, Personal items Clothing : Common streetwear Clothing Disposition : With patient Personal Device Disposition : With patient Personal Devices : Glasses Personal Items : Cell phone Personal Items Disposition : With patient MARTHA LEONE RN - 06/11/2020 12:25 EDT documented in this encounter Plan of Treatment Not on file documented as of this encounter Visit Diagnoses Not on filedocumented in this encounter
--- OUTSIDE RECORDS SUMMARY | 2025-02-08 23:38 | XMS_ITS | Data Portability ---
Author Organization TIMOTHY MARISOL [facility] Address [address] [facility] [place] [address] Care Team Providers Care Arc Air Operator Name Role Phone SAHIL MARIN Primary Care Provider [phone] Assessment Encounter Date Assessment Date Assessment LastModified by Organization Details LastModified Time 09/07/2020 09/07/2020 Doing great. Most patients can expect to see steady improvement for up to 1 year following arthroplasty. Controversies surrounding dental prophylaxis reviewed. NSAIDs prn for residual pain/swelling. Okay to resume golfing. Routine f/u at 1 years, or prn. [email or web address] Not available 09/07/2020 09:48:12 Plan of Treatment Reminders Order Date Submit Date Provider Last Modified By Organization Details Last Modified Time Details Appointments None recorded. Lab None recorded. Referral None recorded. Procedures None recorded. Surgeries None recorded. Imaging None recorded. Medication Orders meloxicam 15 mg tablet 2022 023 [facility], [address] [place] [address], [id number], 3 15:31:16 Patient TargetsNo targets recorded. Patient InstructionsNo instructions recorded. Reason for Referral None Reported. Results Created Date Observation Date Name Description Value Unit Range Abnormal Flag Note LastModifiedBy Organization Detail LastModifiedTime 07/02/20 20 07/02/2020 XR, knee, 3 [facility] [address] [address] Roseline fowler Name: GILBERT fowler : 960 Roseline fowler 66 Orderi ng Provid er: Brenda GREGORY EXAM DATE: 2019 EXAM: XR LT KNEE 3 VIEWS COMPAR KEELEY: HISTOR Y: Follow -up of prior surger yRosita FINDIN GS: There has been interv al placem ent of a left knee total arthro plasty . There is no eviden ce of loosen ing. No fractu re is identi fied. A calcif ic body projec ts in the poplit eal fossa. Contra latera l knee: There is a partia l knee arthro plasty is place. IMPRES PEMA: 1. There is a left total knee arthro plasty in place withou t eviden ce of loosen ing. Interp reted By: Rajiv alcala MD Electr onical ly Signed By: Rajiv alcala MD on 2:[email or web address] [place] [address] Radiology [place] [address], [place], [address], 07/02/2020 17:24:31 08/03/20 20 08/03/2020 XR, knee, [address] [facility] [place] fl [address] [place] [place] [address] Roseline fowler Name: GILBERT fowler : 960 Roseline fowler 66 Orderi ng Provid er: KAYLEIGH POWELL EXAM DATE: 2019 EXAM: XR LT KNEE 3 VIEWS COMPAR KEELEY: HISTOR Y: Follow -up of prior surger yRosita STILES GS: Again seen is a left knee total arthro plasty . There is no eviden ce of loosen ing. No fractu re is identi fied. There is anteri or soft tissue swelli ng. Contra latera l knee: There is a partia l knee arthro plasty is place. IMPRES PEMA: 1. There is a left total knee arthro plasty in place withou t eviden ce of loosen ing. Interp reted By: Rajiv alcala MD Electr onical ly Signed By: Rajiv alcala MD on 9:41 AM [email or web address] [facility] Radiology [facility] [address], [place], [address], 08/04/2020 06:24:53 09/07/19 21 09/07/2020 XR, joint , multi ple, 1 view [facility] [address] [place] [address] Patidonna t Name: GILBERT fowler : 960 Pat[address] t 66 Orderi ng Provid er: KAYLEIGH POWELL EXAM DATE: 2020 EXAM: XR LONG LEG LEFT/ JOINT SURVEY COMPAR KEELEY: HISTOR Y: Follow -up of prior surger y. GO GS: There is a left total knee arthro plasty in place. There is no eviden ce of loosen ing or compli cation . There is mild valgus angula tion. No fractu re is identi fied. There are mild degene rative change s in the left hip and minima l degene rative change s in the ankle. IMPRES PEMA: 1. There is a left knee arthro plasty in place with mild valgus angula tion. This measur es 4 degree s. Interp reted By: Rajiv alcala MD [facility] onical ly Signed By: Rajiv alcala MD on 09/07/19 9:00 AM [email or web address] [facility] Radiology [facility] [address], [place], [address], 09/08/2020 20:28:09 10/17/19 22 10/17/2021 XR, knee, 3 view [facility] [address] [place] [address] Patidonna t Name: GILBERT fowler : 960 [address] 66 Orderi ng Provid er: Brenda CHAUDHARI SON EXAM DATE: 2021 EXAM: XR LT KNEE 3 VIEWS COMPAR KEELEY: 020 HISTOR Y: Follow -up of prior surger y. FINDIN GS: Again seen is a left knee total arthro plasty . There is no eviden ce of loosen ing. No fractu re is identi fied. Contra latera l knee: There is a partia l knee arthro plasty is place. IMPRES PEMA: 1. There is a left total knee arthro plasty in place withou t eviden ce of loosen ing. Interp reted By: Rajiv alcala MD Electr onical ly Signed By: Rajiv alcala MD on 022 8:[email or web address] [place] [address] , [place], [address], 10/17/2021 13:08:08 09/19/19 23 09/19/2022 XR, knee, 4 or more view [facility] [address] [address] Patien t Name: GILBERT Pace Patien t : 960 Patien t [facility] Provid er: Brenda CHAUDHARI SON EXAM DATE: 2022 EXAM: XR RT KNEE COMPLE TE, 4 OR MORE VWS COMPAR KEELEY: 10/08/19 18 HISTOR Y: Follow -up of prior surger y. FINDIN GS: Again seen is a right medial unicom partme ntal knee arthro plasty . There is no eviden ce of loosen ing. No fractu re is identi fied. There are modera te to severe degene rative change s in the latera l and patell ofemer al compar tments . Contra latera l knee: There is a total knee arthro plasty is place. IMPRES PEMA: 1. There is a right medial unicom partme ntal knee arthro plasty in place withou t eviden ce of loosen ing. Interp reted By: Rajiv alcala MD Electr onical ly Signed By: Rajiv alcala MD on 023 2:[email or web address] [place] [address] Radiology [place] [address] , [place], [address], 09/20/2022 12:47:34 Result Notes None recorded. Problems No Known Problems Procedures Surgical History Date Name Laterality Status Provider Name and Address Organization Details Recorded Time 06/11/20 20 [facility] 09/07/2020 09:07:04 06/24/20 19 Injection Joint/Bursa, Major completed C FLAKO MAYBERRY PA-C [address] [place], [address], [facility] 06/24/2019 09:01:53 Imaging Results None recorded. Procedure Notes None recorded. Medical Equipment None Reported. Allergies No known drug allergies Medications Name Sig Start Date Stop Date Status Note LastModified by Organization Details LastModified Time meloxicam 15 mg tablet Take 1 tablet every day by oral route. 2022 active Not Available Not Available Not Avai lable sertraline 50 mg tablet Take 1 tablet every day by oral route. active Not Available Not Available No t Available phentermine 37.5 mg capsule Take 1 capsule every day by oral route. active Not Available Not Available No t Available sertraline active Not Available Not Av ailable Not Available Vitamin C active Not Available Not Katharine ilable Not Available Vitamin D active Not Available Not Katharine ilable Not Available lisinopril active Not Available Not Av ailable Not Available multivitamin active Not Available Not Available Not Available hydrochlorothia zide 12.5 mg tablet Take 1 tablet every day by oral route. active Not Available Not Available No t Available metoprolol succ 25 mg-hydrochlorot hiazide 12.5 mg tablet,ext.rel 24 hr Take 1 tablet every day by oral route. active Not Available Not Available No t Available Vitals Date Recorded Body height Body mass index (BMI) Body weight Provider Name and Address Organization Details Last Updated DateTime 09/07/2020 160.02 cm 32.8 kg/m2 13427.59 g [facility] 09/07/2020 09:05:59 Date Recorded Body height Body mass index (BMI) Body weight Provider Name and Address Organization Details Last Updated DateTime 09/19/2022 160.02 cm 32.8 kg/m2 16360.59 g Charissa Mont[facility] 09/19/2022 14:25:04 Date Recorded Body height Body mass index (BMI) Body weight Systolic blood pressure Diastolic blood pressure Provider Name and Address Organization Details Last Updated DateTime 10/17/2021 160.02 cm 32.8 kg/m2 32450.59 g 125 mm[Hg] 80 mm[Hg] Yoni Andino [facility] 08:46:05 Date Recorded Body height Body mass index (BMI) Body weight Provider Name and Address Organization Details Last Updated DateTime 07/02/2020 160.02 cm 32.8 kg/m2 80164.59 g Charissa Montes [facility] 07/02/2020 15:13:11 Date Recorded Body height Body mass index (BMI) Body weight Provider Name and Address Organization Details Last Updated DateTime 08/03/2020 160.02 cm 32.8 kg/m2 67444.59 g Charissa [facility] 08/03/2020 09:25:59 Social History Question Answer Notes LastModified by Organizat ion Details LastModified Time Tobacco Smoking Status [facility]2017 13:12:24 What Was The Date Of Your Most Recent Tobacco Screening? 10/08/2017 Information n ot available 10/18/2019 Sex: Unknown Functional Status None recorded. Mental Status None recorded. Family History Nothing Reported. Medical History No medical history recorded. Gynecological HistoryNo gynecological history recorded. Obstetrics History GPAL:G 0 P 0 0 0 0 Past Encounters Encounter ID Performer Location Encounter Start Date Encounter Closed Date Diagnosis/Indication Diagnosis SNOMED-CT Code Diagnosis ICD10 Code Diagnosis Note [id number] Brenda MAYBERRY PA-C [facility] [address] [place] [address] 10/08/2017 13:04:57 10/08/2017 13:54:36 Replacement of total knee joint 978392011 Z96.651 [facility] doing well. Avoid deep flexion strengthen ing. Recommend swim, bike, row machine, & eliptical [id number] Brenda MAYBERRY PA-C [facility] [address] [place] [address] 06/24/2019 08:08:20 06/24/2019 09:05:48 Osteoarthritis of knee 292877915 M17.9 Patient has focal medial compartmen t osteoarthr itis however early bone spurring in the patellofem oral joint. Would likely be better candidate for total versus partial knee replacemen t. At this time she is failed minimal conservati ve measures. Recommend she continue with her OTC NSAIDs and we provided CSI today. [id number] KAYLEIGH Sol MD [facility] [address] [place] [address] 05/11/2020 08:53:50 05/11/2020 10:52:20 Knee pain 95593090 M25.562 Osteoarthr itis of knee 559837711 M17.12 [id number] KAYLEIGH Sol MD SURGERY SCHEDULE [address] [place] [address] 06/13/2020 08:08:39 06/13/2020 14:58:14 [id number] Brenda MAYBERRY PA-C [facility] [address] [place] [address] 07/02/2020 14:30:44 07/02/2020 16:04:19 Postoperative care 952836517 Z48.89 3 weeks status post left total knee arthroplas ty exceeding expectatio ns. Patient is getting [employer] run for the money. At this point it is hers to mess up. If she states the course she will have an excellent outcome. She can slowly/inc rementally increase her daily activities . Be cognizant of range of motion. She is able to return to work for maximum 4 hours shifts doing sit down work only. It is also incumbent upon her to discontinu e her decrease work if she begins to lose range of motion. She can get the incision wet. Do not submerge for additional 2 weeks. Do not scrub the incision directly for 2 weeks. Follow-up in 3-4 weeks with Kayleigh sol M.D. for repeat radiograph s and considerat ion of full-time return to work [id number] Brenda MAYBERRY PA-C [facility] [address] [place] [address] 08/03/2020 09:20:17 08/03/2020 12:24:18 Postoperative care [id number] Z48.89 7 weeks status post left total knee arthroplas ty. Patient has 0 pain. She's noticed some slight discolorat ion anterior aspect of her knee where the edge of her prone hangs surface contacts the knee. Patient would like to return to work. No concerns over the skin color changes and could possibly resolve. Okay to return to work with the caveat that should she so regression in therapy she should call us for a work note and refocused on PT. Follow-up in 3 weeks for long leg x-ray and dismissal to annual follow-up [id number] KAYLEIGH Sol MD [facility] [address] [place] [address] 09/07/2020 08:46:04 09/07/2020 09:44:05 History of total knee arthroplasty 1499646413 105 Z96.132 [id number] Brenda MAYBERRY PA-C [facility] [address] [place] [address] 10/17/2021 08:22:19 10/17/2021 09:34:48 History of total knee arthroplasty 9357615369 105 Z96.652 Doing well 1 year status post total knee arthroplas ty. Discussed home exercise program for strengthen ing. Follow-up in 2 years for repeat three-view x-ray left knee. Sooner as needed [id number] Brenda MAYBERRY PA-C [facility] [address] [place] [address] 09/19/2022 13:57:53 09/19/2022 15:24:00 History of total knee arthroplasty 9968485735 105 Z96.652 Left total knee arthroplas ty doing excellent. Right partial knee with episodic effusion and pain. Patient is already better by the time she had visit today. We are going to change prn ibuprofen to 3 months of meloxicam. Health Concerns Section Related Observation LastModified by Organization Detai ls LastModified Time None Recorded Concern Status LastModified by Organization Details LastModified Time None Recorded Advance Directives Directive None Recorded Payers Insurance Date Sequence Insurance Name Policy Number Policy Henriquez Covered Member ID Henriquez Member ID Guarantor Name 10/17/2021 1 [employer] [id number] Gilbert De Luna [id number] Gilbert De Luna 04/26/2023 PAYMENT PLAN Gilbert De Luna 09/22/2022 1 [employer] (PPO) [id number] Gilbert De Luna [id number] Gilbert De Luna Notes Date Note Type Note Provider Name and Address Organization Details Recorded Time 07/02/2020 text/html Patient is 3# weeks s/p L TKA. Pain is 2/10 at night, # completely better improving w orse Currently taking no doses per day of narcotic. Meloxicam 15 mg daily Ambulating with no assistive device PT: outpatient Denies fevers, chills, or wound drainage. They do not request a refill of pain medicine. Operative cultures Not Obtained Brenda MAYBERRY PA-C [address] [place], [address], [facility] 07/02/2020 15:59:25 08/03/2020 text/html Patient is 7# weeks s/p L TKA. 06/11/20 Pain is 0/10 in knee, 5/10 pain at night posterior thigh. # completely better improving w orse Currently taking <3# no <3 3-4 >4 doses per day of narcotic. Ambulating with no assistive device PT: outpatient Denies fevers, chills, or wound drainage. They do not request a refill of pain medicine. Brenda MAYBERRY PA-C [address] [place], [address], [facility] 08/03/2020 12:24:16 09/07/2020 text/html 09-07-20: Patient is 12# weeks s/p L TKA. Pain is improving Currently taking no doses per day of narcotic. Ambulating with no assistive device PT: HEP Denies fevers, chills, or wound drainage. They do not request a refill of pain medicine. KAYLEIGH GARNER MD [address] [place], [address], [facility] 09/07/2020 09:48:31 10/17/2021 text/html 10-17-21: 1.5 years s/p left total knee arthroplasty. Patient is doing well with her left total and right partial knee replacement. She only complains of some weakness with negotiating stairs. Denies pain or mechanical symptoms. Denies any recent trauma. No changes to medical history other than slight worsening of her handicap golf 09-07-20: Patient is 12 weeks s/p L TKA. Pain is improving Currently taking no doses per day of narcotic. Ambulating with no assistive device PT: HEP Denies fevers, chills, or wound drainage.They do not request a refill of pain medicine. 08-03-2020 Patient is 7 weeks s/p L TKA. 06/11/20 Pain is completely better improving w orse 0/10 in knee, 5/10 pain at night posterior thigh. Currently taking <3 doses per day of narcotic. Ambulating with no assistive device PT: outpatient Denies fevers, chills, or wound drainage.They do not request a refill of pain medicine. [id number] is 3 weeks s/p L TKA. Pain is completely better improving w orse 2/10 at night, Currently taking no doses per day of narcotic. Meloxicam 15 mg daily Ambulating with no assistive device PT: outpatient Denies fevers, chills, or wound drainage.They do not request a refill of pain medicine. Operative cultures Not Obtained Brenda MAYBERRY PA-C [address] [place], [address], [facility] 10/17/2021 09:37:35 09/19/2022 text/html 09/19/22Louise comes to clinic to follow up R UKA [place] [address] Freedman. She stood of sitting and noticed increasing feeling of swelling. She voices minimal pain. She is not taking medrol dose pack but not for knee. 10-17-21: 1.5 years s/p left total knee arthroplasty. Patient is doing well with her left total and right partial knee replacement. She only complains of some weakness with negotiating stairs. Denies pain or mechanical symptoms. Denies any recent trauma. No changes to medical history other than slight worsening of her handicap golf 09-07-20: Patient is 12 weeks s/p L TKA. Pain is improving Currently taking no doses per day of narcotic. Ambulating with no assistive device PT: HEP Denies fevers, chills, or wound drainage.They do not request a refill of pain medicine. 08-03-2020 Patient is 7 weeks s/p L TKA. 06/11/20 Pain is completely better improving w orse 0/10 in knee, 5/10 pain at night posterior thigh. Currently taking <3 doses per day of narcotic. Ambulating with no assistive device PT: outpatient Denies fevers, chills, or wound drainage.They do not request a refill of pain medicine. 28-3-5201Xwaapft is 3 weeks s/p L TKA. Pain is completely better improving w orse 2/10 at night, Currently taking no doses per day of narcotic. Meloxicam 15 mg daily Ambulating with no assistive device PT: outpatient Denies fevers, chills, or wound drainage.They do not request a refill of pain medicine. Operative cultures Not Obtained Brenda MAYBERRY PA-C [address] [place], [address], [facility] 09/19/2022 15:21:26 OBGyn Episode No OBEpisode recorded.
--- OUTSIDE RECORDS SUMMARY | 2025-02-08 23:38 | XMS_ITS | Encounter Summary ---
Author Organization [employer] Address [address] [place] [address] Care Team Providers Care 3D Modeler Name Role Phone Unavailable Primary Care Provider Unavailabl e Encounter Details Date Type Department Care Team (Late st Contact Info) Description 06/13/2020 Transcribed Document [facility] [address] [place] [address] Provider, Zahraa Zaragoza MD Social [...] Conversion Note - Zahraa Redd MD - 06/13/2020 1:15 PM EDT Discharge Follow Up Phone Call Entered On: 06/13/2020 12:17 EDT Performed On: 06/13/2020 12:15 EDT by Any Horn RN-Navigator Discharge Follow Up Phone Call Medical/Surgical Follow Up : Open Discharge Disposition : Discharge To Care Management: Home/Residential/Fpc or Self Care -01 Post Visit Phone Call History : First call Contact Relationship to Patient : Spouse Provider Follow-Up Post Discharge : Discharge Follow Up [facility] Outpatient PT - 01:00 PM ROBBIE MAYBERRY PA-ORT - 03:00 PM Previously Documented Flight Security Specialist Patient Stated Goal : No Patient Stated Goal Post Visit Comments : Patient had no questions, getting ready to leave for outpatient PT appointment. States she is doing fine. Any Horn RN-Navigator - 06/13/2020 12:15 EDT Medical/Surgical Follow Up Adequate Pain Control After Visit : Yes Surgical Dressing Clean/Dry/Intact : Yes Surgical Site Free of Redness/Swelling/Drainage : Yes Symptoms of Fever : No Symptoms of Nausea or Vomiting : No Adequate Fluid Intake : Yes Food Intake, Post Visit : Fair Bowel/Bladder Concerns : No Mobility Progressing or Maintained as Expected : Yes Any Horn RN-Navigator - 06/13/2020 12:15 EDT documented in this encounter Plan of Treatment Not on file documented as of this encounter Visit Diagnoses Not on filedocumented in this encounter
--- OUTSIDE RECORDS SUMMARY | 2025-02-08 23:38 | XMS_ITS | Encounter Summary ---
Author Organization [employer] Address [address] [place] [address] Care Team Providers Care Research Fellow Name Role Phone Unavailable Primary Care Provider Unavailabl e Encounter Details Date Type Department Care Team (Late st Contact Info) Description 06/11/2020 Transcribed Document [facility] Radiology [address] [place] [address] Provider, Zahraa Zaragoza MD [...] Note - Zahraa Zaragoza ProviderMD - 06/11/2020 8:18 AM EDT Procedural Documentation Entered On: 06/11/2020 7:19 EDT Performed On: 06/11/2020 7:18 EDT by CLYDE Trujillo RN Procedure Documentation Procedure to be Performed : left sciatic/adductor canal block Time Out Pause Time : 06/11/2020 7:05 EDT All Activity Suspended : Yes Team Verbally Confirms Information : Correct patient identity, Correct side and site are marked, Consent form is present and accurate, Agreement on the procedure to be done, Correct patient position, Confirm the skin prep has dried, Performed in location of procedure after prepped/draped Procedure Case Attendee : ROYA TRUJILLO MD-ANS Procedure Case Attendee Role : Anesthesiologist Procedure Case Attendee Role 2 : digital composer Case Attendee 2 : CLYDE Trujillo RN Wilson, DUSTI W, RN - 06/11/2020 7:18 EDT Antoine Level I Post Anesthesia Assessment Antoine I Activity Status : Moves 4 extremities voluntarily or on command Antoine l Respiratory Component : Able to deep breathe and cough freely Antoine I Circulation Component : BP 20% of preanesthetic level Antoine I Consciousness : Arouses on calling Antoine l Oxygen Saturation : Can maintain > 92% on room air Antoine l Score : 9 CLYDE Trujillo RN - 06/11/2020 7:18 EDT Vital Measurements Peripheral Pulse Rate : 75 bpm Respiratory Rate : 13 Breaths/Min (LOW) Blood Pressure Location : Arm, right upper Blood Pressure Source : Non-Invasive BP Device Blood Pressure Position : Supine Systolic Blood Pressure : 127 mmHg Diastolic Blood Pressure : 72 mmHg Oxygen Saturation : 99 % Oxygen Therapy Mode : Nasal cannula Oxygen Flow Rate : 2 Liter/Min CLYDE Trujillo RN - 06/11/2020 7:18 EDT documented in this encounter Plan of Treatment Not on file documented as of this encounter Visit Diagnoses Not on filedocumented in this encounter
--- OUTSIDE RECORDS SUMMARY | 2025-02-08 23:38 | XMS_ITS | Encounter Summary ---
Author Organization [email or web address] Address [address] [place] [address] Care Team Providers Care Solar Electric/Photovoltaic Installer Name Role Phone Unavailable Primary Care Provider Unavailabl e Encounter Details Date Type Department Care Team (Late st Contact Info) Description 06/11/2020 Transcribed Document [facility] 1 [place] [address] Provider, Zahraa Zaragoza MD Social [...] Miscellaneous Notes * Cerner Conversion Note - [facility] Mila ProviderMD - 06/11/2020 10:14 AM EDT [facility] Main OR Preop Summary Primary Physician: KAYLEIGH GARNER MD-ORT Finalized Date/Time: 06/11/20 15:08:11 Pt. Name: GILBERT DE LUNA/Sex: 1960 Female Med Rec #: [id number] Physician: KAYLEIGH GARNER MD-ORT Financial #: [id number] Pt. Type: O Room/Bed: 642/1 Admit/Disch: 06/11/20 06:57:00 - Institution: [facility] PreOp Case Times Entry 1 In Preop 06/11/20 06:23:00 Ready for Holding n/a Room Patient Ready for 06/11/20 07:20:00 Surgery Patient Out of Preop 06/11/20 08:42:00 Patient Out of n/a Holding Room Last Modified By: Brie Dunbar RN 06/11/20 15:08:10 [facility] PreOp Case Times Audit 06/11/20 15:08:10 Lightning Protection Installer: NEMO Modifier: [email or web address] <+> 1 Patient Out of Preop 06/11/20 07:20:12 Lightning Protection Installer: NEMO Modifier: [email or web address] <+> 1 Patient Ready for Surgery Finalized By: Brie Dunbar, RN Document Signatures Signed By: Brie Dunbar RN 06/11/20 15:08 Electronically signed by Patricia [facility] Conversion Audiology Technician Cerner at 01/21/2023 5:33 PM CDT documented in this encounter Plan of Treatment Not on file documented as of this encounter Visit Diagnoses Not on filedocumented in this encounter
--- OUTSIDE RECORDS SUMMARY | 2025-02-08 23:38 | XMS_ITS | Encounter Summary ---
Author Organization [employer] Address [address] [place] [address] Care Team Providers Care Floating Labor Gang Supervisor Name Role Phone Unavailable Primary Care Provider Unavailabl e Encounter Details Date Type Department Care Team (Late st Contact Info) Description 06/11/2020 Transcribed Document [facility] 1 [place] [address] Sami Sánchez MD [address] [place] [address] Social History Tobacco Use Types Packs/Day Years Used Date Smoking Tobacco: Never Assessed Comments Unknown Sex and Gender Information Value Date Recorded Sex Assigned at Female 02/25/2022 8:44 PM CDT Legal Sex Female 8:44 PM CDT Gender Identity Female 02/25/2022 8:44 PM CDT Sexual Orientation Not on file documented as of this encounter Miscellaneous Notes * Cerner Conversion Note - Sami Sánchez MD - 06/11/2020 7:45 AM EDT Patient: GILBERT DE LUNA Age: 60 years Sex: Female : 1960 Associated Diagnoses: None Author: JADEN DIXON APRN Chief Complaint L knee pain Review of Systems ROS reviewed as documented in chart no change since last seen by surgeon Health Status Allergies: Allergic Reactions (Selected) No Known Medication Allergies, Allergies (1) Active Reaction No Known Medication Allergies None Documented Current medications: (Selected) Inpatient Medications Ordered Ancef: 2 Gram, 50 mL, 100 mL/Hr, IV Piggyback, PREOP Lactated Ringers Injection intravenous solution 1,000 mL: 20 mL/Hr, IntraVENous Toradol: 30 mg, IV Push, 1-Time Zofran: 4 mg, IV Push, 1-Time lidocaine 1% preservative-free injectable solution: 0.5 mL, IntraDermal, 1-Time ropivacaine 0.5% injectable solution 24.6 mL + EPINEPHrine 0.25 mg + cloNIDine 40 mcg + Sodium Chlo...: 24.6 mL, 50 mL/Hr, Miscellaneous, 1-Time tranexamic acid 1,000 mg + syringe 1 Each + Sodium Chloride 0.9% intravenous solution 15 mL: 1,000 mg, 10 mL, 150 mL/Hr, IV Push, 1-Time tranexamic acid 2,000 mg + sodium chloride 0.9% injectable solution 5 mL + syringe 1 Each: 2,000 mg, 20 mL, 75 mL/Hr, IV Push, 1-Time Documented Medications Documented hydroCHLOROthiazide 12.5 mg oral tablet: 1 Tab, Oral, Daily, 0 Refill(s) losartan: 25 mg, Oral, Daily, 0 Refill(s) meloxicam 15 mg oral tablet: 1 Tab, Oral, Daily, 0 Refill(s) omeprazole: 20 mg, Oral, Daily, 0 Refill(s) phentermine 37.5 mg oral capsule: 1 Cap, Oral, Daily, 0 Refill(s) sertraline 50 mg oral tablet: 1 Tab, Oral, Daily, 0 Refill(s), Home Medications (6) Active hydroCHLOROthiazide 12.5 mg oral tablet 12.5 mg = 1 Tab, Oral, Daily losartan 25 mg, Oral, Daily meloxicam 15 mg oral tablet 15 mg = 1 Tab, Oral, Daily omeprazole 20 mg, Oral, Daily phentermine 37.5 mg oral capsule 37.5 mg = 1 Cap, Oral, Daily sertraline 50 mg oral tablet 50 mg = 1 Tab, Oral, Daily , Medications (8) Active Scheduled: (7) ceFAZolin/D5w 2 Gram 50 mL, IV Piggyback, PREOP ketorolac 30 mg/1 mL inj 30 mg 1 mL, IV Push, 1-Time lidocaine 1% *PF* inj 2 mL 0.5 mL, IntraDermal, 1-Time ondansetron 4 mg/2 mL inj 4 mg 2 mL, IV Push, 1-Time ropivacaine 0.5% 24.6 mL + EPINEPHrine 0.25 mg + cloNIDine 40 mcg + NaCl 0.9% 24.75 mL 24.6 mL, Miscellaneous, 1-Time tranexamic acid 1,000 mg + syringe 1 Each + NaCl 0.9% 15 mL 1,000 mg 10 mL, IV Push, 1-Time tranexamic acid 2,000 mg + NaCl 0.9% *PF* 5 mL + syringe 1 Each 2,000 mg 20 mL, IV Push, 1-Time Continuous: (1) lactated ringers 1,000 mL 1,000 mL, IntraVENous, 20 mL/Hr PRN: (0) Problem list: All Problems Renal calculus / SNOMED CT 569296283 / Confirmed High blood pressure / SNOMED CT 00002206 / Confirmed GERD - Gastro-esophageal reflux disease / SNOMED CT 4286024891 / Confirmed EKG abnormality / SNOMED CT 5105119865 / Confirmed At risk for sleep apnea / IMO 11995643 / Confirmed Arthritis / SNOMED CT 3844920 / Confirmed, Active Problems (6) Arthritis At risk for sleep apnea EKG abnormality GERD - Gastro-esophageal reflux disease High blood pressure Renal calculus Histories Past Medical History: No active or resolved past medical history items have been selected or recorded. Family History: No family history items have been selected or recorded. Procedure history: hysterectomy. lap ludwin. X 2. tonsillectomy. wisdom teeth. right knee partial arthroplasty. Social History Social & Psychosocial Habits Alcohol 05/24/2020 Alcohol Use History, Social Habits Yes Alcohol Use in Last Twelve Months Yes Alcohol Use Frequency Socially Substance Abuse 05/24/2020 Recreational Drug Use History No Recreational Drug Use Last 12 Months No Tobacco 05/24/2020 Smoking Status Never (less than 100 in l Smokeless Tobacco Status Never . Physical Examination VS/Measurements Vital Signs/Vital Measures 06/11/2020 7:18 EDT Blood Pressure Location Arm, right upper Blood Pressure Source Non-Invasive BP Device Blood Pressure Position Supine Systolic Blood Pressure 127 mmHg Diastolic Blood Pressure 72 mmHg Peripheral Pulse Rate 75 bpm Respiratory Rate 13 Breaths/Min LOW Oxygen Saturation 99 % Oxygen Therapy Mode Nasal cannula Oxygen Flow Rate 2 Liter/Min 06/11/2020 6:33 EDT Systolic Blood Pressure 147 mmHg HI Diastolic Blood Pressure 85 mmHg Mean Arterial Pressure (MAP)-BMDI 109 Temperature Source Oral Temperature Mode Fahrenheit Temperature, Fahrenheit 98.1 Deg F Clinical Temperature, C 36.7 Deg C Heart Rate Monitored 92 bpm Respiratory Rate 20 Breaths/Min Oxygen Saturation 99 % Oxygen Therapy Mode Room air , Vitals Signs (last 24 hrs) Last Charted Minimum Maximum Temp 98.1 (JUN 11 06:33) 98.1 (JUN 11:) 98.1 (JUN 11:) Mon HR 92 (JUN 11 06:33) 92 (JUN 11 06:33) 92 (JUN 11:33) Periph HR 75 (JUN 11 07:18) 75 (JUN 11 07:18) 75 (JUN 11 07:18) Resp Rate L 13 (JUN 11:18) L 13 (JUN 11 07:18) 20 (JUN 11:33) SBP 127 (JUN 11 07:18) 127 (JUN 11 07:18) H 147 (JUN 11:) DBP 72 (JUN 11 07:18) 72 (JUN 11 07:18) 85 (JUN 11 06:33) MAP 109 (JUN 11:33) 109 (JUN 11 06:33) 109 (JUN 11:33) SpO2 99 (JUN 11:18) 99 (JUN 11:33) 99 (JUN 11:33) General: Alert and oriented, No acute distress, obese. Eye: Pupils are equal, round and reactive to light, Extraocular movements are intact, glasses. HENT: Normocephalic, Normal hearing. Neck: Supple, Non-tender. Respiratory: Lungs are clear to auscultation, Respirations are non-labored. Cardiovascular: Normal rate, Regular rhythm, No murmur, No gallop, No edema. Gastrointestinal: Soft, Non-tender. Genitourinary: No costovertebral angle tenderness. Lymphatics: No lymphadenopathy neck, axilla, groin. Musculoskeletal: Normal strength, painful ROM L knee, see comprhensive ortho exam in office notes. Integumentary: Warm, Dry, [place]. Neurologic: Alert, Oriented. Psychiatric: Cooperative, Appropriate mood & affect. Review / Management Results review: Labs (Last four charted values) WBC 8.7 (MAY 24) HB 14.3 (MAY 24) HCT 44.1 (MAY 24) Plt 253 (MAY 24) Na 141 (MAY 24) K 3.7 (MAY 24) Cl 107 (MAY 24) CO2 29 (MAY 24) BUN 19 (MAY 24) Cr 0.70 (MAY 24) Glu R 89 (MAY 24) Ca 9.3 (MAY 24) PT 10.4 (MAY 24) INR 1.0 (MAY 24) PTT 29.4 (MAY 24) . Impression and Plan Condition: Stable. documented in this encounter Plan of Treatment Not on file documented as of this encounter Visit Diagnoses Not on filedocumented in this encounter
--- OUTSIDE RECORDS SUMMARY | 2025-02-08 23:38 | XMS_ITS | Encounter Summary ---
Author Organization [employer] Address [address] [place] [address] Care Team Providers Care Fur Weigher Name Role Phone Unavailable Primary Care Provider Unavailabl e Encounter Details Date Type Department Care Team (Late st Contact Info) Description 06/11/2020 Transcribed Document [facility] 1 [place] [address] ProviderZahraa MD Social History Tobacco [...] Miscellaneous Notes * Cerner Conversion Note - [facility] Mila ProviderMD - 06/11/2020 5:07 PM EDT Nursing Discharge Summary Entered On: 06/11/2020 16:08 EDT Performed On: 06/11/2020 16:07 EDT by Nickie Guerrero RN Discharge Documentation Discharge Date/Time : 06/11/2020 15:50 EDT Patient Disposition, General : Discharge Discharge To : Home with ambulatory/outpatient follow-up Mode Of Departure, General Discharge : Private vehicle Accompanied By, Discharge : Spouse IV Discontinued : Yes Medications Given to Patient : Yes Discharge Instructions Reviewed With, Opportunity For Questions Given : 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
[2025-02-08 23:39] LABS: Basophils # 0.1 K/mm3 (0-0.2); Basophils % 0.2 % (0.1-2.0); Eosinophils % 0.2 % (0.1-12.0); Hematocrit 43.7 % (37.0-47.0); Hemoglobin 14.4 g/dL (12.2-16.2); Immature Granulocytes # 0.09 10^3uL; Immature Granulocytes % 0.4 %; Lymphocytes # 5.1 K/mm3 (0.7-4.5); Lymphocytes % 24.3 % (10-50); Mean Corpuscular Hemoglobin 30.7 pg (27.0-31.2); Mean Corpuscular Volume 93.2 fl (81-99); Mean Platelet Volume 12.1 fl (7.4-10.4); Monocytes # 0.8 K/mm3 (0.1-1.0); Monocytes % 3.6 % (1.7-9.3); Neutrophils % 71.3 % (37.0-80.0); Nucleated Red Blood Cells # 0 10^3/uL; Nucleated Red Blood Cells % 0 %; Platelet Count 231 K/mm3 (142-424); Red Blood Count 4.69 M/mm3 (4.20-5.40); Red Cell Distribution Width 14.6 % (11.5-17.5); Red Cell Distribution Width-SD 49.9 fL
[2025-02-08 23:39] LABS: Bilirubin,Urine Negative (Negative); Blood, Urine Negative (Negative); Color,Urine YELLOW (Yellow); Glucose,Urine (UA) Negative (Negative); Ketones,Urine TRACE (Negative); Nitrate,Urine Negative (Negative); Protein,Urine Negative (Negative); Specific Gravity, Urine 1.025 (1.005-1.030); Urobilinogen,Urine 0.2 EU/dl (0.2)
--- OUTSIDE RECORDS SUMMARY | 2025-02-08 23:39 | XMS_ITS | Encounter Summary ---
Author Organization [employer] Address [address] [place] [address] Care Team Providers Care Band Aid Machine Operator Name Role Phone Unavailable Primary Care Provider Unavailabl e Encounter Details Date Type Department Care Team (Late st Contact Info) Description 06/11/2020 Transcribed Document [facility] [address] [place] [address] Provider, Zahraa Zaragoza MD Social [...] Redd MD - 06/11/2020 3:06 PM EDT On Going Discharge Planning Entered On: 06/11/2020 14:06 EDT Performed On: 06/11/2020 14:06 EDT by TRUONG VALLEJO RN-It Technical ArchitectRougher For Cement Progress Note Discharge Arrangements : Patient Post-Acute Information Patient Name: GILBERT DE LUNA Gender: Female : [birth year] Age: 60 Years No Post-Acute Placement(s) Listed No Post-Acute Service(s) Listed No Cur[place] Referral(s) Listed Discharge Options Discussed with Patient : Outpatient services Barriers to Discharge Unresolved : All resolved Designation of Choice Signed : Yes Patient Offered Choice/Affiliations Explained : Yes List/Info Provided Pt/Fam/Support Person : Other: Outpatient PT Were Referrals Sent to Post Acute Providers : Yes Physician Agreeable to Move Forward with D/C Plan? : Yes Did you Attend Multidisciplinary Rounds? : Yes TRUONG VALLJEO RN-It Technical Architect - 06/11/2020 14:06 EDT Electronically signed by Patricia [facility] Conversion Data Technical Lead Cerner at 01/21/2023 5:33 PM CDT documented in this encounter Plan of Treatment Not on file documented as of this encounter Visit Diagnoses Not on filedocumented in this encounter
--- OUTSIDE RECORDS SUMMARY | 2025-02-08 23:39 | XMS_ITS | Encounter Summary ---
Author Organization [employer] Address [address] [place] [address] Care Team Providers Care Quality Auditor Name Role Phone Unavailable Primary Care Provider Unavailabl e Encounter Details Date Type Department Care Team (Late st Contact Info) Description 06/11/2020 Transcribed Document [facility] 1 [place] [address] Kayleigh Sánchez MD [address] [place] [address] Social History Tobacco Use Types Packs/Day Years Used Date Smoking Tobacco: Never Assessed Comments Unknown Sex and Gender Information Value Date Recorded Sex Assigned at Female 02/25/2022 8:44 PM CDT Legal Sex Female 8:44 PM CDT Gender Identity Female 02/25/2022 8:44 PM CDT Sexual Orientation Not on file documented as of this encounter Miscellaneous Notes * Cerner Conversion Note - Kayleigh Sánchez MD - 06/11/2020 11:30 AM EDT Patient: GILBERT DE LUNA Age: 60 Years Sex: Female : 1960 *Operation Knee Total Joint Replacement, Left Indication for Surgery The patient has end-stage osteoarthritis of the above-mentioned knee. They have otherwise failed conservative measures and now present for total knee arthroplasty. The risks benefits and alternatives have been explained to the patient in detail and they have voiced their agreement. *Preoperative Diagnosis Osteoarthritis left knee *Postoperative Diagnosis Osteoarthritis left knee *Surgeon(s) Primary Surgeon KAYLEIGH SÁNCHEZ MD-ORT (Surgeon/Proceduralist, First) Surgeon: Gonzalo Optical Glass Etcher: Andreas Barahona CSA *Procedure Narrative Patient identified in the preoperative holding and appropriate lower extremity was marked. Patient was then transferred to the operating theater, general anesthesia was induced by attending Anesthesia staff. Patient was given appropriate preop antibiotic prophylaxis as well as 1 g intravenous tranexamic acid. Tourniquet was placed in the proximal aspect of the thigh,. Leg prepped and draped in usual sterile fashion. Time-out was performed, appropriate patient and operative extremity were confirmed. Leg was exsanguinated with an Esmarch bandage, tourniquet inflated to 300 mmHg. Standard midline incision and medial parapatellar arthrotomy were performed. Standard medial release. Synovium, fat pad, and other soft tissues were resected. Osteophytes removed from the periphery of the femur as well as the intercondylar notch. The ACL and PCL were resected. Next, distal femoral banquet pilot hole was drilled and the intramedullary guide matthew was placed and pinned. Distal femur was cut. Next, proximal tibia was exposed. The extramedullary guide placed perpendicular to the mechanical axis and the tibia set to 5 degrees of slope. Appropirate resection level was set and the proximal tibia was cut. We then proceeded to balance the knee in extension with releases as noted above. Next, knee was flexed up. Epicondylar axis marked with a Bovie. Femur was sized. The FuZion gap coal hauler was placed and tensed. Posterior condyle resection as noted above. Drill holes made through the coal hauler and the appropriately sized four-in-one block placed in those holes. Anterior, posterior, and chamfer cuts were then made. Balance rechecked at 90 and 0 degrees, both of which were appropriate. The knee flexed 90 degrees, laminar spreaders were placed. Meniscus and posterior condylar osteophytes were removed. Next, the proximal tibia was exposed. and sized. The tibial guide was pinned in the appropriate amount of external rotation centered over the medial third of the tibial tubercle. The keel was drilled and punched. Trials were placed, overhanging osteophytes were removed. The construct was tested for stability, which was found to be excellent throughout range of motion. Next, patella was everted, measured, and resected. Lug holes drilled, trial button placed, the construct tracked very well. All remaining trials were removed. Sclerotic bone was perforated with a drill. Exposed bony ends were thoroughly irrigated and dried. Cementation of final components took place in a single stage using high viscosity Simplex cement. Base plate was irrigated, and the final polyethylene insert was impacted into place. Locking mechanism was engaged. Knee was held in place until complete cement curing.. During this time, the extensor mechanism and other soft tissues were infiltrated with a pain cocktail. Following complete cement curing, the wound was thoroughly irrigated with dilute Betadine lavage and normal saline. 1 g vancomycin powder placed in the wound. The arthrotomy closed with number #1 Stratafix. 2 g of topical tranexamic acid was then injected into the joint. Skin closed in layers with Vicryl, Stratafix, and Dermabond. Wound was covered with Aquacel dressing. Next, drapes were removed. Patient carefully transferred to stretcher. Compression stocking and Cryo/Cuff placed in the operative extremity. The patient was then extubated without incident, and taken to PACU in stable condition. All instruments, sponge, needle counts correct at the case end of the case. Drains/Packs Used None Anesthesia General endotracheal anesthesia with adductor canal and sciatic nerve blocks *Estimated Blood Loss 50 mL *Findings Abx: 2g Ancef Implants: Steph Persona femoral component: 5 narrow CR Steph Persona universal tibial baseplate: D Tibial insert:10 mm MC Patellar button: 32 mm symmetric Patellar preparation: reamed Pre op deformity: 7 deg varus Correctable: yes Flexion contracture: none Distal femoral cut: 5 deg, 9 mm Proximal tibial cut: 10 mm off lateral side Releases in extension: Deep MCL, PM capsule Initial extension gap: 19 mm Posterior condylar resection: 19 mm Pre-reconstructed patellar thickness: 22 mm Post-reconstructed patellar thickness: 23 mm Stability: 0- 0 mm 20- 0 mm 90- 1 mm lat Patellar tracking: normal Lateral release: no ROM with capsule closed: 0-120 Tourniquet time:58 min Other: none *Specimen(s) Bone to pathology Complications None Technique Cemented Steph medial congruent TKA Date of Service Date/Time of Service SN - Proc - Start Time: 06/11/20 09:14:00 (06/11/20 09:27:34) documented in this encounter Plan of Treatment Not on file documented as of this encounter Visit Diagnoses Not on filedocumented in this encounter
--- OUTSIDE RECORDS SUMMARY | 2025-02-08 23:39 | XMS_ITS | Encounter Summary ---
Author Organization [employer] Address [address] [place] [address] Care Team Providers Care Coding Consultant Name Role Phone Unavailable Primary Care Provider Unavailabl e Encounter Details Date Type Department Care Team (Late st Contact Info) Description 06/11/2020 Transcribed Document [facility] [address] [place] [address] Provider, Zahraa Zaragoza MD Social [...] Note - Zahraa Redd MD - 06/11/2020 3:04 PM EDT Initial Discharge Planning Entered On: 06/11/2020 14:05 EDT Performed On: 06/11/2020 14:04 EDT by TRUONG VALLEJO RN-Clinical Dietetic Technician Initial Assessment I Previously Documented Living Environment : No qualifying data available. Living Situation : Home Patient Lives With : Spouse Is the Patient a Caregiver at Home? : No Emergency Contact #1 : Adryan Calixto Emergency Contact #1 Emergency Contact #1 Relationship : spouse Emergency Contact #2 : Jesi Barakat Emergency Contact #2 Emergency Contact #2 Relationship : daughter Enter Doctors Name : SAHIL MARIN MD Does Patient have PCP Listed? : Yes TRUONG VALLEJO RN-Clinical Dietetic Technician - 06/11/2020 14:04 EDT Initial Assessment II Sensory and Motor Deficits : None Current Home Treatments and Equipment : Bedside commode, Walker Does the Patient have a Floor to SNF Benefit? : No TRUONG VALLEJO RN-Clinical Dietetic Technician - 06/11/2020 14:04 EDT Discharge Needs I Anticipated Discharge Date : 06/11/2020 EDT Anticipated Discharge To, CM : Home with family care Current Home Treatment/Equipment : Current Home Treatment/Equipment No qualifying data available. Post Acute/Home Treatments : None Documentation Status Complete : Yes TRUONG VALLEJO RN-Clinical Dietetic Technician - 06/11/2020 14:04 EDT Discharge Needs II Professional Skilled Services : Professional Skilled Services No qualifying data available. Services and Community Resources : Physical Therapy Needs Assistance with Transportation : No Discharge Options Discussed with Patient : Outpatient services TRUONG VALLEJO RN-Clinical Dietetic Technician - 06/11/2020 14:04 EDT Narrative Note Narrative Note : 60yo female pt s/p LTKA. Met with pt at bedside to discuss DCP. Pt has DME at home. Referral sent to [facility] for outpatient PT and confirmed 1st appt with Karina in scheduling. No other CM needs identified. TRUONG VALLEJO RN-Clinical Dietetic Technician - 06/11/2020 14:04 EDT documented in this encounter Plan of Treatment Not on file documented as of this encounter Visit Diagnoses Not on filedocumented in this encounter
--- OUTSIDE RECORDS SUMMARY | 2025-02-08 23:39 | XMS_ITS | Referral Summary ---
Author Organization [employer] Address [address] [place] [address] Care Team Providers Care Shoulder Sawyer Name Role Phone Unavailable Primary Care Provider [...]
--- OUTSIDE RECORDS SUMMARY | 2025-02-08 23:39 | XMS_ITS | Encounter Summary ---
Author Organization [facility] Address [address] [place] [address] Care Team Providers Care Electrician'S Assistant Name Role Phone Venkat Truong MD Primary Care Provider [phone] Encounter Details Date Type Department Care Team (Late st Contact Info) Description 12/17/2023 Lab Requisition [facility] [address] [place] [address] Omar Griggs MD [address] [facility] [address] [place], [place] [id number] Small cell B-cell lymphoma, unspecified site (CMS/HCC) Social History Tobacco Use Types Packs/Day Years Used Date Smoking Tobacco: Former Cigarettes Smokeless Tobacco: Never PHQ-2 Answer Date Recorded Patient Health Questionnaire-2 [...] Procedure Name Priority Date/Time Associated Diagnosis Comments AP MISCELLANEOUS LAB TEST (SO) Routine 12/03/2023 10:35 AM EDT Small cell B-cell lymphoma, unspecified site (CMS/HCC) documented in this encounter Results * - AP Miscellaneous Test (12/03/2023 10:35 AM EDT) Test name CLL FISH-Neoge nomics 12/31/2023 7:29 AM EDT [facility] Comment:[id number] Test Result see scan 12/31/2023 7:29 AM EDT [facility] See Scanned Result 12/31/2023 7:29 AM EDT [facility] Tissue 12/03/2023 10:3 5 AM EDT 12/17/2023 10:47 AM EDT us Omar Griggs MD LAB REF LAB BLOOD AND FLUID OR D Final Result [facility] [address] [place] [address] documented in this encounter Visit Diagnoses Diagnosis Small cell B-cell lymphoma, unspecified site (CMS/HCC) documented in this encounter Additional Health Concerns Assessment Noted Time A Body Mass Index follow-up plan has been documented for the patient 12/03/2023 11:11 AM EDT documented as of this encounter Care Teams Electrician'S Assistant Relationship Specialty Start Date End Date Venkat Truong MD [address] [place] [address] [address] [place] [address] PCP - General 11/25/23 documented as of this encounter
--- OUTSIDE RECORDS SUMMARY | 2025-02-08 23:39 | XMS_ITS | Encounter Summary ---
Author Organization [employer] Address [address] [place] [address] Care Team Providers Care Chief Wellness Officer Name Role Phone Unavailable Primary Care Provider Unavailabl e Encounter Details Date Type Department Care Team (Late st Contact Info) Description 06/11/2020 Transcribed Document [facility] [address] [place] [address] Provider, Zahraa Zaragoza MD Social [...] Note - [facility] Mila Redd MD - 06/11/2020 4:14 PM EDT [facility] [address] [place] [address] JERMAN GILBERT FARIHA :1960 Visit Time:06/11/2020 Your Visit Summary Your Care Team Admitting Physician - KAYLEIGH SÁNCHEZ MD-ORT Attending Physician - KAYLEIGH SÁNCHEZ MD-ORT Primary Care Physician - SAHIL MARIN (REF)MD-INT Referring Physician - KAYLEIGH SÁNCHEZ MD-ORT Your Diagnosis Unilateral primary osteoarthritis, left knee, Unilateral primary osteoarthritis, left knee Discharge Vitals Temperature 36.3 ??C Heart Rate (Monitored) 82 Respiratory Rate 16 Blood Pressure 116/67 What to do next Instructions From Your Care Team Diet after Discharge: Resume usual diet as tolerated Activity after Discharge: As tolerated, No strenuous activity Lifting Restrictions: No heavy lifting over 10 pounds Weight Bearing: Full weight bearing Driving after Discharge: Do not drive Showering/Bathing: May shower, No tub bathing, soaking or swimming, Wrap incision with plastic wrap for shower Notify Provider of: See Call First sheet Wound/Incision Care after Discharge: Keep operative site/wound site clean and dry, DO NOT change dressing; may reinforce it as needed; Remove dressing in 7-10 days Medical Equipment for Home Use: Home Health Services: Community Services: Follow-Up Appointments Follow Up with ROBBIE MAYBERRY PA-ORAgustín When 07/02/2020 03:00 PM EST Where: [facility] [place] [address]- Follow Up with [facility] When 06/13/2020 01:00 PM EDT Comments Appointment has been made Where: [facility] [phone] Medications What How Much When Instructions Next Dose acetaminophen-oxyCODONE (Percocet 5/ 325 oral tablet) 1 Tablet(s) Oral Every 4 Hours as needed for as needed for pain not to exceed 5 tablets/ day Printed Prescription aspirin (aspirin 81 mg oral tablet) 1 Tablet(s) Oral Two Times A Day Printed Prescription 2100 docusate (Colace 100 mg oral capsule) 1 Capsule(s) Oral Two Times A Day as needed for for constipation Printed Prescription 2100 if needed ondansetron (Zofran 4 mg oral tablet) 1 Tablet(s) Oral Every 8 Hours as needed for Nausea Printed Prescription as needed pregabalin (Lyrica 75 mg oral capsule) 1 Capsule(s) Oral Every Day at bedtime Printed Prescription 2100 meloxicam (Mobic 15 mg oral tablet) 1 Tablet(s) Oral Every Day Printed Prescription 0900 hydroCHLOROthiazide (hydroCHLOROthiazide 12.5 mg oral tablet) 1 Tablet(s) Oral Every Day 0900 losartan 25 Milligram(s) Oral Every Day 0900 omeprazole 20 Milligram(s) Oral Every Day 0900 phentermine (phentermine 37.5 mg oral capsule) 1 Capsule(s) Oral Every Day 0900 sertraline (sertraline 50 mg oral tablet) 1 Tablet(s) Oral Every Day 0900 Take your medications faithfully. Do NOT skip medication. Do NOT stop taking medications without the direction of a physician. Carry a list of your medications with you at all times, and take this medication list with you to your first follow up visit. Report any side effects. Avoid herbal remedies unless discussed with your physician. As part of your treatment plan, your physician may have prescribed a limited course of a controlled substance. This medication may be given to help people with moderate or severe pain or for other medical conditions, but there are risks involved with treatment. Common side effects may include nausea, constipation, drowsiness, sweating, itching, dry mouth, and rash. More serious side effects may include cognitive and motor impairment, like problems with thinking, concentrating, alertness, and movement (e.g. slowed reflexes), and driving and operating heavy machinery can be dangerous. It is important for you to talk to your physician if you have these side effects or questions. These controlled substances can produce physical dependence and be habit-forming if taken for an extended period of time, which means that the body has gotten used to them and may experience withdrawal symptoms if they are abruptly stopped. Withdrawal symptoms can include runny nose, sweating, goose bumps, diarrhea, abdominal cramping, rapid heartbeat, difficulty sleeping, and nervousness. Please dispose of unused and medications per your retail pharmacy guidance. Allergies No Known Medication Allergies Immunizations This Visit No Immunizations Found Education Materials Discharge Instructions for Total Knee Replacement Your [...] before and after changing the dressing. Activity ??? You may put weight on your leg when you walk, unless your surgeon tells you not differently. Use your walker until the therapist or surgeon say you do not need it anymore. Continue your exercises from physical therapy. ??? Complete straightening exercises (whether using Zero Knee Foam or ???TubsE AT LEAST three times a day for 30 minutes, keep toes pointed to ceiling. Keep knee straight and extended unless you are doing bending exercises. No pillow under knee. ??? Stay active, get up every 1-2 hours, walk short distances, and walk a little more each week. No driving until cleared by your surgeon. ??? If your surgeon has ordered support hose, wear them for 6 weeks in order to prevent blood clots. Take them off 1-2 times per day for about 30 minutes-1 hour. Check your skin for red or open areas under the hose. They can be bought online and at many pharmacies, be sure that compression is 15-20mmHg and that they are thigh-high. ??? If you have a CPM, use it 2 hours 2x/day. ??? For swelling, elevate your leg above your heart. Remember to keep knee straight and NOT bent, unless you are doing your bending exercises. ??? Cold therapy 30 minutes on and 30 minutes off with cloth or clothing between skin and cold wrap. General Instructions: ??? Eat 25-35 grams of fiber every day. [...] your home health nurse or surgeon office. ??? Continue using your incentive spirometer to keep fever and lung infection away. Aim for 10 breaths every hour while you are awake. ??? Take pain medicine as needed, especially before therapy. ??? Let your doctors and dentist know you [...] you are experiencing life-threatening issues, call your surgeon???s office or nurse navigator first, before going to the Emergency Department. Call your surgeon or nurse navigator if: ??? Your incision has increased swelling that does not get better with time, rest, and propping up your leg ??? Your incision has a foul smell or begins to open ??? You have a large amount of bleeding from incision ??? Your incision gets red, warm or increased drainage after 2 days ??? You have a fever over 101 degrees for more than 24 hours ??? You have increased swelling, redness, warmth or pain in your calf ??? You fall, but don???t have an obvious injury ??? You have questions or cause for concern regarding your total joint replacement Call 911 if: ??? You have sudden chest pain or shortness of breath ??? You fall and cannot get up ??? Life-threatening signs or symptoms ??? Stroke signs and symptoms: Facial droop, uneven smile, arm numbness, arm weakness, slurred speech, difficulty speaking or understanding If you are a patient of Dr. Sánchez or Dr. Mathias, call [phone] If you are a patient of Dr. Forbes, call [phone] Nurse Navigator: Renee Horn Office: [phone]; ; available during regular business hours acetaminophen and oxycodone (a SEET a MIN oh fen and OX i KOE done) Endocet 10/325, Endocet 2.5/325, Endocet 5/325, Endocet 7.5/325, Nalocet, Percocet, Primlev What is the most important information I should know about acetaminophen and oxycodone? MISUSE OF OPIOID MEDICINE CAN CAUSE ADDICTION, OVERDOSE, OR . Keep the medication in a place where others cannot get to it. An overdose of acetaminophen can damage your liver or cause . Call your doctor at once if you have pain in your upper stomach, loss of appetite, dark urine, or jaundice (yellowing of your skin or eyes). Taking opioid medicine during may cause life-threatening withdrawal symptoms in the . Fatal side effects can occur if you use opioid medicine with alcohol, or with other drugs that cause drowsiness or slow your breathing. Stop taking this medicine and call your doctor right away if you have skin redness or a rash that spreads and causes blistering and peeling. What is acetaminophen and oxycodone? Acetaminophen and oxycodone is a combination medicine used to relieve moderate to severe pain. Acetaminophen and oxycodone may also be used for purposes not listed in this medication guide. What should I discuss with my healthcare provider before taking acetaminophen and oxycodone? You should not use this medicine if you are allergic to acetaminophen or oxycodone, or if you have: ?? severe asthma or breathing problems; or ?? a blockage in your stomach or intestines. Tell your doctor if you have ever had: ?? breathing problems, sleep apnea; ?? liver disease; ?? a drug or alcohol addiction; ?? kidney disease; ?? a head injury or seizures; ?? urination problems; or ?? problems with your thyroid, pancreas, or gallbladder. If you use opioid medicine while you are , your baby could become dependent on the drug. This can cause life-threatening withdrawal symptoms in the baby after it is born. Babies born dependent on opioids may need medical treatment for several weeks. Do not breastfeed. This medicine can pass into breast milk and cause drowsiness, breathing problems, or in a nursing baby. How should I take acetaminophen and oxycodone? Follow all directions on your prescription label. Never take this medicine in larger amounts, or for longer than prescribed. An overdose can damage your liver or cause . Tell your doctor if you feel an increased urge to use more of this medicine. Never share this medicine with another person, especially someone with a history of drug abuse or addiction. MISUSE CAN CAUSE ADDICTION, OVERDOSE, OR . Keep the medicine in a place where others cannot get to it. Selling or giving away acetaminophen and oxycodone is against the law. Measure liquid medicine carefully. Use the dosing syringe provided, or use a medicine dose-measuring device (not a kitchen spoon). If you need surgery or medical tests, tell the doctor ahead of time that you are using this medicine. You should not stop using this medicine suddenly. Follow your doctor's instructions about tapering your dose. Store at room temperature away from moisture and heat. Keep track of your medicine. You should be aware if anyone is using it improperly or without a prescription. Do not keep leftover opioid medication. Just one dose can cause in someone using this medicine accidentally or improperly. Ask your pharmacist where to locate a drug take-back disposal program. If there is no take-back program, flush the unused medicine down the toilet. What happens if I miss a dose? Since this medicine is used for pain, you are not likely to miss a dose. Skip any missed dose if it is almost time for your next dose. Do not use two doses at one time. What happens if I overdose? Seek emergency medical attention or call the Poison Help line at . An overdose of acetaminophen and oxycodone can be fatal. The first signs of an acetaminophen overdose include loss of appetite, nausea, vomiting, stomach pain, sweating, and confusion or weakness. Later symptoms may include pain in your upper stomach, dark urine, and yellowing of your skin or the whites of your eyes. Overdose can also cause severe muscle weakness, pinpoint pupils, very slow breathing, extreme drowsiness, or coma. What should I avoid while taking acetaminophen and oxycodone? Avoid driving or operating machinery until you know how this medicine will affect you. Dizziness or drowsiness can cause falls, accidents, or severe injuries. Do not drink alcohol. Dangerous side effects or could occur. Ask a doctor or pharmacist before using any other medicine that may contain acetaminophen (sometimes abbreviated as APAP). Taking certain medications together can lead to a fatal overdose. What are the possible side effects of acetaminophen and oxycodone? Get emergency medical help if you have signs of an allergic reaction: hives; difficulty breathing; swelling of your face, lips, tongue, or throat. Opioid medicine can slow or stop your breathing, and may occur. A person caring for you should seek emergency medical attention if you have slow breathing with long pauses, blue colored lips, or if you are hard to wake up. In rare cases, acetaminophen may cause a severe skin reaction that can be fatal. This could occur even if you have taken acetaminophen in the past and had no reaction. Stop taking this medicine and call your doctor right away if you have skin redness or a rash that spreads and causes blistering and peeling. Call your doctor at once if you have: ?? noisy breathing, sighing, shallow breathing, breathing that stops during sleep; ?? a light-headed feeling, like you might pass out; ?? weakness, tiredness, fever, unusual bruising or bleeding; ?? confusion, unusual thoughts or behavior; ?? problems with urination; ?? liver problems--nausea, upper stomach pain, tiredness, loss of appetite, dark urine, sony-colored stools, jaundice (yellowing of the skin or eyes); or ?? low cortisol levels-- nausea, vomiting, loss of appetite, dizziness, worsening tiredness or weakness. Seek medical attention right away if you have symptoms of serotonin syndrome, such as: agitation, hallucinations, fever, sweating, shivering, fast heart rate, muscle stiffness, twitching, loss of coordination, nausea, vomiting, or diarrhea. Serious side effects may be more likely in older adults and those who are overweight, malnourished, or debilitated. Long-term use of opioid medication may affect fertility (ability to have children) in men or women. It is not known whether opioid effects on fertility are permanent. Common side effects include: ?? dizziness, drowsiness, feeling tired; ?? feelings of extreme happiness or sadness; ?? nausea, vomiting, stomach pain; ?? constipation; or ?? headache. This is not a complete list of side effects and others may occur. Call your doctor for medical advice about side effects. You may report side effects to FDA at 0-832-GGP-5757. What other drugs will affect acetaminophen and oxycodone? You may have breathing problems or withdrawal symptoms if you start or stop taking certain other medicines. Tell your doctor if you also use an antibiotic, antifungal medication, heart or blood pressure medication, seizure medication, or medicine to treat HIV or hepatitis C. Opioid medication can interact with many other drugs and cause dangerous side effects or . Be sure your doctor knows if you also use: ?? cold or allergy medicines, bronchodilator asthma/COPD medication, or a diuretic ('water pill'); ?? medicines for motion sickness, irritable bowel syndrome, or overactive bladder; ?? other narcotic medications--opioid pain medicine or prescription cough medicine; ?? a sedative like Valium--diazepam, alprazolam, lorazepam, Xanax, Klonopin, Versed, and others; ?? drugs that make you sleepy or slow your breathing--a sleeping pill, muscle relaxer, medicine to treat mood disorders or mental illness; ?? drugs that affect serotonin levels in your body--a stimulant, or medicine for depression, Parkinson's disease, migraine headaches, serious infections, or nausea and vomiting. This list is not complete. Other drugs may affect acetaminophen and oxycodone, including prescription and adrz-xew-qnpuaru medicines, vitamins, and herbal products. Not all possible interactions are listed here. Where can I get more information? Your doctor or pharmacist can provide more information about acetaminophen and oxycodone. Remember, keep this and all other medicines out of the reach of children, never share your medicines with others, and use this medication only for the indication prescribed. Every effort has been made to ensure that the information provided by [employer]') is accurate, up-to-date, and complete, but no guarantee is made to that effect. Drug information contained herein may be time sensitive. [employer] information has been compiled for use by healthcare practitioners and consumers in the [place] and therefore [employer] does not warrant that uses outside of the [place] are appropriate, unless specifically indicated otherwise. [employer] drug information does not endorse drugs, diagnose patients or recommend therapy. [employer] drug information is an informational resource designed to assist licensed healthcare practitioners in caring for their patients and/or to serve consumers viewing this service as a supplement to, and not a substitute for, the expertise, skill, knowledge and judgment of healthcare practitioners. The absence of a warning for a given drug or drug combination in no way should be construed to indicate that the drug or drug combination is safe, effective or appropriate for any given patient. [employer] does not assume any responsibility for any aspect of healthcare administered with the aid of information [employer] provides. The information contained herein is not intended to cover all possible uses, directions, precautions, warnings, drug interactions, allergic reactions, or adverse effects. If you have questions about the drugs you are taking, check with your doctor, nurse or pharmacist. Copyright 5601-6043 [employer]. Version: .. Revision Date: 09/21/2019. aspirin (oral) ( pir in) Arthritis Pain, Aspi-Cor, Aspir 81, Aspir-Low, Dimas Plus, Bufferin, Durlaza, Ecotrin, Ecpirin, Miniprin What is the most important information I should know about aspirin? You should not use aspirin if you have a bleeding disorder such as hemophilia, a recent history of stomach or intestinal bleeding, or if you are allergic to an NSAID (non-steroidal anti-inflammatory drug). Aspirin can cause Cass's syndrome, a serious and sometimes fatal condition in children. What is aspirin? Aspirin is a salicylate ([id number]-ate) that is used to treat pain, and reduce fever or inflammation. Aspirin is sometimes used to treat or prevent heart attacks, strokes, and chest pain (angina). Aspirin should be used for cardiovascular conditions only under the supervision of a doctor. Aspirin may also be used for purposes not listed in this medication guide. What should I discuss with my healthcare provider before taking aspirin? Do not give this medicine to a child or teenager with a fever, flu symptoms, or chickenpox. Aspirin can cause Cass's syndrome, a serious and sometimes fatal condition in children. You should not use aspirin if you are allergic to it, or if you have: ?? a recent history of stomach or intestinal bleeding; ?? a bleeding disorder such as hemophilia; or ?? if you have ever had an asthma attack or severe allergic reaction after taking aspirin or an NSAID (non-steroidal anti-inflammatory drug). Tell your doctor if you have ever had: ?? asthma or seasonal allergies; ?? stomach ulcers; ?? liver disease; ?? kidney disease; ?? a bleeding or blood clotting disorder; ?? gout; or ?? heart disease, high blood pressure, or congestive heart failure. Taking aspirin during late may cause bleeding in the mother or the baby during delivery. Tell your doctor if you are or plan to become . You should not breastfeed while using this medicine. How should I take aspirin? Use exactly as directed on the label, or as prescribed by your doctor. Always follow directions on the medicine label about giving aspirin to a child. Take with food if aspirin upsets your stomach. You must chew the chewable tablet before you swallow it. Do not crush, chew, break, or open an enteric-coated or delayed/extended-release pill. Swallow it whole. If you need surgery, tell your surgeon you currently use this medicine. You may need to stop for a short time. Do not use aspirin if you smell a strong vinegar odor in the aspirin bottle. The medicine may no longer be effective. Store at room temperature away from moisture and heat. What happens if I miss a dose? Since aspirin is used when needed, you may not be on a dosing schedule. Skip any missed dose if it's almost time for your next dose. Do not use two doses at one time. What happens if I overdose? Seek emergency medical attention or call the Poison Help line at . Overdose symptoms may include stomach pain, vomiting, diarrhea, vision or hearing problems, fast or slow breathing, or confusion. What should I avoid while taking aspirin? Avoid alcohol. Heavy drinking can increase your risk of stomach bleeding. If you are taking aspirin to prevent heart attack or stroke, avoid also taking ibuprofen (Advil, Motrin). Ibuprofen can make aspirin less effective in protecting your heart and blood vessels. If you must use both medications, ask your doctor how far apart your doses should be. Ask a doctor or pharmacist before using other medicines for pain, fever, swelling, or cold/flu symptoms. They may contain ingredients similar to aspirin (such as magnesium salicylate, ibuprofen, ketoprofen, or naproxen). What are the possible side effects of aspirin? Get emergency medical help if you have signs of an allergic reaction: hives; difficult breathing; swelling of your face, lips, tongue, or throat. Stop using aspirin and call your doctor at once if you have: ?? ringing in your ears, confusion, hallucinations, rapid breathing, seizure (convulsions); ?? severe nausea, vomiting, or stomach pain; ?? bloody or tarry stools, coughing up blood or vomit that looks like coffee grounds; ?? fever lasting longer than 3 days; or ?? swelling, or pain lasting longer than 10 days. Common side effects may include: ?? upset stomach, heartburn; ?? drowsiness; or ?? mild headache. This is not a complete list of side effects and others may occur. Call your doctor for medical advice about side effects. You may report side effects to FDA at 0-290-QKW-8964. What other drugs will affect aspirin? Ask your doctor before using aspirin if you take an antidepressant. Taking certain antidepressants with aspirin may cause you to bruise or bleed easily. Ask a doctor or pharmacist before using aspirin with any other medications, especially: ?? a blood thinner (warfarin, Coumadin, Jantoven), or other medication used to prevent blood clots; or ?? other salicylates such as Nuprin Backache Caplet, Kaopectate, KneeRelief, Pamprin Cramp Formula, Pepto-Bismol, Tricosal, Trilisate, and others. This list is not complete. Other drugs may affect aspirin, including prescription and jbfi-khy-bdpnivs medicines, vitamins, and herbal products. Not all possible drug interactions are listed here. Where can I get more information? Your pharmacist can provide more information about aspirin. Remember, keep this and all other medicines out of the reach of children, never share your medicines with others, and use this medication only for the indication prescribed. Every effort has been made to ensure that the information provided by [employer]') is accurate, up-to-date, and complete, but no guarantee is made to that effect. Drug information contained herein may be time sensitive. [employer] information has been compiled for use by healthcare practitioners and consumers in the [place] and therefore [employer] does not warrant that uses outside of the [place] are appropriate, unless specifically indicated otherwise. [employer] drug information does not endorse drugs, diagnose patients or recommend therapy. [employer] drug information is an informational resource designed to assist licensed healthcare practitioners in caring for their patients and/or to serve consumers viewing this service as a supplement to, and not a substitute for, the expertise, skill, knowledge and judgment of healthcare practitioners. The absence of a warning for a given drug or drug combination in no way should be construed to indicate that the drug or drug combination is safe, effective or appropriate for any given patient. [facility] does not assume any responsibility for any aspect of healthcare administered with the aid of information [facility] provides. The information contained herein is not intended to cover all possible uses, directions, precautions, warnings, drug interactions, allergic reactions, or adverse effects. If you have questions about the drugs you are taking, check with your doctor, nurse or pharmacist. Copyright 6015-0651 [employer]. Version: 16.02. Revision Date: 04/18/2020. meloxicam (oral/injection) (hakan OKS i holly) Anjeso, Mobic, Qmiiz ODT, Vivlodex What is the most important information I should know about meloxicam? Meloxicam can increase your risk of fatal heart attack or stroke. Do not use this medicine just before or after heart bypass surgery (coronary artery bypass graft, or CABG). Meloxicam may also cause stomach or intestinal bleeding, which can be fatal. What is meloxicam? Meloxicam is a nonsteroidal anti-inflammatory drug (NSAID) that is used to treat osteoarthritis or rheumatoid arthritis in adults. Meloxicam is also used to treat juvenile rheumatoid arthritis in children who are at least 2 years old. The Anjeso brand of meloxicam is used to treat moderate to severe pain in adults. Vivlodex is for use only in adults. Qmiiz is for adults and children weighing at least 132 pounds (60 kilograms). Meloxicam may also be used for purposes not listed in this medication guide. What should I discuss with my healthcare provider before taking meloxicam? Meloxicam can increase your risk of fatal heart attack or stroke, even if you don't have any risk factors. Do not use this medicine just before or after heart bypass surgery (coronary artery bypass graft, or CABG). Meloxicam may also cause stomach or intestinal bleeding, which can be fatal. These conditions can occur without warning while you are using meloxicam, especially in older adults. You should not use meloxicam if you are allergic to it, or if you have ever had an asthma attack or severe allergic reaction after taking aspirin or an NSAID. You should not take meloxicam disintegrating tablets (Qmiiz ODT) if you have phenylketonuria (PKU). This form of meloxicam contains phenylalanine. Tell your doctor if you have ever had: ?? heart disease, high blood pressure, high cholesterol, diabetes, or if you smoke; ?? a heart attack, stroke, or blood clot; ?? ulcers or bleeding in your stomach; ?? asthma; ?? kidney disease (or if you are on dialysis); ?? liver disease; or ?? fluid retention. Taking meloxicam during the last 3 months of may harm the unborn baby. Tell your doctor if you are or plan to become . Meloxicam may cause a delay in ovulation (the release of an egg from an ovary). You should not take meloxicam if you are undergoing fertility treatment, or are otherwise trying to get . It may not be safe to breastfeed while using this medicine. Ask your doctor about any risk. Meloxicam is not approved for use by anyone younger than 2 years old. How should I take meloxicam? Follow all directions on your prescription label and read all medication guides. Use the lowest dose that is effective in treating your condition. Meloxicam oral is taken by mouth. Meloxicam injection is given as an infusion into a vein. A healthcare provider will give you this injection. You may take meloxicam oral with or without food. Remove an orally disintegrating tablet from the package only when you are ready to take the medicine. Place the tablet in your mouth and allow it to dissolve, without chewing. Swallow several times as the tablet dissolves. Your dose needs may change if you switch to a different brand, strength, or form of this medicine. Avoid medication errors by using only the form and strength your doctor prescribes. Meloxicam doses are based on weight (especially in children and teenagers). Your dose needs may change if you gain or lose weight. If you use this medicine long-term, you may need frequent medical tests. Store meloxicam tablets or capsules at room temperature, away from moisture and heat. Keep the bottle tightly closed when not in use. What happens if I miss a dose? Take the medicine as soon as you can, but skip the missed dose if it is almost time for your next dose. Do not take two doses at one time. What happens if I overdose? Seek emergency medical attention or call the Poison Help line at . What should I avoid while taking meloxicam? Avoid alcohol. Heavy drinking can increase your risk of stomach bleeding. Avoid taking aspirin while you are taking meloxicam, unless your doctor tells you to. Ask a doctor or pharmacist before using other medicines for pain, fever, swelling, or cold/flu symptoms. They may contain ingredients similar to meloxicam (such as aspirin, ibuprofen, ketoprofen, or naproxen). What are the possible side effects of meloxicam? Get emergency medical help if you have signs of an allergic reaction (hives, difficult breathing, swelling in your face or throat) or a severe skin reaction (fever, sore throat, burning eyes, skin pain, red or purple skin rash with blistering and peeling). Get emergency medical help if you have signs of a heart attack or stroke: chest pain spreading to your jaw or shoulder, sudden numbness or weakness on one side of the body, slurred speech, leg swelling, feeling short of breath. Stop using meloxicam and call your doctor at once if you have: ?? the first sign of any skin rash, no matter how mild; ?? shortness of breath (even with mild exertion); ?? swelling or rapid weight gain; ?? signs of stomach bleeding--bloody or tarry stools, coughing up blood or vomit that looks like coffee grounds; ?? liver problems--nausea, upper stomach pain, itching, tired feeling, flu-like symptoms, loss of appetite, dark urine, sony-colored stools, jaundice (yellowing of the skin or eyes); ?? low red blood cells (anemia)--pale skin, unusual tiredness, feeling light-headed, cold hands and feet; or ?? kidney problems--little or no urination, swelling in your feet or ankles, feeling tired or short of breath. Common side effects may include: ?? stomach pain, nausea, vomiting, heartburn; ?? diarrhea, constipation, gas; ?? dizziness; or ?? cold symptoms, flu symptoms. This is not a complete list of side effects and others may occur. Call your doctor for medical advice about side effects. You may report side effects to FDA at 8-228-RLA-6697. What other drugs will affect meloxicam? Ask your doctor before using meloxicam if you take an antidepressant. Taking certain antidepressants with an NSAID may cause you to bruise or bleed easily. Tell your doctor about all your other medicines, especially: ?? cyclosporine; ?? lithium; ?? methotrexate; ?? pemetrexed; ?? sodium polystyrene sulfonate (Kayexalate); ?? a blood thinner (warfarin, Coumadin, Jantoven); ?? heart or blood pressure medication, including a diuretic or 'water pill'; or ?? steroid medicine (such as prednisone). This list is not complete. Other drugs may affect meloxicam, including prescription and vfyc-xyz-nqugcbl medicines, vitamins, and herbal products. Not all possible drug interactions are listed here. Where can I get more information? Your pharmacist can provide more information about meloxicam. Remember, keep this and all other medicines out of the reach of children, never share your medicines with others, and use this medication only for the indication prescribed. Every effort has been made to ensure that the information provided by [employer]. ('[employer]') is accurate, up-to-date, and complete, but no guarantee is made to that effect. Drug information contained herein may be time sensitive. [facility] information has been compiled for use by healthcare practitioners and consumers in the [place] and therefore [facility] does not warrant that uses outside of the [place] are appropriate, unless specifically indicated otherwise. [employer] drug information does not endorse drugs, diagnose patients or recommend therapy. [employer] drug information is an informational resource designed to assist licensed healthcare practitioners in caring for their patients and/or to serve consumers viewing this service as a supplement to, and not a substitute for, the expertise, skill, knowledge and judgment of healthcare practitioners. The absence of a warning for a given drug or drug combination in no way should be construed to indicate that the drug or drug combination is safe, effective or appropriate for any given patient. [facility] does not assume any responsibility for any aspect of healthcare administered with the aid of information [facility] provides. The information contained herein is not intended to cover all possible uses, directions, precautions, warnings, drug interactions, allergic reactions, or adverse effects. If you have questions about the drugs you are taking, check with your doctor, nurse or pharmacist. Copyright 8928-5529 [employer]. Version: 13.02. Revision Date: 12/28/2019. pregabalin (pre KB a jorge) Bia Amezquita What is the most important information I should know about pregabalin? Pregabalin can cause a severe allergic reaction. Stop taking this medicine and seek emergency medical help if you have hives or blisters on your skin, trouble breathing, or swelling in your face, mouth, or throat. Some people have thoughts about suicide while taking pregabalin. Stay alert to changes in your mood or symptoms. Report any new or worsening symptoms to your doctor. If you have diabetes or heart problems, call your doctor if you have weight gain or swelling in your hands or feet while taking pregabalin. Do not stop using pregabalin suddenly, even if you feel fine. Stopping suddenly may cause withdrawal symptoms. What is pregabalin? Pregabalin is an anti-epileptic drug, also called an anticonvulsant. It works by slowing down impulses in the brain that cause seizures. Pregabalin also affects chemicals in the brain that send pain signals across the nervous system. Pregabalin is used to treat pain caused by fibromyalgia, or nerve pain in people with diabetes (diabetic neuropathy), herpes zoster (post-herpetic neuralgia), or spinal cord injury. Pregabalin is also used with other medications to treat partial onset seizures in adults and children who are at least 1 month old. Pregabalin may also be used for purposes not listed in this medication guide. What should I discuss with my healthcare provider before taking pregabalin? You should not use pregabalin if you are allergic to it. Tell your doctor if you have ever had: ?? lung disease, such as chronic obstructive pulmonary disease (COPD); ?? a mood disorder, depression, or suicidal thoughts; ?? heart problems (especially congestive heart failure); ?? a bleeding disorder, or low levels of platelets in your blood; ?? kidney disease (or if you are on dialysis); ?? diabetes (unless you are taking pregabalin to treat diabetic neuropathy); ?? drug or alcohol addiction; or ?? a severe allergic reaction (angioedema). Do not give this medicine to a child without medical advice. ?? Pregabalin is not approved for use by anyone younger than 18 years old to treat nerve pain caused by fibromyalgia, diabetes, herpes zoster, or spinal cord injury. ?? Pregabalin is not approved for seizures in anyone younger than 1 month old. Some people have thoughts about suicide while taking pregabalin. Your doctor will need to check your progress at regular visits. Your family or other caregivers should also be alert to changes in your mood or symptoms. Seizure control is very important during , and having a seizure could harm both mother and baby. Do not start or stop taking pregabalin without your doctor's advice, and tell your doctor right away if you become . If you are , your name may be listed on a registry to track the effects of pregabalin on the baby. Pregabalin can decrease sperm count and may affect fertility in men (your ability to have children). In animal studies, pregabalin also caused defects in the offspring of males treated with this medicine. However, it is not known whether these effects would occur in humans. Ask your doctor about your risk. You should not breastfeed while using pregabalin. How should I take pregabalin? Follow all directions on your prescription label and read all medication guides or instruction sheets. Your doctor may occasionally change your dose. Use the medicine exactly as directed. Take the medicine at the same time each day, with or without food. Swallow an extended-release tablet whole and do not crush, chew, or break it. Measure liquid medicine carefully. Use the dosing syringe provided, or use a medicine dose-measuring device (not a kitchen spoon). Call your doctor if your symptoms do not improve, or if they get worse. Do not stop using pregabalin suddenly, even if you feel fine. Stopping suddenly may cause increased seizures or unpleasant withdrawal symptoms. Follow your doctor's instructions about tapering your dose for at least 1 week before stopping completely. In case of emergency, wear or carry medical identification to let others know you take seizure medication. Store at room temperature away from moisture, heat, and light. What happens if I miss a dose? Take the medicine as soon as you can, but skip the missed dose if it is almost time for your next dose. Do not take two doses at one time. What happens if I overdose? Seek emergency medical attention or call the Poison Help line at . What should I avoid while taking pregabalin? Avoid drinking alcohol. It may increase certain side effects of pregabalin. Avoid driving or hazardous activity until you know how this medicine will affect you. Your reactions could be impaired. What are the possible side effects of pregabalin? Pregabalin can cause a severe allergic reaction. Stop taking this medicine and get emergency medical help if you have: hives or blisters on your skin; difficult breathing; swelling of your face, lips, tongue, or throat. Report any new or worsening symptoms to your doctor, such as: mood or behavior changes, depression, anxiety, panic attacks, trouble sleeping, or if you feel impulsive, irritable, agitated, hostile, aggressive, restless, hyperactive (mentally or physically), or have thoughts about suicide or hurting yourself. Call your doctor at once if you have: ?? weak or shallow breathing; ?? blue-colored skin, lips, fingers, and toes; ?? confusion, extreme drowsiness or weakness; ?? vision problems; ?? skin sores (if you have diabetes); ?? easy bruising, unusual bleeding; ?? swelling in your hands or feet, rapid weight gain (especially if you have diabetes or heart problems); or ?? unexplained muscle pain, tenderness, or weakness (especially if you also have fever or don't feel well). Pregabalin can cause life-threatening breathing problems. A person caring for you should seek emergency medical attention if you have slow breathing with long pauses, blue colored lips, or if you are hard to wake up. Breathing problems may be more likely in older adults or in people with COPD. If you have diabetes, tell your doctor right away if you have any new sores or other skin problems. Common side effects may include: ?? dizziness, drowsiness; ?? swelling in your hands and feet; ?? trouble concentrating; ?? increased appetite; ?? weight gain; ?? dry mouth; or ?? blurred vision. This is not a complete list of side effects and others may occur. Call your doctor for medical advice about side effects. You may report side effects to FDA at 9-741-IBN-5417. What other drugs will affect pregabalin? Using pregabalin with other drugs that slow your breathing can cause dangerous side effects or . Ask your doctor before using opioid medication, a sleeping pill, cold or allergy medicine, a muscle relaxer, or medicine for anxiety or seizures. Tell your doctor about all your other medicines, especially: ?? oral diabetes medicine--pioglitazone, rosiglitazone; or ?? an RAMYA inhibitor--benazepril, captopril, enalapril, fosinopril, lisinopril, moexipril, perindopril, quinapril, ramipril, or trandolapril. This list is not complete. Other drugs may affect pregabalin, including prescription and flqu-zap-rmyyqqj medicines, vitamins, and herbal products. Not all possible drug interactions are listed here. Where can I get more information? Your pharmacist can provide more information about pregabalin. Remember, keep this and all other medicines out of the reach of children, never share your medicines with others, and use this medication only for the indication prescribed. Every effort has been made to ensure that the information provided by [employer]') is accurate, up-to-date, and complete, but no guarantee is made to that effect. Drug information contained herein may be time sensitive. [facility] information has been compiled for use by healthcare practitioners and consumers in the [place] and therefore [facility] does not warrant that uses outside of the [place] are appropriate, unless specifically indicated otherwise. [employer] drug information does not endorse drugs, diagnose patients or recommend therapy. [employer] drug information is an informational resource designed to assist licensed healthcare practitioners in caring for their patients and/or to serve consumers viewing this service as a supplement to, and not a substitute for, the expertise, skill, knowledge and judgment of healthcare practitioners. The absence of a warning for a given drug or drug combination in no way should be construed to indicate that the drug or drug combination is safe, effective or appropriate for any given patient. [facility] does not assume any responsibility for any aspect of healthcare administered with the aid of information [facility] provides. The information contained herein is not intended to cover all possible uses, directions, precautions, warnings, drug interactions, allergic reactions, or adverse effects. If you have questions about the drugs you are taking, check with your doctor, nurse or pharmacist. Copyright 6538-5407 [employer]. Version: 9.01. Revision Date: 08/25/2019. docusate (oral/rectal) (DOK ue sate) Colace, Diocto, Doc-Q-Lace, Docu, Doculase, Docusil, Docusoft S, DocuSol, Dulcolax Stool Softener, Enemeez Mini, Diego-Tin, Pedia-Lax Stool Softener, Hamm Stool Softener, Promolaxin, Silace, Surfak Stool Softener, Jorge Luis-Q-Lax What is the most important information I should know about docusate? You should not use docusate if you also use mineral oil, unless your doctor tells you to. What is docusate? Docusate is a stool softener that makes bowel movements softer and easier to pass. Docusate is used to relieve occasional constipation (irregularity). There are many brands and forms of docusate available. Not all brands are listed on this leaflet. Docusate may also be used for purposes not listed in this medication guide. What should I discuss with my healthcare provider before using docusate? You should not use docusate if you are allergic to it. Ask a doctor or pharmacist if this medicine is safe to use if you have: ?? stomach pain; ?? nausea; ?? vomiting; or ?? a sudden change in bowel habits that lasts over 2 weeks. Ask a doctor before using this medicine if you are or . Do not give this medicine to a child without medical advice. How should I use docusate? Use exactly as directed on the label, or as prescribed by your doctor. Drink plenty of liquids while you are using docusate. Measure liquid medicine carefully. Use the dosing syringe provided, or use a medicine dose-measuring device (not a kitchen spoon). Do not take the rectal enema by mouth. Rectal medicine is for use only in the rectum. Wash your hands before and after using the enema. To use the enema, lie on your left side with your left leg extended and your right leg slightly bent. Remove the cap from the applicator tip and gently insert the tip into your rectum. Slowly squeeze the bottle to empty the contents into the rectum. After using the enema, lie down on your left side for at least 30 minutes to allow the liquid to distribute throughout your intestines. Avoid using the bathroom, and hold in the enema at least 1 hour, or all night if possible. Read and carefully follow any Instructions for Use provided with your medicine. Ask your doctor or pharmacist if you do not understand these instructions. Docusate generally produces bowel movement in 12 to 72 hours. Call your doctor if your symptoms do not improve after 72 hours. You should not use docusate for longer than 1 week, unless your doctor tells you to. Store at room temperature away from moisture and heat. Do not freeze liquid medicine. What happens if I miss a dose? Since docusate is used when needed, you may not be on a dosing schedule. Skip any missed dose if it's almost time for your next dose. Do not use two doses at one time. What happens if I overdose? Seek emergency medical attention or call the Poison Help line at . What should I avoid while using docusate? Avoid using mineral oil, unless told to do so by a doctor. What are the possible side effects of docusate? Get emergency medical help if you have signs of an allergic reaction: hives; difficult breathing; swelling of your face, lips, tongue, or throat. Stop using docusate and call your doctor at once if you have: ?? rectal bleeding or irritation; or ?? no bowel movement after 72 hours. Less serious side effects may be more likely, and you may have none at all. This is not a complete list of side effects and others may occur. Call your doctor for medical advice about side effects. You may report side effects to FDA at 6-128-FNM-1733. What other drugs will affect docusate? Other drugs may affect docusate, including prescription and ydgj-znp-dhaiybg medicines, vitamins, and herbal products. Tell your doctor about all your current medicines and any medicine you start or stop using. Where can I get more information? Your pharmacist can provide more information about docusate. Remember, keep this and all other medicines out of the reach of children, never share your medicines with others, and use this medication only for the indication prescribed. Every effort has been made to ensure that the information provided by [employer] ('[employer] is accurate, up-to-date, and complete, but no guarantee is made to that effect. Drug information contained herein may be time sensitive. [facility] information has been compiled for use by healthcare practitioners and consumers in the [place] and therefore [facility] does not warrant that uses outside of the [place] are appropriate, unless specifically indicated otherwise. [employer] drug information does not endorse drugs, diagnose patients or recommend therapy. [employer] drug information is an informational resource designed to assist licensed healthcare practitioners in caring for their patients and/or to serve consumers viewing this service as a supplement to, and not a substitute for, the expertise, skill, knowledge and judgment of healthcare practitioners. The absence of a warning for a given drug or drug combination in no way should be construed to indicate that the drug or drug combination is safe, effective or appropriate for any given patient. [facility] does not assume any responsibility for any aspect of healthcare administered with the aid of information [facility] provides. The information contained herein is not intended to cover all possible uses, directions, precautions, warnings, drug interactions, allergic reactions, or adverse effects. If you have questions about the drugs you are taking, check with your doctor, nurse or pharmacist. Copyright 6899-3915 [facility], [facility]. Version: 4.01. Revision Date: 03/07/2019. ondansetron (oral) (on HANNAH se alesha) Pelon Bird Z[employer]enz What is the most important information I should know about ondansetron? You should not use ondansetron if you are also using apomorphine (Apokyn). What is ondansetron? Ondansetron blocks the actions of chemicals in the body that can trigger nausea and vomiting. Ondansetron is used to prevent nausea and vomiting that may be caused by surgery, cancer chemotherapy, or radiation treatment. Ondansetron may be used for purposes not listed in this medication guide. What should I discuss with my health care provider before taking ondansetron? You should not use ondansetron if: ?? you are also using apomorphine (Apokyn); or ?? you are allergic to ondansetron or similar medicines (dolasetron, granisetron, palonosetron). To make sure ondansetron is safe for you, tell your doctor if you have: ?? liver disease; ?? an electrolyte imbalance (such as low levels of potassium or magnesium in your blood); ?? congestive heart failure, slow heartbeats; ?? a personal or family history of long QT syndrome; or ?? a blockage in your digestive tract (stomach or intestines). Ondansetron is not expected to harm an unborn baby. Tell your doctor if you are . It is not known whether ondansetron passes into breast milk or if it could harm a nursing baby. Tell your doctor if you are breast-feeding a baby. Ondansetron is not approved for use by anyone younger than 4 years old. Ondansetron orally disintegrating tablets may contain phenylalanine. Tell your doctor if you have phenylketonuria (PKU). How should I take ondansetron? Follow all directions on your prescription label. Do not take this medicine in larger or smaller amounts or for longer than recommended. Ondansetron can be taken with or without food. The first dose of ondansetron is usually taken before the start of your surgery, chemotherapy, or radiation treatment. Follow your doctor's dosing instructions very carefully. Take the ondansetron regular tablet with a full glass of water. To take the orally disintegrating tablet (Zofran ODT): ?? Keep the tablet in its blister pack until you are ready to take it. Open the package and peel back the foil. Do not push a tablet through the foil or you may damage the tablet. ?? Use dry hands to remove the tablet and place it in your mouth. ?? Do not swallow the tablet whole. Allow it to dissolve in your mouth without chewing. ?? Swallow several times as the tablet dissolves. To use ondansetron oral soluble film (strip) (Zuplenz): ?? Keep the strip in the foil pouch until you are ready to use the medicine. ?? Using dry hands, remove the strip and place it on your tongue. It will begin to dissolve right away. ?? Do not swallow the strip whole. Allow it to dissolve in your mouth without chewing. ?? Swallow several times after the strip dissolves. If desired, you may drink liquid to help swallow the dissolved strip. ?? Wash your hands after using Zuplenz. Measure liquid medicine with the dosing syringe provided, or with a special dose-measuring spoon or medicine cup. If you do not have a dose-measuring device, ask your pharmacist for one. Store at room temperature away from moisture, heat, and light. Store liquid medicine in an upright position. What happens if I miss a dose? Take the missed dose as soon as you remember. Skip the missed dose if it is almost time for your next scheduled dose. Do not take extra medicine to make up the missed dose. What happens if I overdose? Seek emergency medical attention or call the Poison Help line at . Overdose symptoms may include sudden loss of vision, severe constipation, feeling light-headed, or fainting. What should I avoid while taking ondansetron? Ondansetron may impair your thinking or reactions. Be careful if you drive or do anything that requires you to be alert. What are the possible side effects of ondansetron? Get emergency medical help if you have signs of an allergic reaction: rash, hives; fever, chills, difficult breathing; swelling of your face, lips, tongue, or throat. Call your doctor at once if you have: ?? severe constipation, stomach pain, or bloating; ?? headache with chest pain and severe dizziness, fainting, fast or pounding heartbeats; ?? fast or pounding heartbeats; ?? jaundice (yellowing of the skin or eyes); ?? blurred vision or temporary vision loss (lasting from only a few minutes to several hours); ?? high levels of serotonin in the body--agitation, hallucinations, fever, fast heart rate, overactive reflexes, nausea, vomiting, diarrhea, loss of coordination, fainting. Common side effects may include: ?? diarrhea or constipation; ?? headache; ?? drowsiness; or ?? tired feeling. This is not a complete list of side effects and others may occur. Call your doctor for medical advice about side effects. You may report side effects to FDA at 8-904-PQO-1722. What other drugs will affect ondansetron? Ondansetron can cause a serious heart problem, especially if you use certain medicines at the same time, including antibiotics, antidepressants, heart rhythm medicine, antipsychotic medicines, and medicines to treat cancer, malaria, HIV or AIDS. Tell your doctor about all medicines you use, and those you start or stop using during your treatment with ondansetron. Taking ondansetron while you are using certain other medicines can cause high levels of serotonin to build up in your body, a condition called 'serotonin syndrome,' which can be fatal. Tell your doctor if you also use: ?? medicine to treat depression; ?? medicine to treat a psychiatric disorder; ?? a narcotic (opioid) medication; or ?? medicine to prevent nausea and vomiting. This list is not complete and many other drugs can interact with ondansetron. This includes prescription and [id number]-[id number] medicines, vitamins, and herbal products. Give a list of all your medicines to any healthcare provider who treats you. Where can I get more information? Your pharmacist can provide more information about ondansetron. Remember, keep this and all other medicines out of the reach of children, never share your medicines with others, and use this medication only for the indication prescribed. Every effort has been made to ensure that the information provided by [employer] is accurate, up-to-date, and complete, but no guarantee is made to that effect. Drug information contained herein may be time sensitive. [employer] information has been compiled for use by healthcare practitioners and consumers in the [place] and therefore [employer] does not warrant that uses outside of the [place] are appropriate, unless specifically indicated otherwise. [employer] drug information does not endorse drugs, diagnose patients or recommend therapy. [employer] drug information is an informational resource designed to assist licensed healthcare practitioners in caring for their patients and/or to serve consumers viewing this service as a supplement to, and not a substitute for, the expertise, skill, knowledge and judgment of healthcare practitioners. The absence of a warning for a given drug or drug combination in no way should be construed to indicate that the drug or drug combination is safe, effective or appropriate for any given patient. [employer] does not assume any responsibility for any aspect of healthcare administered with the aid of information [employer] provides. The information contained herein is not intended to cover all possible uses, directions, precautions, warnings, drug interactions, allergic reactions, or adverse effects. If you have questions about the drugs you are taking, check with your doctor, nurse or pharmacist. Copyright 2109-6887 [employer]. Version: 13.01. Revision Date: 06/20/2016. Emergency Awareness and Preventative Care STROKE is an EMERGENCY Every Minute Counts Act FAST and Check for these signs: FACE Does the face look uneven? ARM Does one arm drift down? SPEECH Does their speech sound strange? TIME Call at any sign of stroke Stroke Risk Factors Atrial Fibrillation (irregular heartbeat) Diabetes Family history of stroke Heart Disease Heavy alcohol use High Blood Pressure High Cholesterol Physical inactivity and obesity Smoking Cigarette Smoking The facts are clear, cigarette smoking will shorten your life. Smoking can cause many illnesses along the way. As a healthcare provider, we recommend that you stop smoking. Assistance with quitting is available by contacting 9-065-BPFB-NOW. This is a free resource providing counseling, support, and referral. Or you may contact your personal physician. National Suicide Prevention Lifeline: The National Suicide Prevention Lifeline is a national network of local crisis centers that provides free and confidential emotional support to people in suicidal crisis or emotional distress 24 hours a day, 7 days a week. Don't Wait! Stop a Heart Attack Before it Starts What is a heart attack? A heart attack is damage or to a part of the heart from severely decreased or lack of blood flow to the heart. Over time, arteries can become narrow from the buildup of fat and cholesterol, which is called plaque. The plaque can rupture causing a blood clot to form. When the blood clot forms, the artery can become severely narrowed or completely blocked, causing a heart attack. Heart attack is the leading cause of in the [place]. 85% of muscle damage occurs within the first 2 hours. Delay in the recognition of heart attack symptoms increases the chances of . Know the early symptoms of a heart attack: Nausea Feeling of fullness in chest Jaw Pain Pain that travels down one or both arms Fatigue/being tired Anxiety Back Pain Chest pressure, squeezing, or discomfort Shortness of breath Sweating, or a cold sweat Feeling of impending doom There are unusual signs of a heart attack, too! Women, the elderly, and diabetics may present with atypical symptoms: Fainting/dizziness Weakness Confusion documented in this encounter Plan of Treatment Not on file documented as of this encounter Visit Diagnoses Not on filedocumented in this encounter
--- OUTSIDE RECORDS SUMMARY | 2025-02-08 23:39 | XMS_ITS | Encounter Summary ---
Author Organization [facility] [employer] [facility] Address [address] [place] [address] Care Team Providers Care Clinical Education Coordinator Name Role Phone Unavailable Primary Care Provider Unavailabl e Encounter Details Date Type Department Care Team (Late st Contact Info) Description 06/11/2020 Transcribed Document [facility] Radiology [address] [place] [address] Provider, [facility] MD Mila Social History Tobacco Use Types Packs/Day Years Used Date Smoking Tobacco: Never Assessed Comments Unknown Sex and Gender Information Value Date Recorded Sex Assigned at Female 02/25/2022 8:44 PM CDT Legal Sex Female 8:44 PM CDT Gender Identity Female 02/25/2022 8:44 PM CDT Sexual Orientation Not on file documented as of this encounter Miscellaneous Notes * Cerner Conversion Note - [facility] Mila ProviderMD - 06/11/2020 12:20 PM EDT Evaluation, Occupational Therapy Entered On: 06/11/2020 15:17 EDT Performed On: 06/11/2020 14:05 EDT by PASCUAL WHITFIELD, OTR/L General Information, OT Visit Type, OT : Initial evaluation Patient Orders : Order Date Order Ordering 06/11/2020 11:20 OT Evaluation and Treatment Ordered By: KAYLEIGH GARNER MD-ORT 06/11/2020 11:20 OT Treatment Instructions Ordered By: KAYLEIGH GARNER MD-ORT Active Diagnoses : No Qualifying Diagnoses Admission Date : 06/11/2020 06:57 Co-treated by, OT : Physical Therapist Personal Devices : Personal Devices Glasses Assistive Devices : Assistive Devices No Devices Recorded General Information Comment, OT : 60 yo female who was admitted to [facility] on 06/11 s/p L TKA. PASCUAL WHITFIELD, OTR/L - 06/11/2020 15:09 EDT General Status Patient Received Status : Up in chair Treatment Start Time : 06/11/2020 13:37 EDT Patient Left Status : Up in chair, RN/PCT informed, Family/Visitors at bedside, All needs met and within reach RN/PCT Informed Comment : NIEVES Fu'noah Treatment End Time : 06/11/2020 14:05 EDT Treatment Time : 28 Minute(s) PASCUAL WHITFIELD, OTR/L - 06/11/2020 15:09 EDT History and Environment, OT Living Situation, Therapy : Home Patient Lives With : Spouse Persons Assisting Patient at Home : Spouse Professional Skilled Services : None Persons Providing Information : Patient Home Equipment, Therapy : Commode, Walker Commode : Commode, bedside Walker : Walker, front wheel Home Setup : One story Stairs : No PASCUAL WHITFIELD, OTR/L - 06/11/2020 15:09 EDT Prior LOF Bathing, OT : Independent Prior LOF Bed Mobility : Independent Prior LOF Upper Body Dressing, OT : Independent Prior LOF Lower Body Dressing, OT : Independent Prior LOF Toileting : Independent Prior LOF Transfer : Independent Prior LOF Grooming, OT : Independent Prior LOF for IADLs, OT : Independent PASCUAL WHITFIELD, OTR/L - 06/11/2020 15:09 EDT Upper Extremity Right UE Active ROM : WFL Right UE Strength : WFL Left UE Active ROM : WFL Left UE Strength : WFL Upper Extremity Strength Impaired : No Right UE Strength : WFL Left UE Strength : WFL Upper Extremity Comment : BUE ROM and MMT WFL PASCUAL WHITFIELD, OTR/L - 06/11/2020 15:09 EDT Self Care/Home Management, OT Self Feeding Assist Level, OT : Independent, complete Grooming Assist Level, OT : Independent, complete Bathing Assist Level, OT : Supervision or set-up Upper Body Dressing Assist Level, OT : Independent, complete Lower Body Dressing Assist Level, OT : Supervision or set-up Toileting Assist Level : Independent, complete Toilet Transfer Assist Level : Supervision or set-up PASCUAL WHITFIELD, OTR/L 06/11/2020 15:09 EDT Mobility Device/Prosthesis/Wt Bearing Weight Bearing Status Maintained : Yes Weight Bearing Status : As tolerated PASCUAL WHITFIELD OTR/L 06/11/2020 15:09 EDT Functional Mobility Mobility Grid Sit to Stand : Supervision/set-up Stand to Sit : Supervision/set-up PASCUAL WHITFIELD OTR/L 06/11/2020 15:09 EDT Sit to Stand Device : Belt, gait, Walker, front wheel Stand to Sit Device : Belt, gait, Walker, front wheel PASCUAL WHITFIELD, OTR/L 06/11/2020 15:09 EDT Cognition Assessment, OT Orientation : Oriented x 4 Cognition Assessment, OT : Intact Comprehension Assessment, OT : Intact PASCUAL WHITFIELD, OTR/L 06/11/2020 15:09 EDT Education OT Occupational Therapy Education Grid Activity of Daily Living Training : Returns demonstration Functional Mobility Training : Returns demonstration Role of Occupational Therapy : Verbalizes understanding PASCUAL WHITFIELD OTR/L 06/11/2020 15:09 EDT Teaching/Learning Assessment Barriers To Learning : None evident Individuals Taught : Patient Readiness to Learn : Cooperative Readiness to Learn : Explanation Learning Style Preferences Patient : None PASCUAL WHITFIELD, OTR/L 06/11/2020 15:09 EDT Indication Assessment, OT Occupational Therapy Indicated : No Occupational Therapy Not Indicated : Other: Pt discharging home today PASCUAL WHITFIELD OTR/L 06/11/2020 15:09 EDT Plan of Care, OT OT Tx Plan/Goals Established w Patient : No Reason OT Treatment/Plan Not Established : Pt discharging home today PASCUAL WHITFIELD, OTR/L 06/11/2020 15:09 EDT Treatment Note Assessment : No OT concerns at this time Plan for Treatment : Defer OT PASCUAL WHITFIELD, OTR/L 06/11/2020 15:32 EDT Subjective Comment : Pt and RN okay'd OT eval at this time Patient's Response to Treatment : Pt tolerated OT eval well PASCUAL WHITFIELD, OTR/L 06/11/2020 15:09 EDT Additional Objective Information : 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 Pt sitting up in chair upon OT arrival. Pt provided and educated on AE. Pt completed lower body dressing with appropriate AE and supervision. Pt completed upper body dressing independently. Pt stood with RWx and supervision. Pt walked 15ft to restroom with RWx and supervision. Pt completed toilet trasnfer and hygiene/todd care with supervision. Pt stood from toilet and walked additional 75ft with RWx and supervision with chair follow. Pt sat in chair with supervision. Pt left sitting up in chair with call light/phone within reach and present. PASCUAL WHITFIELD OTR/Katelynn - 06/11/2020 15:32 EDT Pain Assessment Pain Scaled Used : 0-10 Pain scale Pain Score Pre-Intervention : 0 PASCUAL WHITFIELD OTR/Katelynn - 06/11/2020 15:32 EDT Image 1 - Images currently included in the form version of this document have not been included in the text rendition version of the form. Anticipated Discharge Needs, OT/PT Anticipated Discharge to : Home, with home health, Other: Level 1 Recommend Continued Therapy at Discharge : Yes PASCUAL WHITFIELD OTR/Katelynn - 06/11/2020 15:[address] [facility] OT Charges OT Selfcare/Hm Mgmt Ea 15 Min : 1 OT Eval Low Complexity : 1 PASCUAL WHITFIELD OTR/Katelynn - 06/11/2020 15:32 EDT documented in this encounter Plan of Treatment Not on file documented as of this encounter Visit Diagnoses Not on filedocumented in this encounter
--- OUTSIDE RECORDS SUMMARY | 2025-02-08 23:39 | XMS_ITS | Encounter Summary ---
Author Organization [employer] Address [address] [place] [address] Care Team Providers Care Awning Erector Name Role Phone Unavailable Primary Care Provider Unavailabl e Encounter Details Date Type Department Care Team (Late st Contact Info) Description 06/11/2020 Transcribed Document [facility] [address] [place] [address] ProviderZahraa MD Social History Tobacco [...] Note - Zahraa Redd MD - 06/11/2020 1:00 PM EDT Meds to Bed Enrollment Entered On: 06/11/2020 13:55 EDT Performed On: 06/11/2020 12:00 EDT by Omar Hermosillo [employer]ORERO[employer] SUPERVISOR LEAD Meds to Bed Enrollment Patient Enrollment Decision: : Yes/enroll in meds to bed program Omar Hermosillo [employer]OR[employer] SUPERVISOR LEAD - 06/11/2020 13:55 EDT documented in this encounter Plan of Treatment Not on file documented as of this encounter Visit Diagnoses Not on filedocumented in this encounter
--- OUTSIDE RECORDS SUMMARY | 2025-02-08 23:39 | XMS_ITS | Encounter Summary ---
Author Organization [employer] Address [address] [place] [address] Care Team Providers Care Standpipe Tender Name Role Phone Unavailable Primary Care Provider Unavailabl e Encounter Details Date Type Department Care Team (Late st Contact Info) Description 06/11/2020 Transcribed Document [facility] [address] [place] [address] Provider, Zahraa Zaragoza MD Social [...] Miscellaneous Notes * Cerner Conversion Note - [facility] Mila ProviderMD - 06/11/2020 10:14 AM EDT [facility] Main OR IntraOp Summary Primary Physician: KAYLEIGH GARNER MD-ORT Finalized Date/Time: 06/14/20 12:40:26 Pt. Name: GILBERT DE LUNA D.O.B./Sex: 1960 Female Med Rec #: [id number] Physician: KAYLEIGH GARNER MD-ORT Financial #: [id number] Pt. Type: O Room/Bed: 642/1 Admit/Disch: 06/11/20 06:57:00 - 06/11/20 16:12:00 Institution: [facility] IntraOp Case Attendance Entry 1 Entry 2 Entry 3 Case Attendee PATSY, THARUN, MINESH HORN APRN Maynard, Leanne, RN MD-ORT Role Performed Surgeon/Proceduralist, MINE ENGINEER/Nurse Cashier Clerk Manager Support, First First Time In 06/11/20 08:47:00 06/11/20 08:47:00 06/11/20 08:47:00 Time Out 06/11/20 10:46:00 06/11/20 10:46:00 06/11/20 10:46:00 Procedure Knee Total Joint Knee Total Joint Knee Total Joint Replacement(Left) Replacement(Left) Replacement(Left) Other Attendee Superficial Wound Closed By: Last Modified By: JULIETA RODRIGUEZ RN TAYLOR, MELISSA A, RN TAYLOR, MELISSA A, RN 06/11/20 10:47:02 06/11/20 10:47:02 06/11/20 10:47:02 Entry 4 Entry 5 Case Attendee Vinita Russo LUCAS, JOHN T, DANIEL Ballesteros Pref Card Builder Role Performed Scrub, Computer Science Teacher, First Time In 06/11/20 08:47:00 06/11/20 08:47:00 Time Out 06/11/20 10:46:00 06/11/20 10:46:00 Procedure Knee Total Joint Knee Total Joint Replacement(Left) Replacement(Left) Other Attendee Superficial Wound Closed By: Last Modified By: JULIETA RODRIGUEZ RN TAYLOR, MELISSA A, RN 06/11/20 10:47:02 06/11/20 10:47:02 [facility] IntraOp Case Attendance Audit 06/11/20 10:47:02 Subsurface Augmentee Operator: JEREMY Modifier: LOGAN 1 <+> Time In 1 <+> Time Out 1 <*> Procedure Knee Total Joint Replacement(Left) 2 <+> Time In 2 <+> Time Out 2 <*> Procedure Knee Total Joint Replacement(Left) 3 <+> Time In 3 <+> Time Out 3 <*> Procedure Knee Total Joint Replacement(Left) 4 <+> Time In 4 <+> Time Out 4 <*> Procedure Knee Total Joint Replacement(Left) 5 <+> Time In 5 <+> Time Out 5 <*> Procedure Knee Total Joint Replacement(Left) [facility] IntraOp Case Times Entry 1 Patient In Room Time 06/11/20 08:47:00 Out Room Time 06/11/20 10:46:00 Anesthesia Start Time 06/11/20 08:47:00 Stop Time 06/11/20 10:46:00 Surgery / Procedure Times Start Time 06/11/20 09:14:00 Stop Time 06/11/20 10:37:00 Last Modified By: JULIETA RODRIGUEZ RN 06/11/20 10:46:50 [facility] IntraOp Case Times Audit 06/11/20 10:46:50 Subsurface Augmentee Operator: JEREMY Modifier: LOGAN <+> 1 Out Room Time <+> 1 Stop Time 06/11/20 10:37:19 Subsurface Augmentee Operator: MIRIAML Modifier: MAYNARL <+> 1 Stop Time 06/11/20 09:14:20 Subsurface Augmentee Operator: MEMONARL Modifier: MAYNARL <+> 1 Start Time [facility] IntraOp Cautery Entry 1 ESU Identification Cautery Type Monopolar ESU ID Number [id number] ID Type Hospital Number Cautery Settings Cut Setting 50 Coag Setting 50 ESU Grounding Pad Ground Pad Type Adult Grounding Pad Site Right thigh Grounding Pad Cierra Ascencio RN Applied By Grounding Pad Site Warm, Dry, Intact Skin Condition Before Cautery Grounding Pad Site Unchanged Skin Condition After Cautery Last Modified By: Cierra Ascencio RN 06/11/20 08:30:23 [facility] IntraOp Communication Entry 1 Entry 2 Communication To Family/Significant other Family/Significant other Comment UNABLE TO GET AHOLD OF UNABLE TO GET AHOLD OF [place] FOR START [place] FOR CLOSING Communication By Cierra Ascencio RN Maynard, Leanne, NIEVES Date and Time 06/11/20 09:15:00 06/11/20 10:16:00 Last Modified By: Cierra Ascencio RN Maynard, Leanne, RN 06/11/20 10:16:41 06/11/20 10:16:41 [facility] IntraOp Communication Audit 06/11/20 10:16:41 Subsurface Augmentee Operator: JEREMY Modifier: JEREMY 1 <*> Comment START <+> 2 Communication By <+> 2 Date and Time <+> 2 Communication To <+> 2 Comment [facility] IntraOp Counts Verification Entry 1 Procedure Knee Total Joint Replacement(Left) Count Info Count Type Sponge, Sharps, Miscellaneous Counts Verification Baseline/pre-procedure Sequence Count Results Not Applicable Counts Performed By Count Performed By Vinita Russo, (Scrub) [employer] Pref Card Builder Count Performed By Cierra Ascencio RN (RN) Last Modified By: Cierra Ascencio RN 06/11/20 08:20:18 [facility] IntraOp Counts Final Entry 1 Procedure Knee Total Joint Replacement(Left) Final Count Info Count Type Sponge, Sharps, Miscellaneous Counts Verification Skin Closure/end of Sequence procedure Count Results Correct, surgeon notified Counts Performed By Count Performed By Vinita Russo, (Scrub) [employer] Pref Card Builder Count Performed By Cierra Ascencio RN (RN) Last Modified By: Cierra Ascencio RN 06/11/20 10:37:16 [facility] IntraOp Cultures and Spec Summary Entry 1 Cultrures and Specimens Specimen Ordered: Yes Test(s) Routine/Path-Lab Requested/Final Disposition Last Modified By: Cierra Ascencio RN 06/11/20 08:30:12 [facility] IntraOp Departure from OR Entry 1 Integumentary Assessment Integumentary WDL Assessment WDL Transfer/Handoff Transfer to PACU Phase I Handoff Method Phone call Post-op Transport Bed (including Via specialty) Patient Transport MINESH HORN APRN, Accompanied by Cierra Ascencio RN Last Modified By: Cierra Ascencio RN 06/11/20 09:15:26 [facility] IntraOp Dressing and Packing Entry 1 Type Dressing Location OPERATIVE KNEE Wound Dressing Item Occlusive dressing, Skin Closure Glue Applied By GONZALO RODRIGUEZ CSA Other Comments [facility] Last Modified By: Cierra Ascencio RN 06/11/20 09:37:42 [facility] IntraOp Fire Risk Assessment Entry 1 Fire Info Surgical Site or 0- No Incision Above the Xyphoid Open O2 Source 0- No (Mask or Cannula) Available Ignition 1- Yes (ESU, Laser, Light Source) Fire Risk 1 Assessment Score Fire Score Fire Risk Yes Assessment Complete Fire Risk Cierra Ascencio RN Assessment Verified By Fire Risk 06/11/20 08:47:00 Assessment Verified Date/Time Fire Risk Standard Fire Yes Safety Precautions Followed Last Modified By: Cierra Ascencio RN 06/11/20 08:52:47 [facility] IntraOp Fire Risk Assessment Audit 06/11/20 08:52:47 Subsurface Augmentee Operator: MEMOMILANA Modifier: MAYNARL <+> 1 Fire Risk Assessment Verified Date/Time [facility] IntraOp General Case Log Haul Operator 1 Case Information OR OR 05 [facility] Case Level 1 Room Verified Yes Wound Class I - Clean Specialty SN Orthopedic Anesthesia Type General ASA Class 2 Diagnosis Preop Diagnosis M17.12 Postop Diagnosis SEE DOCTOR'S POST OP NOTES Last Modified By: Cierra Ascencio RN 06/11/20 08:52:51 [facility] IntraOp General Case Data Audit 06/11/20 08:52:51 Subsurface Augmentee Operator: MEMOMILANA Modifier: MAYNARL <+> 1 ASA Class 06/11/20 08:29:02 Subsurface Augmentee Operator: MEMONARL Modifier: MAYNARL <+> 1 Preop Diagnosis [facility] IntraOp Implant Log Entry 1 Entry 2 Entry 3 Type Implant (Synthetic) Implant (Synthetic) Implant (Synthetic) Implant Log Implant Type Hardware Hardware Hardware Tissue Implant Type Implant PATELLA CEMENTED KNEE PERSONA SZ FEM PSN RIGO [facility] SZ5 Identification [id number] Description Implant Quantity 1 1 1 Implant Site LEFT KNEE LEFT KNEE LEFT KNEE Implant Identification Model Number Implant Identification Serial Number Implant [id number] Identification Lot Number Implant Steph:Steph Us Steph:Steph Us Identification Alfalfa Dehydrator Operator Name: Implant [id number] Identification Catalog Number Implant Size Implant Has an Yes Yes Yes Expiration Date Implant Expiration 02/28/28 07/30/24 02/27/30 Date Wasted Radioactive Material Time Implanted Tissue Implant Continue for Tissue Implant Documentation Tissue Identification Number Graft Prep Per Alfalfa Dehydrator Operator Instructions: Tissue Preparation Method: Reconstitution Solution: Reconstitution Solution Lot Number Reconstitution Solution Expiration Date: Thawing Solution Thawing Solution Lot Number Thawing Solution Expiration Date Preparation Materials, Other Preparation Materials, Other Lot Number Preparation Materials, Other Expiration Date Tissue Prepared/Processed By Alfalfa Dehydrator Operator Paperwork Completed Implant Type Comment Last Modified By: Cierra Ascencio RN Maynard, Leanne, RN Maynard, Leanne, RN 06/11/20 10:10:16 06/11/20 10:10:16 06/11/20 10:10:16 Entry 4 Entry 5 Type Implant (Synthetic) Implant (Synthetic) Implant Log Implant Type Hardware Bone Cement Tissue Implant Type Implant TIB STEM NATURAL L CEMENT BONE R Identification [id number] Description Implant Quantity 1 2 Implant Site LEFT KNEE LEFT KNEE Implant Identification Model Number Implant Identification Serial Number Implant [id number] Identification Lot Number Implant Steph:Steph Us Steph:Steph Us Identification Alfalfa Dehydrator Operator Name: Implant [id number] Identification Catalog Number Implant Size Implant Has an Yes Yes Expiration Date Implant Expiration 01/28/30 06/30/24 Date Wasted Radioactive Material Time Implanted Tissue Implant Continue for Tissue Implant Documentation Tissue Identification Number Graft Prep Per Alfalfa Dehydrator Operator Instructions: Tissue Preparation Method: Reconstitution Solution: Reconstitution Solution Lot Number Reconstitution Solution Expiration Date: Thawing Solution Thawing Solution Lot Number Thawing Solution Expiration Date Preparation Materials, Other Preparation Materials, Other Lot Number Preparation Materials, Other Expiration Date Tissue Prepared/Processed By Alfalfa Dehydrator Operator Paperwork Completed Implant Type Comment Last Modified By: Cierra Ascencio RN Maynard, Leanne, RN 06/11/20 10:10:16 06/11/20 10:10:16 [facility] IntraOp Implant Log Audit 06/11/20 10:10:16 Subsurface Augmentee Operator: JEREMY Modifier: JEREMY 1 <*> Implant Identification Description 1 <+> Implant Identification Lot Number 1 <+> Implant Identification Alfalfa Dehydrator Operator Name: 1 <+> Implant Expiration Date 1 <+> Implant Quantity 1 <+> Implant Identification Catalog Number 1 <+> Implant Has an Expiration Date <+> 2 Implant Identification Description <+> 2 Implant Identification Lot Number <+> 2 Implant Identification Alfalfa Dehydrator Operator Name: <+> 2 Implant Expiration Date <+> 2 Implant Site <+> 2 Implant Quantity <+> 2 Implant Identification Catalog Number <+> 2 Implant Type <+> 2 Implant Has an Expiration Date <+> 2 Type <+> 3 Implant Identification Description <+> 3 Implant Identification Lot Number <+> 3 Implant Expiration Date <+> 3 Implant Site <+> 3 Implant Quantity <+> 3 Implant Type <+> 3 Implant Has an Expiration Date <+> 3 Type <+> 4 Implant Identification Description <+> 4 Implant Identification Lot Number <+> 4 Implant Identification Alfalfa Dehydrator Operator Name: <+> 4 Implant Expiration Date <+> 4 Implant Site <+> 4 Implant Quantity <+> 4 Implant Identification Catalog Number <+> 4 Implant Type <+> 4 Implant Has an Expiration Date <+> 4 Type <+> 5 Implant Identification Description <+> 5 Implant Identification Lot Number <+> 5 Implant Identification Alfalfa Dehydrator Operator Name: <+> 5 Implant Expiration Date <+> 5 Implant Site <+> 5 Implant Quantity <+> 5 Implant Identification Catalog Number <+> 5 Implant Type <+> 5 Implant Has an Expiration Date <+> 5 Type [facility] IntraOp Intraoperative Assessment Entry 1 Handoff Method Bedside/Face to face, Online nursing summary Valid History / Yes Physical in Chart Preoperative Yes Checklist Reviewed/Evaluated Allergies Reviewed Yes Patient is Latex No Sensitive Isolation Not applicable Precautions Noted Level of WDL Consciousness (WDL = Alert, Oriented to Person, Place, and Time) Skin Assessment Yes Verified Present Upon IVs Arrival to OR Last Modified By: Cierra Ascencio RN 06/11/20 08:20:35 [facility] IntraOp Intraoperative Equipment Entry 1 Type Equipment Equipment Equipment Colt Suction System ID Number [id number] Setting HIGH Intraop Monitoring Electrocardiogram Five lead placement (ECG) Electrode Placement Blood Pressure Non-Invasive BP Device Source Antiembolic Devices Antiembolic Devices Sequential compression device, knee high Antiembolic Device Right Location Antiembolic Device [id number] ID Number Antiembolic Device HIGH Setting Scopes Photo/Video Documentation Photo No Video No Last Modified By: Cierra Ascencio RN 06/11/20 08:28:28 [facility] IntraOp Intraoperative Equipment Audit 06/11/20 08:28:28 Subsurface Augmentee Operator: JEREMY Modifier: MIRIAML <+> 1 ID Number <+> 1 Antiembolic Device ID Number [facility] IntraOp Medication Admin Entry 1 Entry 2 Entry 3 Medication/Irrigant Bacitracin 50,00units EM IRR NACL 0.9PCT Bacitracin 50,00units powder vial 2000ML [id number] powder vial Combo Med List 1 - Combo Med 1 - Combo Med 2 - Combo Med Time Administered Route of ADDED TO IRRIGATION IRRIGATION ADDED TO IRRIGATION Administration Dose Dose 90124 Unit of Measure units Volume Administered By KAYLEIGH GARNER KARTHIKEYAN, THARUN, KARTHIKEYAN, THARUN, MD-ORT -ORT -ORT Procedure Irrigation Irrigant Volume In Irrigant Volume Out Last Modified By: Cierra Ascencio RN Maynard, Leanne, RN Maynard, Cierra, RN 06/11/20 08:24:33 06/11/20 08:24:33 06/11/20 08:24:33 Entry 4 Medication/Irrigant EM IRR NACL 0.9PCT [id number] Combo Med List 2 - Combo Med Time Administered Route of IRRIGATION Administration Dose Dose Unit of Measure Volume Administered By KAYLEIGH GARNER MD-ORAgustín Procedure Irrigation Irrigant Volume In Irrigant Volume Out Last Modified By: Cierra Ascencio RN 06/11/20 08:24:33 [facility] IntraOp Medication Admin Audit 06/11/20 08:24:33 Subsurface Augmentee Operator: JEREMY Modifier: JEREMY <+> 1 Route of Administration <+> 1 Administered By <+> 1 Dose <+> 1 Unit of Measure <+> 2 Medication/Irrigant <+> 2 Route of Administration <+> 2 Administered By <+> 2 Combo Med List <+> 3 Medication/Irrigant <+> 3 Route of Administration <+> 3 Administered By <+> 3 Combo Med List <+> 4 Medication/Irrigant <+> 4 Route of Administration <+> 4 Administered By <+> 4 Combo Med List [facility] IntraOp Patient Positioning Entry 1 Procedure Knee Total Joint Replacement(Left) Body Position Supine Left Arm Position Secured on padded arm board Right Arm Position Secured on padded arm board Left Leg Position Held on field Right Leg Position Uncrossed, parallel Feet Uncrossed Yes Pressure Points Yes Checked Positioning Devices Arm Board, Head Rest, Pad, Arm, Pad, Elbow, Safety Strap, Arm(s), Safety Strap, Chest, Foot Rest Device Position LATERAL POST, POPITEAL SUPPORT FOR FOOTREST Positioned By KAYLEIGH GARNER MD-ORT, MINESH HORN APRN, Cierra Ascencio, NIEVES, GONZALO RODRIGUEZ CSA Position Verified Positioning Yes Verified by Anesthesia Positioning Yes Verified by Surgeon Last Modified By: Cierra Ascencio RN 06/11/20 08:21:50 [facility] IntraOp Sign In Entry 1 Patient, Site, Yes Procedure Identified Surgical Consent Yes Confirmed Relevant Surgical Yes Documents Available Surgical Site Yes Marked by person performing procedure Anesthesia Machine Yes Check Completed Medication Checks Yes Completed Allergies Yes Airway Difficult Yes Airway/Aspiration Risk Difficult Yes Airway/Aspiration Intervention Equipment Available Blood Loss Risk Yes Blood Loss Yes Intervention Equipment Prepared and Ready Blood Identifiers Not applicable Verified Per Policy Hypothermia Risk Yes Warming Measures Yes Taken Last Modified By: Cierra Ascencio RN 06/11/20 08:20:41 [facility] IntraOp Sign Out Entry 1 RN Confirmation Surgical Yes Procedure(s) Identified Instrument, Sponge Yes and Sharps Counts Correct/Documented Equipment Problems N/A Documented Specimen Labeled Yes Correctly Urinary Catheter N/A Documented in IView Engel Patient Yes Recovery Concerns Reviewed with Anesthesia Provider, Surgeon and RN Engel Patient Yes Management Concerns Reviewed with Anesthesia Provider, Surgeon and RN Safety Checklist Yes Elements Complete? RN Sign Out Cierra Ascencio RN Signature RN Sign Out 06/11/20 10:46:00 Signature Date/Time Plan of Care Outcome - Fire Risk OUTCOME STATEMENT: Goal met Patient is free from injury related to surgical fire Plan of Care Outcome - Pt Positioning OUTCOME STATEMENT: Goal met Absence of signs and symptoms of positioning injury. Plan of Care Outcome - Skin Prep OUTCOME STATEMENT: Goal met Intraoperative care is consistent with measures to prevent infection Plan of Care Outcome - Xray/Images OUTCOME STATEMENT: N/A Absence of observable signs or symptoms of radiation injury Plan of Care Outcome - Counts OUTCOME STATEMENT: Goal met Absence of signs and symptoms of injury related to extraneous objects Last Modified By: JULIETA RODRIGUEZ RN 06/11/20 10:46:57 [facility] IntraOp Sign Out Audit 06/11/20 10:46:57 Subsurface Augmentee Operator: JEREMY Modifier: LOGAN <+> 1 RN Sign Out Signature Date/Time [facility] IntraOp Skin Prep Entry 1 Procedure Knee Total Joint Replacement(Left) Prescribed Yes Pre-Surgical Prep Completed Prep Area OPERATIVE THIGH TO TOES CIRCUMFRENTIALLY Intraop Prep Integumentary WDL Assessment WDL Prep Agents Alcohol, Chloraprep, DuraPrep, Chlorhexadine gluconate Prep by Cierra Ascencio RN Hair Removal Methods No hair removal performed Last Modified By: Cierra Ascencio RN 06/11/20 08:24:42 [facility] IntraOp Surgical Procedures Entry 1 Procedure Knee Total Joint Replacement Modifiers Left Additional LT TOTAL KNEE Procedure ARTHROPLASTY Description Primary Procedure Yes Primary Surgeon KAYLEIGH GARNER MD-ORT Start 06/11/20 09:14:00 Stop 06/11/20 10:37:00 Anesthesia Type General Specialty SN Orthopedic Wound Class I - Clean Last Modified By: Cierra Ascencio RN 06/11/20 10:37:22 [facility] IntraOp Surgical Procedures Audit 06/11/20 10:37:22 Subsurface Augmentee Operator: JEREMY Modifier: JEREMY <+> 1 Stop 06/11/20 09:27:34 Subsurface Augmentee Operator: JEREMY Modifier: JEREMY 1 <*> Procedure Knee Total Joint Replacement 1 <+> Start 1 <*> Additional Procedure Description (LT TOTAL KNEE ARTHROPLASTY) [facility] IntraOp Temp Regulation Devices Entry 1 Temp Regulation Temperature Forced Air Warming Regulation Device device, Warm blankets Temperature 64893 Regulation Device Serial/Unit Number Temperature Upper body Regulation Site Temperature Device 43 DEGREES CELCIUS Setting Temperature MINESH HORN APRN Regulation Device Applied by Last Modified By: Cierra Ascencio RN 06/11/20 08:29:31 [facility] IntraOP Time Out Entry 1 Procedure to be Knee Total Joint Performed Replacement(Left) Time Out Time Out Pause Time 06/11/20 09:13:00 All activity Yes suspended (unless life threatening emergency) Team Verbally Correct patient Confirms Information identity, Correct side and site are marked, Consent form is present and accurate, Agreement on the procedure to be done, Correct patient position, Relevant images/results properly labeled/appropriately displayed, Confirm antibiotics have been administered, Confirm the skin prep has dried, Confirm prosthesis/implant/devic e is present, Performed in location of procedure after prepped/draped Antibiotic Yes Prophylaxis Administered Or In Progress Within the Last 60 Minutes Beta Paddy Yes Administered Venous Yes Thromboembolism Prophylaxis Required Anticipated Critical Events Surgeon None expected Anesthesia Provider None expected Nursing Assures Sterility of instruments, Equipment concerns or issues, Implant Availability Essential Imaging Yes Labeled and Displayed Last Modified By: Cierra Ascencio RN 06/11/20 09:13:32 [facility] IntraOP Time Out Audit 06/11/20 09:13:32 Subsurface Augmentee Operator: JEREMY Modifier: JEREMY 1 <+> Time Out Pause Time 1 <*> Procedure to be Performed Knee Total Joint Replacement(Left) [facility] IntraOp Tourniquet Entry 1 Type Pneumatic Serial/Unit Number [id number] Setting 300 mmHg Pheumatic Yes Tourniquet Checked Per Protocol Size 34 inches Placement Thigh, left upper Skin Protection - Yes Padded Under Cuff Applied By KAYLEIGH GARNER MD-ORT Removed By GONZALO RODRIGUEZ CSA Times Start Time 06/11/20 09:13:00 Stop Time 06/11/20 10:24:00 Total Time 71 calculated manually (Mins) Last Modified By: Cierra Ascencio RN 06/11/20 10:24:38 [facility] IntraOp Tourniquet Audit 06/11/20 10:24:38 Subsurface Augmentee Operator: MAYNARL Modifier: MAYNARL <+> 1 Total Time calculated manually (Mins) <+> 1 Stop Time 06/11/20 09:13:38 Subsurface Augmentee Operator: JEREMY Modifier: MAYNARL <+> 1 Start Time Case Comments <None> Finalized By: BRE LAMB Document Signatures Signed By: JULIETA RODRIGUEZ RN 06/11/20 10:47 BRE LAMB 06/14/20 12:40 Unfinalized History Date/Time Username Reason for Unfinalizing Freetext Reason for Unfinalizing 06/14/20 12:36 WATVIVIANDR Correct Billing documented in this encounter Plan of Treatment Not on file documented as of this encounter Visit Diagnoses Not on filedocumented in this encounter
--- OUTSIDE RECORDS SUMMARY | 2025-02-08 23:39 | XMS_ITS | Encounter Summary ---
Author Organization [employer] Address [address] [place] [address] Care Team Providers Care Program Management Professional Name Role Phone Unavailable Primary Care Provider Unavailabl e Encounter Details Date Type Department Care Team (Late st Contact Info) Description 06/11/2020 Transcribed Document [facility] Radiology 1 [place] [address] Provider, Zahraa Zaragoza MD Social [...] Note - Zahraa Redd MD - 06/11/2020 11:43 AM EDT Orthopedic Nurse Navigator Entered On: 06/11/2020 10:56 EDT Performed On: 06/11/2020 10:43 EDT by JARROD ADAMS RN-Ortho Nurse Navigator Orthopedic Nurse Navigator Assessment Attended Joint Academy : Yes Joint AcademyType : Online Joint Academy Date : 05/20/2020 EDT Joint Emt/Paramedic Name : , Adryan Type of Surgery : Total Knee Replacement, Left Does Patient Have a Walker? : Yes Anticipated Discharge Plan : Outpatient PT Anticipated Discharge Plan Comment : Patient plans to d/c home today. She verbalizes understanding of the need to get around safely, stable VS, void, and ability to keep food and drink down following surgery, and joint etiquette coach attendance in therapy and teaching in order to d/c today. She plans to go to [facility] PT for therapy, and has notified them of need for appointment. CM will follow. JARROD ADAMS RN-Ortho Nurse Navigator - 06/11/2020 10:43 EDT Teaching/Learning Assessment Barriers To Learning : None evident Individuals Taught : Patient Readiness to Learn : Cooperative Readiness to Learn : Demonstration, Explanation, Printed materials, Video/Educational TV JARROD ADAMS RN-Ortho Nurse Navigator - 06/11/2020 10:43 EDT Education Topics, Orthopedic Pre-Op Ortho Pre-Op Education Grid Ed-Assistive Devices : Verbalizes understanding DVT Prophylaxis : Verbalizes understanding Family Instructions : Verbalizes understanding Herbs/Supplement Instructions : Verbalizes understanding Laboratory Studies : Verbalizes understanding Medication Instructions : Verbalizes understanding NPO : Verbalizes understanding Ed-Occupational Therapy : Verbalizes understanding Pain Management : Verbalizes understanding Physical Prep : Verbalizes understanding Physical Therapy : Verbalizes understanding Plan of Care : Verbalizes understanding Positioning : Verbalizes understanding Post-op Activity/Exercise Regimen : Verbalizes understanding Postoperative Home Needs : Verbalizes understanding Post-operative Monitoring : Verbalizes understanding Post-Op Orthopedic Equipment : Verbalizes understanding Procedure Information : Verbalizes understanding Respiratory Care : Verbalizes understanding Surgical Site : Verbalizes understanding Tubes/Drains/IV's : Verbalizes understanding Turn/Cough/Deep Breathe : Verbalizes understanding (Comment: verbalized understanding of incentive spirometry [JARROD ADAMS RN-Ortho Nurse Navigator - 06/11/2020 10:43 EDT] ) Weight Bearing : Verbalizes understanding Ed-Orthopedic Pre-Op, Other : Verbalizes understanding JARROD ADAMS RN-Ortho Nurse Navigator - 06/11/2020 10:43 EDT documented in this encounter Plan of Treatment Not on file documented as of this encounter Visit Diagnoses Not on filedocumented in this encounter
[2025-02-08 23:40] LABS: Appearance,Urine Slightly Cloudy (Clear); Leukocyte Esterase,Urine Negative (Negative)
[2025-02-08 23:40] LABS: MANUAL DIFFERENTIAL MANUAL DIFFERENTIAL (MANUAL DIFF)
[2025-02-08 23:47] LABS: Alanine Aminotransferase 19 U/L (12-78); Albumin Level 4.6 g/dl (3.5-5.0); Albumin/Globulin Ratio 1.5 (1.1-1.8); Alkaline Phosphatase 103 U/L (38-126); Anion Gap 7.9 mEq/L (5-15); Aspartate Amino Transferase 32 U/L (14-36); Bilirubin,Total 0.8 mg/dl (0.2-1.3); Blood Urea Nitrogen 22 mg/dl (7-17); Calcium 10.8 mg/dl (8.4-10.2); Carbon Dioxide 27 mmol/L (22.0-30.0); Chloride 106 mmol/L (98-107); Creatinine Clearance Estimated 72 mL/min (50-200); Estimated Glomerular Filt Rate 50 ml/min (>60); GFR (African American) 60 ML/MIN (>60); Globulin 3.1 g/dL (1.3-3.2); Glucose 140 mg/dl (74-100); Lipase 100 U/L (23-300); Potassium 3.9 mmoL/L (3.5-5.1); Sodium 137 mmol/L (136-145); Total Protein,Serum 7.7 g/dl (6.3-8.2)
[2025-02-08] MEDS: 0.9 % SODIUM CHLORIDE 50 ML VIAL IV (23:58)
[2025-02-08] MEDS: IOPAMIDOL-370 (76%);100ML BOTTLE 80 ML IV (23:58)
[2025-02-08] MEDS: SODIUM CHLORIDE 0.9% 10ML SYR (RAD ONLY) 10 ML IV (23:58)
[2025-02-08 23:59] LABS: Bacteria,Urine 4+ /lpf; Mucus,Urine 1+ /lpf; Squamous Epithelial Cell,Urine 20-50 #/hpf (0-5)
[2025-02-09 00:08] VITALS: BP 147/77; PULSE 83; O2SAT 94
[2025-02-09] MEDS: OXYCODONE 5MG IMMEDIATE RELEASE TABLET 5 MG PO (01:28)
[2025-02-09 01:36] VITALS: BP 147/68; PULSE 85; O2SAT 97
[2025-02-09 01:45] VITALS: BP 147/78; PULSE 86; RESP 14; TEMP 36.7; O2SAT 98
[2025-02-09 03:05] LABS: Appearance,Urine CLEAR (Clear); Bilirubin,Urine Negative (Negative); Blood, Urine Negative (Negative); Color,Urine YELLOW (Yellow); Glucose,Urine (UA) Negative (Negative); Ketones,Urine Negative (Negative); Leukocyte Esterase,Urine Negative (Negative); Microscopic, Urine URINE MICROSCOPIC (MICROSCOPIC); Nitrate,Urine Negative (Negative); PH,Urine 6.5 (5.0-8.5); Protein,Urine Negative (Negative); Urobilinogen,Urine 0.2 EU/dl (0.2)
[2025-02-09 03:11] LABS: Lymphocytes % 34 % (10-50); Monocytes % 2 % (2-9); Neutrophils % 64 % (42-76); Total Cells Counted 100
[2025-02-09 03:21] LABS: Bacteria,Urine Trace /lpf; Squamous Epithelial Cell,Urine Occasional #/hpf (0-5); WBC,Urine Occasional #/hpf (0-3)
--- NOTE | 2025-02-11 09:08 | PC.NURSE ---
Urine culture results reviewed by Dr. Voss. No new orders received.
== END 2025-02-09 01:45 | disposition home or self-care (01) ==
PROVIDERS: Emergency Provider Emergency Medicine; PCP Internal Medicine
DX: N13.0 Hydronephrosis with ureteropelvic junction obstruction (principal); R10.30 Lower abdominal pain, unspecified; R11.2 Nausea with vomiting, unspecified
CPT/HCPCS: 74174; 80053; 81001; 83690; 85007; 85025; 85027; 87086; 96361; 96374; 96375; 99285; J1885; J2270; J2405; J7030; Q9967

== ENCOUNTER 2025-02-20 08:13 | Outpatient (CLI) | payer MEDICARE, SELFPAY ==
--- OUTSIDE RECORDS SUMMARY | 2025-02-20 08:23 | XMS_ITS | Encounter Summary ---
Author Organization [facility] Address [address] [place] [address] Care Team Providers Care Glazing Machine Operator Name Role Phone Venkat Truong MD Primary Care Provider [phone] Encounter Details Date Type Department Care Team (Late st Contact Info) Description 11/10/2023 Orders Only External Location [address] [place] [address] Marry Ferris, INVESTOR RELATIONS DIRECTOR [address] [facility] [address] [place] [address] Social History Tobacco Use Types Packs/Day Years [...] phy 11/10/2023 1:59 PM EDT Marry Ferris INVESTOR RELATIONS DIRECTOR IMG CT PROCEDURES Final Resu lt documented in this encounter Visit Diagnoses Not on filedocumented in this encounter Care Teams Glazing Machine Operator Relationship Specialty Start Date End Date Venkat Truong MD [address] [place] [address] [address] [place] [address] PCP - General 11/25/23 documented as of this encounter
--- OUTSIDE RECORDS SUMMARY | 2025-02-20 08:23 | XMS_ITS | Encounter Summary ---
Author Organization [employer] Address [address] [place] [address] Care Team Providers Care Geological Engineer Name Role Phone Unavailable Primary Care Provider Unavailabl e Encounter Details Date Type Department Care Team (Late st Contact Info) Description 06/11/[address] [facility] 1 [place] [address] Provider, Zahraa Zaragoza MD Social [...] Miscellaneous Notes * Cerner Conversion Note - [facility] Mila ProviderMD - 06/11/2020 10:14 AM EDT [facility] Main OR PACU Summary Primary Physician: KAYLEIGH GARNER MD-ORT Finalized Date/Time: 06/11/20 11:48:10 Pt. Name: GILBERT DE LUNA/Sex: 1960 Female Med Rec #: [id number] Physician: KAYLEIGH GARNER MD-ORT Financial #: [id number] Pt. Type: O Room/Bed: Admit/Disch: 06/11/20 06:57:00 - Institution: [facility] Main OR PACU I Case Times Entry 1 In PACU I 06/11/20 10:49:00 Ready for PACU 06/11/20 11:47:00 Discharge Discharge from PACU 06/11/20 11:47:00 I Last Modified By: JONEL ST RN 06/11/20 11:47:59 [facility] Main OR PACU I Case Times Audit 06/11/20 11:47:59 Master Cosmetologist: [id number] Modifier: [id number] <+> 1 Ready for PACU Discharge <+> 1 Discharge from PACU I Finalized By: JONEL ST RN Document Signatures Signed By: JONEL ST RN 06/11/20 11:48 Electronically signed by Patricia [facility] Conversion Fishing Lure Assembler Cerner at 01/21/2023 5:33 PM CDT documented in this encounter Plan of Treatment Not on file documented as of this encounter Visit Diagnoses Not on filedocumented in this encounter
--- OUTSIDE RECORDS SUMMARY | 2025-02-20 08:23 | XMS_ITS | Clinical Summary ---
Author Organization [facility] Address [address] [place] [address] Care Team Providers Care Comber Tender Name Role Phone Venkat Truong MD Primary Care Provider [phone] Allergies Active Allergy Reactions Criticality Noted Date [...] 01/28/2010 UKY-Zoster Vaccines (1 of 2) 01/28/2010 [id number] Vaccine ( - season) 2024 06/30/2023, 05/15/2021, [...] Patient has decision-making capacity? Yes Care Teams Comber Tender Relationship Specialty Start Date End Date Venkat Truong MD [address] [place] [address] [facility] [address] [place] [address] PCP - General 11/25/23
--- OUTSIDE RECORDS SUMMARY | 2025-02-20 08:23 | XMS_ITS | Encounter Summary ---
Author Organization [employer] Address [address] [place] [address] Care Team Providers Care Superintendent Service Name Role Phone Unavailable Primary Care Provider Unavailabl e Encounter Details Date Type Department Care Team (Late st Contact Info) Description 06/11/2020 Transcribed Document [facility] 1 [place] [address] ProviderZahraa MD Social History Tobacco [...] Notes * Cerner Conversion Note - [facility] Mila ProviderMD - 06/11/2020 5:07 PM EDT [...] For Questions Given : Patient, Other: joint coach wirer Patient Education Completed : Yes Teaching Method : Explanation Teaching Evaluation : Verbalizes understanding Nickie Guerrero RN - 06/11/2020 16:07 EDT documented in this encounter Plan of Treatment Not on file documented as of this encounter Visit Diagnoses Not on filedocumented in this encounter
--- OUTSIDE RECORDS SUMMARY | 2025-02-20 08:23 | XMS_ITS | Encounter Summary ---
Author Organization [employer] Address [address] [place] [address] Care Team Providers Care National Sales Associate Name Role Phone Unavailable Primary Care Provider Unavailabl e Encounter Details Date Type Department Care Team (Late st Contact Info) Description 06/11/2020 Transcribed Document [facility] 1 [place] [address] ProviderZahraa MD Social History Tobacco [...] [facility] Mila ProviderMD - 06/11/2020 1:00 PM EDT Pain Assessment [...]
--- OUTSIDE RECORDS SUMMARY | 2025-02-20 08:23 | XMS_ITS | Encounter Summary ---
Author Organization [employer] Address [address] [place] [address] Care Team Providers Care Crime Scene Specialist Name Role Phone Unavailable Primary Care Provider Unavailabl e Encounter Details Date Type Department Care Team (Late st Contact Info) Description 06/11/2020 Transcribed Document [facility] 1 [place] [address] Sami Sánchez MD [address] [place] [address] Social History Tobacco Use Types Packs/Day Years [...] All Problems Renal calculus / SNOMED CT 465919577 / Confirmed High blood pressure / SNOMED CT 62923354 / Confirmed GERD - Gastro-esophageal reflux disease / SNOMED CT 3920514837 / Confirmed EKG abnormality / SNOMED CT 3070412049 / Confirmed At risk for sleep apnea / IMO 34080648 / Confirmed Arthritis / SNOMED CT 8217055 / Confirmed, Active Problems (6) Arthritis At [...] exam in office notes. Integumentary: Warm, Dry, [place]. Neurologic: Alert, Oriented. Psychiatric: Cooperative, Appropriate mood [...]
--- OUTSIDE RECORDS SUMMARY | 2025-02-20 08:23 | XMS_ITS | Encounter Summary ---
Author Organization [employer] Address [address] [place] [address] Care Team Providers Care Recreation Therapy Teacher Name Role Phone Unavailable Primary Care Provider Unavailabl e Encounter Details Date Type Department Care Team (Late st Contact Info) Description 06/11/2020 Transcribed Document [facility] 1 [place] [address] Provider, Zahraa Zaragoza MD Social [...] of Dr. Sánchez or Dr. Mathias, call [phone] If you are a patient of Dr. Forbes, call [phone] Nurse Navigator: Renee Horn Office: [phone]; ; available during regular business hours documented in this encounter Plan of Treatment Not on file documented as of this encounter Visit Diagnoses Not on filedocumented in this encounter
--- OUTSIDE RECORDS SUMMARY | 2025-02-20 08:23 | XMS_ITS | Encounter Summary ---
Author Organization [employer] Address [address] [place] [address] Care Team Providers Care Game Technician Name Role Phone Unavailable Primary Care Provider Unavailabl e Encounter Details Date Type Department Care Team (Late st Contact Info) Description 06/11/2020 Transcribed Document [facility] 1 [place] [address] Provider, Zahraa Zaragoza MD Social [...] * Cerner Conversion Note - [facility] Mila ProviderMD - 06/11/2020 10:14 AM EDT [facility] Main OR Preop Summary Primary Physician: KAYLEIGH GARNER MD-ORT Finalized Date/Time: 06/11/20 15:08:11 Pt. Name: GILBERT DE LUNA/Sex: 1960 Female Med Rec #: [id number] Physician: KAYLEIGH GARNER MD-ORT Financial #: [id number] Pt. Type: O Room/Bed: 642/1 Admit/Disch: 06/11/20 06:57:00 - Institution: [facility] PreOp Case Times Entry 1 In Preop 06/11/20 06:23:00 Ready for Holding n/a Room Patient Ready for 06/11/20 07:20:00 Surgery Patient Out of Preop 06/11/20 08:42:00 Patient Out of n/a Holding Room Last Modified By: Brie Dunbar RN 06/11/20 15:08:10 [facility] PreOp Case Times Audit 06/11/20 15:08:10 Print Line Inspector: NEMO Modifier: [email or web address] <+> 1 Patient Out of Preop 06/11/20 07:20:12 Print Line Inspector: NEMO Modifier: [email or web address] <+> 1 Patient Ready for Surgery Finalized By: Brie Dunbar, RN Document Signatures Signed By: Brie Dunbar RN 06/11/20 15:08 Electronically signed by Patricia [facility] Conversion Digital Community Manager Cerner at 01/21/2023 5:33 PM CDT documented in this encounter Plan of Treatment Not on file documented as of this encounter Visit Diagnoses Not on filedocumented in this encounter
--- OUTSIDE RECORDS SUMMARY | 2025-02-20 08:23 | XMS_ITS | Clinical Summary ---
Author Organization [employer] Address [address] [place] [address] Care Team Providers Care Operations Controller Name Role Phone Unavailable Primary Care Provider [...]
--- OUTSIDE RECORDS SUMMARY | 2025-02-20 08:24 | XMS_ITS | Encounter Summary ---
Author Organization [employer] Address [address] [place] [address] Care Team Providers Care Finish Specialist Name Role Phone Unavailable Primary Care Provider Unavailabl e Encounter Details Date Type Department Care Team (Late st Contact Info) Description 06/11/2020 Transcribed Document [facility] 1 [place] [address] ProviderZahraa MD Social History Tobacco [...] Notes * Cerner Conversion Note - [facility] Mila ProviderMD - 06/11/2020 3:00 AM [...] Emotional Support : Empathic/Engaged listening Spiritual and Temple : Prayer shared, Spiritual/Temple support provided GILBERT LAKHANI - 06/11/2020 8:05 EDT documented in this encounter Plan of Treatment Not on file documented as of this encounter Visit Diagnoses Not on filedocumented in this encounter
--- OUTSIDE RECORDS SUMMARY | 2025-02-20 08:24 | XMS_ITS | Encounter Summary ---
Author Organization [employer] Address [address] [place] [address] Care Team Providers Care Mailer Apprentice Name Role Phone Unavailable Primary Care Provider Unavailabl e Encounter Details Date Type Department Care Team (Late st Contact Info) Description 06/12/2020 Transcribed Document [facility] 1 [place] [address] ProviderZahraa MD Social History Tobacco [...] Notes * Cerner Conversion Note - [facility] Mila Redd MD - 06/12/2020 10:24 AM EDT UM Authorization Entered On: 06/12/2020 9:24 EDT Performed On: 06/12/2020 9:24 EDT by KSENIA WILKINS RN-Utilization Review Primary Insurance Authorization Authorization and Policy Numbers : Insurance 1 Health Plan: R Policy Number: [id number] Authorization Number: NPR Insurance Primary Name : [facility] Policy Number: [id number] Authorized Service Begin Date-Primary : 06/11/2020 EDT Authorization Comments-Primary : no precert required per STAR eduardo Historical Authorization Comments-Primary : No Authorization Comments Found KSENIA WILKINS, RN-Utilization Review - 06/12/2020 9:24 EDT documented in this encounter Plan of Treatment Not on file documented as of this encounter Visit Diagnoses Not on filedocumented in this encounter
--- OUTSIDE RECORDS SUMMARY | 2025-02-20 08:24 | XMS_ITS | Encounter Summary ---
Author Organization [employer] Address [address] [place] [address] Care Team Providers Care Machinist Instructor Name Role Phone Unavailable Primary Care Provider Unavailabl e Encounter Details Date Type Department Care Team (Late st Contact Info) Description 06/11/2020 Transcribed Document [facility] 1 [place] [address] Provider, Zahraa Zaragoza MD Social [...] the patient Family/Rep Contact Information : Adryan eD Luna, spouse, Advance Directive Type : Living [...] Legal Guardian : Spouse, Unaccompanied Support Person/Patient Roofer : Yes Support Person/Pt Rep Name : Adryan De Luna, spouse Support Person/Pt Rep Contact Information : [phone] Want Family/Rep/Phys Notified of Admit : No Emergency Contact #1 : Adryan De Luna Emergency Contact #1 Emergency Contact #1 Relationship : spouse Emergency Contact #2 : Jesi Barakat Emergency Contact #2 Emergency Contact #2 Relationship : daughter Information Obtained From : Patient Primary Language : Gu[place]ian Preferred Communication Mode : Verbal Communication Barrier : None Knife Setter Needed : No Objects to Sharing Info [...] Scale Risk Level : 25-45 Medium Risk Industry Fall Interventions : Adequate lighting, Assistive devices [...] Source : Measured Height Entry Format : [place] Height, Feet : 0 ft(Converted to: 0 cm, 0 Inch) Height, Inches : 64 Inch(Converted to: 5 ft 4 Inch, 162.56 cm) Clinical Height : 162.56 cm Weight Source : Standing scale Weight Entry Format : [place] Clinical Dosing Weight : 85.77 kg Weight, Pounds : 188.7 lb Body Surface Area (BSA) : 1.91 m2 Body Mass Index : 32.5 kg/m2 (HI) [place] Body Weight : 54 kg MARTHA LEONE [...] MARTHA LEONE RN - 06/11/2020 12:25 EDT Cross Suicide Severity Rating Scale (C-SSRS) CSSRS Past [...] Apnea Risk Level Score : 2 MARTHA ELONE RN - 06/11/2020 12:25 EDT Spiritual/Cultural Needs Any Spiritual/Cultural Needs or Requests : Yes Spiritual/Cultural Needs Comment : Preop prayer, surgery 06/11/2020 Buddhist Preference : Islam ([employer]) Spiritual/Cultural Needs Comment : [...]
--- OUTSIDE RECORDS SUMMARY | 2025-02-20 08:24 | XMS_ITS | Encounter Summary ---
Author Organization [employer] Address [address] [place] [address] Care Team Providers Care Supervisor Photostat Name Role Phone Unavailable Primary Care Provider Unavailabl e Encounter Details Date Type Department Care Team (Late st Contact Info) Description 06/11/2020 Transcribed Document [facility] 1 [place] [address] ProviderZahraa MD Social History Tobacco [...] Miscellaneous Notes * Cerner Conversion Note - [facility] Mila Redd MD - 06/11/2020 3:33 PM [...]
--- OUTSIDE RECORDS SUMMARY | 2025-02-20 08:24 | XMS_ITS | Encounter Summary ---
Author Organization [employer] Address [address] [place] [address] Care Team Providers Care Stack Clerk Name Role Phone Unavailable Primary Care Provider Unavailabl e Encounter Details Date Type Department Care Team (Late st Contact Info) Description 06/11/2020 Transcribed Document [facility] 1 [place] [address] Provider, Zahraa Zaragoza MD Social [...] On: 06/11/2020 14:06 EDT by TRUONG VALLEJO RN-Mill Recorder Final Discharge Planning Discharge Arrangements : Patient [...] : Yes Discharge To Care Management : Home/Residential/Assisted or Self Care -01 TRUONG VALLEJO RN-Mill Recorder - 06/11/2020 14:06 EDT Electronically signed by Patricia [facility] Conversion Clinical Appeals Reviewer Cerner at 01/21/2023 5:33 PM CDT documented in this encounter Plan of Treatment Not on file documented as of this encounter Visit Diagnoses Not on filedocumented in this encounter
--- OUTSIDE RECORDS SUMMARY | 2025-02-20 08:24 | XMS_ITS | Encounter Summary ---
Author Organization [employer] Address [address] [place] [address] Care Team Providers Care Type Photography Supervisor Name Role Phone Unavailable Primary Care Provider Unavailabl e Encounter Details Date Type Department Care Team (Late st Contact Info) Description 06/11/2020 Transcribed Document [facility] Radiology 1 [place] [address] Provider, Zahraa Zaragoza MD Social [...] Anesthesiologist Procedure Case Attendee Role 2 : associate professor physician Case Attendee 2 : CLYDE Trujillo RN [...]
--- OUTSIDE RECORDS SUMMARY | 2025-02-20 08:24 | XMS_ITS | Encounter Summary ---
Author Organization [employer] Address [address] [place] [address] Care Team Providers Care Miter Operator Name Role Phone Unavailable Primary Care Provider Unavailabl e Encounter Details Date Type Department Care Team (Late st Contact Info) Description 05/04/2020 Transcribed Document [facility] 1 [place] [address] Provider, Zahraa Zaragoza MD Social [...] from sitting : Mild 7. Bending to floor/machine operator picker an object : Mild KORU DELACRUZ Raw [...]
--- OUTSIDE RECORDS SUMMARY | 2025-02-20 08:24 | XMS_ITS | Encounter Summary ---
Author Organization [employer] Address [address] [place] [address] Care Team Providers Care Specialist Field Engineer Name Role Phone Unavailable Primary Care Provider Unavailabl e Encounter Details Date Type Department Care Team (Late st Contact Info) Description 05/24/2020 Transcribed Document [facility] 1 [place] [address] Provider, Zahraa Zaragoza MD Social [...] Notes * Cerner Conversion Note - [facility] Mila ProviderMD - 05/24/2020 2:46 PM EDT [...] Source : Measured Height Entry Format : [place] Height, Feet : 0 ft(Converted to: 0 cm, 0 Inch) Height, Inches : 64 Inch(Converted to: 5 ft 4 Inch, 162.56 cm) Clinical Height : 162.56 cm Weight Source : Standing scale Weight Entry Format : [place] Clinical Dosing Weight : 85.77 kg Weight, Pounds : 188.7 lb Body Surface Area (BSA) : 1.91 m2 Body Mass Index : 32.5 kg/m2 (HI) [place] Body Weight : 54 kg KATHLEEN HAYES [...] KATHLEEN HAYES RN - 05/24/2020 13:46 EDT [place] Suicide Severity Rating Scale (C-SSRS) CSSRS Past [...] RN - 06/11/2020 6:32 EDT Support Person/Patient Design Editor : Yes Support Person/Pt Rep Name : Adryan De Luna spouse Support Person/Pt Rep Contact Information : [phone] Want Family/Rep/Phys Notified of Admit : No Emergency Contact #1 : Adryan De Luna Emergency Contact #1 Emergency Contact #1 Relationship : spouse Emergency Contact #2 : Jesi Barakat Emergency Contact #2 Emergency Contact #2 Relationship : daughter Information Obtained From : Patient Primary Language : Citizen Of [place] Preferred Communication Mode : Verbal Communication Barrier : None Laboratory Machinist Needed : No Objects to Sharing Info [...]
--- OUTSIDE RECORDS SUMMARY | 2025-02-20 08:24 | XMS_ITS | Encounter Summary ---
Author Organization [employer] Address [address] [place] [address] Care Team Providers Care Coating Technician Name Role Phone Unavailable Primary Care Provider Unavailabl e Encounter Details Date Type Department Care Team (Late st Contact Info) Description 06/11/2020 Transcribed Document [facility] 1 [place] [address] Provider, Zahraa Zaragoza MD Social [...] Information : L knee ROM 0-102, Joint assistant strength coach present CGA stand sit with RWx [...]
--- OUTSIDE RECORDS SUMMARY | 2025-02-20 08:24 | XMS_ITS | Data Portability ---
Author Organization TIMOTHY MARISOL [facility] [place] [facility] Address [address] [facility] [address] [place] [address] Care Team Providers Care Global Upstream Marketing Manager Name Role Phone SAHIL MARIN Primary Care Provider [phone] Assessment Encounter Date Assessment Date Assessment LastModified [...] Orders meloxicam 15 mg tablet 2022 023 [facility], [address] [place] [address], [id number], 3 15:31:16 Patient TargetsNo targets recorded. Patient InstructionsNo instructions recorded. Reason for Referral None Reported. Results Created Date Observation Date Name Description Value Unit Range Abnormal Flag Note LastModifiedBy Organization Detail LastModifiedTime 07/02/20 20 07/02/2020 XR, knee, 3 view [facility] Marcel[facility] ma [address] [place] [address] Roseline fowler Name: GILBERT fowler : 960 Roseline fowler 66 Orderi ng Provid er: Brenda GREGORY EXAM DATE: 2019 EXAM: XR LT KNEE 3 VIEWS COMPAR KEELEY: HISTOR Y: Follow -up of prior surger y. FINDIN GS: There has been interv al [...] By: Rajiv alcala MD on 2:[id number] [place] [address] Radiology [place] [address], [place], [address], 07/02/2020 17:24:31 08/03/20 20 08/03/2020 XR, knee, 3 view Be [place] [facility] Marcelo ma [address] [place] [address] Roseline fowler Name: GILBERT fowler : 960 [...] By: Rajiv alcala MD on 9:41 AM [facility] [address], [place], [address], 08/04/2020 06:24:53 09/07/19 21 09/07/2020 XR, joint , multi ple, 1 view [facility] [address] [place] [address] Patien t Name: GILBERT Dukes t : 960 Patien t 66 Orderi ng Provid er: KAYLEIGH POWELL EXAM DATE: 2020 EXAM: XR LONG LEG LEFT/ JOINT SURVEY COMPAR KEELEY: HISTOR Y: Follow -up of prior surger y. FINDIN GS: There is a left total knee [...] s. Interp reted By: Rajiv alcala MD Electr onical ly Signed By: Rajiv alcala MD on 09/07/19 9:00 AM [facility] Radiology [facility] [address], [place], [address], 09/08/2020 20:28:09 10/17/19 22 10/17/2021 XR, knee, 3 view [facility] [address] [place] [address] Patien t Name: GILBERT Dukes t : 960 Patien t 66 Orderi ng Provid er: Brenda FLAKO CHAUDHARI SON EXAM DATE: 2021 EXAM: XR LT KNEE 3 VIEWS COMPAR KEELEY: 020 HISTOR Y: Follow -up of prior surger y. GO GS: Again seen is a left knee [...] Rajiv alcala MD on 022 8:[id number] [place] [address] , [place], [address], 10/17/2021 13:08:08 09/19/19 23 09/19/2022 XR, knee, 4 or [facility] Marcelo ma [address] [place] [address] Patien t Name: GILBERT Pace Patien t : 960 Patien t 66 [facility] Provid er: Brenda CHAUDHARI SON EXAM DATE: 2022 EXAM: XR RT KNEE COMPLE TE, 4 OR MORE VWS COMPAR KEELEY: 10/08/19 18 HISTOR Y: Follow -up of prior surger y. GO GS: Again seen is a right medial [...] ly Signed By: Rajiv alcala MD on 2:[id number] [place] [address] Radiology [place] [address] [place], [address], 09/20/2022 12:47:34 Result Notes Documentation Provider Name and Address Organization Details Recorded Time Xr, Knee, 3 [facility] : [facility] [address] [place] [address] Patient Name: GILBERT STOLL Patient : 1960 Patient Ordering Provider: Brenda MAYBERRY EXAM DATE: 07/02/2020 EXAM: XR LT KNEE 3 VIEWS COMPARISON: 05/11/2020 HISTORY: Follow-up of prior surgery. FINDINGS: There has been interval placement of a left knee total arthroplasty. There is no evidence of loosening. No fracture is identified. A calcific body projects in the popliteal fossa. Contralateral knee: There is a partial knee arthroplasty is place. IMPRESSION: 1. There is a left total knee arthroplasty in place without evidence of loosening. Interpreted By: Ray Brice MD Brenda MAYBERRY PA-C [address] [place] [address], [phone], [facility] 07/02/2020 17:24:31 Xr, Knee, 3 View : [facility] [address] [place] [address] Patient Name: GILBERT STOLL Patient : 1960 Patient Ordering Provider: KAYLEIGH GARNER EXAM DATE: 08/03/2020 EXAM: XR LT KNEE 3 VIEWS COMPARISON: 07/02/2020 HISTORY: Follow-up of prior surgery. FINDINGS: Again seen is a left knee total arthroplasty. There is no evidence of loosening. No fracture is identified. There is anterior soft tissue swelling. Contralateral knee: There is a partial knee arthroplasty is place. IMPRESSION: 1. There is a left total knee arthroplasty in place without evidence of loosening. Interpreted By: Ray Brice MD EIGH GARNER MD [address] [place] [address], [phone], [facility] 08/04/2020 06:24:53 Xr, Joint, Multiple, 1 View : [facility] [address] [place] [address] Patient Name: GILBERT STOLL Patient : 1960 Patient Ordering Provider: KAYLEIGH GARNER EXAM DATE: 09/07/2020 EXAM: XR LONG LEG LEFT/ JOINT SURVEY COMPARISON: 08/03/2020 HISTORY: Follow-up of prior surgery. FINDINGS: There is a left total knee arthroplasty in place. There is no evidence of loosening or complication. There is mild valgus angulation. No fracture is identified. There are mild degenerative changes in the left hip and minimal degenerative changes in the ankle. IMPRESSION: 1. There is a left knee arthroplasty in place with mild valgus angulation. This measures 4 degrees. Interpreted By: Ray Brice MD EIGH GARNER MD [address] [place] [address], [phone], [facility] 09/08/2020 20:28:09 Xr, Knee, 3 View : [facility] [address] [place] [address] Patient Name: GILBERT STOLL Patient : 1960 Patient Ordering Provider: Brenda MAYBERRY EXAM DATE: 10/17/2021 EXAM: XR LT KNEE 3 VIEWS COMPARISON: 08/03/2020 HISTORY: Follow-up of prior surgery. FINDINGS: Again seen is a left knee total arthroplasty. There is no evidence of loosening. No fracture is identified. Contralateral knee: There is a partial knee arthroplasty is place. IMPRESSION: 1. There is a left total knee arthroplasty in place without evidence of loosening. Interpreted By: Ray Brice MD Brenda MAYBERRY PA-C [address] [place] [address], [phone], [facility] 10/17/2021 13:08:08 Xr, Knee, 4 Or More View : [facility] [place] [address] [address] Patient Name: GILBERT STOLL Patient : 1960 Patient Ordering Provider: Brenda MAYBERRY EXAM DATE: 09/19/2022 EXAM: XR RT KNEE COMPLETE, 4 OR MORE VWS COMPARISON: 10/08/2017 HISTORY: Follow-up of prior surgery. FINDINGS: Again seen is a right medial unicompartmental knee arthroplasty. There is no evidence of loosening. No fracture is identified. There are moderate to severe degenerative changes in the lateral and patellofemeral compartments. Contralateral knee: There is a total knee arthroplasty is place. IMPRESSION: 1. There is a right medial unicompartmental knee arthroplasty in place without evidence of loosening. Interpreted By: Ray Brice MD Brenda MAYBERRY PA-C [address] [place], [address], [facility] 09/20/2022 12:47:35 Problems No Known Problems Procedures Surgical History Date Name Laterality Status Provider Name and Address Organization Details Recorded Time 06/11/20 20 Total knee arthroplasty completed Yoni Andino [facility] 09/07/2020 09:07:04 06/24/20 19 Injection Joint/Bursa, Major completed Brenda MAYBERRY PA-C [address] [facility], [address], [facility] 06/24/2019 09:01:53 Imaging Results None recorded. Procedure [...] Updated DateTime 09/07/2020 160.02 cm 32.8 kg/m2 87576.59 g Yoni [facility] 09/07/2020 09:05:59 Date Recorded Body height Body mass index (BMI) Body weight Provider Name and Address Organization Details Last Updated DateTime 09/19/2022 160.02 cm 32.8 kg/m2 54754.59 g [facility] 09/19/20[facility] 14:25:04 Date Recorded Body height Body mass index (BMI) Body weight Systolic blood pressure Diastolic blood pressure Provider Name and Address Organization Details Last Updated DateTime 10/17/2021 160.02 cm 32.8 kg/m2 29911.59 g 125 mm[Hg] 80 mm[Hg] [facility] 08:46:05 Date Recorded Body height Body mass index (BMI) Body weight Provider Name and Address Organization Details Last Updated DateTime 07/02/2020 160.02 cm 32.8 kg/m2 47128.59 g [facility] 07/02/2020 15:13:11 Date Recorded Body height Body mass index (BMI) Body weight Provider Name and Address Organization Details Last Updated DateTime 08/03/2020 160.02 cm 32.8 kg/m2 65341.59 g [facility] 08/03/2020 09:25:59 Social History Question Answer Notes LastModified by Organizat ion Details LastModified Time Tobacco Smoking Status Never Smoker Laisha hendrickson [facility] 10/08/2017 13:12:24 What Was The Date Of [...] SNOMED-CT Code Diagnosis ICD10 Code Diagnosis Note [id number] Brenda MAYBERRY PA-C [facility] [address] [place] [address] 10/08/2017 13:04:57 10/08/2017 13:54:36 Replacement of total knee joint [id number] Z96.651 UKA doing well. Avoid deep flexion strengthen ing. Recommend swim, bike, row machine, & eliptical [id number] Brenda MAYBERRY PA-C [facility] [address] [place] [address] 06/24/2019 08:08:20 06/24/2019 09:05:48 Osteoarthritis of knee 926864362 M17.9 Patient has focal medial compartmen t osteoarthr itis however early bone spurring in the patellofem oral joint. Would likely be better candidate for total versus partial knee replacemen t. At this time she is failed minimal conservati ve measures. Recommend she continue with her OTC NSAIDs and we provided CSI today. [id number] KAYLEIGH Sol MD [facility] [address] [place] [address] 05/11/2020 08:53:50 05/11/2020 10:52:20 Knee pain 69227431 M25.562 Osteoarthr itis of knee 955493108 M17.12 [id number] KAYLEIGH Sol MD SURGERY SCHEDULE [address] [place] [address] 06/13/2020 08:08:39 06/13/2020 14:58:14 [id number] Brenda MAYBERRY PA-C [facility] [address] [place] [address] 07/02/2020 14:30:44 07/02/2020 16:04:19 Postoperative care 479223356 Z48.89 3 weeks status post left total knee arthroplas ty exceeding expectatio ns. Patient is getting [employer] a run for the money. At this point [...] considerat ion of full-time return to work [id number] Brenda MAYBERRY PA-C [facility] [address] [place] [address] 08/03/2020 09:20:17 08/03/2020 12:24:18 Postoperative care [id number] Z48.89 7 weeks status post left total [...] leg x-ray and dismissal to annual follow-up [id number] KAYLEIGH Sol MD ORTHOP[facility]I LUIS [facility] [address] [place] [address] 09/07/2020 08:46:04 09/07/2020 09:44:05 History of total knee arthroplasty 3890270651 105 Z96.163 [id number] C FLAKO MAYBERRY PA-C [facility] [address] [place] [address] 10/17/2021 08:22:19 10/17/2021 09:34:48 History of total knee arthroplasty 9670306073 105 Z96.652 Doing well 1 year status post total knee arthroplas ty. Discussed home exercise program for strengthen ing. Follow-up in 2 years for repeat three-view x-ray left knee. Sooner as needed [id number] Brenda MAYBERRY PA-C [facility] [address] [address] 09/19/2022 13:57:53 09/19/2022 15:24:00 History of total knee arthroplasty 7801175594 105 Z96.652 Left total knee arthroplas ty [...] ID Guarantor Name 10/17/2021 1 [employer] ([place]) [id number] Gilbert Stoll [id number] 48 Gilbert Stoll 04/26/2023 PAYMENT PLAN Gilbert Stoll 09/22/2022 1 UMR (PPO) [id number] Gilbert Stoll [id number] Gilbert Stoll Notes Date Note Type Note Provider Name and Address Organization Details Recorded Time 07/02/2020 text/html Patient is 3 wee ks s/p L TKA. Pain is 2/10 at night, Currently taking no doses per day of narcotic. Meloxicam 15 mg daily Ambulating with no assistive device PT: outpatient Denies fevers, chills, or wound drainage. They do not request a refill of pain medicine. Operative cultures Not Obtained Brenda MAYBERRY PA-C [address] [place], [address], [facility] 07/02/2020 15:59:25 08/03/2020 text/html Patient is 7 wee ks s/p L TKA. 06/11/20 Pain is 0/10 in knee, 5/10 pain at night posterior thigh. Currently taking <3 doses per day of narcotic. Ambulating with no assistive device PT: outpatient Denies fevers, chills, or wound drainage. They do not request a refill of pain medicine. Brenda MAYBERRY PA-C [address] [place], [address], [facility] 08/03/2020 12:24:16 09/07/2020 text/html 09-07-20: Patient is 12 weeks s/p L TKA. Pain is improving Currently taking no doses per day of narcotic. Ambulating with no assistive device PT: HEP Denies fevers, chills, or wound drainage. They do not request a refill of pain medicine. KAYLEIGH GARNER MD [address] [place], [address], [facility] 09/07/2020 09:48:31 10/17/2021 text/html 10-17-21: 1.5 years [...] not request a refill of pain medicine. [id number] is 3 weeks s/p L TKA. Pain is 2/10 at night, Currently taking no doses per day of narcotic. Meloxicam 15 mg daily Ambulating with no assistive device PT: outpatient Denies fevers, chills, or wound drainage.They do not request a refill of pain medicine. Operative cultures Not Obtained Brenda MAYBERRY PA-C [address] [place], [address], [facility] 10/17/2021 09:37:35 09/19/2022 text/html 09/19/22Louise comes to [...] not request a refill of pain medicine. [id number] is 3 weeks s/p L TKA. Pain is 2/10 at night, Currently taking no doses per day of narcotic. Meloxicam 15 mg daily Ambulating with no assistive device PT: outpatient Denies fevers, chills, or wound drainage.They do not request a refill of pain medicine. Operative cultures Not Obtained Brenda MAYBERRY PA-C [address] [place], [address], [facility] 09/19/2022 15:21:26 OBGyn Episode No OBEpisode recorded.
--- OUTSIDE RECORDS SUMMARY | 2025-02-20 08:24 | XMS_ITS | Encounter Summary ---
Author Organization [employer] Address [address] [place] [address] Care Team Providers Care Level Vial Inspector Name Role Phone Unavailable Primary Care Provider Unavailabl e Encounter Details Date Type Department Care Team (Late st Contact Info) Description 06/13/2020 Transcribed Document [facility] [address] [place] [address] Provider, Zahraa Zaragoza MD Social [...] Discharge Disposition : Discharge To Care Management: Home/Residential/Residential or Self Care -01 Post Visit Phone Call History : First call Contact Relationship to Patient : Spouse Provider Follow-Up Post Discharge : Discharge Follow Up [facility] Outpatient PT - 01:00 PM ROBBIE MAYBERRY PA-ORT - 03:00 PM Previously Documented 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
--- OUTSIDE RECORDS SUMMARY | 2025-02-20 08:25 | XMS_ITS | Encounter Summary ---
Author Organization [employer] Address [address] [place] [address] Care Team Providers Care Triple Valve Tester Name Role Phone Unavailable Primary Care Provider Unavailabl e Encounter Details Date Type Department Care Team (Late st Contact Info) Description 06/11/2020 Transcribed Document [facility] Radiology [address] [place] [address] Provider, Zahraa Zaragoza MD Social [...] On: 06/11/2020 14:04 EDT by TRUONG VALLEJO RN-Business Development Recruiter Initial Assessment I Previously Documented Living Environment [...] have PCP Listed? : Yes TRUONG VALLEJO RN-Business Development Recruiter - 06/11/2020 14:04 EDT Initial Assessment II Sensory and Motor Deficits : None Current Home Treatments and Equipment : Bedside commode, Walker Does the Patient have a Floor to SNF Benefit? : No TRUONG VALLEJO RN-Business Development Recruiter - 06/11/2020 14:04 EDT Discharge Needs I Anticipated Discharge Date : 06/11/2020 EDT Anticipated Discharge To, CM : Home with family care Current Home Treatment/Equipment : Current Home Treatment/Equipment No qualifying data available. Post Acute/Home Treatments : None Documentation Status Complete : Yes TRUONG VALLEJO RN-Business Development Recruiter - 06/11/2020 14:04 EDT Discharge Needs II Professional Skilled Services : Professional Skilled Services No qualifying data available. Services and Community Resources : Physical Therapy Needs Assistance with Transportation : No Discharge Options Discussed with Patient : Outpatient services TRUONG VALLEJO RN-Business Development Recruiter - 06/11/2020 14:04 EDT Narrative Note Narrative Note : 60yo female pt s/p LTKA. Met with pt at bedside to discuss DCP. Pt has DME at home. Referral sent to [facility] for outpatient PT and confirmed 1st appt with Karina in scheduling. No other CM needs identified. TRUONG VALLEJO RN-Business Development Recruiter - 06/11/2020 14:04 EDT documented in this encounter Plan of Treatment Not on file documented as of this encounter Visit Diagnoses Not on filedocumented in this encounter
--- OUTSIDE RECORDS SUMMARY | 2025-02-20 08:25 | XMS_ITS | Encounter Summary ---
Author Organization [employer] Address [address] [place] [address] Care Team Providers Care Bundle Shaker Name Role Phone Unavailable Primary Care Provider Unavailabl e Encounter Details Date Type Department Care Team (Late st Contact Info) Description 06/11/2020 Transcribed Document [facility] Radiology [address] [place] [address] Provider, Zahraa Zaragoza MD Social [...] [facility] Date : 05/20/2020 EDT Joint Transformation Architect Name : , Adryan Type of Surgery : Total Knee Replacement, Left Does Patient Have a Walker? : Yes Anticipated Discharge Plan : Outpatient PT Anticipated Discharge Plan Comment : Patient plans to d/c home today. She verbalizes understanding of the need to get around safely, stable VS, void, and ability to keep food and drink down following surgery, and joint technology coach attendance in therapy and teaching in order to d/c today. She plans to go to [facility] PT for therapy, and [...]
--- OUTSIDE RECORDS SUMMARY | 2025-02-20 08:25 | XMS_ITS | Encounter Summary ---
Author Organization [employer] Address [address] [place] [address] Care Team Providers Care Research Software Engineer Name Role Phone Unavailable Primary Care Provider Unavailabl e Encounter Details Date Type Department Care Team (Late st Contact Info) Description 06/11/2020 Transcribed Document [facility] [address] [place] [address] Provider, Zahraa Zaragoza MD Social [...] [facility] Mila ProviderMD - 06/11/2020 10:14 AM EDT [facility] Main OR IntraOp Summary Primary Physician: KAYLEIGH GARNER MD-ORT Finalized Date/Time: 06/14/20 12:40:26 Pt. Name: GILBERT DE LUNA D.O.B./Sex: 1960 Female Med Rec #: [id number] Physician: KAYLEIGH GARNER MD-ORT Financial #: [id number] Pt. Type: O Room/Bed: 642/1 Admit/Disch: 06/11/20 06:57:00 - 06/11/20 16:12:00 Institution: [facility] IntraOp Case Attendance Entry 1 Entry 2 Entry 3 Case Attendee PATSY, THARUN, MINESH HORN APRN Maynard, Leanne, RN MD-ORT Role Performed Surgeon/Proceduralist, CUSTOMS AND IMMIGRATION OFFICER/Nurse Machine Or Machinery Mechanic Tube Carrier, First First Time In 06/11/20 08:47:00 06/11/20 [...] Ballesteros Pref Card Builder Role Performed Scrub, Statistician Theoretical, First Time In 06/11/20 08:47:00 06/11/20 08:47:00 Time Out 06/11/20 10:46:00 06/11/20 10:46:00 Procedure Knee Total Joint Knee Total Joint Replacement(Left) Replacement(Left) Other Attendee Superficial Wound Closed By: Last Modified By: JULIETA RODRIGUEZ RN TAYLOR, MELISSA A, RN 06/11/20 10:47:02 06/11/20 10:47:02 [facility] IntraOp Case Attendance Audit 06/11/20 10:47:02 Loom Setter: JEREMY Modifier: LOGAN 1 <+> Time In [...] 5 <*> Procedure Knee Total Joint Replacement(Left) [facility] IntraOp Case Times Entry 1 Patient In Room Time 06/11/20 08:47:00 Out Room Time 06/11/20 10:46:00 Anesthesia Start Time 06/11/20 08:47:00 Stop Time 06/11/20 10:46:00 Surgery / Procedure Times Start Time 06/11/20 09:14:00 Stop Time 06/11/20 10:37:00 Last Modified By: JULIETA RODRIGUEZ RN 06/11/20 10:46:50 [facility] IntraOp Case Times Audit 06/11/20 10:46:50 Loom Setter: JEREMY Modifier: LOGAN <+> 1 Out Room Time <+> 1 Stop Time 06/11/20 10:37:19 Loom Setter: MIRIAML Modifier: MAYNARL <+> 1 Stop Time 06/11/20 09:14:20 Loom Setter: MEMONARL Modifier: MAYNARL <+> 1 Start Time [facility] IntraOp Cautery Entry 1 ESU Identification Cautery Type Monopolar ESU ID Number [id number] ID Type Hospital Number Cautery Settings Cut Setting 50 Coag Setting 50 ESU Grounding Pad Ground Pad Type Adult Grounding Pad Site Right thigh Grounding Pad Cierra Ascencio RN Applied By Grounding Pad Site Warm, Dry, Intact Skin Condition Before Cautery Grounding Pad Site Unchanged Skin Condition After Cautery Last Modified By: Cirera Ascencio RN 06/11/20 08:30:23 [facility] IntraOp Communication Entry 1 Entry 2 Communication To Family/Significant other Family/Significant other Comment UNABLE TO GET AHOLD OF UNABLE TO GET AHOLD OF [place] FOR START [place] FOR CLOSING Communication By Cierra Ascencio RN Maynard, Leanne, NIEVES Date and Time 06/11/20 09:15:00 06/11/20 10:16:00 Last Modified By: Cierra Ascencio RN Maynard, Leanne, RN 06/11/20 10:16:41 06/11/20 10:16:41 [facility] IntraOp Communication Audit 06/11/20 10:16:41 Loom Setter: JEREMY Modifier: JEREMY 1 <*> Comment START <+> 2 Communication By <+> 2 Date and Time <+> 2 Communication To <+> 2 Comment [facility] IntraOp Counts Verification Entry 1 [...] Modified By: Cierra Ascencio RN 06/11/20 10:37:16 [facility] IntraOp Cultures and Spec Summary Entry 1 Cultrures and Specimens Specimen Ordered: Yes Test(s) Routine/Path-Lab Requested/Final Disposition Last Modified By: Cierra Ascencio RN 06/11/20 08:30:12 [facility] IntraOp Departure from OR Entry 1 Integumentary Assessment Integumentary WDL Assessment WDL Transfer/Handoff Transfer to PACU Phase I Handoff Method Phone call Post-op Transport Bed (including Via specialty) Patient Transport MINESH HORN APRN, Accompanied by Cierra Ascencio RN Last Modified By: Cierra Ascencio RN 06/11/20 09:15:26 [facility] IntraOp Dressing and Packing Entry 1 Type Dressing Location OPERATIVE KNEE Wound Dressing Item Occlusive dressing, Skin Closure Glue Applied By GONZALO RODRIGUEZ CSA Other Comments [facility] Last Modified By: Cierra Ascencio RN 06/11/20 09:37:42 [facility] IntraOp Fire Risk Assessment Entry [...] Modified By: Cierra Ascencio RN 06/11/20 08:52:47 [facility] IntraOp Fire Risk Assessment Audit 06/11/20 08:52:47 Loom Setter: MEMOMILANA Modifier: MAYNARL <+> 1 Fire Risk Assessment Verified Date/Time [facility] IntraOp General Case Recycling Collections Driver 1 Case Information OR OR 05 [facility] Case Level 1 Room Verified Yes Wound Class I - Clean Specialty SN Orthopedic Anesthesia Type General ASA Class 2 Diagnosis Preop Diagnosis M17.12 Postop Diagnosis SEE DOCTOR'S POST OP NOTES Last Modified By: Cierra Ascencio RN 06/11/20 08:52:51 [facility] IntraOp General Case Data Audit 06/11/20 08:52:51 Loom Setter: MEMOMILANA Modifier: MAYNARL <+> 1 ASA Class 06/11/20 08:29:02 Loom Setter: MEMONARL Modifier: MAYNARL <+> 1 Preop Diagnosis [facility] IntraOp Implant Log Entry 1 Entry 2 Entry 3 Type Implant (Synthetic) Implant (Synthetic) Implant (Synthetic) Implant Log Implant Type Hardware Hardware Hardware Tissue Implant Type Implant PATELLA CEMENTED KNEE PERSONA SZ FEM PSN RIGO [facility] SZ5 Identification [id number] Description Implant Quantity 1 1 1 Implant Site LEFT KNEE LEFT KNEE LEFT KNEE Implant Identification Model Number Implant Identification Serial Number Implant [id number] Identification Lot Number Implant Steph:Steph Us Steph:Steph Us Identification Dimension Warehouse Supervisor Name: Implant [id number] Identification Catalog Number Implant Size Implant Has an Yes Yes Yes Expiration Date Implant Expiration 02/28/28 07/30/24 02/27/30 Date Wasted Radioactive Material Time Implanted Tissue Implant Continue for Tissue Implant Documentation Tissue Identification Number Graft Prep Per Dimension Warehouse Supervisor Instructions: Tissue Preparation Method: Reconstitution Solution: Reconstitution Solution Lot Number Reconstitution Solution Expiration Date: Thawing Solution Thawing Solution Lot Number Thawing Solution Expiration Date Preparation Materials, Other Preparation Materials, Other Lot Number Preparation Materials, Other Expiration Date Tissue Prepared/Processed By Dimension Warehouse Supervisor Paperwork Completed Implant Type Comment Last Modified By: Cierra Ascencio RN Maynard, Leanne, RN Maynard, Leanne, RN 06/11/20 10:10:16 06/11/20 10:10:16 06/11/20 10:10:16 Entry 4 Entry 5 Type Implant (Synthetic) Implant (Synthetic) Implant Log Implant Type Hardware Bone Cement Tissue Implant Type Implant TIB STEM NATURAL L CEMENT BONE R Identification [id number] Description Implant Quantity 1 2 Implant Site LEFT KNEE LEFT KNEE Implant Identification Model Number Implant Identification Serial Number Implant [id number] Identification Lot Number Implant Steph:Steph Us Steph:Steph Us Identification Dimension Warehouse Supervisor Name: Implant [id number] Identification Catalog Number Implant Size Implant Has an Yes Yes Expiration Date Implant Expiration 01/28/30 06/30/24 Date Wasted Radioactive Material Time Implanted Tissue Implant Continue for Tissue Implant Documentation Tissue Identification Number Graft Prep Per Dimension Warehouse Supervisor Instructions: Tissue Preparation Method: Reconstitution Solution: Reconstitution Solution Lot Number Reconstitution Solution Expiration Date: Thawing Solution Thawing Solution Lot Number Thawing Solution Expiration Date Preparation Materials, Other Preparation Materials, Other Lot Number Preparation Materials, Other Expiration Date Tissue Prepared/Processed By Dimension Warehouse Supervisor Paperwork Completed Implant Type Comment Last Modified By: Cierra Ascencio RN Maynard, Leanne, RN 06/11/20 10:10:16 06/11/20 10:10:16 [facility] IntraOp Implant Log Audit 06/11/20 10:10:16 Loom Setter: JEREMY Modifier: JEREMY 1 <*> Implant Identification Description 1 <+> Implant Identification Lot Number 1 <+> Implant Identification Dimension Warehouse Supervisor Name: 1 <+> Implant Expiration Date 1 <+> Implant Quantity 1 <+> Implant Identification Catalog Number 1 <+> Implant Has an Expiration Date <+> 2 Implant Identification Description <+> 2 Implant Identification Lot Number <+> 2 Implant Identification Dimension Warehouse Supervisor Name: <+> 2 Implant Expiration Date <+> [...] Identification Lot Number <+> 4 Implant Identification Dimension Warehouse Supervisor Name: <+> 4 Implant Expiration Date <+> 4 Implant Site <+> 4 Implant Quantity <+> 4 Implant Identification Catalog Number <+> 4 Implant Type <+> 4 Implant Has an Expiration Date <+> 4 Type <+> 5 Implant Identification Description <+> 5 Implant Identification Lot Number <+> 5 Implant Identification Dimension Warehouse Supervisor Name: <+> 5 Implant Expiration Date <+> 5 Implant Site <+> 5 Implant Quantity <+> 5 Implant Identification Catalog Number <+> 5 Implant Type <+> 5 Implant Has an Expiration Date <+> 5 Type [facility] IntraOp Intraoperative Assessment Entry 1 [...] Modified By: Cierra Ascencio RN 06/11/20 08:20:35 [facility] IntraOp Intraoperative Equipment Entry 1 Type Equipment Equipment Equipment Colt Suction System ID Number [id number] Setting HIGH Intraop Monitoring Electrocardiogram Five lead placement (ECG) Electrode Placement Blood Pressure Non-Invasive BP Device Source Antiembolic Devices Antiembolic Devices Sequential compression device, knee high Antiembolic Device Right Location Antiembolic Device [id number] ID Number Antiembolic Device HIGH Setting Scopes Photo/Video Documentation Photo No Video No Last Modified By: Cierra Ascencio RN 06/11/20 08:28:28 [facility] IntraOp Intraoperative Equipment Audit 06/11/20 08:28:28 Loom Setter: JEREMY Modifier: MIRIAML <+> 1 ID Number <+> 1 Antiembolic Device ID Number [facility] IntraOp Medication Admin Entry 1 Entry 2 Entry 3 Medication/Irrigant Bacitracin 50,00units EM IRR NACL 0.9PCT Bacitracin 50,00units powder vial 2000ML [id number] powder vial Combo Med List 1 - Combo Med 1 - Combo Med 2 - Combo Med Time Administered Route of ADDED TO IRRIGATION IRRIGATION ADDED TO IRRIGATION Administration Dose Dose 86658 Unit of Measure units Volume Administered By KAYLEIGH GARNER KARTHIKEYAN, THARUN, KARTHIKEYAN, THARUN, MD-ORT -ORT -ORT Procedure Irrigation Irrigant Volume In Irrigant Volume Out Last Modified By: Cierra Ascencio RN Maynard, Leanne, RN Maynard, Cierra, RN 06/11/20 08:24:33 06/11/20 08:24:33 06/11/20 08:24:33 Entry 4 Medication/Irrigant EM IRR NACL 0.9PCT [id number] Combo Med List 2 - Combo Med Time Administered Route of IRRIGATION Administration Dose Dose Unit of Measure Volume Administered By KAYLEIGH GARNER MD-ORAgustín Procedure Irrigation Irrigant Volume In Irrigant Volume Out Last Modified By: Cierra Ascencio RN 06/11/20 08:24:33 [facility] IntraOp Medication Admin Audit 06/11/20 08:24:33 Loom Setter: JEREMY Modifier: JEREMY <+> 1 Route of [...] Administered By <+> 4 Combo Med List [facility] IntraOp Patient Positioning Entry 1 [...] Modified By: Cierra Ascencio RN 06/11/20 08:21:50 [facility] IntraOp Sign In Entry 1 [...] Modified By: Cierra Ascencio RN 06/11/20 08:20:41 [facility] IntraOp Sign Out Entry 1 [...] Modified By: JULIETA RODRIGUEZ RN 06/11/20 10:46:57 [facility] IntraOp Sign Out Audit 06/11/20 10:46:57 Loom Setter: JEREMY Modifier: LOGAN <+> 1 RN Sign Out Signature Date/Time [facility] IntraOp Skin Prep Entry 1 Procedure Knee Total Joint Replacement(Left) Prescribed Yes Pre-Surgical Prep Completed Prep Area OPERATIVE THIGH TO TOES CIRCUMFRENTIALLY Intraop Prep Integumentary WDL Assessment WDL Prep Agents Alcohol, Chloraprep, DuraPrep, Chlorhexadine gluconate Prep by Cierra Ascencio RN Hair Removal Methods No hair removal performed Last Modified By: Cierra Ascencio RN 06/11/20 08:24:42 [facility] IntraOp Surgical Procedures Entry 1 Procedure Knee Total Joint Replacement Modifiers Left Additional LT TOTAL KNEE Procedure ARTHROPLASTY Description Primary Procedure Yes Primary Surgeon KAYLEIGH GARNER MD-ORT Start 06/11/20 09:14:00 Stop 06/11/20 10:37:00 Anesthesia Type General Specialty SN Orthopedic Wound Class I - Clean Last Modified By: Cierra Ascencio RN 06/11/20 10:37:22 [facility] IntraOp Surgical Procedures Audit 06/11/20 10:37:22 Loom Setter: JEREMY Modifier: JEREMY <+> 1 Stop 06/11/20 09:27:34 Loom Setter: JEREMY Modifier: JEREMY 1 <*> Procedure Knee Total Joint Replacement 1 <+> Start 1 <*> Additional Procedure Description (LT TOTAL KNEE ARTHROPLASTY) [facility] IntraOp Temp Regulation Devices Entry 1 Temp Regulation Temperature Forced Air Warming Regulation Device device, Warm blankets Temperature 31662 Regulation Device Serial/Unit Number Temperature Upper body Regulation Site Temperature Device 43 DEGREES CELCIUS Setting Temperature MINESH HORN APRN Regulation Device Applied by Last Modified By: Cierra Ascencio RN 06/11/20 08:29:31 [facility] IntraOP Time Out Entry 1 [...] Modified By: Cierra Ascencio RN 06/11/20 09:13:32 [facility] IntraOP Time Out Audit 06/11/20 09:13:32 Loom Setter: JEREMY Modifier: JEREMY 1 <+> Time Out Pause Time 1 <*> Procedure to be Performed Knee Total Joint Replacement(Left) [facility] IntraOp Tourniquet Entry 1 Type Pneumatic Serial/Unit Number [id number] Setting 300 mmHg Pheumatic Yes Tourniquet Checked Per Protocol Size 34 inches Placement Thigh, left upper Skin Protection - Yes Padded Under Cuff Applied By KAYLEIGH GARNER MD-ORT Removed By GONZALO RODRIGUEZ CSA Times Start Time 06/11/20 09:13:00 Stop Time 06/11/20 10:24:00 Total Time 71 calculated manually (Mins) Last Modified By: Cierra Ascencio RN 06/11/20 10:24:38 [facility] IntraOp Tourniquet Audit 06/11/20 10:24:38 Loom Setter: MAYNARL Modifier: MAYNARL <+> 1 Total Time calculated manually (Mins) <+> 1 Stop Time 06/11/20 09:13:38 Loom Setter: JEREMY Modifier: MAYNARL <+> 1 Start Time [...]
--- OUTSIDE RECORDS SUMMARY | 2025-02-20 08:25 | XMS_ITS | Encounter Summary ---
Author Organization [employer] Address [address] [place] [address] Care Team Providers Care Donor Floor Technician Name Role Phone Unavailable Primary Care Provider Unavailabl e Encounter Details Date Type Department Care Team (Late st Contact Info) Description 06/11/2020 Transcribed Document [facility] [address] [place] [address] ProviderZahraa MD Social History Tobacco [...] On: 06/11/2020 12:00 EDT by Omar Hermosillo GRINDING MILL OPERATOR LEAD Meds to Bed Enrollment Patient Enrollment Decision: : Yes/enroll in meds to bed program Omar Hermosillo GRINDING MILL OPERATOR LEAD - 06/11/2020 13:55 EDT Electronically signed by Zahraa Gomez Conversion Electronics Engineering Technician [employer] at 01/21/2023 5:33 PM CDT documented in this encounter Plan of Treatment Not on file documented as of this encounter Visit Diagnoses Not on filedocumented in this encounter
--- OUTSIDE RECORDS SUMMARY | 2025-02-20 08:25 | XMS_ITS | Encounter Summary ---
Author Organization [employer] Address [address] [place] [address] Care Team Providers Care Plexiglas Former Name Role Phone Unavailable Primary Care Provider Unavailabl e Encounter Details Date Type Department Care Team (Late st Contact Info) Description 06/11/2020 Transcribed Document [facility] [address] [place] [address] Kayleigh Sánchez MD [address] [phone] Social History Tobacco Use Types Packs/Day Years [...] KAYLEIGH SÁNCHEZ MD-ORT (Surgeon/Proceduralist, First) Surgeon: Gonzalo Coffee Sampler: Andreas Barahona CSA *Procedure Narrative Patient identified [...] and PCL were resected. Next, distal femoral pilot plant supervisor hole was drilled and the intramedullary guide [...] Bovie. Femur was sized. The [employer] gap transformer shop supervisor was placed and tensed. Posterior condyle resection as noted above. Drill holes made through the transformer shop supervisor and the appropriately sized four-in-one block placed [...]
--- OUTSIDE RECORDS SUMMARY | 2025-02-20 08:25 | XMS_ITS | Encounter Summary ---
Author Organization [employer] Address [address] [place] [address] Care Team Providers Care Lacquer Shader Name Role Phone Unavailable Primary Care Provider Unavailabl e Encounter Details Date Type Department Care Team (Late st Contact Info) Description 06/11/2020 Transcribed Document [facility] [address] [place] [address] Provider, [facility] MD Mila Social History Tobacco Use Types [...] * Cerner Conversion Note - [facility] Mila ProviderMD - 06/11/2020 12:20 PM EDT [...] 60 yo female who was admitted to [facility] on 06/11 s/p L TKA. 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 [...]
--- OUTSIDE RECORDS SUMMARY | 2025-02-20 08:25 | XMS_ITS | Encounter Summary ---
Author Organization [employer] Address [address] [place] [address] Care Team Providers Care Grey Tender Name Role Phone Unavailable Primary Care Provider Unavailabl e Encounter Details Date Type Department Care Team (Late st Contact Info) Description 06/11/2020 Transcribed Document [facility] [address] [place] [address] Provider, Zahraa Zaragoza MD Social [...] Miscellaneous Notes * Cerner Conversion Note - [facility] Mila Redd MD - 06/11/2020 4:14 PM EDT [facility] [place] [address] [place] [address] JERMAN GILBERT FARIHA :1960 Visit [...] PA-ORAgustín When 07/02/2020 03:00 PM EST Where: [facility] [place] [address]- Follow Up with [facility] Outpatient PT When 06/13/2020 01:00 PM EDT Comments Appointment has been made Where: [facility] [phone] Medications What How Much When Instructions Next [...] of Dr. Sánchez or Dr. Mathias, call [phone] If you are a patient of Dr. Forbes, call [phone] Nurse Navigator: Renee Horn Office: [phone]; ; available during regular business hours acetaminophen [...] may report side effects to FDA at 2-150-PCM-7297. What other drugs will affect acetaminophen and [...] affect acetaminophen and oxycodone, including prescription and mqpx-tfj-bjdujvi medicines, vitamins, and herbal products. Not all [...] to ensure that the information provided by [employer]. ('[employer]') is accurate, up-to-date, and complete, but no guarantee is made to that effect. Drug information contained herein may be time sensitive. [employer] information has been compiled for use by healthcare practitioners and consumers in the [place] and therefore [employer] does not warrant that uses outside of the [place] are appropriate, unless specifically indicated otherwise. [employer] drug information does not endorse drugs, diagnose patients or recommend therapy. [employer] drug information is an informational resource designed [...] effective or appropriate for any given patient. [employer] does not assume any responsibility for any aspect of healthcare administered with the aid of information [employer] provides. The information contained herein is not intended to cover all possible uses, directions, precautions, warnings, drug interactions, allergic reactions, or adverse effects. If you have questions about the drugs you are taking, check with your doctor, nurse or pharmacist. Copyright 9230-3492 [employer]. Version: .. Revision Date: 09/21/2019. aspirin (oral) [...] What is aspirin? Aspirin is a salicylate (ca-DDX-de-ate) that is used to treat pain, and [...] may report side effects to FDA at 4-821-HTU-0491. What other drugs will affect aspirin? Ask [...] drugs may affect aspirin, including prescription and exye-roh-kwcbfpk medicines, vitamins, and herbal products. Not all [...] to ensure that the information provided by [employer]. ('[employer]') is accurate, up-to-date, and complete, but no guarantee is made to that effect. Drug information contained herein may be time sensitive. [employer] information has been compiled for use by healthcare practitioners and consumers in the [place] and therefore [employer] does not warrant that uses outside of the [place] are appropriate, unless specifically indicated otherwise. [employer] drug information does not endorse drugs, diagnose patients or recommend therapy. [employer] drug information is an informational resource designed [...] effective or appropriate for any given patient. [employer] does not assume any responsibility for any aspect of healthcare administered with the aid of information [employer] provides. The information contained herein is not intended to cover all possible uses, directions, precautions, warnings, drug interactions, allergic reactions, or adverse effects. If you have questions about the drugs you are taking, check with your doctor, nurse or pharmacist. Copyright 5513-0483 [employer]. Version: 16.02. Revision Date: 04/18/2020. meloxicam (oral/injection) [...] may report side effects to FDA at 0-992-QDN-6162. What other drugs will affect meloxicam? Ask [...] drugs may affect meloxicam, including prescription and twdp-zfr-raxivxz medicines, vitamins, and herbal products. Not all [...] to ensure that the information provided by [employer]. ('[employer]') is accurate, up-to-date, and complete, but no guarantee is made to that effect. Drug information contained herein may be time sensitive. [employer] information has been compiled for use by healthcare practitioners and consumers in the [place] and therefore [employer] does not warrant that uses outside of the [place] are appropriate, unless specifically indicated otherwise. [employer] drug information does not endorse drugs, diagnose patients or recommend therapy. [employer] drug information is an informational resource designed [...] effective or appropriate for any given patient. [employer] does not assume any responsibility for any aspect of healthcare administered with the aid of information [employer] provides. The information contained herein is not intended to cover all possible uses, directions, precautions, warnings, drug interactions, allergic reactions, or adverse effects. If you have questions about the drugs you are taking, check with your doctor, nurse or pharmacist. Copyright 2949-1111 [employer]. Version: 13.02. Revision Date: 12/28/2019. pregabalin (pre [...] may report side effects to FDA at 4-393-UJX-9234. What other drugs will affect pregabalin? Using [...] drugs may affect pregabalin, including prescription and nmwb-uny-afmerca medicines, vitamins, and herbal products. Not all [...] to ensure that the information provided by [employer]. ('[employer]') is accurate, up-to-date, and complete, but no guarantee is made to that effect. Drug information contained herein may be time sensitive. [employer] information has been compiled for use by healthcare practitioners and consumers in the [place] and therefore [employer] does not warrant that uses outside of the [place] are appropriate, unless specifically indicated otherwise. [employer] drug information does not endorse drugs, diagnose patients or recommend therapy. [employer] drug information is an informational resource designed [...] effective or appropriate for any given patient. [employer] does not assume any responsibility for any aspect of healthcare administered with the aid of information [employer] provides. The information contained herein is not intended to cover all possible uses, directions, precautions, warnings, drug interactions, allergic reactions, or adverse effects. If you have questions about the drugs you are taking, check with your doctor, nurse or pharmacist. Copyright 2809-8101 [employer]. Version: 9.01. Revision Date: 08/25/2019. docusate (oral/rectal) [...] may report side effects to FDA at 9-117-RSG-5245. What other drugs will affect docusate? Other drugs may affect docusate, including prescription and fqqh-zzy-xgdicfz medicines, vitamins, and herbal products. Tell your [...] to ensure that the information provided by [employer]. ('[employer]') is accurate, up-to-date, and complete, but no guarantee is made to that effect. Drug information contained herein may be time sensitive. [employer] information has been compiled for use by healthcare practitioners and consumers in the [place] and therefore [employer] does not warrant that uses outside of the [place] are appropriate, unless specifically indicated otherwise. [employer] drug information does not endorse drugs, diagnose patients or recommend therapy. [employer] drug information is an informational resource designed [...] effective or appropriate for any given patient. [facility] does not assume any responsibility for any aspect of healthcare administered with the aid of information [facility] provides. The information contained herein is not intended to cover all possible uses, directions, precautions, warnings, drug interactions, allergic reactions, or adverse effects. If you have questions about the drugs you are taking, check with your doctor, nurse or pharmacist. Copyright 6038-9612 [facility]. Version: 4.01. Revision Date: 03/07/2019. ondansetron (oral) [...] may report side effects to FDA at 9-875-IOJ-9343. What other drugs will affect ondansetron? Ondansetron [...] interact with ondansetron. This includes prescription and qebv-dre-lbhzwqx medicines, vitamins, and herbal products. Give a [...] to ensure that the information provided by [employer] ('[employer]') is accurate, up-to-date, and complete, but no guarantee is made to that effect. Drug information contained herein may be time sensitive. [employer] information has been compiled for use by healthcare practitioners and consumers in the [place] and therefore [employer] does not warrant that uses outside of the [place] are appropriate, unless specifically indicated otherwise. [employer] drug information does not endorse drugs, diagnose patients or recommend therapy. [employer] drug information is an informational resource designed [...] effective or appropriate for any given patient. [employer] does not assume any responsibility for any aspect of healthcare administered with the aid of information [employer] provides. The information contained herein is not intended to cover all possible uses, directions, precautions, warnings, drug interactions, allergic reactions, or adverse effects. If you have questions about the drugs you are taking, check with your doctor, nurse or pharmacist. Copyright 4091-0452 [employer]. Version: 13.01. Revision Date: 06/20/2016. Emergency Awareness [...] Assistance with quitting is available by contacting 9-612-EMFM-NOW. This is a free resource providing counseling, [...]
--- OUTSIDE RECORDS SUMMARY | 2025-02-20 08:25 | XMS_ITS | Encounter Summary ---
Author Organization [employer] Address [address] [place] [address] Care Team Providers Care Professional Services Consultant Name Role Phone Unavailable Primary Care Provider Unavailabl e Encounter Details Date Type Department Care Team (Late st Contact Info) Description 06/11/2020 Transcribed Document [facility] [address] [place] [address] Provider, Zahraa Zaragoza MD Social [...] Note - Zahraa Zaragoza ProviderMD - 06/11/2020 3:06 PM EDT On Going Discharge Planning Entered On: 06/11/2020 14:06 EDT Performed On: 06/11/2020 14:06 EDT by TRUONG VALLEJO RN-Household Appliances Service TechnicianWire Brush Operator Progress Note Discharge Arrangements : Patient Post-Acute [...] you Attend Multidisciplinary Rounds? : Yes TRUONG VALLEJO RN-Household Appliances Service Technician - 06/11/2020 14:06 EDT Electronically signed by Patricia [facility] Conversion Ophthalmic Surgeon Cerner at 01/21/2023 5:33 PM CDT documented in this encounter Plan of Treatment Not on file documented as of this encounter Visit Diagnoses Not on filedocumented in this encounter
--- OUTSIDE RECORDS SUMMARY | 2025-02-20 08:25 | XMS_ITS | Referral Summary ---
Author Organization [employer] Address [address] [place] [address] Care Team Providers Care Meter Maker Name Role Phone Unavailable Primary Care Provider [...]
--- OUTSIDE RECORDS SUMMARY | 2025-02-20 08:25 | XMS_ITS | Encounter Summary ---
Author Organization [facility] Address [address] [place] [address] Care Team Providers Care Income Tax Auditor Name Role Phone Venkat Truong MD Primary Care Provider [phone] Encounter Details Date Type Department Care Team (Late st Contact Info) Description 12/17/2023 Lab Requisition [facility] [address] [place] [address] Omar Griggs MD [address] [facility] [address], [place] [id number] Small cell B-cell lymphoma, unspecified site (CMS/HCC) [...] CLL FISH-[employer] nomics 12/31/2023 7:29 AM EDT [facility] Comment:[id number] A1 Test Result see scan 12/31/2023 7:29 AM EDT [facility] See Scanned Result 12/31/2023 7:29 AM EDT [facility] Tissue 12/03/2023 10:3 5 AM EDT 12/17/2023 10:47 AM EDT us Omar Griggs MD LAB REF LAB BLOOD AND FLUID OR D Final Result [facility] [address] [place] [address] documented in this encounter Visit Diagnoses Diagnosis Small cell B-cell lymphoma, unspecified site (CMS/HCC) documented in this encounter Additional Health Concerns Assessment Noted Time A Body Mass Index follow-up plan has been documented for the patient 12/03/2023 11:11 AM EDT documented as of this encounter Care Teams Income Tax Auditor Relationship Specialty Start Date End Date Venkat Truong MD [address] [place] [address] [address] [place] [address] PCP - General 11/25/23 documented as of this encounter
--- NOTE | 2025-02-20 08:30 | US_ITS ---
FINAL REPORT CLINICAL HISTORY: calculus of lt kidney Distal left ureteral calculus at the UV junction COMPARISON: CTA abdomen and pelvis 02/08/2025 FINDINGS: RENAL ULTRASOUND Ultrasound images of the kidneys were obtained. Incidental note made of borderline splenomegaly. The right kidney measures 10.6 cm in length. The left kidney measures 11.2 cm in length. No hydronephrosis. No obvious renal stone. Kidneys are normal in size. IMPRESSION: No evidence of obstruction. Reviewed, Interpreted and Dictated by Jorge Harrell MD Transcribed by Lindsay Ardon Authenticated and [facility]
== END 2025-02-20 23:59 | disposition home or self-care (01) ==
LOC: RAD 08:14
PROVIDERS: PCP Internal Medicine; Visit Provider Urology
DX: N20.1 Calculus of ureter (principal)
CPT/HCPCS: 76770

== ENCOUNTER 2025-02-27 10:00 | Outpatient (CLI) | payer MEDICARE, SELFPAY ==
--- NOTE | 2025-02-27 10:03 | XR_ITS ---
FINAL REPORT CLINICAL HISTORY: Ureteral stone pt states looking for kidney stones; denies any pain COMPARISON: None FINDINGS: SINGLE VIEW ABDOMEN A single view of the abdomen was obtained. There is a moderate amount of stool in the colon. No abnormal calcifications are identified. Mild hypertrophic changes of degenerative disc disease are noted in the lower lumbar spine. IMPRESSION: Moderate stool burden. No evidence of renal/ureteral stone. Reviewed, Interpreted and Dictated by Sabino Evans MD Transcribed by Lindsay Ardon Authenticated and [facility]
--- OUTSIDE RECORDS SUMMARY | 2025-02-27 10:08 | XMS_ITS | Data Portability ---
Author Organization TIMOTHY MARISOL [facility] Address [address] [place] [address] Care Team Providers Care Voice And Data Technician Name Role Phone SAHIL MARIN Primary Care Provider [phone] Assessment Encounter Date Assessment Date Assessment LastModified [...] Orders meloxicam 15 mg tablet 2022 023 [facility], [address] [place] [address], [id number], 3 15:31:16 Patient TargetsNo targets recorded. Patient InstructionsNo instructions recorded. Reason for Referral None Reported. Results Created Date Observation Date Name Description Value Unit Range Abnormal Flag Note LastModifiedBy Organization Detail LastModifiedTime 07/02/20 20 07/02/2020 XR, knee, 3 view [place] [address] [place] [address] Roseline fowler Name: GILBERT fowler : 960 [...] By: Rajiv alcala MD on 2:[id number] [place] [address] Radiology [place] [address], [place], [address], 07/02/2020 17:24:31 08/03/20 20 08/03/2020 XR, knee, 3 view Be [place] [facility] [address] [place] [address] Roseline fowler Name: GILBERT fowler : 960 [...] By: Rajiv alcala MD on 9:41 AM [facility] Radiology [facility] [address], [place], [address], 08/04/2020 06:24:53 09/07/19 21 09/07/2020 XR, joint , multi ple, 1 view [facility] [address] [place] [address] Patien t Name: GILBERT Dukes t : [...] Rajiv alcala MD on 09/07/19 9:00 AM [facility] Radiology [facility] [address], [place], [address], 09/08/2020 20:28:09 10/17/19 22 10/17/2021 XR, knee, 3 view [facility] [address] [place] [address] Patien t Name: GILBERT Dukes t : [...] Rajiv alcala MD on 022 8:56 AM [id number] [place] [address] , [place], [address], 10/17/2021 13:08:08 09/19/19 23 09/19/2022 XR, knee, 4 or [facility] [address] [place] [address] Patien t Name: GILBERT Pace Patien t : 960 Patien t 66 [facility] F[facility] ng Provid er: Brenda CHAUDHARI SON EXAM [...] By: Rajiv alcala MD on 2:[id number] [place] [address] Radiology [place] [address] [place], [address], 09/20/2022 12:47:34 Result Notes Documentation Provider Name and Address Organization Details Recorded Time Xr, Knee, 3 [facility] : [facility] [address] [place] [address] Patient Name: GILBERT STOLL Patient : 1960 [...] By: Ray Brice MD Brenda MAYBERRY PA-C [address] [place] [address], [phone], [facility] 07/02/2020 17:24:31 Xr, Knee, 3 View : [facility] [address] [place] [address] Patient Name: GILBERT STOLL Patient : 1960 [...] By: Ray Brice MD EIGH GARNER MD [address] [place] [address], [phone], [facility] 08/04/2020 06:24:53 Xr, Joint, Multiple, [facility] [address] [place] [address] Patient Name: GILBERT STOLL Patient : 1960 [...] By: Ray Brice MD EIGH GARNER MD [address] [place] [address], [phone], [facility] 09/08/2020 20:28:09 Xr, Knee, 3 View : [facility] [address] [place] [address] Patient Name: GILBERT STOLL Patient : 1960 [...] By: Ray Brice MD Brenda MAYBERRY PA-C [address] [place] [address], [phone], [facility] 10/17/2021 13:08:08 Xr, Knee, 4 Or More View : [facility] [place] [address] [address] Patient Name: GILBERT STOLL Patient : 1960 [...] Brice MD Brenda MAYBERRY PA-C [address] [place], [address], [facility] 09/20/2022 12:47:35 Problems No Known Problems Procedures Surgical History Date Name Laterality Status Provider Name and Address Organization Details Recorded Time 06/11/20 20 Total knee arthroplasty completed Yoni Andino [facility] 09/07/2020 09:07:04 06/24/20 19 Injection Joint/Bursa, Major completed Brenda MAYBERRY PA-C [address] [facility] [place], [address], [facility] 06/24/2019 09:01:53 Imaging Results None recorded. Procedure [...] Updated DateTime 09/07/2020 160.02 cm 32.8 kg/m2 96217.59 g Yoni [facility] 09/07/2020 09:05:59 Date Recorded Body height Body mass index (BMI) Body weight Provider Name and Address Organization Details Last Updated DateTime 09/19/2022 160.02 cm 32.8 kg/m2 95750.59 g [facility] 09/19/2022 14:25:04 Date Recorded Body height Body mass index (BMI) Body weight Systolic blood pressure Diastolic blood pressure Provider Name and Address Organization Details Last Updated DateTime 10/17/2021 160.02 cm 32.8 kg/m2 75766.59 g 125 mm[Hg] 80 mm[Hg] [facility] 08:46:05 Date Recorded Body height Body mass index (BMI) Body weight Provider Name and Address Organization Details Last Updated DateTime 07/02/2020 160.02 cm 32.8 kg/m2 23938.59 g [facility] 07/02/2020 15:13:11 Date Recorded Body height Body mass index (BMI) Body weight Provider Name and Address Organization Details Last Updated DateTime 08/03/2020 160.02 cm 32.8 kg/m2 91823.59 g [facility] 08/03/2020 09:25:59 Social History Question Answer Notes LastModified by Organizat ion Details LastModified Time Tobacco Smoking Status Never Smoker Laisha hendrickson [facility] 10/08/2017 13:12:24 What Was The Date [...] SNOMED-CT Code Diagnosis ICD10 Code Diagnosis Note [id number] Brenda MAYBERRY PA-C [facility] [address] [place] [address] 10/08/2017 13:04:57 10/08/2017 13:54:36 Replacement of total knee joint 566460373 Z96.651 UKA doing well. Avoid deep flexion strengthen ing. Recommend swim, bike, row machine, & eliptical [id number] Brenda MAYBERRY PA-C [facility] [address] [place] [address] 06/24/2019 08:08:20 06/24/2019 09:05:48 Osteoarthritis of knee 036490805 M17.9 Patient has focal medial compartmen t osteoarthr itis however early bone spurring in the patellofem oral joint. Would likely be better candidate for total versus partial knee replacemen t. At this time she is failed minimal conservati ve measures. Recommend she continue with her OTC NSAIDs and we provided CSI today. [id number] KAYLEIGH Sol MD [facility] [address] [place] [address] 05/11/2020 08:53:50 05/11/2020 10:52:20 Knee pain 93803734 M25.562 Osteoarthr itis of knee 247922402 M17.12 [id number] KAYLEIGH Sol MD SURGERY SCHEDULE [address] [place] [address] 06/13/2020 08:08:39 06/13/2020 14:58:14 [id number] Brenda MAYBERRY PA-C [facility] [address] [place] [address] 07/02/2020 14:30:44 07/02/2020 16:04:19 Postoperative care 286108936 Z48.89 3 weeks status post left total [...] considerat ion of full-time return to work [id number] Brenda MAYBERRY PA-C [facility] [address] [place] [address] 08/03/2020 09:20:17 08/03/2020 12:24:18 Postoperative care 095218791 Z48.89 7 weeks status post left total [...] leg x-ray and dismissal to annual follow-up [id number] KAYLEIGH Sol MD ORTHOPEDI LUIS A [facility] [address] [place] [address] 09/07/2020 08:46:04 09/07/2020 09:44:05 History of total knee arthroplasty 7534345420 105 Z96.636 [id number] C FLAKO MAYBERRY PA-C [facility] [address] [place] [address] 10/17/2021 08:22:19 10/17/2021 09:34:48 History of total knee arthroplasty 3590488650 105 Z96.652 Doing well 1 year status post total knee arthroplas ty. Discussed home exercise program for strengthen ing. Follow-up in 2 years for repeat three-view x-ray left knee. Sooner as needed [id number] Brenda MAYBERRY PA-C [facility] [address] [place] [address] 09/19/2022 13:57:53 09/19/2022 15:24:00 History of total knee arthroplasty 8145430620 105 Z96.652 Left total knee arthroplas ty [...] ID Guarantor Name 10/17/2021 1 [employer] ([place]) [id number] Gilbert Stoll [id number] 48 Gilbert Stoll 04/26/2023 PAYMENT PLAN Gilbert Stoll 09/22/2022 1 UMR (PPO) [id number] Gilbert Stoll [id number] Gilbert Stoll Notes Date Note Type Note [...] cultures Not Obtained Brenda MAYBERRY PA-C [address] [place], [address], [facility] 07/02/2020 15:59:25 08/03/2020 text/html Patient is 7 wee ks s/p L TKA. 06/11/20 Pain is 0/10 in knee, 5/10 pain at night posterior thigh. Currently taking <3 doses per day of narcotic. Ambulating with no assistive device PT: outpatient Denies fevers, chills, or wound drainage. They do not request a refill of pain medicine. Brenda MAYBERRY PA-C [address] [place], [address], [facility] 08/03/2020 12:24:16 09/07/2020 text/html 09-07-20: Patient is 12 weeks s/p L TKA. Pain is improving Currently taking no doses per day of narcotic. Ambulating with no assistive device PT: HEP Denies fevers, chills, or wound drainage. They do not request a refill of pain medicine. KAYLEIGH GARNER MD [address] [place], [address], [facility] 09/07/2020 09:48:31 10/17/2021 text/html 10-17-21: 1.5 years [...] not request a refill of pain medicine. [id number] is 3 weeks s/p L TKA. Pain is 2/10 at night, Currently taking no doses per day of narcotic. Meloxicam 15 mg daily Ambulating with no assistive device PT: outpatient Denies fevers, chills, or wound drainage.They do not request a refill of pain medicine. Operative cultures Not Obtained Brenda AMYBERRY PA-C [address] [place], [address], [facility] 10/17/2021 09:37:35 09/19/2022 text/html 09/19/22Louise comes to [...] not request a refill of pain medicine. 56-2-3259Bqnbdyv is 3 weeks s/p L TKA. Pain is 2/10 at night, Currently taking no doses per day of narcotic. Meloxicam 15 mg daily Ambulating with no assistive device PT: outpatient Denies fevers, chills, or wound drainage.They do not request a refill of pain medicine. Operative cultures Not Obtained Brenda MAYBERRY PA-C [address] [place], [address], [facility] 09/19/2022 15:21:26 OBGyn Episode No OBEpisode recorded.
--- OUTSIDE RECORDS SUMMARY | 2025-02-27 10:08 | XMS_ITS | Encounter Summary ---
Author Organization [facility] Address [address] [place] [address] Care Team Providers Care Green Pipefitter Name Role Phone Venkat Truong MD Primary Care Provider [phone] Encounter Details Date Type Department Care Team (Late st Contact Info) Description 12/17/2023 Lab Requisition [facility] [address] [place] [address] Omar Griggs MD 12[address] [facility] [address] [place], [place] [id number] Small cell B-cell lymphoma, unspecified site (CMS/HCC) [...] CLL FISH-Neoge nomics 12/31/2023 7:29 AM EDT [facility] Comment:[id number] A1 Test Result see scan 12/31/2023 7:29 AM EDT [facility] See Scanned Result 12/31/2023 7:29 AM EDT [facility] Tissue 12/03/2023 10:3 5 AM EDT 12/17/2023 10:47 AM EDT us Omar Griggs MD LAB REF LAB BLOOD AND FLUID OR D Final Result [facility] [address] [place] [address] documented in this encounter Visit Diagnoses Diagnosis Small cell B-cell lymphoma, unspecified site (CMS/HCC) documented in this encounter Additional Health Concerns Assessment Noted Time A Body Mass Index follow-up plan has been documented for the patient 12/03/2023 11:11 AM EDT documented as of this encounter Care Teams Green Pipefitter Relationship Specialty Start Date End Date Venkat Truong MD [address] [place] [address] [address] [place] [address] PCP - General 11/25/23 documented as of this encounter
--- OUTSIDE RECORDS SUMMARY | 2025-02-27 10:08 | XMS_ITS | Clinical Summary ---
Author Organization [facility] Address [address] [place] [address] Care Team Providers Care Insolvency Practitioner Name Role Phone Venkat Truong MD Primary Care Provider [phone] Allergies Active Allergy Reactions Criticality Noted Date [...] 01/28/2010 [facility]Y-Zoster Vaccines (1 of 2) 01/28/2010 [facility]Y-RSV Vaccine: 60+ Years or (1 - Risk 60-74 years 1-dose series) 2020 KJK-IQPHZ-30 Vaccine ( season) 2024 06/30/2023, 05/15/2021, 09/28/2020, Additional history exists [facility]-Depression Screening 11/29/2024 11/30/2023 [facility]Y-Influenza Vaccine (Season Ended) 2025 05/26/2020 [facility]-Hepatitis A Vaccines Aged Out 09/08/2018 No [...] Patient has decision-making capacity? Yes Care Teams Insolvency Practitioner Relationship Specialty Start Date End Date Venkat Truong MD [address] [place] [address] [facility] [address] [place] [address] PCP - General 11/25/23
--- OUTSIDE RECORDS SUMMARY | 2025-02-27 10:08 | XMS_ITS | Encounter Summary ---
Author Organization [facility] Address [address] [place] [address] Care Team Providers Care Tax Compliance Officer Name Role Phone Venkat Truong MD Primary Care Provider [phone] Encounter Details Date Type Department Care Team (Late st Contact Info) Description 11/10/2023 Orders Only External Location [address] [place] [address] Marry Ferris, ASP DEVELOPER [address] [facility] [address] [place] [address] Social History Tobacco Use Types Packs/Day Years [...] phy 11/10/2023 1:59 PM EDT Marry Ferris ASP DEVELOPER IMG CT PROCEDURES Final Resu lt documented in this encounter Visit Diagnoses Not on filedocumented in this encounter Care Teams Tax Compliance Officer Relationship Specialty Start Date End Date Venkat Truong MD [address] [place] [address] [address] [place] [address] PCP - General 11/25/23 documented as of this encounter
== END 2025-02-27 23:59 | disposition home or self-care (01) ==
LOC: RAD 10:01
PROVIDERS: PCP Internal Medicine; Visit Provider Urology
DX: R93.5 Abnormal findings on diagnostic imaging of other abdominal regions, including retroperitoneum (principal); N20.1 Calculus of ureter
CPT/HCPCS: 74018

== ENCOUNTER 2025-04-18 09:53 | Outpatient (CLI) | payer MEDICARE, OTHER, SELFPAY ==
--- OUTSIDE RECORDS SUMMARY | 2025-04-18 09:54 | XMS_ITS | Encounter Summary ---
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
--- OUTSIDE RECORDS SUMMARY | 2025-04-18 09:54 | XMS_ITS | Encounter Summary ---
Author Organization [employer] ([place], [place], [place], [place]) Address [address] [place] [address] Care Team Providers Care Digital Marketing Lead Name Role Phone Unavailable Primary Care Provider Unavailabl e Encounter Details Date Type Department Care Team (Late st Contact Info) Description 06/11/2020 Transcribed Document [facility] Radiology [address] [place] [address] Provider, Zahraa Zaragoza MD Social [...] Miscellaneous Notes * Cerner Conversion Note - [facility] Mila Redd MD - 06/11/2020 10:14 AM EDT [facility] Main OR Preop Summary Primary Physician: KAYLEIGH GARNER MD-ORT Finalized Date/Time: 06/11/20 15:08:11 Pt. Name: CALIXTO GILBERT FARIHA JohnO.B./Sex: 1960 Female Med Rec #: [id number] Physician: KAYLEIGH GARNER MD-ORT Financial #: [id number] Pt. Type: O Room/Bed: 642/1 Admit/Disch: 06/11/20 06:57:00 - Institution: [facility] PreOp Case Times Entry 1 In Preop 06/11/20 06:23:00 Ready for Holding n/a Room Patient Ready for 06/11/20 07:20:00 Surgery Patient Out of Preop 06/11/20 08:42:00 Patient Out of n/a Holding Room Last Modified By: Brie Dunbar RN 06/11/20 15:08:10 [facility] PreOp Case Times Audit 06/11/20 15:08:10 Sub Acute Care Nurse: NEMO Modifier: [email or web address] <+> 1 Patient Out of Preop 06/11/20 07:20:12 Sub Acute Care Nurse: NEMO Modifier: WILSONDL <+> 1 Patient Ready for Surgery Finalized By: Brie Dunbar, RN Document Signatures Signed By: Brie Dunbar RN 06/11/20 15:08 Electronically signed by Patricia [facility] Conversion Assembler Installer General Cerner at 01/21/2023 5:33 PM CDT documented in this encounter Plan of Treatment Not on file documented as of this encounter Visit Diagnoses Not on filedocumented in this encounter
--- OUTSIDE RECORDS SUMMARY | 2025-04-18 09:54 | XMS_ITS | Encounter Summary ---
Author Organization [employer] ([place], [place], [place], [place]) Address [address] [place] [address] Care Team Providers Care Senior It Assistant Name Role Phone Unavailable Primary Care Provider Unavailabl e Encounter Details Date Type Department Care Team (Late st Contact Info) Description 06/11/2020 Transcribed Document [facility] Radiology [address] [place] [address] ProviderZahraa MD Social History Tobacco [...] Note - Zahraa Redd MD - 06/11/2020 3:33 PM EDT [...]
--- OUTSIDE RECORDS SUMMARY | 2025-04-18 09:54 | XMS_ITS | Encounter Summary ---
Author Organization [employer] ([place], [place], [place], [place]) Address [address] [place] [address] Care Team Providers Care Departmental Buyer Name Role Phone Unavailable Primary Care Provider Unavailabl e Encounter Details Date Type Department Care Team (Late st Contact Info) Description 06/11/2020 Transcribed Document [facility] Radiology [address] [place] [address] ProviderZahraa MD Social History [...] Notes * Cerner Conversion Note - [facility] Mila Redd MD - 06/11/2020 3:00 AM EDT Spiritual Care Assessment Entered On: 06/11/2020 8:06 EDT Performed On: 06/11/2020 7:50 EDT by GILBERT LAKHANI General Information Initial Visit : Yes Referred by : Patient Referral Reason Comment : Pre-surgery visit Ministry Provided to : Patient GILBERT LAKHANI - 06/11/2020 8:05 EDT Spiritual Assessment Spiritual Assessment Comment/Summary Points : Provided pre-surgery visit and prayer. Spirital Assessment Comment/Summary Report : SPIRITUAL ASSESSMENT COMMENT/SUMMARY No qualifying data available. GILBERT LAKHANI - 06/11/2020 8:05 EDT Interventions Emotional Support : Empathic/Engaged listening Spiritual and Congregation : Prayer shared, Spiritual/Congregation support provided GILBERT LAKHANI - 06/11/2020 8:05 EDT documented in this encounter Plan of Treatment Not on file documented as of this encounter Visit Diagnoses Not on filedocumented in this encounter
--- OUTSIDE RECORDS SUMMARY | 2025-04-18 09:54 | XMS_ITS | Clinical Summary ---
Author Organization [employer] ([place], [place], [place], [place]) Address [address] [place] [address] Care Team Providers Care Senior Media Buyer Name Role Phone Unavailable Primary Care [...]
--- OUTSIDE RECORDS SUMMARY | 2025-04-18 09:54 | XMS_ITS | Encounter Summary ---
Author Organization [facility] Address [address] [place] [address] Care Team Providers Care Cold Rolling Supervisor Name Role Phone Venkat Truong MD Primary Care Provider [phone] Encounter Details Date Type Department Care Team (Late st Contact Info) Description 11/10/2023 Orders Only External Location [address] [place] [address] Marry Ferris, LINT CLEANER 12[address] [facility] [address] [place] [address] Social History Tobacco Use Types Packs/Day Years [...] phy 11/10/2023 1:59 PM EDT Marry Ferris LINT CLEANER IMG CT PROCEDURES Final Resu lt documented in this encounter Visit Diagnoses Not on filedocumented in this encounter Care Teams Cold Rolling Supervisor Relationship Specialty Start Date End Date Venkat Truong MD [address] [place] [address] [address] [place] [address] PCP - General 11/25/23 documented as of this encounter
--- OUTSIDE RECORDS SUMMARY | 2025-04-18 09:54 | XMS_ITS | Encounter Summary ---
Author Organization [employer] ([place], [place], [place], [place]) Address [address] [place] [address] Care Team Providers Care Senior Javascript Engineer Name Role Phone Unavailable Primary Care Provider Unavailabl e Encounter Details Date Type Department Care Team (Late st Contact Info) Description 06/11/2020 Transcribed Document [facility] Radiology 1 [place] [address] Sami Sánchez MD [facility] [place] [address] Social History Tobacco Use Types Packs/Day Years [...] - 06/11/2020 7:45 AM EDT Patient: GILBERT STOLL Age: 60 years Sex: Female : 1960 Associated Diagnoses: None Author: JADEN DIXON, ANIMAL SCIENTIST Chief Complaint L knee pain Review of [...] All Problems Renal calculus / SNOMED CT 542572263 / Confirmed High blood pressure / SNOMED CT 09156787 / Confirmed GERD - Gastro-esophageal reflux disease / SNOMED CT 0930869855 / Confirmed EKG abnormality / SNOMED CT 6313082716 / Confirmed At risk for sleep apnea / IMO 11956150 / Confirmed Arthritis / SNOMED CT 2573319 / Confirmed, Active Problems (6) Arthritis At [...] 11 06:33) 98.1 (JUN 11:) 98.1 (JUN 11:33) Mon HR 92 (JUN 11:33) 92 (JUN 11 06:33) 92 (JUN 11:33) Periph HR 75 (JUN 11 07:18) 75 (JUN 11 07:18) 75 (JUN 11 07:18) Resp Rate L 13 (JUN 11 07:18) L 13 (JUN 11:18) 20 (JUN 11 06:33) SBP 127 (JUN 11 07:18) 127 (JUN 11 07:18) H 147 (JUN 11:33) DBP 72 (JUN 11 07:18) 72 (JUN 11 07:18) 85 (JUN 11 06:33) MAP 109 (JUN 11 06:33) 109 (JUN 11 06:33) 109 (JUN 11 06:33) SpO2 99 (JUN 11 07:18) 99 (JUN 11 06:33) 99 (JUN 11 06:33) General: Alert and oriented, No acute distress, [...] exam in office notes. Integumentary: Warm, Dry, [place]. Neurologic: Alert, Oriented. Psychiatric: Cooperative, Appropriate mood [...]
--- OUTSIDE RECORDS SUMMARY | 2025-04-18 09:54 | XMS_ITS | Encounter Summary ---
Author Organization [employer] ([place], [place], [place], [place]) Address [address] [place] [address] Care Team Providers Care Cell Coverer Name Role Phone Unavailable Primary Care Provider Unavailabl e Encounter Details Date Type Department Care Team (Late st Contact Info) Description 06/11/2020 Transcribed Document [facility] Radiology 1 [place] [address] ProviderZahraa MD Social History Tobacco [...] Miscellaneous Notes * Cerner Conversion Note - [facility] Mila Redd MD - 06/11/2020 1:00 PM [...]
--- OUTSIDE RECORDS SUMMARY | 2025-04-18 09:54 | XMS_ITS | Encounter Summary ---
Author Organization [employer] ([place], [place], [place], [place]) Address [address] [place] [address] Care Team Providers Care Storage Battery Tester Name Role Phone Unavailable Primary Care Provider Unavailabl e Encounter Details Date Type Department Care Team (Late st Contact Info) Description 06/11/2020 Transcribed Document [facility] Radiology [address] [place] [address] Provider, Zahraa Zaragoza MD Social [...] of Dr. Sánchez or Dr. Mathias, call [phone] If you are a patient of Dr. Forbes, call [phone] Nurse Navigator: Renee Horn Office: [phone]; ; available during regular business hours documented in this encounter Plan of Treatment Not on file documented as of this encounter Visit Diagnoses Not on filedocumented in this encounter
--- OUTSIDE RECORDS SUMMARY | 2025-04-18 09:54 | XMS_ITS | Encounter Summary ---
Author Organization [employer] ([place], [place], [place], [place]) Address [address] [place] [address] Care Team Providers Care Ceo Na Name Role Phone Unavailable Primary Care Provider Unavailabl e Encounter Details Date Type Department Care Team (Late st Contact Info) Description 06/11/2020 Transcribed Document [facility] Radiology [address] [place] [address] Provider, Zahraa Zaragoza MD Social [...] Miscellaneous Notes * Cerner Conversion Note - [facility] Mila Redd MD - 06/11/2020 10:14 AM EDT [facility] Main OR PACU Summary Primary Physician: KAYLEIGH GARNER MD-ORT Finalized Date/Time: 06/11/20 11:48:10 Pt. Name: CALIXTO GILBERT FARIHA JohnO.B./Sex: 1960 Female Med Rec #: [id number] Physician: KAYLEIGH GARNER MD-ORT Financial #: [id number] Pt. Type: O Room/Bed: Admit/Disch: 06/11/20 06:57:00 - Institution: [facility] Main OR PACU I Case Times Entry 1 In PACU I 06/11/20 10:49:00 Ready for PACU 06/11/20 11:47:00 Discharge Discharge from PACU 06/11/20 11:47:00 I Last Modified By: JONEL ST RN 06/11/20 11:47:59 [facility] Main OR PACU I Case Times Audit 06/11/20 11:47:59 Exhibit Cleaner: [id number] Modifier: [id number] <+> 1 Ready for PACU Discharge <+> 1 Discharge from PACU I Finalized By: JONEL ST RN Document Signatures Signed By: JONEL ST RN 06/11/20 11:48 Electronically signed by Patricia [facility] Conversion Surgery Nurse Cerner at 01/21/2023 5:33 PM CDT documented in this encounter Plan of Treatment Not on file documented as of this encounter Visit Diagnoses Not on filedocumented in this encounter
--- OUTSIDE RECORDS SUMMARY | 2025-04-18 09:55 | XMS_ITS | Encounter Summary ---
Author Organization [employer] ([place], [place], [place], [place]) Address [address] [place] [address] Care Team Providers Care Fisher Mussel Name Role Phone Unavailable Primary Care Provider Unavailabl e Encounter Details Date Type Department Care Team (Late st Contact Info) Description 06/11/2020 Transcribed Document [facility] Radiology [address] [place] [address] Provider, Zahraa Zaragoza MD Social [...] On: 06/11/2020 14:04 EDT by TRUONG VALLEJO RN-Palliative Care Coordinator Initial Assessment I Previously Documented Living Environment [...] have PCP Listed? : Yes TRUONG VALLEJO RN-Palliative Care Coordinator - 06/11/2020 14:04 EDT Initial Assessment II Sensory and Motor Deficits : None Current Home Treatments and Equipment : Bedside commode, Walker Does the Patient have a Floor to SNF Benefit? : No TRUONG VALLEJO RN-Palliative Care Coordinator - 06/11/2020 14:04 EDT Discharge Needs I Anticipated Discharge Date : 06/11/2020 EDT Anticipated Discharge To, CM : Home with family care Current Home Treatment/Equipment : Current Home Treatment/Equipment No qualifying data available. Post Acute/Home Treatments : None Documentation Status Complete : Yes TRUONG VALLEJO RN-Palliative Care Coordinator - 06/11/2020 14:04 EDT Discharge Needs II Professional Skilled Services : Professional Skilled Services No qualifying data available. Services and Community Resources : Physical Therapy Needs Assistance with Transportation : No Discharge Options Discussed with Patient : Outpatient services TRUONG VALLEJO RN-Palliative Care Coordinator - 06/11/2020 14:04 EDT Narrative Note Narrative Note : 60yo female pt s/p LTKA. Met with pt at bedside to discuss DCP. Pt has DME at home. Referral sent to [facility] for outpatient PT and confirmed 1st appt with Karina in scheduling. No other CM needs identified. TRUONG VALLEJO RN-Palliative Care Coordinator - 06/11/2020 14:04 EDT documented in this encounter Plan of Treatment Not on file documented as of this encounter Visit Diagnoses Not on filedocumented in this encounter
--- OUTSIDE RECORDS SUMMARY | 2025-04-18 09:55 | XMS_ITS | Encounter Summary ---
Author Organization [employer] ([place], [place], [place], [place]) Address [address] [place] [address] Care Team Providers Care Making Machine Catcher Name Role Phone Unavailable Primary Care Provider Unavailabl e Encounter Details Date Type Department Care Team (Late st Contact Info) Description 06/11/2020 Transcribed Document [facility] Radiology 1 [place] [address] Provider, Zahraa Zaragoza MD Social [...] On: 06/11/2020 14:06 EDT by TRUONG VALLEJO RN-Gold MarkerNurse College Progress Note Discharge Arrangements : Patient Post-Acute [...] Attend Multidisciplinary Rounds? : Yes TRUONG VALLEJO RN-Gold Marker - 06/11/2020 14:06 EDT Electronically signed by Patricia [facility] Conversion Spinning Bath Person Cerner at 01/21/2023 5:33 PM CDT documented in this encounter Plan of Treatment Not on file documented as of this encounter Visit Diagnoses Not on filedocumented in this encounter
--- OUTSIDE RECORDS SUMMARY | 2025-04-18 09:55 | XMS_ITS | Clinical Summary ---
Author Organization [facility] Address [address] [place] [address] Care Team Providers Care Insole Beveler Name Role Phone Venkat Truong MD Primary Care Provider Allergies Active Allergy Reactions Criticality Noted Date [...] - Risk 60-74 years 1-dose series) 2020 HKW-CMMEV-50 Vaccine ( season) 2024 06/30/2023, 05/15/2021, 09/28/2020, Additional history exists [facility]-Depression Screening 11/29/2024 11/30/2023 [facility]-Influenza Vaccine (#1) 2025 05/26/2020 [facility]-Hepatitis A Vaccines Aged Out [...] Patient has decision-making capacity? Yes Care Teams Insole Beveler Relationship Specialty Start Date End Date Venkat Truong MD [address] [place] [address] [facility] [address] [place] [address] PCP - General 11/25/23
--- OUTSIDE RECORDS SUMMARY | 2025-04-18 09:55 | XMS_ITS | Encounter Summary ---
Author Organization [employer] ([place], [place], [place], [place]) Address [address] [place] [address] Care Team Providers Care Manufacturing Teacher Name Role Phone Unavailable Primary Care Provider Unavailabl e Encounter Details Date Type Department Care Team (Late st Contact Info) Description 06/11/2020 Transcribed Document [facility] Radiology 1 [place] [address] Provider, Zahraa Zaragoza MD Social [...] On: 06/11/2020 14:06 EDT by TRUONG VALLEJO RN-Lounge Car Attendant Final Discharge Planning Discharge Arrangements : Patient Post-Acute Information Patient Name: GILBERT ED LUNA Gender: Female : 60 Age: 60 [...] : Yes Discharge To Care Management : Home/Residential/Residential or Self Care -01 TRUONG VALLEJO RN-Lounge Car Attendant - 06/11/2020 14:06 EDT documented in this encounter Plan of Treatment Not on file documented as of this encounter Visit Diagnoses Not on filedocumented in this encounter
--- OUTSIDE RECORDS SUMMARY | 2025-04-18 09:55 | XMS_ITS | Encounter Summary ---
Author Organization [employer] ([place], [place], [place], [place]) Address [address] [place] [address] Care Team Providers Care Metal Polisher Name Role Phone Unavailable Primary Care Provider Unavailabl e Encounter Details Date Type Department Care Team (Late st Contact Info) Description 06/11/2020 Transcribed Document [facility] Radiology [address] [place] [address] Provider, Zahraa Zaragoza MD Social [...] OT Treatment Instructions Ordered By: KAYLEIGH GARNER MD-ORAgustín Active Diagnoses : No Qualifying Diagnoses Admission Date : 06/11/2020 06:57 Co-treated by, OT : Physical Therapist Personal Devices : Personal Devices Glasses Assistive Devices : Assistive Devices No Devices Recorded General Information Comment, OT : 60 yo female who was admitted to [facility] on 06/11 s/p L TKA. PASCUAL WHITFIELD, OTR/L - 06/11/2020 15:09 EDT General Status Patient Received Status : Up in chair Treatment Start Time : 06/11/2020 13:37 EDT Patient Left Status : Up in chair, RN/PCT informed, Family/Visitors at bedside, All needs met and within reach RN/PCT Informed Comment : NIEVES Fu Treatment End Time : 06/11/2020 14:05 EDT [...] : One story Stairs : No PASCUAL WHITFIELD OTR/L - 06/11/2020 15:09 EDT Prior LOF Bathing, OT : Independent Prior LOF Bed Mobility : Independent Prior LOF Upper Body Dressing, OT : Independent Prior LOF Lower Body Dressing, OT : Independent Prior LOF Toileting : Independent Prior LOF Transfer : Independent Prior LOF Grooming, OT : Independent Prior LOF for IADLs, OT : Independent PASCUAL WHITFIELD OTR/L - 06/11/2020 15:09 EDT Upper Extremity Right UE Active ROM : WFL Right UE Strength : WFL Left UE Active ROM : WFL Left UE Strength : WFL Upper Extremity Strength Impaired : No Right UE Strength : WFL Left UE Strength : WFL Upper Extremity Comment : BUE ROM and MMT WFL PASCUAL WHITFIELD OTR/L - 06/11/2020 15:09 EDT Self Care/Home [...] Assist Level : Supervision or set-up PASCUAL WHITFIELD OTR/L 06/11/2020 15:09 EDT Mobility Device/Prosthesis/Wt Bearing [...] Intact Comprehension Assessment, OT : Intact PASCUAL WHITFIELD OTR/L 06/11/2020 15:09 EDT Education OT Occupational [...] Learning Style Preferences Patient : None PASCUAL WHITFIELD OTR/L 06/11/2020 15:09 EDT Indication Assessment, OT [...] : Pt tolerated OT eval well PASCUAL WHITFIELD OTR/L 06/11/2020 15:09 EDT Additional Objective Information : Joint baseball coach present for AE education and practice. [...]
--- OUTSIDE RECORDS SUMMARY | 2025-04-18 09:55 | XMS_ITS | Encounter Summary ---
Author Organization [employer] ([place], [place], [place], [place]) Address [address] [place] [address] Care Team Providers Care Eastern Philosophy Professor Name Role Phone Unavailable Primary Care Provider Unavailabl e Encounter Details Date Type Department Care Team (Late st Contact Info) Description 06/11/2020 Transcribed Document [facility] Radiology 1 [place] [address] Provider, Zahraa Zaragoza MD Social [...] [employer] Date : 05/20/2020 EDT Joint Staffing Analyst Name : , Adryan Type of Surgery : Total Knee Replacement, Left Does Patient Have a Walker? : Yes Anticipated Discharge Plan : Outpatient PT Anticipated Discharge Plan Comment : Patient plans to d/c home today. She verbalizes understanding of the need to get around safely, stable VS, void, and ability to keep food and drink down following surgery, and joint academic coach attendance in therapy and teaching in order to d/c today. She plans to go to [facility] for therapy, and [...]
--- OUTSIDE RECORDS SUMMARY | 2025-04-18 09:55 | XMS_ITS | Encounter Summary ---
Author Organization [facility] Address [address] [place] [address] Care Team Providers Care Call Specialist Name Role Phone Venkat Truong MD Primary Care Provider [phone] Encounter Details Date Type Department Care Team (Late st Contact Info) Description 12/17/2023 Lab Requisition [facility] [address] [place] [address] Omar Griggs MD [address] [facility] [address] [place], [place] [id number] Small cell B-cell lymphoma, unspecified site (CMS/HCC) [...] CLL FISH-Neoge nomics 12/31/2023 7:29 AM EDT [email or web address] Comment:[id number] A1 Test Result see scan 12/31/2023 7:29 AM EDT [facility] See Scanned Result 12/31/2023 7:29 AM EDT [facility] Tissue 12/03/2023 10:3 5 AM EDT 12/17/2023 10:47 AM EDT us Omar Griggs MD LAB REF LAB BLOOD AND FLUID OR D Final Result [facility] [address] [place] [address] documented in this encounter Visit Diagnoses Diagnosis Small cell B-cell lymphoma, unspecified site (CMS/HCC) documented in this encounter Additional Health Concerns Assessment Noted Time A Body Mass Index follow-up plan has been documented for the patient 12/03/2023 11:11 AM EDT documented as of this encounter Care Teams Call Specialist Relationship Specialty Start Date End Date Venkat Truong MD [address] [place] [address] [address] [place] [address] PCP - General 11/25/23 documented as of this encounter
--- OUTSIDE RECORDS SUMMARY | 2025-04-18 09:55 | XMS_ITS | Encounter Summary ---
Author Organization [employer] ([place], [place], [place], [place]) Address [address] [place] [address] Care Team Providers [facility] Name Role Phone Unavailable Primary Care Provider Unavailabl e Encounter Details Date Type Department Care Team (Late st Contact Info) Description 06/11/2020 Transcribed Document [facility] Radiology [address] [place] [address] Provider, Zahraa Zaragoza MD Social [...] Notes * Cerner Conversion Note - [facility] Mila Redd MD - 06/11/2020 10:14 AM EDT [facility] Main OR IntraOp Summary Primary Physician: KAYLEIGH GARNER MD-ORT Finalized Date/Time: 06/14/20 12:40:26 Pt. Name: GILBERT STOLLERT /Sex: 1960 Female Med Rec #: [id number] Physician: KAYLEIGH GARNER MD-ORT Financial #: [id number] Pt. Type: O Room/Bed: 642/1 Admit/Disch: 06/11/20 06:57:00 - 06/11/20 16:12:00 Institution: [facility] IntraOp Case Attendance Entry 1 Entry 2 Entry 3 Case Attendee PATSYKAYLEIGH POWELL RATLIFF, CASSIE, APRN Maynard, Leanne, NIEVES POWELL-ORT Role Performed Surgeon/Proceduralist, CHEF DE PARTIE/Nurse Clinical Team Lead Account Planner, First First Time In 06/11/20 08:47:00 06/11/20 08:47:00 06/11/20 08:47:00 Time Out 06/11/20 10:46:00 06/11/20 10:46:00 06/11/20 10:46:00 Procedure Knee Total Joint Knee Total Joint Knee Total Joint Replacement(Left) Replacement(Left) Replacement(Left) Other Attendee Superficial Wound Closed By: Last Modified By: JULIETA RODRIGUEZ RN TAYLOR, MELISSA A, JULIETA RODRIGES RN 06/11/20 10:47:02 06/11/20 10:47:02 06/11/20 10:47:02 Entry 4 Entry 5 Case Attendee Vinita Russo LUCAS, JOHN T, DANIEL Ballesteros Pref Card Builder Role Performed Scrub, Oxygen Therapy Teacher, First Time In 06/11/20 08:47:00 06/11/20 08:47:00 Time Out 06/11/20 10:46:00 06/11/20 10:46:00 Procedure Knee Total Joint Knee Total Joint Replacement(Left) Replacement(Left) Other Attendee Superficial Wound Closed By: Last Modified By: JULIETA RODRIGUEZ RN TAYLOR, MELISSA A, RN 06/11/20 10:47:02 06/11/20 10:47:02 [facility] IntraOp Case Attendance Audit 06/11/20 10:47:02 Weld Lay Out Worker: JEREMY Modifier: LOGAN 1 <+> Time In [...] 5 <*> Procedure Knee Total Joint Replacement(Left) [facility] IntraOp Case Times Entry 1 Patient In Room Time 06/11/20 08:47:00 Out Room Time 06/11/20 10:46:00 Anesthesia Start Time 06/11/20 08:47:00 Stop Time 06/11/20 10:46:00 Surgery / Procedure Times Start Time 06/11/20 09:14:00 Stop Time 06/11/20 10:37:00 Last Modified By: JULIETA RODRIGUEZ RN 06/11/20 10:46:50 [facility] IntraOp Case Times Audit 06/11/20 10:46:50 Weld Lay Out Worker: MEMONARL Modifier: LOGAN <+> 1 Out Room Time <+> 1 Stop Time 06/11/20 10:37:19 Weld Lay Out Worker: MAYNARL Modifier: MAYNARL <+> 1 Stop Time 06/11/20 09:14:20 Weld Lay Out Worker: MAYNARL Modifier: MAYNARL <+> 1 Start Time [facility] IntraOp Cautery Entry 1 ESU Identification Cautery Type Monopolar ESU ID Number [id number] ID Type Hospital Number Cautery Settings Cut Setting 50 Coag Setting 50 ESU Grounding Pad Ground Pad Type Adult Grounding Pad Site Right thigh Grounding Pad Cierra Ascencio RN Applied By Grounding Pad Site Warm, Dry, Intact Skin Condition Before Cautery Grounding Pad Site Unchanged Skin Condition After Cautery Last Modified By: Cierra Ascencio RN 06/11/20 08:30:23 [facility] IntraOp Communication Entry 1 Entry 2 Communication To Family/Significant other Family/Significant other Comment UNABLE TO GET AHOLD OF UNABLE TO GET AHOLD OF [place] FOR START [place] FOR CLOSING Communication By Cierra Ascencio RN Maynard, Leanne, RN Date and Time 06/11/20 09:15:00 06/11/20 10:16:00 Last Modified By: Cierra Ascencio RN Maynard, Leanne, RN 06/11/20 10:16:41 06/11/20 10:16:41 [facility] IntraOp Communication Audit 06/11/20 10:16:41 Weld Lay Out Worker: JEREMY Modifier: MIRIAML 1 <*> Comment START <+> 2 Communication By <+> 2 Date and Time <+> 2 Communication To <+> 2 Comment [facility] IntraOp Counts Verification Entry 1 [...] Modified By: Cierra Ascencio RN 06/11/20 10:37:16 [facility] IntraOp Cultures and Spec Summary Entry 1 Cultrures and Specimens Specimen Ordered: Yes Test(s) Routine/Path-Lab Requested/Final Disposition Last Modified By: Cierra Ascencio RN 06/11/20 08:30:12 [facility] IntraOp Departure from OR Entry 1 Integumentary Assessment Integumentary WDL Assessment WDL Transfer/Handoff Transfer to PACU Phase I Handoff Method Phone call Post-op Transport Bed (including Via specialty) Patient Transport MINESH HORN APRN, Accompanied by Cierra Ascencio RN Last Modified By: Cierra Ascencio RN 06/11/20 09:15:26 [facility] IntraOp Dressing and Packing Entry 1 Type Dressing Location OPERATIVE KNEE Wound Dressing Item Occlusive dressing, Skin Closure Glue Applied By GONZALO RODRIGUEZ CSA Other Comments [facility] Last Modified By: Cierra Ascencio RN 06/11/20 09:37:42 [facility] IntraOp Fire Risk Assessment Entry [...] Modified By: Cierra Ascencio RN 06/11/20 08:52:47 [facility] IntraOp Fire Risk Assessment Audit 06/11/20 08:52:47 Weld Lay Out Worker: MEMOMILANA Modifier: MAYNARL <+> 1 Fire Risk Assessment Verified Date/Time [facility] IntraOp General Case Horse Show Judge 1 Case Information OR OR 05 [facility] Case Level 1 Room Verified Yes Wound Class I - Clean Specialty SN Orthopedic Anesthesia Type General ASA Class 2 Diagnosis Preop Diagnosis M17.12 Postop Diagnosis SEE DOCTOR'S POST OP NOTES Last Modified By: Cierra Ascencio RN 06/11/20 08:52:51 [facility] IntraOp General Case Data Audit 06/11/20 08:52:51 Weld Lay Out Worker: MEMOMILANA Modifier: MAYNARL <+> 1 ASA Class 06/11/20 08:29:02 Weld Lay Out Worker: MIRIAML Modifier: MAYNARL <+> 1 Preop Diagnosis [facility] IntraOp Implant Log Entry 1 Entry 2 Entry 3 Type Implant (Synthetic) Implant (Synthetic) Implant (Synthetic) Implant Log Implant Type Hardware Hardware Hardware Tissue Implant Type Implant PATELLA CEMENTED KNEE PERSONA SZ FEM PSN [facility]5 Identification [id number] Description Implant Quantity 1 1 1 Implant Site LEFT KNEE LEFT KNEE LEFT KNEE Implant Identification Model Number Implant Identification Serial Number Implant [id number] Identification Lot Number Implant Steph:Steph Us Steph:Steph Us Identification Reimbursement Consultant Name: Implant [id number] Identification Catalog Number Implant Size Implant Has an Yes Yes Yes Expiration Date Implant Expiration 02/28/28 07/30/24 02/27/30 Date Wasted Radioactive Material Time Implanted Tissue Implant Continue for Tissue Implant Documentation Tissue Identification Number Graft Prep Per Reimbursement Consultant Instructions: Tissue Preparation Method: Reconstitution Solution: Reconstitution Solution Lot Number Reconstitution Solution Expiration Date: Thawing Solution Thawing Solution Lot Number Thawing Solution Expiration Date Preparation Materials, Other Preparation Materials, Other Lot Number Preparation Materials, Other Expiration Date Tissue Prepared/Processed By Reimbursement Consultant Paperwork Completed Implant Type Comment Last Modified By: Cierra Ascencio RN Maynard, Leanne, RN Maynard, Leanne, RN 06/11/20 10:10:16 06/11/20 10:10:16 06/11/20 10:10:16 Entry 4 Entry 5 Type Implant (Synthetic) Implant (Synthetic) Implant Log Implant Type Hardware Bone Cement Tissue Implant Type Implant TIB STEM NATURAL L CEMENT BONE R Identification [id number] Description Implant Quantity 1 2 Implant Site LEFT KNEE LEFT KNEE Implant Identification Model Number Implant Identification Serial Number Implant [id number] Identification Lot Number Implant Steph:Steph Us Steph:Steph Us Identification Reimbursement Consultant Name: Implant [id number] Identification Catalog Number Implant Size Implant Has an Yes Yes Expiration Date Implant Expiration 01/28/30 06/30/24 Date Wasted Radioactive Material Time Implanted Tissue Implant Continue for Tissue Implant Documentation Tissue Identification Number Graft Prep Per Reimbursement Consultant Instructions: Tissue Preparation Method: Reconstitution Solution: Reconstitution Solution Lot Number Reconstitution Solution Expiration Date: Thawing Solution Thawing Solution Lot Number Thawing Solution Expiration Date Preparation Materials, Other Preparation Materials, Other Lot Number Preparation Materials, Other Expiration Date Tissue Prepared/Processed By Reimbursement Consultant Paperwork Completed Implant Type Comment Last Modified By: Cierra Ascencio RN Maynard, Leanne, RN 06/11/20 10:10:16 06/11/20 10:10:16 [facility] IntraOp Implant Log Audit 06/11/20 10:10:16 Weld Lay Out Worker: JEREMY Modifier: JEREMY 1 <*> Implant Identification Description 1 <+> Implant Identification Lot Number 1 <+> Implant Identification Reimbursement Consultant Name: 1 <+> Implant Expiration Date 1 <+> Implant Quantity 1 <+> Implant Identification Catalog Number 1 <+> Implant Has an Expiration Date <+> 2 Implant Identification Description <+> 2 Implant Identification Lot Number <+> 2 Implant Identification Reimbursement Consultant Name: <+> 2 Implant Expiration Date <+> [...] Identification Lot Number <+> 4 Implant Identification Reimbursement Consultant Name: <+> 4 Implant Expiration Date <+> 4 Implant Site <+> 4 Implant Quantity <+> 4 Implant Identification Catalog Number <+> 4 Implant Type <+> 4 Implant Has an Expiration Date <+> 4 Type <+> 5 Implant Identification Description <+> 5 Implant Identification Lot Number <+> 5 Implant Identification Reimbursement Consultant Name: <+> 5 Implant Expiration Date <+> 5 Implant Site <+> 5 Implant Quantity <+> 5 Implant Identification Catalog Number <+> 5 Implant Type <+> 5 Implant Has an Expiration Date <+> 5 Type [facility] IntraOp Intraoperative Assessment Entry 1 [...] Modified By: Cierra Ascencio RN 06/11/20 08:20:35 [facility] IntraOp Intraoperative Equipment Entry 1 Type Equipment Equipment Equipment Colt Suction System ID Number [id number] Setting HIGH Intraop Monitoring Electrocardiogram Five lead placement (ECG) Electrode Placement Blood Pressure Non-Invasive BP Device Source Antiembolic Devices Antiembolic Devices Sequential compression device, knee high Antiembolic Device Right Location Antiembolic Device [id number] ID Number Antiembolic Device HIGH Setting Scopes Photo/Video Documentation Photo No Video No Last Modified By: Cirera Ascencio RN 06/11/20 08:28:28 [facility] IntraOp Intraoperative Equipment Audit 06/11/20 08:28:28 Weld Lay Out Worker: JEREMY Modifier: JEREMY <+> 1 ID Number <+> 1 Antiembolic Device ID Number [facility] IntraOp Medication Admin Entry 1 Entry 2 Entry 3 Medication/Irrigant Bacitracin 50,00units EM IRR NACL 0.9PCT Bacitracin 50,00units powder vial 2000ML [id number] powder vial Combo Med List 1 - Combo Med 1 - Combo Med 2 - Combo Med Time Administered Route of ADDED TO IRRIGATION IRRIGATION ADDED TO IRRIGATION Administration Dose Dose 68105 Unit of Measure units Volume Administered By KAYLEIGH GARNER KARTHIKEYAN, THARUN, KARTHIKEYAN, THARUN, MD-ORT -ORT -ORT Procedure Irrigation Irrigant Volume In Irrigant Volume Out Last Modified By: AscencioCierra mancera RN Maynard, Leanne, RN Maynard, Leanne, RN 06/11/20 08:24:33 06/11/20 08:24:33 06/11/20 08:24:33 Entry 4 Medication/Irrigant EM IRR NACL 0.9PCT [id number] Combo Med List 2 - Combo Med Time Administered Route of IRRIGATION Administration Dose Dose Unit of Measure Volume Administered By KAYLEIGH GARNER MD-ORAgustín Procedure Irrigation Irrigant Volume In Irrigant Volume Out Last Modified By: Cierra Ascencio RN 06/11/20 08:24:33 [facility] IntraOp Medication Admin Audit 06/11/20 08:24:33 Weld Lay Out Worker: JEREMY Modifier: JEREMY <+> 1 Route of [...] Administered By <+> 4 Combo Med List [facility] IntraOp Patient Positioning Entry 1 [...] SUPPORT FOR FOOTREST Positioned By KAYLEIGH GARNER MD-ORAgustín, MINESH HORN APRN, Cierra Ascencio, NIEVES, GONZALO RODRIGUEZ CSA Position Verified Positioning Yes Verified by Anesthesia Positioning Yes Verified by Surgeon Last Modified By: Cierra Ascencio RN 06/11/20 08:21:50 [facility] IntraOp Sign In Entry 1 [...] Modified By: Cierra Ascencio RN 06/11/20 08:20:41 [facility] IntraOp Sign Out Entry 1 [...] Modified By: JULIETA RODRIGUEZ RN 06/11/20 10:46:57 [facility] IntraOp Sign Out Audit 06/11/20 10:46:57 Weld Lay Out Worker: JEREMY Modifier: LOGAN <+> 1 RN Sign Out Signature Date/Time [facility] IntraOp Skin Prep Entry 1 Procedure Knee Total Joint Replacement(Left) Prescribed Yes Pre-Surgical Prep Completed Prep Area OPERATIVE THIGH TO TOES CIRCUMFRENTIALLY Intraop Prep Integumentary WDL Assessment WDL Prep Agents Alcohol, Chloraprep, DuraPrep, Chlorhexadine gluconate Prep by Cierra Ascencio RN Hair Removal Methods No hair removal performed Last Modified By: Cierra Ascencio RN 06/11/20 08:24:42 [facility] IntraOp Surgical Procedures Entry 1 Procedure Knee Total Joint Replacement Modifiers Left Additional LT TOTAL KNEE Procedure ARTHROPLASTY Description Primary Procedure Yes Primary Surgeon KAYLEIGH GARNER MD-ORT Start 06/11/20 09:14:00 Stop 06/11/20 10:37:00 Anesthesia Type General Specialty SN Orthopedic Wound Class I - Clean Last Modified By: Cierra Ascencio RN 06/11/20 10:37:22 [facility] IntraOp Surgical Procedures Audit 06/11/20 10:37:22 Weld Lay Out Worker: JEREMY Modifier: JEREMY <+> 1 Stop 06/11/20 09:27:34 Weld Lay Out Worker: JEREMY Modifier: JEREMY 1 <*> Procedure Knee Total Joint Replacement 1 <+> Start 1 <*> Additional Procedure Description (LT TOTAL KNEE ARTHROPLASTY) [facility] IntraOp Temp Regulation Devices Entry 1 Temp Regulation Temperature Forced Air Warming Regulation Device device, Warm blankets Temperature 89994 Regulation Device Serial/Unit Number Temperature Upper body Regulation Site Temperature Device 43 DEGREES CELCIUS Setting Temperature MINESH HORN APRN Regulation Device Applied by Last Modified By: Cierra Ascencio RN 06/11/20 08:29:31 [facility] IntraOP Time Out Entry 1 [...] Modified By: Cierra Ascencio RN 06/11/20 09:13:32 [facility] IntraOP Time Out Audit 06/11/20 09:13:32 Weld Lay Out Worker: JEREMY Modifier: JEREMY 1 <+> Time Out Pause Time 1 <*> Procedure to be Performed Knee Total Joint Replacement(Left) [facility] IntraOp Tourniquet Entry 1 Type Pneumatic Serial/Unit Number [id number] Setting 300 mmHg Pheumatic Yes Tourniquet Checked Per Protocol Size 34 inches Placement Thigh, left upper Skin Protection - Yes Padded Under Cuff Applied By KAYLEIGH GARNER MD-ORT Removed By GONZALO RODRIGUEZ CSA Kayce Start Time 06/11/20 09:13:00 Stop Time 06/11/20 10:24:00 Total Time 71 calculated manually (Mins) Last Modified By: Cierra Ascencio RN 06/11/20 10:24:38 [facility] IntraOp Tourniquet Audit 06/11/20 10:24:38 Weld Lay Out Worker: JEREMY Modifier: MAYNARL <+> 1 Total Time calculated manually (Mins) <+> 1 Stop Time 06/11/20 09:13:38 Weld Lay Out Worker: JEREMY Modifier: MAYNARL <+> 1 Start Time Case Comments <None> Finalized By: BRE LAMB Document Signatures Signed By: JULIETA RODRIGEUZ RN 06/11/20 10:47 BRE LAMB 06/14/20 12:40 Unfinalized History Date/Time Username Reason for Unfinalizing Freetext Reason for Unfinalizing 06/14/20 12:36 ADONISDR Correct Billing Electronically signed by Patricia [facility] Conversion Cat Sitter Cerner at 01/21/2023 5:33 PM CDT documented in this encounter Plan of Treatment Not on file documented as of this encounter Visit Diagnoses Not on filedocumented in this encounter
--- OUTSIDE RECORDS SUMMARY | 2025-04-18 09:55 | XMS_ITS | Encounter Summary ---
Author Organization [employer] ([place], [place], [place], [place]) Address [address] [place] [address] Care Team Providers Care Stencil Inspector Name Role Phone Unavailable Primary Care Provider Unavailabl e Encounter Details Date Type Department Care Team (Late st Contact Info) Description 06/11/2020 Transcribed Document [facility] Radiology [address] [place] [address] Provider, Zahraa Zaragoza MD Social [...] Note - Zahraa Redd MD - 06/11/2020 7:56 AM EDT Admission History, [...] Mobility Assistance Prior to Admission : Independent WU Hx Falls Immediate/Within 3 Months : No Current Home Treatments : None MARTHA LEONE RN - 06/11/2020 12:25 EDT General Info Preferred Name : Manju Arrived From : Home Mode of Arrival on Unit : Ambulatory Legal Guardian : Spouse, Unaccompanied Support Person/Patient Inner Tube Cutter : Yes Support Person/Pt Rep Name : Adryan De Luna, spouse Support Person/Pt Rep Contact Information : [phone] Want Family/Rep/Phys Notified of Admit : No Emergency Contact #1 : Adryan De Luna Emergency Contact #1 Emergency Contact #1 Relationship : spouse Emergency Contact #2 : Jesi Barakat Emergency Contact #2 Emergency Contact #2 Relationship : daughter Information Obtained From : Patient Primary Language : Italian Preferred Communication Mode : Verbal Communication Barrier : None Cut Off Saw Operator Pipe Blanks Needed : No Objects to Sharing Info w Family : No MARTHA LEONE RN - 06/11/2020 12:25 EDT Fall Risk Scales ABCs Fall Injury Risk Identification : Surgery ABC Fall Injury Risk : Moderate to high injury risk Injury Moderate to High Risk Interventions : High Risk for Fall Injury sign in place per policy WU Hx Falls Immediate/Within 3 Months : No Wu Secondary Diagnosis : Yes WU Use of Ambulatory Aid : Bed rest/Nurse assist WU IV Therapy or IV Access : Yes Wu Gait/Transferring : Weak Wu Mental Status : Oriented to own ability Wu Fall Risk Score : 45 WU Fall Scale Risk Level : 25-45 Medium Risk [place] Fall Interventions : Adequate lighting, Assistive devices [...] (Last Updated: 05/24/2020 13:42:53 EDT by KATHLEEN HAYES RN) Alcohol: Alcohol Use History Yes. Use in Last 12 Months: Yes. Alcohol Use Frequency Socially. (Last Updated: 05/24/2020 13:43:02 EDT by KATHLEEN HAYES, RN) Substance Abuse: Drug Use Hx: No. Use in Last 12 Months: No. (Last Updated: 05/24/2020 13:43:07 EDT by KATHLEEN HAYES, RN) Height and Weight, Clinical Dosing Height Source : Measured Height Entry Format : [place] Height, Feet : 0 ft(Converted to: 0 cm, 0 Inch) Height, Inches : 64 Inch(Converted to: 5 ft 4 Inch, 162.56 cm) Clinical Height : 162.56 cm Weight Source : Standing scale Weight Entry Format : [place]ke Clinical Dosing Weight : 85.77 kg Weight, Pounds : 188.7 lb Body Surface Area (BSA) : 1.91 m2 Body Mass Index : 32.5 kg/m2 (HI) [place] Body Weight : 54 kg MARTHA LEONE [...] MARTHA LEONE RN - 06/11/2020 12:25 EDT [place] Suicide Severity Rating Scale (C-SSRS) CSSRS Past [...] Needs Comment : Preop prayer, surgery 06/11/2020 Sabianism Preference : Catholic ([employer]) Spiritual/Cultural Needs Comment : [...]
--- OUTSIDE RECORDS SUMMARY | 2025-04-18 09:55 | XMS_ITS | Encounter Summary ---
Author Organization [employer] ([place], [place], [place], [place]) Address [address] [place] [address] Care Team Providers Care Correspondence School Instructor Name Role Phone Unavailable Primary Care Provider Unavailabl e Encounter Details Date Type Department Care Team (Late st Contact Info) Description 06/11/2020 Transcribed Document [facility] Radiology [address] [place] [address] Provider, Zahraa Zaragoza MD Social [...] : One story Stairs : No JADYN BYRD, PT - 06/11/2020 15:38 EDT Prior Level [...] ) Stand to Sit : Supervision/set-up JADYN BYRD, PT - 06/11/2020 15:38 EDT Sit to [...] of Assistive Device : Returns demonstration JADYN BYRD, PT - 06/11/2020 15:38 EDT Indication Assesessment, PT Physical Therapy Indicated : JADYN Sawant, PT - 06/11/2020 15:38 EDT Plan of Care, PT PT Tx Plan/Goals Established w Patient : JADYN Sawant, PT - 06/11/2020 15:38 EDT Treatment Note Subjective Comment : Pt agreeable to PT narda, states intention for same-day discharge. Patient's Response to Treatment : Excellent tolerance to mobility tasks, no stairs to navigate. Demonstrates excellent use of BUE's on RWx for stability during gait tasks. Issued HEP and educated about progressive use of bone foam. Additional Objective Information : L knee ROM 0-102, Joint dramatic coach present CGA stand sit with RWx CGA gait x 50ft with RWx Assessment : Excellent stability evidence with RWx, good use of BUE's on RWx to promote stability and manage foot drop and numbness. No stairs to navigate to enter home. Appropriate for same-day discharge. Plan for Treatment : Discontinue JADYN BYRD, PT - 06/11/2020 15:38 EDT Pain Assessment [...]
--- OUTSIDE RECORDS SUMMARY | 2025-04-18 09:55 | XMS_ITS | Encounter Summary ---
Author Organization [employer] ([place], [place], [place], [place]) Address [address] [place] [address] Care Team Providers Care City Carrier Assistant Name Role Phone Unavailable Primary Care Provider Unavailabl e Encounter Details Date Type Department Care Team (Late st Contact Info) Description 06/13/2020 Transcribed Document [facility] Radiology [address] [place] [address] Provider, Zahraa Zaragoza MD Social [...] Discharge Disposition : Discharge To Care Management: Home/Residential/[facility] or Self Care - Post Visit Phone Call History : First call Contact Relationship to Patient : Spouse Provider Follow-Up Post Discharge : Discharge Follow Up [facility] - 01:00 PM ROBBIE MAYBERRY PA-ORT - 03:00 PM Previously Documented Care Home Patient Stated Goal : No Patient Stated [...] Any Horn RN-Navigator - 06/13/2020 12:15 EDT Electronically signed by Zahraa Gomez Conversion Tower Air Traffic Control Specialist Cerner at 01/21/2023 5:33 PM CDT documented in this encounter Plan of Treatment Not on file documented as of this encounter Visit Diagnoses Not on filedocumented in this encounter
--- OUTSIDE RECORDS SUMMARY | 2025-04-18 09:55 | XMS_ITS | Encounter Summary ---
Author Organization [employer] ([place], [place], [place], [place]) Address [address] [place] [address] Care Team Providers Care Home Service Demonstrator Name Role Phone Unavailable Primary Care Provider Unavailabl e Encounter Details Date Type Department Care Team (Late st Contact Info) Description 05/24/2020 Transcribed Document [facility] Radiology 1 [place] [address] Provider, Zahraa Zaragoza MD Social [...] Conversion Note - Zahraa Zaragoza ProviderMD - 05/24/2020 2:46 PM EDT PAT [...] Source : Measured Height Entry Format : Goree Height, Feet : 0 ft(Converted to: 0 cm, 0 Inch) Height, Inches : 64 Inch(Converted to: 5 ft 4 Inch, 162.56 cm) Clinical Height : 162.56 cm Weight Source : Standing scale Weight Entry Format : Goree Clinical Dosing Weight : 85.77 kg Weight, Pounds : 188.7 lb Body Surface Area (BSA) : 1.91 m2 Body Mass Index : 32.5 kg/m2 (HI) [place] Body Weight : 54 kg KATHLEEN HAYES [...] KATHLEEN HAYES RN - 05/24/2020 13:46 EDT [place] Suicide Severity Rating Scale (C-SSRS) CSSRS Past [...] RN - 06/11/2020 6:32 EDT Support Person/Patient Cleat Maker : Yes Support Person/Pt Rep Name : Adryan De Luna, spouse Support Person/Pt Rep Contact Information : [phone] Want Family/Rep/Phys Notified of Admit : No Emergency Contact #1 : Adryan De Luna Emergency Contact #1 Emergency Contact #1 Relationship : spouse Emergency Contact #2 : Jesi Roshni Emergency Contact #2 Emergency Contact #2 Relationship : daughter Information Obtained From : Patient Primary Language : [place] Leonean Preferred Communication Mode : Verbal Communication Barrier : None Hand Model Needed : No Objects to Sharing Info [...] Sleep Apnea Risk Level Score : 2 KAHTLEEN HAYES RN - 05/24/2020 13:46 EDT documented in this encounter Plan of Treatment Not on file documented as of this encounter Visit Diagnoses Not on filedocumented in this encounter
--- OUTSIDE RECORDS SUMMARY | 2025-04-18 09:55 | XMS_ITS | Encounter Summary ---
Author Organization [employer] ([place], [place], [place], [place]) Address [address] [place] [address] Care Team Providers Care Board Runner Name Role Phone Unavailable Primary Care Provider Unavailabl e Encounter Details Date Type Department Care Team (Late st Contact Info) Description 06/11/2020 Transcribed Document [facility] Radiology 1 [place] [address] Provider, Zahraa Zaragoza MD Social [...] Note - Zahraa Redd MD - 06/11/2020 8:18 AM EDT Procedural Documentation Entered On: 06/11/2020 7:19 EDT Performed On: 06/11/2020 7:18 EDT by CLYDE Moran RN Procedure Documentation Procedure to be Performed [...] after prepped/draped Procedure Case Attendee : ROYA MORAN MD-ANS Procedure Case Attendee Role : Anesthesiologist Procedure Case Attendee Role 2 : silk hanger Case Attendee 2 : Dean, NIEVES MATTSON DUSTI W, RN - 06/11/2020 7:18 EDT [...] air Antoine l Score : 9 CLYDE Moran RN - 06/11/2020 7:18 EDT Vital Measurements [...] Oxygen Flow Rate : 2 Liter/Min CLYDE Moran RN - 06/11/2020 7:18 EDT documented in this encounter Plan of Treatment Not on file documented as of this encounter Visit Diagnoses Not on filedocumented in this encounter
--- OUTSIDE RECORDS SUMMARY | 2025-04-18 09:55 | XMS_ITS | Encounter Summary ---
Author Organization [employer] ([place], [place], [place], [place]) Address [address] [place] [address] Care Team Providers Care Credit Authorizer Name Role Phone Unavailable Primary Care Provider Unavailabl e Encounter Details Date Type Department Care Team (Late st Contact Info) Description 06/11/2020 Transcribed Document [facility] Radiology 1 [place] [address] ProviderZahraa MD Social History Tobacco [...] On: 06/11/2020 12:00 EDT by Omar Hermosillo APPLICATIONS PROCESSOR LEAD Meds to Bed Enrollment Patient Enrollment Decision: : Yes/enroll in meds to bed program Omar Hermosillo APPLICATIONS PROCESSOR LEAD - 06/11/2020 13:55 EDT documented in this encounter Plan of Treatment Not on file documented as of this encounter Visit Diagnoses Not on filedocumented in this encounter
--- OUTSIDE RECORDS SUMMARY | 2025-04-18 09:55 | XMS_ITS | Encounter Summary ---
Author Organization [employer] ([place], [place], [place], [place]) Address [address] [place] [address] Care Team Providers Care Poolroom/Poolhall Manager Name Role Phone Unavailable Primary Care Provider Unavailabl e Encounter Details Date Type Department Care Team (Late st Contact Info) Description 06/12/2020 Transcribed Document [facility] Radiology 1 [place] [address] ProviderZahraa MD Social History Tobacco [...] Conversion Note - Zahraa Redd MD - 06/12/2020 10:24 AM EDT UM Authorization Entered On: 06/12/2020 9:24 EDT Performed On: 06/12/2020 9:24 EDT by KSENIA WILKINS RN-Utilization Review Primary Insurance Authorization Authorization and Policy Numbers : Insurance 1 Health Plan: R Policy Number: [id number] Authorization Number: NPR Insurance Primary Name : [employer] Policy Number: [id number] Authorized Service Begin Date-Primary : 06/11/2020 EDT Authorization Comments-Primary : no precert required per [facility]AR notes Historical Authorization Comments-Primary : No Authorization Comments Found KSENIA WILKINS, RN-Utilization Review - 06/12/2020 9:24 EDT documented in this encounter Plan of Treatment Not on file documented as of this encounter Visit Diagnoses Not on filedocumented in this encounter
--- OUTSIDE RECORDS SUMMARY | 2025-04-18 09:55 | XMS_ITS | Encounter Summary ---
Author Organization [employer] ([place], [place], [place], [place]) Address [address] [place] [address] Care Team Providers Care Telegraph Repeater Technician Name Role Phone Unavailable Primary Care Provider Unavailabl e Encounter Details Date Type Department Care Team (Late st Contact Info) Description 06/11/2020 Transcribed Document [facility] Radiology 1 [place] [address] Provider, Zahraa Zaragoza MD Social [...] [facility] Center Mila Redd MD - 06/11/2020 4:14 PM EDT [facility] [address] [place] [address] JERMAN GILBERT FARIHA :1960 Visit Time:06/11/2020 Your Visit Summary Your Care Team Admitting Physician - KAYLEIGH SÁNCHEZ MD-ORT Attending Physician - KAYLEIGH SÁNCHEZ MD-BASHIR Primary Care Physician - SAHIL MARIN (REF)MD-INT [...] PA-ORAgustín When 07/02/2020 03:00 PM EST Where: [facility] [place] [address]- Follow Up with [facility] Outpatient PT When 06/13/2020 01:00 PM EDT Comments Appointment has been made Where: [facility] [phone] Medications What How Much When Instructions Next [...] of Dr. Sánchez or Dr. Mathias, call [phone] If you are a patient of Dr. Forbes, call [phone] Nurse Navigator: Renee Horn Office: [phone]; ; available during regular business hours acetaminophen [...] may report side effects to FDA at 4-571-SRT-4518. What other drugs will affect acetaminophen and [...] affect acetaminophen and oxycodone, including prescription and ykbk-ois-ggktogi medicines, vitamins, and herbal products. Not all [...] to ensure that the information provided by [employer]. ('[employer]') is accurate, up-to-date, and complete, but no guarantee is made to that effect. Drug information contained herein may be time sensitive. [employer] information has been compiled for use by healthcare practitioners and consumers in the [place] and therefore [employer] does not warrant that uses outside of the [place] are appropriate, unless specifically indicated otherwise. [employer] drug information does not endorse drugs, diagnose patients or recommend therapy. [employer] drug information is an informational resource designed [...] effective or appropriate for any given patient. [employer] does not assume any responsibility for any aspect of healthcare administered with the aid of information [employer] provides. The information contained herein is not intended to cover all possible uses, directions, precautions, warnings, drug interactions, allergic reactions, or adverse effects. If you have questions about the drugs you are taking, check with your doctor, nurse or pharmacist. Copyright 0023-3499 [employer]. Version: .. Revision Date: 09/21/2019. aspirin (oral) [...] What is aspirin? Aspirin is a salicylate (he-UKN-gf-ate) that is used to treat pain, and [...] may report side effects to FDA at 8-726-CGQ-1888. What other drugs will affect aspirin? Ask [...] drugs may affect aspirin, including prescription and xzhf-bbp-ceflwnl medicines, vitamins, and herbal products. Not all [...] to ensure that the information provided by [employer]. ('[employer]') is accurate, up-to-date, and complete, but no guarantee is made to that effect. Drug information contained herein may be time sensitive. [employer] information has been compiled for use by healthcare practitioners and consumers in the [place] and therefore [employer] does not warrant that uses outside of the [place] are appropriate, unless specifically indicated otherwise. [employer] drug information does not endorse drugs, diagnose patients or recommend therapy. [employer] drug information is an informational resource designed [...] effective or appropriate for any given patient. [employer] does not assume any responsibility for any aspect of healthcare administered with the aid of information [employer] provides. The information contained herein is not intended to cover all possible uses, directions, precautions, warnings, drug interactions, allergic reactions, or adverse effects. If you have questions about the drugs you are taking, check with your doctor, nurse or pharmacist. Copyright 9552-8692 [employer]. Version: 16.02. Revision Date: 04/18/2020. meloxicam (oral/injection) [...] may report side effects to FDA at 4-435-EQN-1862. What other drugs will affect meloxicam? Ask [...] drugs may affect meloxicam, including prescription and drjy-bql-qkiynvx medicines, vitamins, and herbal products. Not all [...] to ensure that the information provided by [employer]. ('[employer]') is accurate, up-to-date, and complete, but no guarantee is made to that effect. Drug information contained herein may be time sensitive. [employer] information has been compiled for use by healthcare practitioners and consumers in the [place] and therefore [employer] does not warrant that uses outside of the [place] are appropriate, unless specifically indicated otherwise. [employer] drug information does not endorse drugs, diagnose patients or recommend therapy. [employer] drug information is an informational resource designed [...] effective or appropriate for any given patient. [employer] does not assume any responsibility for any aspect of healthcare administered with the aid of information [employer] provides. The information contained herein is not intended to cover all possible uses, directions, precautions, warnings, drug interactions, allergic reactions, or adverse effects. If you have questions about the drugs you are taking, check with your doctor, nurse or pharmacist. Copyright 5364-0413 [employer]. Version: 13.02. Revision Date: 12/28/2019. pregabalin (pre [...] may report side effects to FDA at 7-789-WVX-0296. What other drugs will affect pregabalin? Using [...] drugs may affect pregabalin, including prescription and viai-mua-afaetzf medicines, vitamins, and herbal products. Not all [...] to ensure that the information provided by [employer]. ('[employer]') is accurate, up-to-date, and complete, but no guarantee is made to that effect. Drug information contained herein may be time sensitive. [employer] information has been compiled for use by healthcare practitioners and consumers in the [place] and therefore [employer] does not warrant that uses outside of the [place] are appropriate, unless specifically indicated otherwise. [employer] drug information does not endorse drugs, diagnose patients or recommend therapy. [employer] drug information is an informational resource designed [...] effective or appropriate for any given patient. [employer] does not assume any responsibility for any aspect of healthcare administered with the aid of information [employer] provides. The information contained herein is not intended to cover all possible uses, directions, precautions, warnings, drug interactions, allergic reactions, or adverse effects. If you have questions about the drugs you are taking, check with your doctor, nurse or pharmacist. Copyright 7360-5994 [employer]. Version: 9.01. Revision Date: 08/25/2019. docusate (oral/rectal) [...] may report side effects to FDA at 7-032-DQO-4739. What other drugs will affect docusate? Other drugs may affect docusate, including prescription and pqyh-ems-aojppzd medicines, vitamins, and herbal products. Tell your [...] to ensure that the information provided by [employer]. ('[employer]') is accurate, up-to-date, and complete, but no guarantee is made to that effect. Drug information contained herein may be time sensitive. [employer] information has been compiled for use by healthcare practitioners and consumers in the [place] and therefore [employer] does not warrant that uses outside of the [place] are appropriate, unless specifically indicated otherwise. [employer]'s drug information does not endorse drugs, diagnose patients or recommend therapy. [employer] drug information is an informational resource designed [...] effective or appropriate for any given patient. [facility] does not assume any responsibility for any aspect of healthcare administered with the aid of information [facility] provides. The information contained herein is not intended to cover all possible uses, directions, precautions, warnings, drug interactions, allergic reactions, or adverse effects. If you have questions about the drugs you are taking, check with your doctor, nurse or pharmacist. Copyright 5801-0003 [facility]. Version: 4.01. Revision Date: 03/07/2019. ondansetron (oral) [...] may report side effects to FDA at 2-104-YAI-7733. What other drugs will affect ondansetron? Ondansetron [...] interact with ondansetron. This includes prescription and klkk-mgp-pullkzb medicines, vitamins, and herbal products. Give a [...] to ensure that the information provided by [employer]. ('[employer]') is accurate, up-to-date, and complete, but no guarantee is made to that effect. Drug information contained herein may be time sensitive. [employer] information has been compiled for use by healthcare practitioners and consumers in the [place] and therefore [employer] does not warrant that uses outside of the [place] are appropriate, unless specifically indicated otherwise. [employer]'s drug information does not endorse drugs, diagnose patients or recommend therapy. [employer] drug information is an informational resource designed [...] effective or appropriate for any given patient. [employer] does not assume any responsibility for any aspect of healthcare administered with the aid of information [employer] provides. The information contained herein is not intended to cover all possible uses, directions, precautions, warnings, drug interactions, allergic reactions, or adverse effects. If you have questions about the drugs you are taking, check with your doctor, nurse or pharmacist. Copyright 2694-4424 [employer]. Version: 13.01. Revision Date: 06/20/2016. Emergency Awareness [...] Assistance with quitting is available by contacting 1-569-CHYO-NOW. This is a free resource providing counseling, support, and referral. Or you may contact your personal physician. [place] Suicide Prevention Lifeline: The National Suicide Prevention [...] present with atypical symptoms: Fainting/dizziness Weakness Confusion Electronically signed by Zahraa Gomez Conversion Automobile Body Repair Supervisor Eileen at 01/21/2023 5:33 PM CDT documented in this encounter Plan of Treatment Not on file documented as of this encounter Visit Diagnoses Not on filedocumented in this encounter
--- OUTSIDE RECORDS SUMMARY | 2025-04-18 09:55 | XMS_ITS | Encounter Summary ---
Author Organization [employer] ([place], [place], [place], [place]) Address [address] [place] [address] Care Team Providers Care Applications Sales Representative Name Role Phone Unavailable Primary Care Provider Unavailabl e Encounter Details Date Type Department Care Team (Late st Contact Info) Description 06/11/2020 Transcribed Document [facility] Radiology 1 [place] [address] Kayleigh Sánchez MD [facility] [place] [address] Social History Tobacco Use Types Packs/Day Years [...] KAYLEIGH SÁNCHEZ MD-ORT (Surgeon/Proceduralist, First) Surgeon: Gonzalo Flame Cutting Machine Operator: Andreas Barahona CSA *Procedure Narrative Patient identified [...] and PCL were resected. Next, distal femoral airplane patrol pilot hole was drilled and the intramedullary [...] Bovie. Femur was sized. The [employer] gap grinding machine tender was placed and tensed. Posterior condyle resection as noted above. Drill holes made through the grinding machine tender and the appropriately sized four-in-one block placed [...]
--- OUTSIDE RECORDS SUMMARY | 2025-04-18 09:55 | XMS_ITS | Referral Summary ---
Author Organization [email or web address] ([place], [place], [place], [place]) Address [address] [place] [address] Care Team Providers Care Rigging Up Worker Name Role Phone Unavailable Primary Care Provider [...]
--- OUTSIDE RECORDS SUMMARY | 2025-04-18 09:55 | XMS_ITS | Encounter Summary ---
Author Organization [employer] ([place], [place], [place], [place]) Address [address] [place] [address] Care Team Providers Care Garnett Room Worker Name Role Phone Unavailable Primary Care Provider Unavailabl e Encounter Details Date Type Department Care Team (Late st Contact Info) Description 05/04/2020 Transcribed Document [facility] Radiology 1 [place] [address] Provider, Zahraa Zaragoza MD Social [...] Conversion Note - Zahraa Redd MD - 05/04/2020 4:16 PM EDT Total Joints [...] from sitting : Mild 7. Bending to floor/grape picker an object : Mild KOOS Raw Score (ref) : 11 Any Horn [...]
[2025-04-18 10:25] VITALS: PULSE 70; PULSE 72
[2025-04-18] MEDS: ALBUTEROL 0.083% 2.5 MG/3 ML NEB IH (10:25)
== END 2025-04-18 23:59 | disposition home or self-care (01) ==
LOC: RT 09:53
PROVIDERS: PCP Internal Medicine; Visit Provider Internal Medicine Pulmonary Disease
DX: J44.89 Other specified chronic obstructive pulmonary disease (principal); R94.2 Abnormal results of pulmonary function studies
CPT/HCPCS: 94010; 94618; 94640

== ENCOUNTER 2025-06-19 09:44 | Outpatient (CLI) | payer MEDICARE, OTHER, SELFPAY ==
[2025-06-19 09:56] LABS: Hematocrit 40.4 % (37.0-47.0); Hemoglobin 13.4 g/dL (12.2-16.2); Immature Granulocytes % 0.3 %; Mean Corpuscular HGB Conc 33.2 g/dL (31.8-35.4); Mean Corpuscular Hemoglobin 31.5 pg (27.0-31.2); Mean Corpuscular Volume 95.1 fl (81-99); Nucleated Red Blood Cells % 0 %; Platelet Count 225 K/mm3 (142-424); Red Blood Count 4.25 M/mm3 (4.20-5.40); Red Cell Distribution Width-SD 47.9 fL; White Blood Count 12.2 K/mm3 (4.8-10.8)
[2025-06-19 10:27] LABS: Chloride 103 mmol/L (98-107)
[2025-06-19 10:28] LABS: Albumin Level 3.9 g/dl (3.5-5.0); Potassium 4.2 mmoL/L (3.5-5.1); Sodium 136 mmol/L (136-145)
[2025-06-19 10:30] LABS: Alanine Aminotransferase 31 U/L (12-78); Anion Gap 10.2 mEq/L (5-15); Aspartate Amino Transferase 32 U/L (14-36); Blood Urea Nitrogen 21 mg/dl (7-17); Carbon Dioxide 27 mmol/L (22.0-30.0); Creatinine,Serum 0.90 mg/dl (0.52-1.04); Estimated Glomerular Filt Rate 63 ml/min (>60); GFR (African American) 76 ML/MIN (>60)
[2025-06-19 10:31] LABS: Albumin/Globulin Ratio 1.3 (1.1-1.8); Alkaline Phosphatase 125 U/L (38-126); Bilirubin,Total 0.5 mg/dl (0.2-1.3); Calcium 8.7 mg/dl (8.4-10.2); Globulin 3.1 g/dL (1.3-3.2); Glucose 84 mg/dl (74-100); Total Protein,Serum 7.0 g/dl (6.3-8.2)
== END 2025-06-19 23:59 | disposition home or self-care (01) ==
PROVIDERS: PCP Internal Medicine; Visit Provider Internal Medicine Medical Oncology
DX: C83.00 Small cell B-cell lymphoma, unspecified site (principal)
CPT/HCPCS: 36415; 80053; 83615; 85025